=== PATIENT | male | born 1990 | race Caucasian/White ===

== ENCOUNTER 2018-06-21 02:09 | Inpatient (IN) | payer SELFPAY ==
[~2018-06-21] VITALS: Ht 188 cm; Wt 77.8 kg
[2018-06-21] VITALS (24 sets, daily range): BP systolic 116–134; BP diastolic 68–93
[~2018-06-21 02:09] MED LIST: ACHD5005 PO; AZIT-21 PO; CEPH-38 PO; CEPH-507 PO; CYCL10TA9 PO; DOXY100T2 PO; DXCC100C PO; HEPA100D33 IV; HYDR-2890 PO; HYDR-34 PO; HYDR118S10 PO; INSASP10V SQ; INSU100C; INSU100I14 SQ; INSU100I29 SQ; INSU100I5 SQ; INSU100V SC; INSU100V SQ; INSU100V6 SC; INSU100V6 SQ; K-ROCEP1PB IV; MONT10TA21 PO; NAPR-243 PO; NS10S IV; Nystatin PO; ONDA-42 SL; ONDA8TAB13 PO; ONDA8TAB6 PO; ONDA8TAB9 PO; OXYC-309 PO; PNT40TEC PO; RIFA300C39 PO; SULF1TAB35 PO; TRAM50TA2 PO; TRM50T PO; [UNRECOGNIZED DRUG - CODE] IV; [UNRECOGNIZED DRUG - CODE] IV
[2018-06-21] MEDS ORDERED: NS IV 1000 ML 1,000 ML IV ONE ×2 (02:14→03:00)
[2018-06-21] MEDS ORDERED: ONDANSETRON 4 MG/2 ML (SDV) Z0FRAN IVP ONE (02:15)
--- OUTSIDE RECORDS SUMMARY | 2018-06-21 02:15 | XMS REPORT ---
Author Author FINA OLMEDO Organization [facility] Address [address] [place] [address] Care Team Providers Care Gas Meter Checker Name Role Phone FINA OLMEDO Unavailable PROBLEMS Type Condition ICD9-CM Code KOI79-TL Code Onset Dates Condition Status SNOMED Code Problem Nephritis and nephropathy, not specified as acute or chronic, with other specified pathological lesion in kidney, in diseases classified elsewhere 583.81 Active 12961151 Problem Acute sinusitis, unspecified 461.9 Active 42133759 Problem Acute pharyngitis 462 Active 784606183 Problem Problems with sight V41.0 Active 9598757 Problem Routine general medical examination at health care facility V70.0 Active 662762820 Problem Other accidental fall from one level to another E884.9 Active 635113952 Problem Abdominal pain, generalized 789.07 Active 182915307 Problem Other chronic pain G89.29 Active 19928060 Problem Mood disorder F39 Active 44056243 Problem Type 1 diabetes mellitus without complications E10.9 Active 029463046 Problem Diabetes mellitus without mention of complication, type I [juvenile type], not stated as uncontrolled 250.01 Active 530744734 Problem Essential hypertension I10 Active 23644262 Problem Controlled diabetes mellitus type 1 without complications E10.9 Active 28020706 ALLERGIES No Known Allergies ENCOUNTERS Encounter Location Date Diagnosis [address] [id number] Jan, Mood disorder F39 ; Pain in right arm M79.601 and Type 1 diabetes mellitus without complications E10.9 [facility] [address] [facility] [id number] [address] [address] Jan, [facility] [address] [facility] [id number] [address] [address] Jan, [address] [place] [id number] Dec, Mood disorder F39 ; Other chronic pain G89.29 ; Pain in right arm M79.601 ; Controlled diabetes mellitus type 1 without complications E10.9 and Essential hypertension I10 [facility] [address] [facility] [id number], [place] [address] Dec, [facility] [address] [facility] [id number], [place] [address] 2542 Dec, Type 1 diabetes mellitus without complications E10.9 [facility] [id number] [place] [address] 2546 Jan, [facility] [address] [facility] [id number] [place] [address]97- 0448 Jan, [facility] [id number] [place] [address]344- 7519 Oct, [facility] [id number] [place] [address]4727- 6308 Oct, [facility] [id number] [place] [address]- 3386 Sep, [facility] [address]00565[place], [place] [address] 7[address] Sep, [facility] [address]00565100[place], [place] [address] 69[address] Aug, [facility] [address]00565[place], [place] [address] 3591 Aug, [facility] [address]65100[place], [place] [address] 7837 Aug, [facility] [address]00565[place], [place] [address] 254 Aug, [facility] [address] [id number], [place] [address] 2548 Aug, [facility] [address] [id number], [place] [address]- 2513 Mar, [facility] [id number] [place] [address]59- 1733 Mar, [facility] [address]65[address], [place] [address]- 7962 Jan, [facility] [address]65100[place], [place] [address]- 5296 Jan, [facility] [address]65[address], [place] [address]- 6737 Jan, [facility] [address]65100[place], [place] [address]- 1607 Dec, [facility] [address], [place] [address]- 8093 May, [facility] [address]65[address], [place] [address]- 6248 Mar, [facility] [address]65[address], [place] [address]- 2941 February, [facility] [address]65[address], [place] [address] 1626 February, [facility] [address], [place] [address]- 1304 Dec, [facility] [address]65[address], [place] [address]- 1095 Nov, [facility] [address]65[address], [place] [address]- 1523 Nov, [facility] [address] [id number], [place] [address]- 9361 Nov, [facility] [address]65[address], [place] [address]- 0994 Nov, [facility] [address] [address] Nov, IMMUNIZATIONS No Known Immunizations SOCIAL HISTORY Never Assessed REASON FOR VISIT [facility] PLAN OF CARE VITAL SIGNS Height 73 in 2018-01-27 Weight 165 lbs 2018-01-27 Heart Rate 80 bpm 2018-01-27 Respiratory Rate 16 2018-01-27 BMI 21.77 kg/m2 2018-01-27 Blood pressure systolic 120 mmHg 2018-01-27 Blood pressure diastolic 78 mmHg 2018-01-27 MEDICATIONS Medication Instructions Dosage Frequency Start Date End Date Duration Status Seroquel 200 MG Orally at bedtime 1 tablet Dec, 30 day(s) Active Nabumetone 750 MG Orally 2 times a day, PRN 1 tablet Jan, Active Humalog 100 UNIT/ML Subcutaneous 3 times a day inject 15 units, sliding scale 8h Jan, Active RESULTS No Results PROCEDURES No Known procedures INSTRUCTIONS MEDICATIONS ADMINISTERED No Known Medications
--- OUTSIDE RECORDS SUMMARY | 2018-06-21 02:15 | XMS REPORT ---
Author Author FINA OLMEDO Organization [facility] Address [address] [place] [address] Care Team Providers Care Tassel Snipper Name Role Phone FINA OLMEDO Unavailable PROBLEMS Type Condition ICD9-CM Code QBF22-EC Code Onset Dates Condition Status SNOMED Code Problem Nephritis and nephropathy, not specified as acute or chronic, with other specified pathological lesion in kidney, in diseases classified elsewhere 583.81 Active 92476420 Problem Acute sinusitis, unspecified 461.9 Active 73076687 Problem Acute pharyngitis 462 Active 928593314 Problem Problems with sight V41.0 Active 8520203 Problem Routine general medical examination at health care facility V70.0 Active 900617647 Problem Other accidental fall from one level to another E884.9 Active 727165487 Problem Abdominal pain, generalized 789.07 Active 191773300 Problem Other chronic pain G89.29 Active 29614345 Problem Mood disorder F39 Active 78909838 Problem Type 1 diabetes mellitus without complications E10.9 Active 023880200 Problem Diabetes mellitus without mention of complication, type I [juvenile type], not stated as uncontrolled 250.01 Active 098738931 Problem Essential hypertension I10 Active 58792065 Problem Controlled diabetes mellitus type 1 without complications E10.9 Active 97407420 ALLERGIES No Information ENCOUNTERS Encounter Location Date Diagnosis [address] [place] [id number] Jan, Mood disorder F39 ; Pain in right arm M79.601 and Type 1 diabetes mellitus without complications E10.9 [facility] [address] [facility] [id number] [address] 8206 Jan, [facility] [address] [id number] [address] [address] Jan, [address] [place] [id number] Dec, Mood disorder F39 ; Other chronic pain G89.29 ; Pain in right arm M79.601 ; Controlled diabetes mellitus type 1 without complications E10.9 and Essential hypertension I10 [facility] [address]100[place] [address] 130[address] Dec, [facility] [address] [id number] [address]- 2542 Dec, Type 1 diabetes mellitus without complications E10.9 [facility] [id number] [place] [address], [place] [address] 2546 Jan, [facility] [address] [facility] [id number] [place] [address], [place] [address]- 7671 Jan, [facility] [id number] [place] [address], [place] [address]- 8683 Oct, [facility] [id number] [place] [address] 80811- 9433 Oct, [facility] [id number] [place] [address] 69690- 0647 Sep, [facility] [address]100[place] [address]- 5992 Sep, [facility] [address] [place] [address] 399[address]- 2968 Aug, [facility] [address]100[place] [address]- 4763 Aug, [facility] [address]100[place] [address]- 2548 Aug, [facility] [address] [address] 2543 Aug, [facility] [address] [id number] [address]- 2546 Aug, [facility] [address] [address]- 3473 Mar, [facility] [id number] [place] [address] 37026- 2546 Mar, [facility] [address] [address]- 2026 Jan, [facility] [address]100[place] [address]- 2546 Jan, [facility] [address]100[place] [address]- 2546 Jan, [facility] [address] [address]- 0806 Dec, [facility] [address] [address]- 6846 May, [facility] [address] [place] [address] 50653- 9496 Mar, [facility] [address] [place] [address] 56125- 6566 February, [facility] [address] [address]- 2776 February, [facility] [address] [place] [address] 22577- 2405 Dec, [facility] [address] [address]- 0406 Nov, [facility] [address] [address]- 3626 Nov, [facility] [address] [address]- 2546 Nov, [facility] [address] [address]- 5426 Nov, [facility] [address] [address]- 4746 Nov, IMMUNIZATIONS No Known Immunizations SOCIAL HISTORY Never Assessed REASON FOR VISIT longterm rx PLAN OF CARE VITAL SIGNS MEDICATIONS Unknown Medications RESULTS No Results PROCEDURES No Known procedures INSTRUCTIONS MEDICATIONS ADMINISTERED No Known Medications
--- OUTSIDE RECORDS SUMMARY | 2018-06-21 02:15 | XMS REPORT ---
Author Author BARBER Allen Organization [facility] Address [address] [place] [address] Care Team Providers Care Sports Team Manager Name Role Phone BARBER Allen Unavailable PROBLEMS Type Condition ICD9-CM Code YLP03-DB Code Onset Dates Condition Status SNOMED Code Problem Nephritis and nephropathy, not specified as acute or chronic, with other specified pathological lesion in kidney, in diseases classified elsewhere 583.81 Active 13028512 Problem Acute sinusitis, unspecified 461.9 Active 21329423 Problem Acute pharyngitis 462 Active 099894635 Problem Problems with sight V41.0 Active 9125111 Problem Routine general medical examination at health care facility V70.0 Active 860427125 Problem Other accidental fall from one level to another E884.9 Active 372389088 Problem Abdominal pain, generalized 789.07 Active 008627340 Problem Other chronic pain G89.29 Active 35031844 Problem Mood disorder F39 Active 30493946 Problem Type 1 diabetes mellitus without complications E10.9 Active 162483738 Problem Diabetes mellitus without mention of complication, type I [juvenile type], not stated as uncontrolled 250.01 Active 866777854 Problem Essential hypertension I10 Active 46904079 Problem Controlled diabetes mellitus type 1 without complications E10.9 Active 41731478 ALLERGIES No Information ENCOUNTERS Encounter Location Date Diagnosis [address] [place] [id number] Jan, Mood disorder F39 ; Pain in right arm M79.601 and Type 1 diabetes mellitus without complications E10.9 [facility] [address] [facility] [id number] [address] Jan, [facility] [address] [facility] [id number] [address] [address] Jan, [address] [place] [address] Dec, Mood disorder F39 ; Other chronic pain G89.29 ; Pain in right arm M79.601 ; Controlled diabetes mellitus type 1 without complications E10.9 and Essential hypertension I10 [facility] [address]100[place] [address] 2546 Dec, [facility] [address]65100[place] [address] 2546 Dec, Type 1 diabetes mellitus without complications E10.9 [facility] [address] [place] [address] 2546 Jan, [facility] [address]65100[place] [address] 2546 Jan, [facility] [id number] [place] [address] 98[address]- 3492 Oct, [facility] [id number] [place] [address]12- 8332 Oct, [facility] [address]100[place] [address]- 9542 Sep, [facility] [address]65100[place] [address] 2546 Sep, [facility] [address]65100[place] [address] 2541 Aug, [facility] [address]65100[place] [address] 2546 Aug, [facility] [address]100[place] [address] 2546 Aug, [facility] [address]100[place] [address] 2546 Aug, [facility] [address]100[place] [address] 2546 Aug, [facility] [address]65100[place] [address] 2544 Mar, [facility] [address]100[place] [address] 2546 06 Mar, 2013 [facility] [address]100[place] [address]- 7726 16 Jan, 2013 [facility] [address] [id number] [place] [address]- 9576 Jan, [facility] [address]100[place] [address]- 8076 Jan, [facility] [address] [facility] [id number] [place] [address]- 0068 Dec, [facility] [address]100[place] [address]- 4477 May, [facility] [address]100[place] [address]- 2866 Mar, [facility] [address]100[place] [address]- 4063 February, [facility] [address]100[place] [address]- 3525 February, [facility] [address]100[place] [address]- 7623 Dec, [facility] [address]100[place] [address]- 8298 Nov, [facility] [address]100[place] [address]- 8066 15 Nov, 2011 [facility] [address] [id number] [address]- 8539 Nov, [facility] [address]100[place] [address]- 7416 Nov, [facility] [address] [id number] [address]- 8726 Nov, IMMUNIZATIONS No Known Immunizations SOCIAL HISTORY Never Assessed REASON FOR VISIT detention PLAN OF CARE VITAL SIGNS MEDICATIONS Medication Instructions Dosage Frequency Start Date End Date Duration Status NovoLog 100 unit/mL Subcutaneous 3 times a day inject 15 Units by Subcutaneous route 3 times per day before meals 8h 25 Aug, 2013 Active Lantus 100 UNIT/ML Subcutaneous 2 times a day Inject 35 units 12h 23 Dec, 2017 Active RESULTS No Results PROCEDURES No Known procedures INSTRUCTIONS MEDICATIONS ADMINISTERED No Known Medications
--- OUTSIDE RECORDS SUMMARY | 2018-06-21 02:15 | XMS REPORT ---
Author Author FINA OLMEDO Organization [facility] Address [address] [place] [address] Care Team Providers Care General Assistant Name Role Phone FINA OLMEDO Unavailable PROBLEMS Type Condition ICD9-CM Code EZE58-ZJ Code Onset Dates Condition Status SNOMED Code Problem Nephritis and nephropathy, not specified as acute or chronic, with other specified pathological lesion in kidney, in diseases classified elsewhere 583.81 Active 29478603 Problem Acute sinusitis, unspecified 461.9 Active 27214586 Problem Acute pharyngitis 462 Active 084567289 Problem Problems with sight V41.0 Active 0480957 Problem Routine general medical examination at health care facility V70.0 Active 155488227 Problem Other accidental fall from one level to another E884.9 Active 747765178 Problem Abdominal pain, generalized 789.07 Active 661141795 Problem Other chronic pain G89.29 Active 93929448 Problem Mood disorder F39 Active 85724748 Problem Type 1 diabetes mellitus without complications E10.9 Active 626210156 Problem Diabetes mellitus without mention of complication, type I [juvenile type], not stated as uncontrolled 250.01 Active 673185744 Problem Essential hypertension I10 Active 39562735 Problem Controlled diabetes mellitus type 1 without complications E10.9 Active 36400462 ALLERGIES No Known Allergies ENCOUNTERS Encounter Location Date Diagnosis [address] [id number] Jan, Mood disorder F39 ; Pain in right arm M79.601 and Type 1 diabetes mellitus without complications E10.9 [facility] [address] [facility] [id number] [address]40 Jan, [facility] [address] [facility] [id number] [address] 7629 Jan, [address] [place] [id number] Dec, Mood disorder F39 ; Other chronic pain G89.29 ; Pain in right arm M79.601 ; Controlled diabetes mellitus type 1 without complications E10.9 and Essential hypertension I10 [facility] [address] [facility] [id number], [place] [address]- 1625 Dec, [facility] [address] [facility] [id number], [place] [address]- 2544 Dec, Type 1 diabetes mellitus without complications E10.9 [facility] [id number] [place] [address] 2546 Jan, [facility] [address] [facility] [id number] [place] [address] 69480- 9204 Jan, [facility] [id number] [place] [address] 00404- 8734 Oct, [facility] [id number] [place] [address] 65310- 9019 Oct, [facility] [id number] [place] [address] 74128- 5224 Sep, [facility] [address]00565[place], [place] [address]- 7498 Sep, [facility] [address] [address]- 5636 Aug, [facility] [address] [address]- 5220 Aug, [facility] [address], [place] [address]- 6781 Aug, [facility] [address], [place] [address] 2548 Aug, [facility] [address] [id number] [address]- 2543 Aug, [facility] [address] [id number] [address]- 1314 Mar, [facility] [id number] [place] [address] 52243- 8118 Mar, [facility] [address], [place] [address]- 4077 Jan, [facility] [address], [place] [address]- 0316 Jan, [facility] [address], [place] [address]- 7806 Jan, [facility] [address], [place] [address]- 7251 Dec, [facility] [address] [id number] [address]- 3204 May, [facility] [address], [place] [address]- 8056 Mar, [facility] [address] [address]- 1528 February, [facility] [address] [address]- 0416 February, [facility] [address] [address]- 1347 Dec, [facility] [address] [address]- 7000 Nov, [facility] [address] [address]- 6537 Nov, [facility] [address] [id number] [address]- 6863 Nov, [facility] [address] [address]- 8068 Nov, [facility] [id number] [address]75 Nov, IMMUNIZATIONS No Known Immunizations SOCIAL HISTORY Never Assessed REASON FOR VISIT [facility] PLAN OF CARE VITAL SIGNS Height 73 in 2018-01-13 Weight 163 lbs 2018-01-13 Heart Rate 70 bpm 2018-01-13 Respiratory Rate 16 2018-01-13 BMI 21.50 kg/m2 2018-01-13 Blood pressure systolic 132 mmHg 2018-01-13 Blood pressure diastolic 90 mmHg 2018-01-13 MEDICATIONS Medication Instructions Dosage Frequency Start Date End Date Duration Status Naproxen 500 MG Orally every 12 hrs 1 tablet with food or milk as needed 12h Dec, Active Seroquel 100 mg Orally at bedtime 1 tablet Dec, 30 day(s) Active Lisinopril 5 MG Orally Once a day 1 tablet 24h Dec, 30 day(s) Active RESULTS No Results PROCEDURES No Known procedures INSTRUCTIONS MEDICATIONS ADMINISTERED No Known Medications
--- OUTSIDE RECORDS SUMMARY | 2018-06-21 02:15 | XMS REPORT ---
Author Author FINA OLMEDO Organization [facility] Address [address] [place] [address] Care Team Providers Care Lean Manufacturing Specialist Name Role Phone FINA OLMEDO Unavailable PROBLEMS Type Condition ICD9-CM Code [id number] Code Onset Dates Condition Status SNOMED Code Problem Nephritis and nephropathy, not specified as acute or chronic, with other specified pathological lesion in kidney, in diseases classified elsewhere 583.81 Active 76225574 Problem Acute sinusitis, unspecified 461.9 Active 39385501 Problem Acute pharyngitis 462 Active 836932133 Problem Problems with sight V41.0 Active 4936065 Problem Routine general medical examination at health care facility V70.0 Active 327086465 Problem Other accidental fall from one level to another E884.9 Active 509425676 Problem Abdominal pain, generalized 789.07 Active 711677455 Problem Other chronic pain G89.29 Active 36127982 Problem Mood disorder F39 Active 39785548 Problem Type 1 diabetes mellitus without complications E10.9 Active 909852558 Problem Diabetes mellitus without mention of complication, type I [juvenile type], not stated as uncontrolled 250.01 Active 067401727 Problem Essential hypertension I10 Active 86957597 Problem Controlled diabetes mellitus type 1 without complications E10.9 Active 47924559 ALLERGIES No Information ENCOUNTERS Encounter Location Date Diagnosis [address] [place] [id number] Jan, Mood disorder F39 ; Pain in right arm M79.601 and Type 1 diabetes mellitus without complications E10.9 [facility] [address] [facility] [id number] [address] Jan, [facility] [id number] [address] Jan, [address] [place] [id number] Dec, Mood disorder F39 ; Other chronic pain G89.29 ; Pain in right arm M79.601 ; Controlled diabetes mellitus type 1 without complications E10.9 and Essential hypertension I10 [facility] [address] [address] Dec, [facility] [id number] [address] Dec, Type 1 diabetes mellitus without complications E10.9 [facility] [id number] [place] [address], [place] [address] Jan, [facility] [address] [facility] [id number] [place] [address], [place] [address] Jan, [facility] [id number] [place] [address], [place] [address] Oct, [facility] [id number] [place] [address] Oct, [facility] [id number] [place] [address] Sep, [facility] [address], [place] [address] Sep, [facility] [address] [place] [address] Aug, [facility] [address], [place] [address] Aug, [facility] [address], [place] [address] Aug, [facility] [address], [place] [address] Aug, [facility] [address] [address] Aug, [facility] [address], [place] [address] Mar, [facility] [id number] [place] [address] Mar, [facility] [address] [address] Jan, [facility] [address], [place] [address] Jan, [facility] [address], [place] [address] Jan, [facility] [address], [place] [address] Dec, [facility] [address], [place] [address] May, [facility] [address], [place] [address] Mar, [facility] [address] [place] [address] February, [facility] [address], [place] [address] February, [facility] [address], [place] [address] Dec, [facility] [address], [place] [address] Nov, [facility] [address], [place] [address] Nov, [facility] [address], [place] [address] Nov, [facility] [address], [place] [address] Nov, [facility] [address], [place] [address] Nov, IMMUNIZATIONS No Known Immunizations SOCIAL HISTORY Never Assessed REASON FOR VISIT penitentiary f/u PLAN OF CARE VITAL SIGNS MEDICATIONS Unknown Medications RESULTS No Results PROCEDURES No Known procedures INSTRUCTIONS MEDICATIONS ADMINISTERED No Known Medications
--- OUTSIDE RECORDS SUMMARY | 2018-06-21 02:15 | XMS REPORT ---
Author Author FINA OLMEDO Organization [facility] Address [address] [place] [address] Care Team Providers Care Draw End Hand Name Role Phone FINA OLMEDO Unavailable PROBLEMS Type Condition ICD9-CM Code WGR05-SP Code Onset Dates Condition Status SNOMED Code Problem Nephritis and nephropathy, not specified as acute or chronic, with other specified pathological lesion in kidney, in diseases classified elsewhere 583.81 Active 84432409 Problem Acute sinusitis, unspecified 461.9 Active 00798680 Problem Acute pharyngitis 462 Active 531331437 Problem Problems with sight V41.0 Active 6872329 Problem Routine general medical examination at health care facility V70.0 Active 607533793 Problem Other accidental fall from one level to another E884.9 Active 192184817 Problem Abdominal pain, generalized 789.07 Active 173912688 Problem Other chronic pain G89.29 Active 10834673 Problem Mood disorder F39 Active 73529381 Problem Type 1 diabetes mellitus without complications E10.9 Active 324325346 Problem Diabetes mellitus without mention of complication, type I [juvenile type], not stated as uncontrolled 250.01 Active 277930192 Problem Essential hypertension I10 Active 04850929 Problem Controlled diabetes mellitus type 1 without complications E10.9 Active 86242854 ALLERGIES No Information ENCOUNTERS Encounter Location Date Diagnosis [address] [place] [id number] Jan, Mood disorder F39 ; Pain in right arm M79.601 and Type 1 diabetes mellitus without complications E10.9 [facility] [address] [facility] [id number] [address] Jan, [facility] [id number] [address] Jan, [address] [place] [id number] Dec, Mood disorder F39 ; Other chronic pain G89.29 ; Pain in right arm M79.601 ; Controlled diabetes mellitus type 1 without complications E10.9 and Essential hypertension I10 [facility] [address], [place] [address] Dec, [facility] [id number] [address] Dec, Type 1 diabetes mellitus without complications E10.9 [facility] [id number] [place] [address], [place] [address] Jan, [facility] [address] [facility] [id number] [place] [address], [place] [address] Jan, [facility] [id number] [place] [address], [place] [address] Oct, [facility] [id number] [place] [address] Oct, [facility] [id number] [place] [address] Sep, [facility] [address], [place] [address] Sep, [facility] [address] [place] [address] Aug, [facility] [address], [place] [address] Aug, [facility] [address], [place] [address] Aug, [facility] [address], [place] [address] Aug, [facility] [id number], [place] [address] Aug, [facility] [address], [place] [address] Mar, [facility] [id number] [place] [address] Mar, [facility] [id number], [place] [address] Jan, [facility] [address], [place] [address] Jan, [facility] [address], [place] [address] Jan, [facility] [address], [place] [address] Dec, [facility] [address], [place] [address] May, [facility] [address], [place] [address] Mar, [facility] [address], [place] [address] February, [facility] [address], [place] [address] February, [facility] [address], [place] [address] Dec, [facility] [address], [place] [address] Nov, [facility] [address], [place] [address] Nov, [facility] [id number], [place] [address] Nov, [facility] [id number], [place] [address] Nov, [facility] [address], [place] [address] Nov, IMMUNIZATIONS No Known Immunizations SOCIAL HISTORY Never Assessed REASON FOR VISIT Weight check-fdc. CBrumbackRN PLAN OF CARE VITAL SIGNS Height 73 in 2018-01-20 Weight 166 lbs 2018-01-20 BMI 21.90 kg/m2 2018-01-20 MEDICATIONS Unknown Medications RESULTS No Results PROCEDURES No Known procedures INSTRUCTIONS MEDICATIONS ADMINISTERED No Known Medications
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
[2018-06-21 02:31] LABS: BASOPHILS % (AUTO) 0 % (0-10); EOSINOPHILS % (AUTO) 0 % (0-10); HEMATOCRIT 43 % (40-54); HEMOGLOBIN 14.9 G/DL (13.3-17.7); LYMPHOCYTES # (AUTO) 2.9 X 10^3 (1.0-4.0); LYMPHOCYTES % (AUTO) 13 % (12-44); MEAN CORPUSCULAR HEMOGLOBIN 29 PG (25-34); MEAN CORPUSCULAR HGB CONC 34 G/DL (32-36); MEAN CORPUSCULAR VOLUME 85 FL (80-99); MEAN PLATELET VOLUME 10.2 FL (7.4-10.4); MONOCYTES # (AUTO) 1.3 X 10^3 (0.0-1.0); MONOCYTES % (AUTO) 6 % (0-12); NEUTROPHILS # (AUTO) 17.7 X 10^3 (1.8-7.8); NEUTROPHILS % (AUTO) 81 % (42-75); PLATELET COUNT 363 10^3/uL (130-400); RED BLOOD COUNT 5.09 10^6/uL (4.35-5.85); RED CELL DISTRIBUTION WIDTH 12.5 % (10.0-14.5); WHITE BLOOD COUNT 21.9 10^3/uL (4.3-11.0)
[2018-06-21 02:50] LABS: ABG BASE EXCESS -14.8 MMOL/L (-2.5-2.5); ABG OXYGEN SATURATION 93 % (94-100); ABG PCO2 28 MMHG (35-45); ABG PO2 68 MMHG (79-93); ABG TCO2 12.4 MMOL/L (21.0-31.0)
[2018-06-21 02:51] LABS: ALLENS TEST YES-POS; INSPIRED O2 RA
[2018-06-21 02:52] LABS: PATIENT TEMP 96.4; VENTILATOR NO
[2018-06-21 02:53] LABS: ABG PH 7.22 (7.37-7.43)
[2018-06-21] MEDS ORDERED: SODIUM BICARB 8.4% 50 MEQ/50 ML (ABBOTT) SYR ONE (02:56)
[2018-06-21 02:57] LABS: ALANINE AMINOTRANSFERASE 33 U/L (0-55); ALBUMIN 3.9 GM/DL (3.2-4.5); ALKALINE PHOSPHATASE 125 U/L (40-136); AMYLASE 55 U/L (25-125); BAND NEUTROPHILS 0 %; BASOPHILS % (MANUAL) 0 %; BILIRUBIN,TOTAL 0.5 MG/DL (0.1-1.0); BUN/CREATININE RATIO 18; CALCIUM 8.9 MG/DL (8.5-10.1); CHLORIDE 93 MMOL/L (98-107); CREATININE SERUM 1.76 MG/DL (0.60-1.30); EOSINOPHILS % (MANUAL) 0 %; GFR ESTIMATED 46; LIPASE 20 U/L (8-78); LYMPHOCYTES % (MANUAL) 13 %; MONOCYTES % (MANUAL) 9 %; NEUTROPHILS % (MANUAL) 78 %; POTASSIUM 4.7 MMOL/L (3.6-5.0); RBC MORPH NORMAL; SODIUM 130 MMOL/L (135-145); TOTAL PROTEIN 6.6 GM/DL (6.4-8.2); TOXIC GRANULATION/VACUOLAZATIO 1+
[2018-06-21 03:00] LABS: CARBON DIOXIDE 9 MMOL/L (21-32); GLUCOSE 536 MG/DL (70-105)
[2018-06-21] MEDS ORDERED: inSUlin (REGULAR) HUMAN 1 UNIT/0.01 ML (CHARGE PER UNIT) IV ONE (03:00)
[2018-06-21] MEDS ORDERED: SODIUM BICARB 8.4% 50 MEQ/50 ML (ABBOTT) SYR IV ONE (03:00)
[2018-06-21] MEDS ORDERED: inSUlin (REGULAR) HUMAN 1 UNIT/0.01 ML (CHARGE PER UNIT) ONE ×2 (03:09→04:04)
[2018-06-21] MEDS ORDERED: NORMAL SALINE 250 ML ONE (04:02)
--- OUTSIDE RECORDS SUMMARY | 2018-06-21 04:02 | XMS REPORT | Continuity of Care Document ---
Author Author [facility] Address Unknown Phone Unavailable Allergies Active Description Code Type Severity Reaction Onset Reported/Identified Relationship to Patient Clinical Status Yes No Known Drug Allergies [id number] Drug Allergy Unknown N/A 04/24/2011 Medications There [...] 09/09/2013 GAMALIEL GIRON, ROCAEL Eldridge Ot V06.1 [id number], COMBINED [ 09/09/2013 GAMALIEL GIRON, ROCAEL Eldridge [...] DEPENDENCE, CIGARETTES, UNCOMPL 11/26/2015 EDU GIRON, BOONE Posye Ot L02.512 CUTANEOUS ABSCESS OF LEFT HAND [...] FINGER 12/02/2015 ANDREI APPIAH MD Ot Z79.4 INTERMEDIATE (CURRENT) USE OF INSULIN 04/11/2018 ELDER GIRON, [...] NONVE 04/13/2018 SUMIT SHERMAN DOI Ot Z79.4 INTERMEDIATE (CURRENT) USE OF INSULIN 04/13/2018 SUMIT SHERMAN DOI Ot Z86.59 PERSONAL HISTORY OF OTHER MENTAL AND BEH 04/13/2018 BIRD SHERMAN DO Ot Z91.19 PATIENT'S NONCOMPLIANCE W [facility] Procedures Code Description Performed By Performed On 78.53 INT FIXATION-RADIUS/ULNA 09/05/2013 79.32 OP RED-INT FIX RAD/ULNA 09/05/2013 79.62 DEBRID OPN FX-RADIUS/ULN 09/05/2013 93.59 IMMOBILIZ/WOUND ATTN NEC 09/05/2013 45.14 CLOSED [ENDOSCOPY] BIOPSY OF SMALL INTES 11/02/2014 [id number] DRAINAGE OF LEFT HAND SKIN , EXTERNAL [...] rickettsii IgG antibody assay (units/volume) < <1:16 [place] spotted fever panel < <1:10 Francisella tularensis [...] Status Pt. Type Provider Facility Loc./Unit Complaint [id number] 10/11/2013 14:02:00 10/11/2013 23:59:59 CLS Outpatient OKSANA BRYANT DO [id number] 09/13/2013 12:42:00 09/13/2013 23:59:59 CLS Outpatient OKSANA BRYANT DO [id number] 02/02/2013 15:29:00 02/02/2013 23:59:59 CLS Outpatient DIXON OROZCO DDS [id number] 01/04/2013 14:15:00 01/04/2013 23:59:59 CLS Outpatient CYNDY LA APRN [id number] 02/02/2013 12:01:00 Document Registration [id number] 01/27/2018 09:40:00 01/27/2018 23:59:59 CLS Outpatient FINA OLMEDO APRN [facility] [id number] 04/11/2018 19:38:00 04/13/2018 13:10:00 DIS Inpatient WHIT DO BIRD [facility] 4TH DKA,HEADACHE W PHOTOPHOBIC,TICK EXPOSURE,POSITIVE [id number] 11/28/2015 21:33:00 12/02/2015 14:35:00 DIS Inpatient BIJAL GIRON, ANDREI Lino [facility] 4TH LEFT HAND CELLULITIS WITH ABSCESS [id number] 11/26/2015 16:48:00 11/26/2015 21:13:00 DIS Emergency EDU GIRON, BOONE Posey [facility] ER L HAND FINGER REDNESS/ SWELLING [id number] 07/24/2015 13:26:00 07/24/2015 23:59:59 CLS Outpatient YUNIOR GARAY DO [facility] RAD FRACTURE [id number] 10/31/2014 06:32:00 11/04/2014 10:30:00 DIS Inpatient HERIBERTO GIRON, YUNIOR Eldridge [facility] 4TH DKA;ACUTE RENAL FAILURE [id number] 08/01/2014 21:40:00 08/03/2014 10:35:00 DIS Inpatient FINA MCCARTY DO Via [facility] 4TH MILD DKA;POORLY CONTROLLED DIABETES [id number] 02/28/2014 12:30:00 02/28/2014 23:59:59 CLS Outpatient ROSEMARY FRIEDMAN MD Via [facility] KLEBSIELLA INFECTION, SEPSIS,OSTEOMYELYTIS (R)ARM [id number] 02/16/2014 17:29:00 02/22/2014 11:50:00 DIS Inpatient FINA MCCARTY DO Via [address] CLINICAL SEPSIS, LEUKOPENIA, HYPOKALEMIA, ABD PAIN [id number] 02/16/2014 11:10:00 02/16/2014 23:59:59 CLS Outpatient ROSEMARY FRIEDMAN MD Via [facility] OSTEOMYLITIS [id number] 02/09/2014 12:00:00 02/09/2014 23:59:59 CLS Outpatient ROSEMARY FRIEDMAN MD Via [facility] OSTEOMYLITIS, IV ANTIBIOTIC [id number] 02/03/2014 17:00:00 02/03/2014 23:59:59 CLS Outpatient ROSEMARY FRIEDMAN MD Via [facility] OSTEOMYLITIS, IV ANTIBIOTIC [id number] 01/26/2014 13:48:00 01/26/2014 23:59:59 CLS Outpatient ROSEMARY FRIEDMAN MD Via [facility] INFECTION, IV MED [id number] 01/20/2014 13:10:00 01/20/2014 23:59:59 CLS Outpatient ROSEMARY FRIEDMAN MD Via [facility] OSTEOMYLITIS [id number] 12/30/2013 13:39:00 12/30/2013 19:57:00 DIS Emergency JOURDAN NORMAN [facility] ER VOMITING [id number] 12/15/2013 18:09:00 12/15/2013 19:57:00 DIS Emergency BOONE SORENSEN MD Via [facility] ER VOMITING [id number] 09/05/2013 16:58:00 09/09/2013 12:45:00 DIS Inpatient ROCAEL ALSTON MD Via [facility] SURGICAL FX RT SHOULDER [facility] 07/25/2015 05:26:41 ACT Document Registration
[2018-06-21 04:26] LABS: BILIRUBIN,URINE NEGATIVE (NEGATIVE); GLUCOSE, URINE (UA) 4+ (NEGATIVE); KETONES,URINE 4+ (NEGATIVE); LEUKOCYTE ESTERASE ,URINE NEGATIVE (NEGATIVE); NITRITE,URINE NEGATIVE (NEGATIVE); PH,URINE 5 (5-9); PROTEIN,URINE NEGATIVE (NEGATIVE); UROBILINOGEN,URINE NORMAL (NORMAL)
[2018-06-21 04:27] LABS: CLARITY,URINE CLEAR; COLOR,URINE Y
[2018-06-21 04:29] LABS: AMORPHOUS SEDIMENT,UR MOD AMOR URATES /LPF; BACTERIA,URINE NEGATIVE /HPF
[2018-06-21 04:32] LABS: AMPHETAMINE SCREEN, URINE POSITIVE (NEGATIVE); BARBITURATE SCREEN URINE NEGATIVE (NEGATIVE); BENZODIAZEPINES SCREEN URINE NEGATIVE (NEGATIVE); CANNABINOID SCREEN, URINE NEGATIVE (NEGATIVE); COCAINE SCREEN URINE NEGATIVE (NEGATIVE); METHADONE STAT NEGATIVE (NEGATIVE); METHAMPHETAMINE SCREEN URINE S POSITIVE (NEGATIVE); OPIATE SCREEN URINE NEGATIVE (NEGATIVE); OXYCODONE STAT NEGATIVE (NEGATIVE); PROPOXYPHENE STAT NEGATIVE (NEGATIVE); TRICYCLIC ANTIDEPRESSANTS SCRE NEGATIVE (NEGATIVE)
[2018-06-21] MEDS ORDERED: 1/2 NS W/KCL 20 MEQ/L 1,000 ML IV ONE (05:10)
[2018-06-21] MEDS ORDERED: CATHETER FLUSH 10 ML SYR IV PRN (05:15)
[2018-06-21] MEDS ORDERED: NS IV 1000 ML X 1 WIDE OPEN IV ONE (05:15)
[2018-06-21] MEDS ORDERED: ONDANSETRON 4 MG/2 ML (SDV) Z0FRAN IV PRN (05:15)
[2018-06-21] MEDS: 1/2 NS W/KCL 20 MEQ/L 1,000 ML IV SCH ×5 (05:18→18:28)
[2018-06-21] MEDS: REGULAR inSUlin DRIP 250 UNITS/NS 250 ML IV SCH ×2 (05:18)
[2018-06-21] MEDS: D5 1/2 NS W/KCL 20 MEQ/L 1,000 ML IV SCH ×6 (05:19→17:23)
[2018-06-21] MEDS: DEXTROSE 10% IV SOLUTION 1,000 ML IV SCH ×3 (05:19→15:03)
[2018-06-21] MEDS: CATHETER FLUSH 10 ML SYR IV SCH ×3 (05:20→22:36)
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
[2018-06-21] MEDS: POTASSIUM CL 10MEQ/50ML IVPB 50 ML IV SCH (06:06)
[2018-06-21] MEDS: KCL 20 MEQ TAB (K-DUR) PO SCH (06:06)
[2018-06-21] MEDS: MAGNESIUM 1 GM/100 ML IVPB 100 ML IV SCH (06:06)
[2018-06-21 06:58] LABS: BUN/CREATININE RATIO 20; CALCIUM 8.3 MG/DL (8.5-10.1); CARBON DIOXIDE 17 MMOL/L (21-32); CHLORIDE 103 MMOL/L (98-107); CREATININE SERUM 1.33 MG/DL (0.60-1.30); GFR ESTIMATED > 60; GLUCOSE 236 MG/DL (70-105); SODIUM 137 MMOL/L (135-145)
[2018-06-21 08:26] LABS: BUN/CREATININE RATIO 19; CARBON DIOXIDE 19 MMOL/L (21-32); CHLORIDE 103 MMOL/L (98-107); CREATININE SERUM 1.25 MG/DL (0.60-1.30); GFR ESTIMATED > 60; GLUCOSE 202 MG/DL (70-105); SODIUM 135 MMOL/L (135-145)
--- NOTE | 2018-06-21 10:10 | History & Physicial ([facility]) ---
HPI History of Present Illness: 28 year old male presented to the ED early this morning with a report of Type I Diabetes, not feeling well for several days and not eating -- he has been nauseated but not had any vomiting, and has not taken his insulin in several days. He was found to be in DKA and treatment was initiated per protocol, and the patient was admitted to the ICU. When seen at the time of the exam later in the morning, the patient was sleepy, but arousable, and states that he had stopped taking his insulin because he was almost out and "just didn't feel like it". He states he was supposed to set up an appointment at [facility] to establish care and have insulin prescribed, but he has "never gotten around to it". He states he would like to establish care at [facility], and we will plan to make arrangements for this after discharge. Source: patient, RN/MD, RN notes reviewed, old records Exam Limitations: no limitations Date seen by provider: Jun 21, 2018 Time Seen by Provider: 10:45 Attending Physician Annika Valente DO PCP No Local Physician Consult Date of Admission Jun 21, 2018 at 03:05 Home Medications Home Medications Reviewed patient Home Medication Reconciliation performed by pharmacy medication reconciliations biomedical instrument technician and/or nursing. Patients Allergies have been reviewed. Allergies Coded Allergies: No Known Drug Allergies (Unverified , 06/21/18) WNP-Heeolo-Knrfsz Hx Patient Social History Alcohol Use: Occasionally Uses Recreational Drug Use: Yes (METH, THC) Drug of Choice: METH, MARIJUANA Smoking Status: Current Everyday Smoker (1 PPD) Former smoker/When Quit: Jan 18, 2011 Type Used: Cigarettes Recent Foreign Travel: No Contact w/other who traveled: No Recent Hopitalizations: No Recent Infectious Disease Expo: No Physical Abuse Screen: No Sexual Abuse: No Immunizations Up To Date Tetanus Booster (TDap): Less than 5yrs Date of Pneumonia Vaccine: February 22, 2014 Date of Influenza Vaccine: Jul 20, 2013 Past Medical History Type I Diabetes, diagnosed age 9 Hx MRSA infection Polysubstance Abuse - THC, Meth Tobacco Abuse Medical Non-Compliance Family Medical History Significant Family History: Diabetes Family History: Cancer 03 FATHER, Onset:Unknown Family history: Diabetes mellitus 03 FATHER, Onset:Unknown Review of Systems ([facility]) Constitutional: malaise EENTM: no symptoms reported Cardiovascular: no symptoms reported Gastrointestinal: loss of appetite, nausea; No vomiting Genitourinary: no symptoms reported Musculoskeletal: no symptoms reported Skin: no symptoms reported Psychiatric/Neurological: No Symptoms Reported Reviewed Test Results Reviewed Test Results Lab Laboratory Tests Test 06/21/18 02:16 06/21/18 02:26 06/21/18 02:37 06/21/18 03:56 Range/Units White Blood Count 21.9 H 4.3-11.0 10^3/uL Red Blood Count 5.09 4.35-5.85 10^6/uL Hemoglobin 14.9 13.3-17.7 G/DL Hematocrit 43 40-54 % Mean Corpuscular Volume 85 80-99 FL Mean Corpuscular Hemoglobin 29 25-34 PG Mean Corpuscular Hemoglobin Concent 34 32-36 G/DL Red Cell Distribution Width 12.5 10.0-14.5 % Platelet Count 363 130-400 10^3/uL Mean Platelet Volume 10.2 7.4-10.4 FL Neutrophils (%) (Auto) 81 H 42-75 % Lymphocytes (%) (Auto) 13 12-44 % Monocytes (%) (Auto) 6 0-12 % Eosinophils (%) (Auto) 0 0-10 % Basophils (%) (Auto) 0 0-10 % Neutrophils # (Auto) 17.7 H 1.8-7.8 X 10^3 Lymphocytes # (Auto) 2.9 1.0-4.0 X 10^3 Monocytes # (Auto) 1.3 H 0.0-1.0 X 10^3 Eosinophils # (Auto) 0.0 0.0-0.3 10^3/uL Basophils # (Auto) 0.0 0.0-0.1 10^3/uL Neutrophils % (Manual) 78 % Lymphocytes % (Manual) 13 % Monocytes % (Manual) 9 % Eosinophils % (Manual) 0 % Basophils % (Manual) 0 % Band Neutrophils 0 % Toxic Granulation 1+ Blood Morphology Comment NORMAL Sodium Level 130 L 135-145 MMOL/L Potassium Level 4.7 3.6-5.0 MMOL/L Chloride Level 93 L 98-107 MMOL/L Carbon Dioxide Level 9 *L 21-32 MMOL/L Anion Gap 28 H 5-14 MMOL/L Blood Urea Nitrogen 31 H 7-18 MG/DL Creatinine 1.76 H 0.60-1.30 MG/DL Estimat Glomerular Filtration Rate 46 BUN/Creatinine Ratio 18 Glucose Level 536 *H 70-105 MG/DL Calcium Level 8.9 8.5-10.1 MG/DL Corrected Calcium 9.0 8.5-10.1 MG/DL Magnesium Level 2.0 1.8-2.4 MG/DL Total Bilirubin 0.5 0.1-1.0 MG/DL Aspartate Amino Transf (AST/SGOT) 22 5-34 U/L Alanine Aminotransferase (ALT/SGPT) 33 0-55 U/L Alkaline Phosphatase 125 40-136 U/L Total Protein 6.6 6.4-8.2 GM/DL Albumin 3.9 3.2-4.5 GM/DL Amylase Level 55 25-125 U/L Lipase 20 8-78 U/L Serum Alcohol < 10 <10 MG/DL Glucometer 438 *H 404 *H 70-110 MG/DL Blood Gas Puncture Site L RAD Blood Gas Patient Temperature 96.4 Arterial Blood pH 7.22 *L 7.37-7.43 Arterial Blood Partial Pressure CO2 28 L 35-45 MMHG Arterial Blood Partial Pressure O2 68 L 79-93 MMHG Arterial Blood HCO3 12 *L 23-27 MMOL/L Arterial Blood Total CO2 12.4 L 21.0-31.0 MMOL/L Arterial Blood Oxygen Saturation 93 L 94-100 % Arterial Blood Base Excess -14.8 L -2.5-2.5 MMOL/L Garret Test YES-POS Blood Gas Ventilator Setting NO Blood Gas Inspired Oxygen RA Test 06/21/18 04:05 06/21/18 06:31 06/21/18 06:35 06/21/18 07:28 Range/Units Urine Color Y Urine Clarity CLEAR Urine pH 5 5-9 Urine Specific [place] 1.025 H 1.016-1.022 Urine Protein NEGATIVE NEGATIVE Urine Glucose (UA) 4+ H NEGATIVE Urine Ketones 4+ H NEGATIVE Urine Nitrite NEGATIVE NEGATIVE Urine Bilirubin NEGATIVE NEGATIVE Urine Urobilinogen NORMAL NORMAL MG/DL Urine Leukocyte Esterase NEGATIVE NEGATIVE Urine RBC (Auto) NEGATIVE NEGATIVE Urine RBC NONE /HPF Urine WBC NONE /HPF Urine Squamous Epithelial Cells NONE /HPF Urine Crystals PRESENT H /LPF Urine Amorphous Sediment MOD JARED URATES H /LPF Urine Bacteria NEGATIVE /HPF Urine Casts NONE /LPF Urine Mucus SMALL H /LPF Urine Culture Indicated NO Urine Opiates Screen NEGATIVE NEGATIVE Urine Oxycodone Screen NEGATIVE NEGATIVE Urine Methadone Screen NEGATIVE NEGATIVE Urine Propoxyphene Screen NEGATIVE NEGATIVE Urine Barbiturates Screen NEGATIVE NEGATIVE Ur Tricyclic Antidepressants Screen NEGATIVE NEGATIVE Urine Phencyclidine Screen NEGATIVE NEGATIVE Urine Amphetamines Screen POSITIVE H NEGATIVE Urine Methamphetamines Screen POSITIVE H NEGATIVE Urine Benzodiazepines Screen NEGATIVE NEGATIVE Urine Cocaine Screen NEGATIVE NEGATIVE Urine Cannabinoids Screen NEGATIVE NEGATIVE Glucometer 218 H 191 H 70-110 MG/DL Sodium Level 137 135-145 MMOL/L Potassium Level 4.0 3.6-5.0 MMOL/L Chloride Level 103 98-107 MMOL/L Carbon Dioxide Level 17 L 21-32 MMOL/L Anion Gap 17 H 5-14 MMOL/L Blood Urea Nitrogen 26 H 7-18 MG/DL Creatinine 1.33 H 0.60-1.30 MG/DL Estimat Glomerular Filtration Rate > 60 BUN/Creatinine Ratio 20 Glucose Level 236 H 70-105 MG/DL Calcium Level 8.3 L 8.5-10.1 MG/DL Test 06/21/18 08:00 06/21/18 08:34 06/21/18 09:27 06/21/18 10:30 Range/Units Sodium Level 135 135-145 MMOL/L Potassium Level 4.0 3.6-5.0 MMOL/L Chloride Level 103 98-107 MMOL/L Carbon Dioxide Level 19 L 21-32 MMOL/L Anion Gap 13 5-14 MMOL/L Blood Urea Nitrogen 24 H 7-18 MG/DL Creatinine 1.25 0.60-1.30 MG/DL Estimat Glomerular Filtration Rate > 60 BUN/Creatinine Ratio 19 Glucose Level 202 H 70-105 MG/DL Calcium Level 8.0 L 8.5-10.1 MG/DL Glucometer 185 H 167 H 130 H 70-110 MG/DL Test 06/21/18 11:12 06/21/18 11:59 06/21/18 12:15 06/21/18 16:12 Range/Units Glucometer 138 H 151 H 131 H 70-110 MG/DL White Blood Count 12.9 H 4.3-11.0 10^3/uL Red Blood Count 4.69 4.35-5.85 10^6/uL Hemoglobin 13.7 13.3-17.7 G/DL Hematocrit 40 40-54 % Mean Corpuscular Volume 84 80-99 FL Mean Corpuscular Hemoglobin 29 25-34 PG Mean Corpuscular Hemoglobin Concent 35 32-36 G/DL Red Cell Distribution Width 12.3 10.0-14.5 % Platelet Count 263 130-400 10^3/uL Mean Platelet Volume 9.6 7.4-10.4 FL Neutrophils (%) (Auto) 78 H 42-75 % Lymphocytes (%) (Auto) 13 12-44 % Monocytes (%) (Auto) 9 0-12 % Eosinophils (%) (Auto) 0 0-10 % Basophils (%) (Auto) 0 0-10 % Neutrophils # (Auto) 10.1 H 1.8-7.8 X 10^3 Lymphocytes # (Auto) 1.7 1.0-4.0 X 10^3 Monocytes # (Auto) 1.1 H 0.0-1.0 X 10^3 Eosinophils # (Auto) 0.0 0.0-0.3 10^3/uL Basophils # (Auto) 0.0 0.0-0.1 10^3/uL Sodium Level 136 135-145 MMOL/L Potassium Level 3.7 3.6-5.0 MMOL/L Chloride Level 104 98-107 MMOL/L Carbon Dioxide Level 21 21-32 MMOL/L Anion Gap 11 5-14 MMOL/L Blood Urea Nitrogen 19 H 7-18 MG/DL Creatinine 1.17 0.60-1.30 MG/DL Estimat Glomerular Filtration Rate > 60 BUN/Creatinine Ratio 16 Glucose Level 163 H 70-105 MG/DL Calcium Level 8.0 L 8.5-10.1 MG/DL Physical Exam-([facility]) Physical Exam Vital Signs VS - Last 72 Hours, by Label 06/21/18 06/21/18 06/21/18 06/21/18 02:15 03:50 05:08 05:10 Temp 96.4 97.2 Pulse 112 115 106 109 Resp 10 18 12 B/P (MAP) 127/69 (88) 119/66 126/69 (88) Pulse Ox 99 99 96 O2 Delivery Room Air Nasal Cannula Room Air 06/21/18 06/21/18 06/21/18 06/21/18 05:30 05:34 05:45 06:00 Pulse 101 105 101 Resp 11 13 12 B/P (MAP) 125/81 (96) 124/80 (95) 126/78 (94) Pulse Ox 98 96 99 100 O2 Delivery Room Air Room Air Room Air Room Air 06/21/18 06/21/18 06/21/18 06/21/18 06:15 06:30 06:45 07:00 Pulse 99 101 101 95 Resp 14 11 14 B/P (MAP) 122/79 (93) 130/68 (88) 123/78 (93) Pulse Ox 99 99 100 O2 Delivery Room Air Room Air Room Air 06/21/18 06/21/18 06/21/18 06/21/18 07:00 07:26 08:00 08:00 Temp 97.8 Pulse 99 97 Resp 14 11 B/P (MAP) 125/80 (95) 129/85 (100) Pulse Ox 100 100 100 O2 Delivery Room Air Room Air Room Air 06/21/18 06/21/18 06/21/18 06/21/18 09:00 10:00 11:00 12:00 Pulse 90 93 93 Resp 13 12 12 B/P (MAP) 118/79 (92) 134/89 (104) 123/82 (96) Pulse Ox 100 99 100 100 O2 Delivery Room Air Room Air Room Air Room Air 06/21/18 06/21/18 06/21/18 06/21/18 12:00 12:00 13:00 13:00 Temp 96.0 Pulse 86 91 91 Resp 8 19 B/P (MAP) 124/78 (93) 118/80 (93) Pulse Ox 100 99 O2 Delivery Room Air Room Air 06/21/18 06/21/18 06/21/18 06/21/18 14:00 15:00 16:00 16:00 Pulse 79 81 79 Resp 12 11 8 B/P (MAP) 116/71 (86) 117/76 (90) 132/93 (106) Pulse Ox 99 100 99 100 O2 Delivery Room Air Room Air Room Air Room Air Capillary Refill : Less Than 3 Seconds General Appearance: WD/WN, no apparent distress, thin Eyes: Bilateral Eye Normal Inspection, Bilateral Eye EOMI HEENT: normal ENT inspection; No scleral icterus (R), No scleral icterus (L), No photophobia Neck: non-tender, full range of motion, supple, normal inspection Respiratory: chest non-tender, no respiratory distress, no accessory muscle use , decreased breath sounds Cardiovascular: regular rate, rhythm, no edema, no gallop, no JVD Peripheral Pulses: 2+ Radial Pulses (R), 2+ Radial Pulses (L) Gastrointestinal: normal bowel sounds, non tender, soft, no organomegaly, no pulsatile mass Rectal: deferred Extremities: normal range of motion, non-tender, no pedal edema, normal capillary refill, other (scratches and scabs scattered on lower extremities with rash noted on bilateral feet) Neurologic/Psychiatric: fruit sorter II-XII nml as tested, no motor/sensory deficits, alert, oriented x 3, other (sleepy but arousable) Skin: normal color, warm/dry, rash (bilateral feet, as noted above) Assessment/Plan Assessment/Plan Admission Dx Diabetic Ketoacidosis Type I Diabetes Acute Kidney Injury Methamphetamine Abuse Tobacco Abuse Medical Noncompliance Hx of MRSA Admission Status: Inpatient Order (span 2 midnights) Reason for Inpatient Admission: treatment and stabilization of admission conditions (1) DKA (diabetic ketoacidoses) Status: Acute Assessment & Plan: 06/21 -ABG pH 7.22, pCO2 28, pO2 68, HCO3 12, Base Excess -14.8 -CO2 9 --> 17 --> 19 -Anion Gap 28 --> 17 --> 13 -patient admitted to ICU and placed on insulin gtt protocol -repeat BMP due at 1200 -given pt's rapid improvement, will continue insulin gtt, but will change to diabetic diet, restart home dose of Novolog 10 units with meals and add sliding scale B with meals as well -pt states he has testing supplies at home, but very little insulin, but that he is willing to take it, but he does not think he will be able to afford it -1200 labs show that pts CO2 has normalized, his gap has closed -will continue insulin gtt until 1700, then stop; continue with Novolog 10 units with meals plus sliding scale B, as well as Lantus 35 units at HS -recheck labs at 2000 -given pt's rapid improvement, if his 1999 labs remain WNL and his AM labs also remain WNL, pt may be ready for discharge in the next 24-48 hours Qualifiers: Qualified Codes: E10.10 - Type 1 diabetes mellitus with ketoacidosis without coma (2) Type 1 diabetes mellitus Status: Chronic Assessment & Plan: 06/20 -pt with long history of poor compliance -will get patient appt with [facility] provider to establish care -will plan to supply patient with samples at discharge to make sure he has insulin until his appt as he cites finances as one of the issues Qualifiers: Qualified Codes: E10.8 - Type 1 diabetes mellitus with unspecified complications (3) Hx MRSA infection Status: Chronic (4) Tobacco abuse Status: Chronic Assessment & Plan: cessation encouraged (5) Acute renal insufficiency Status: Resolved Assessment & Plan: Cr 1.76 --> 1.33 --> 1.25 Resolved with hydration (6) Methamphetamine abuse Status: Chronic Assessment & Plan: UDS positive for amphetamines, methamphetamines (7) Non-compliance Status: Chronic (8) DVT prophylaxis Status: Acute Assessment & Plan: Lovenox 40 mEq SQ daily Clinical Quality Measures DVT/VTE Risk/Contraindication: Risk Factor Score Per Nursin RFS Level Per Nursing on Admit: 1=Low/No VTE PPX Copy Copies To 1: LOVE SANTANA MD, MARGARET E DO Jun 21, 2018 10:10
[2018-06-21] MEDS: inSUlin ASPART (NovoLOG) 1 UNIT/0.01 ML (CHARGE PER UNIT) SC SCH ×5 (10:32→21:32)
[2018-06-21] MEDS ORDERED: NON-FORMULARY MEDICATION 1 EA EA (Insulin Aspart (Novolog Flexpen) 10 UNITS) SQ SCH (11:00)
[2018-06-21 12:18] LABS: BASOPHILS % (AUTO) 0 % (0-10); EOSINOPHILS % (AUTO) 0 % (0-10); HEMATOCRIT 40 % (40-54); HEMOGLOBIN 13.7 G/DL (13.3-17.7); LYMPHOCYTES # (AUTO) 1.7 X 10^3 (1.0-4.0); LYMPHOCYTES % (AUTO) 13 % (12-44); MEAN CORPUSCULAR HEMOGLOBIN 29 PG (25-34); MEAN CORPUSCULAR HGB CONC 35 G/DL (32-36); MEAN CORPUSCULAR VOLUME 84 FL (80-99); MEAN PLATELET VOLUME 9.6 FL (7.4-10.4); MONOCYTES # (AUTO) 1.1 X 10^3 (0.0-1.0); MONOCYTES % (AUTO) 9 % (0-12); NEUTROPHILS # (AUTO) 10.1 X 10^3 (1.8-7.8); NEUTROPHILS % (AUTO) 78 % (42-75); PLATELET COUNT 263 10^3/uL (130-400); RED BLOOD COUNT 4.69 10^6/uL (4.35-5.85); RED CELL DISTRIBUTION WIDTH 12.3 % (10.0-14.5); WHITE BLOOD COUNT 12.9 10^3/uL (4.3-11.0)
[2018-06-21 12:46] LABS: BUN/CREATININE RATIO 16; CARBON DIOXIDE 21 MMOL/L (21-32); CHLORIDE 104 MMOL/L (98-107); CREATININE SERUM 1.17 MG/DL (0.60-1.30); GFR ESTIMATED > 60; GLUCOSE 163 MG/DL (70-105); POTASSIUM 3.7 MMOL/L (3.6-5.0); SODIUM 136 MMOL/L (135-145)
[2018-06-21] MEDS ORDERED: ENOXAPARIN 40 MG/0.4 ML (LOVENOX) SYR SC SCH (18:00)
[2018-06-21] MEDS ORDERED: ENOXAPARIN 40 MG/0.4 ML (LOVENOX) SYR ONE (18:24)
[2018-06-21 20:24] LABS: BUN/CREATININE RATIO 12; CALCIUM 7.9 MG/DL (8.5-10.1); CARBON DIOXIDE 22 MMOL/L (21-32); CHLORIDE 104 MMOL/L (98-107); CREATININE SERUM 1.18 MG/DL (0.60-1.30); GFR ESTIMATED > 60; GLUCOSE 276 MG/DL (70-105); POTASSIUM 4.3 MMOL/L (3.6-5.0); SODIUM 136 MMOL/L (135-145)
[2018-06-21] MEDS ORDERED: inSUlin DETERMIR 1 UNIT/0.01 ML (LEVEMIR) CHARGE PER UNIT SQ SCH (21:00)
[2018-06-21] MEDS ORDERED: MONTELUKAST 10 MG (SINGULAIR) TAB PO SCH (21:00)
[2018-06-22] VITALS (16 sets, daily range): BP systolic 120–146; BP diastolic 70–91
[2018-06-22] MEDS: 1/2 NS W/KCL 20 MEQ/L 1,000 ML IV SCH ×2 (03:18→11:28)
[2018-06-22 03:34] LABS: BASOPHILS % (AUTO) 0 % (0-10); EOSINOPHILS # (AUTO) 0.1 10^3/uL (0.0-0.3); EOSINOPHILS % (AUTO) 1 % (0-10); HEMATOCRIT 37 % (40-54); HEMOGLOBIN 13.3 G/DL (13.3-17.7); LYMPHOCYTES % (AUTO) 18 % (12-44); MEAN CORPUSCULAR HEMOGLOBIN 30 PG (25-34); MEAN CORPUSCULAR HGB CONC 36 G/DL (32-36); MEAN CORPUSCULAR VOLUME 84 FL (80-99); MEAN PLATELET VOLUME 9.5 FL (7.4-10.4); MONOCYTES # (AUTO) 0.8 X 10^3 (0.0-1.0); MONOCYTES % (AUTO) 7 % (0-12); NEUTROPHILS # (AUTO) 8.1 X 10^3 (1.8-7.8); NEUTROPHILS % (AUTO) 74 % (42-75); PLATELET COUNT 230 10^3/uL (130-400); RED BLOOD COUNT 4.43 10^6/uL (4.35-5.85); RED CELL DISTRIBUTION WIDTH 12.3 % (10.0-14.5)
[2018-06-22 03:54] LABS: BUN/CREATININE RATIO 13; CALCIUM 8.4 MG/DL (8.5-10.1); CARBON DIOXIDE 22 MMOL/L (21-32); CHLORIDE 107 MMOL/L (98-107); GFR ESTIMATED > 60; GLUCOSE 84 MG/DL (70-105); MAGNESIUM 1.8 MG/DL (1.8-2.4); PHOSPHORUS 2.3 MG/DL (2.3-4.7); POTASSIUM 3.4 MMOL/L (3.6-5.0); SODIUM 140 MMOL/L (135-145)
[2018-06-22] MEDS: REGULAR inSUlin DRIP 250 UNITS/NS 250 ML IV SCH ×2 (05:41)
[2018-06-22] MEDS: CATHETER FLUSH 10 ML SYR IV SCH ×2 (05:41→13:02)
[2018-06-22] MEDS: KCL 20 MEQ TAB (K-DUR) PO SCH (05:42)
[2018-06-22] MEDS: POTASSIUM CL 10MEQ/50ML IVPB 50 ML IV SCH (05:42)
[2018-06-22] MEDS: MAGNESIUM 1 GM/100 ML IVPB 100 ML IV SCH (05:42)
[2018-06-22] MEDS: inSUlin ASPART (NovoLOG) 1 UNIT/0.01 ML (CHARGE PER UNIT) SC SCH ×6 (05:43→16:18)
[2018-06-22] MEDS ORDERED: KCL 20 MEQ TAB (K-DUR) PO ONE (09:00)
--- NOTE | 2018-06-22 13:38 | Discharge Summary ---
Diagnosis/Chief Complaint Date of Admission Jun 21, 2018 at 03:05 Date of Discharge 06/22/18 Admission Diagnosis Admission Diagnosis Diabetic Ketoacidosis Type I Diabetes Acute Kidney Injury Methamphetamine Abuse Tobacco Abuse Medical Noncompliance Hx of MRSA Discharge Diagnosis (1) DKA (diabetic ketoacidoses) Status: Acute Assessment & Plan: 06/21 -ABG pH 7.22, pCO2 28, pO2 68, HCO3 12, Base Excess -14.8 -CO2 9 --> 17 --> 19 -Anion Gap 28 --> 17 --> 13 -patient admitted to ICU and placed on insulin gtt protocol -repeat BMP due at 1200 -given pt's rapid improvement, will continue insulin gtt, but will change to diabetic diet, restart home dose of Novolog 10 units with meals and add sliding scale B with meals as well -pt states he has testing supplies at home, but very little insulin, but that he is willing to take it, but he does not think he will be able to afford it -1200 labs show that pts CO2 has normalized, his gap has closed -will continue insulin gtt until 1700, then stop; continue with Novolog 10 units with meals plus sliding scale B, as well as Lantus 35 units at HS -recheck labs at 2000 -given pt's rapid improvement, if his 2000 labs remain WNL and his AM labs also remain WNL, pt may be ready for discharge in the next 24-48 hours 06/22 -pt has done well since insulin gtt off last night at 1700, other than episode of hypoglycemia overnight that resolved with a snack -this AM his labs remain stable, with normal CO2 and normal anion gap -tolerating diet, no abdominal pain, nausea or vomiting -pt ok to discharge to home; establish care appt made with Dr. Santana for tomorrow and repeatedly enforced to pt the importance of keeping this appt -pt provided with one Novolog pen and one Lantus pen, as he reported that he wasn't sure if he had any insulin at home or if he did, how much -of note, after these were provided to patient, the patient stated he "had tons of vials of insulin and could he just get a big bag of needles and syringes to use"; explained that we had provided him with pens and pen needles and he would need to discuss this with Dr. Santana tomorrow at his appt; pt does have hx of drug abuse with UDS + on admission for meth and amphetamines Qualifiers: Qualified Codes: E10.10 - Type 1 diabetes mellitus with ketoacidosis without coma (2) Type 1 diabetes mellitus Status: Chronic Assessment & Plan: 06/20 -pt with long history of poor compliance -will get patient appt with [facility] provider to establish care -will plan to supply patient with samples at discharge to make sure he has insulin until his appt as he cites finances as one of the issues Qualifiers: Qualified Codes: E10.8 - Type 1 diabetes mellitus with unspecified complications (3) Hx MRSA infection Status: Chronic (4) Tobacco abuse Status: Chronic Assessment & Plan: cessation encouraged (5) Acute renal insufficiency Status: Resolved Assessment & Plan: Cr 1.76 --> 1.33 --> 1.25 Resolved with hydration (6) Methamphetamine abuse Status: Chronic Assessment & Plan: UDS positive for amphetamines, methamphetamines (7) Non-compliance Status: Chronic (8) DVT prophylaxis Status: Acute Assessment & Plan: Lovenox 40 mEq SQ daily Patient showed rapid improvement, and was able to tolerate diet and display continued improvement off insulin gtt. A follow up appt for less than 24 hours after discharge has been made so that patient can establish care with [facility], as at this point he does not have a primary care physician. It was repeatedly enforced to patient the importance of keeping scheduled appt tomorrow and that if he does not, he will be unable to fill medications at [facility] and will remain a NO LOCAL patient. Chief Complaint/HPI Chief Complaint/HPI 28 year old male presented to the ED early this morning with a report of Type I Diabetes, not feeling well for several days and not eating -- he has been nauseated but not had any vomiting, and has not taken his insulin in several days. He was found to be in DKA and treatment was initiated per protocol, and the patient was admitted to the ICU. When seen at the time of the exam later in the morning, the patient was sleepy, but arousable, and states that he had stopped taking his insulin because he was almost out and "just didn't feel like it". He states he was supposed to set up an appointment at [facility] to establish care and have insulin prescribed, but he has "never gotten around to it". He states he would like to establish care at [facility], and we will plan to make arrangements for this after discharge. Discharge Summary-Simple/Stand Consultations Discharge Physical Examination Allergies: Coded Allergies: No Known Drug Allergies (Unverified , 06/21/18) Vitals & I&Os Vital Sign - Last 12Hours Date Time Temp Pulse Resp B/P (MAP) Pulse Ox O2 Delivery O2 Flow Rate FiO2 06/22/18 12:00 97 Room Air 06/22/18 12:00 98.5 06/22/18 12:00 80 12 133/89 (104) Intake and Output 06/22/18 00:00 Intake Total 1980 ml Output Total 1700 ml Balance 280 ml General Appearance: Alert, Oriented X3, Cooperative, No Acute Distress HEENT: Atraumatic, EOMI, Mucous Memb Moist/[place] Respiratory: Clear to Auscultation, Normal Air Movement Cardiovascular: Regular Rate, Normal S1, Normal S2 Abdominal: Normal Bowel Sounds, Soft, No Tenderness, No Masses Extremities: No Clubbing, No Cyanosis, No Edema, Other (scattered areas of redness on bilateral lower extremities) Skin: No Significant Lesion Neuro: Normal Gait, Normal Speech, Normal Tone, Sensation Intact, Cranial Nerves 3-12 NL Psych/Mental Status: Mental Status NL, Mood NL Hospital Course See final discharge diagnosis. Labs Laboratory Tests Test 06/21/18 02:16 06/21/18 02:26 06/21/18 02:37 06/21/18 03:56 Range/Units White Blood Count 21.9 H 4.3-11.0 10^3/uL Red Blood Count 5.09 4.35-5.85 10^6/uL Hemoglobin 14.9 13.3-17.7 G/DL Hematocrit 43 40-54 % Mean Corpuscular Volume 85 80-99 FL Mean Corpuscular Hemoglobin 29 25-34 PG Mean Corpuscular Hemoglobin Concent 34 32-36 G/DL Red Cell Distribution Width 12.5 10.0-14.5 % Platelet Count 363 130-400 10^3/uL Mean Platelet Volume 10.2 7.4-10.4 FL Neutrophils (%) (Auto) 81 H 42-75 % Lymphocytes (%) (Auto) 13 12-44 % Monocytes (%) (Auto) 6 0-12 % Eosinophils (%) (Auto) 0 0-10 % Basophils (%) (Auto) 0 0-10 % Neutrophils # (Auto) 17.7 H 1.8-7.8 X 10^3 Lymphocytes # (Auto) 2.9 1.0-4.0 X 10^3 Monocytes # (Auto) 1.3 H 0.0-1.0 X 10^3 Eosinophils # (Auto) 0.0 0.0-0.3 10^3/uL Basophils # (Auto) 0.0 0.0-0.1 10^3/uL Neutrophils % (Manual) 78 % Lymphocytes % (Manual) 13 % Monocytes % (Manual) 9 % Eosinophils % (Manual) 0 % Basophils % (Manual) 0 % Band Neutrophils 0 % Toxic Granulation 1+ Blood Morphology Comment NORMAL Sodium Level 130 L 135-145 MMOL/L Potassium Level 4.7 3.6-5.0 MMOL/L Chloride Level 93 L 98-107 MMOL/L Carbon Dioxide Level 9 *L 21-32 MMOL/L Anion Gap 28 H 5-14 MMOL/L Blood Urea Nitrogen 31 H 7-18 MG/DL Creatinine 1.76 H 0.60-1.30 MG/DL Estimat Glomerular Filtration Rate 46 BUN/Creatinine Ratio 18 Glucose Level 536 *H 70-105 MG/DL Calcium Level 8.9 8.5-10.1 MG/DL Corrected Calcium 9.0 8.5-10.1 MG/DL Magnesium Level 2.0 1.8-2.4 MG/DL Total Bilirubin 0.5 0.1-1.0 MG/DL Aspartate Amino Transf (AST/SGOT) 22 5-34 U/L Alanine Aminotransferase (ALT/SGPT) 33 0-55 U/L Alkaline Phosphatase 125 40-136 U/L Total Protein 6.6 6.4-8.2 GM/DL Albumin 3.9 3.2-4.5 GM/DL Amylase Level 55 25-125 U/L Lipase 20 8-78 U/L Serum Alcohol < 10 <10 MG/DL Glucometer 438 *H 404 *H 70-110 MG/DL Blood Gas Puncture Site L RAD Blood Gas Patient Temperature 96.4 Arterial Blood pH 7.22 *L 7.37-7.43 Arterial Blood Partial Pressure CO2 28 L 35-45 MMHG Arterial Blood Partial Pressure O2 68 L 79-93 MMHG Arterial Blood HCO3 12 *L 23-27 MMOL/L Arterial Blood Total CO2 12.4 L 21.0-31.0 MMOL/L Arterial Blood Oxygen Saturation 93 L 94-100 % Arterial Blood Base Excess -14.8 L -2.5-2.5 MMOL/L Garret Test YES-POS Blood Gas Ventilator Setting NO Blood Gas Inspired Oxygen RA Test 06/21/18 04:05 06/21/18 06:31 06/21/18 06:35 06/21/18 07:28 Range/Units Urine Color Y Urine Clarity CLEAR Urine pH 5 5-9 Urine Specific [place] 1.025 H 1.016-1.022 Urine Protein NEGATIVE NEGATIVE Urine Glucose (UA) 4+ H NEGATIVE Urine Ketones 4+ H NEGATIVE Urine Nitrite NEGATIVE NEGATIVE Urine Bilirubin NEGATIVE NEGATIVE Urine Urobilinogen NORMAL NORMAL MG/DL Urine Leukocyte Esterase NEGATIVE NEGATIVE Urine RBC (Auto) NEGATIVE NEGATIVE Urine RBC NONE /HPF Urine WBC NONE /HPF Urine Squamous Epithelial Cells NONE /HPF Urine Crystals PRESENT H /LPF Urine Amorphous Sediment MOD JARED URATES H /LPF Urine Bacteria NEGATIVE /HPF Urine Casts NONE /LPF Urine Mucus SMALL H /LPF Urine Culture Indicated NO Urine Opiates Screen NEGATIVE NEGATIVE Urine Oxycodone Screen NEGATIVE NEGATIVE Urine Methadone Screen NEGATIVE NEGATIVE Urine Propoxyphene Screen NEGATIVE NEGATIVE Urine Barbiturates Screen NEGATIVE NEGATIVE Ur Tricyclic Antidepressants Screen NEGATIVE NEGATIVE Urine Phencyclidine Screen NEGATIVE NEGATIVE Urine Amphetamines Screen POSITIVE H NEGATIVE Urine Methamphetamines Screen POSITIVE H NEGATIVE Urine Benzodiazepines Screen NEGATIVE NEGATIVE Urine Cocaine Screen NEGATIVE NEGATIVE Urine Cannabinoids Screen NEGATIVE NEGATIVE Glucometer 218 H 191 H 70-110 MG/DL Sodium Level 137 135-145 MMOL/L Potassium Level 4.0 3.6-5.0 MMOL/L Chloride Level 103 98-107 MMOL/L Carbon Dioxide Level 17 L 21-32 MMOL/L Anion Gap 17 H 5-14 MMOL/L Blood Urea Nitrogen 26 H 7-18 MG/DL Creatinine 1.33 H 0.60-1.30 MG/DL Estimat Glomerular Filtration Rate > 60 BUN/Creatinine Ratio 20 Glucose Level 236 H 70-105 MG/DL Calcium Level 8.3 L 8.5-10.1 MG/DL Test 06/21/18 08:00 06/21/18 08:34 06/21/18 09:27 06/21/18 10:30 Range/Units Sodium Level 135 135-145 MMOL/L Potassium Level 4.0 3.6-5.0 MMOL/L Chloride Level 103 98-107 MMOL/L Carbon Dioxide Level 19 L 21-32 MMOL/L Anion Gap 13 5-14 MMOL/L Blood Urea Nitrogen 24 H 7-18 MG/DL Creatinine 1.25 0.60-1.30 MG/DL Estimat Glomerular Filtration Rate > 60 BUN/Creatinine Ratio 19 Glucose Level 202 H 70-105 MG/DL Calcium Level 8.0 L 8.5-10.1 MG/DL Glucometer 185 H 167 H 130 H 70-110 MG/DL Test 06/21/18 11:12 06/21/18 11:59 06/21/18 12:15 06/21/18 16:12 Range/Units Glucometer 138 H 151 H 131 H 70-110 MG/DL White Blood Count 12.9 H 4.3-11.0 10^3/uL Red Blood Count 4.69 4.35-5.85 10^6/uL Hemoglobin 13.7 13.3-17.7 G/DL Hematocrit 40 40-54 % Mean Corpuscular Volume 84 80-99 FL Mean Corpuscular Hemoglobin 29 25-34 PG Mean Corpuscular Hemoglobin Concent 35 32-36 G/DL Red Cell Distribution Width 12.3 10.0-14.5 % Platelet Count 263 130-400 10^3/uL Mean Platelet Volume 9.6 7.4-10.4 FL Neutrophils (%) (Auto) 78 H 42-75 % Lymphocytes (%) (Auto) 13 12-44 % Monocytes (%) (Auto) 9 0-12 % Eosinophils (%) (Auto) 0 0-10 % Basophils (%) (Auto) 0 0-10 % Neutrophils # (Auto) 10.1 H 1.8-7.8 X 10^3 Lymphocytes # (Auto) 1.7 1.0-4.0 X 10^3 Monocytes # (Auto) 1.1 H 0.0-1.0 X 10^3 Eosinophils # (Auto) 0.0 0.0-0.3 10^3/uL Basophils # (Auto) 0.0 0.0-0.1 10^3/uL Sodium Level 136 135-145 MMOL/L Potassium Level 3.7 3.6-5.0 MMOL/L Chloride Level 104 98-107 MMOL/L Carbon Dioxide Level 21 21-32 MMOL/L Anion Gap 11 5-14 MMOL/L Blood Urea Nitrogen 19 H 7-18 MG/DL Creatinine 1.17 0.60-1.30 MG/DL Estimat Glomerular Filtration Rate > 60 BUN/Creatinine Ratio 16 Glucose Level 163 H 70-105 MG/DL Calcium Level 8.0 L 8.5-10.1 MG/DL Test 06/21/18 20:00 06/22/18 03:25 06/22/18 06:09 06/22/18 07:03 Range/Units Sodium Level 136 140 135-145 MMOL/L Potassium Level 4.3 3.4 L 3.6-5.0 MMOL/L Chloride Level 104 107 98-107 MMOL/L Carbon Dioxide Level 22 22 21-32 MMOL/L Anion Gap 10 11 5-14 MMOL/L Blood Urea Nitrogen 14 14 7-18 MG/DL Creatinine 1.18 1.10 0.60-1.30 MG/DL Estimat Glomerular Filtration Rate > 60 > 60 BUN/Creatinine Ratio 12 13 Glucose Level 276 H 84 70-105 MG/DL Calcium Level 7.9 L 8.4 L 8.5-10.1 MG/DL White Blood Count 11.0 4.3-11.0 10^3/uL Red Blood Count 4.43 4.35-5.85 10^6/uL Hemoglobin 13.3 13.3-17.7 G/DL Hematocrit 37 L 40-54 % Mean Corpuscular Volume 84 80-99 FL Mean Corpuscular Hemoglobin 30 25-34 PG Mean Corpuscular Hemoglobin Concent 36 32-36 G/DL Red Cell Distribution Width 12.3 10.0-14.5 % Platelet Count 230 130-400 10^3/uL Mean Platelet Volume 9.5 7.4-10.4 FL Neutrophils (%) (Auto) 74 42-75 % Lymphocytes (%) (Auto) 18 12-44 % Monocytes (%) (Auto) 7 0-12 % Eosinophils (%) (Auto) 1 0-10 % Basophils (%) (Auto) 0 0-10 % Neutrophils # (Auto) 8.1 H 1.8-7.8 X 10^3 Lymphocytes # (Auto) 2.0 1.0-4.0 X 10^3 Monocytes # (Auto) 0.8 0.0-1.0 X 10^3 Eosinophils # (Auto) 0.1 0.0-0.3 10^3/uL Basophils # (Auto) 0.0 0.0-0.1 10^3/uL Phosphorus Level 2.3 2.3-4.7 MG/DL Magnesium Level 1.8 1.8-2.4 MG/DL Glucometer 51 *L 86 70-110 MG/DL Test 06/22/18 11:02 Range/Units Glucometer 171 H 70-110 MG/DL Discharge Condition at discharge stable Instructions to patient/family Please see electronic discharge instructions given to patient. Discharge Medications Reviewed and agree with Discharge Medication list on patient's Discharge Instruction sheet Clinical Quality Measures DVT/VTE Risk/Contraindication: Risk Factor Score Per Nursin RFS Level Per Nursing on Admit: 1=Low/No VTE PPX Copy Copies To 1: LOVE SANTANA MD, MARGARET E DO Jun 22, 2018 13:38
[2018-06-22] MEDS ORDERED: INSU100I10 SQ (13:43)
--- NOTE | 2018-06-22 13:48 | Discharge Instructions ---
Discharge Inst-[facility] Discharge Medications New, Converted or Re-Newed RX: Other (samples from [facility] provided to patient -- 1 Lantus pen, 1 Novolog Pen and small supply of pen needles) New Medications: Insulin Glargine,Hum.rec.anlog (Lantus Solostar) 100 Unit/1 Ml Insuln.pen 35 UNIT SQ HS, #1 EA Continued Medications: Insulin Aspart (Novolog Flexpen) 300 Units/3 Ml Solution 10 UNITS SQ AC, #12 EA 0 Refills ADJUST NEEDED BASED ON MEAL AND BLOOD SUGAR Montelukast Sodium (Singulair) 10 Mg Tablet 10 MG PO HS, #30 TAB Discontinued Medications: Doxycycline Hyclate (Doxycycline Hyclate) 100 Mg Tablet 100 MG PO BID@07,17, #16 TAB Insulin Detemir (Levemir Flextouch) 100 Unit/1 Ml Insuln.pen 35 UNIT SQ HS, #13 EA 0 Refills Patient Instructions Patient Instructions -check blood sugars before meals and at bedtime, and anytime you are feeling symptoms of low blood sugar -follow diabetic diet -take medications as prescribed -keep follow up appointment as scheduled with Dr. Santana -avoid tobacco and drug use Goal/Follow Up Appt: Dr. Santana, FridayJun 23 at 11:00 at [facility] Return to The Hospital For: chest pain or pressure, shortness of breath not releived by rest, nausea or vomiting that makes you unable to keep down clear liquids or medications for more than 24 hours, fever >101 that is not relieved by tylenol or ibuprofen, severe pain uncontrolled by OTC medication, if directed by station mechanic apprentice provider, or with any other emergent complaints or concerns Activity & Diet Discharge Diet: ADA Diet Activity as Tolerated: Yes Copy Copies To 1: LOVE SANTANA MD, MARGARET E DO Jun 22, 2018 13:48
--- NOTE | 2018-06-25 11:10 | Physician Query Clarification ---
PQ-Uncertain Diagnosis Admission/Discharge Admission Date: Jun 21, 2018 at 03:05 Discharge Date: Jun 22, 2018 at 16:34 The medical record reflects the following clinical scenario: History/Risk Factors: Diabetic Ketoacidosis Dehydration Clinical Findings: Creatinine 1.76 on admission > 1.33> 1.25.>1.10. BUN 31, eGFR 46 Treatment: IV fluids Question: You listed acute kidney injury on H&P, but listed acute renal insufficiency on discharge summary. Please clarify below. Is Acute kidney injury a clinically valid diagnosis? [diagnosis] was documented in the [dates and type of documents] with no further documentation in the medical record. Please document a response below. PHYSICIAN RESPONSE Diagnosis clinically valid: Other, explanation/clinical finding Explanation of clincal finding please replace acute renal insufficiency with acute kidney injury In responding to this query, please exercise your independent professional judgment. The purpose of this communication is to more accurately reflect the complexity of your patients condition. The fact that a question is asked does not imply that any particular answer is desired or expected. Thank you for your timely response to this clarification. Requestors name: Shruti Parker [facility] Phone # [phone] or [phone] THIS PHYSICIAN QUERY FORM IS A PERMANENT PART OF THE MEDICAL RECORD SHRUTI PARKER Jun 25, 2018 11:10 COURTNEY NUGENT DO Jun 25, 2018 13:10
== END 2018-06-22 16:34 | disposition home or self-care (01) | DRG 638 ==
LOC: EDUNIT# 02:09 → ER 02:11 → ICU 03:05
PROVIDERS: ADMIT Family Medicine; ATTEND Family Medicine
DX: E10.10 Type 1 diabetes mellitus with ketoacidosis without coma (principal); E86.0 Dehydration; N17.9 Acute kidney failure, unspecified; F17.210 Nicotine dependence, cigarettes, uncomplicated; F15.10 Other stimulant abuse, uncomplicated; F12.10 Cannabis abuse, uncomplicated; Z91.120 Patient's intentional underdosing of medication regimen due to financial hardship; Z91.128 Patient's intentional underdosing of medication regimen for other reason; Z79.4 Long term (current) use of insulin; Z86.14 Personal history of Methicillin resistant Staphylococcus aureus infection; Z79.2 Long term (current) use of antibiotics
CPT/HCPCS: 36415; 80048; 80053; 80306; 80320; 81000; 82150; 82805; 82962; 83690; 83735; 84100; 85007; 85025; 85027; 87081; 93005; 93041; 96374; 96375

== ENCOUNTER 2019-07-22 22:42 | Inpatient (IN) | payer SELFPAY ==
[~2019-07-22] VITALS: Ht 190.5 cm; Wt 77.1 kg
[~2019-07-22 22:42] MED LIST changes: +INSU100I10 SQ
[2019-07-22] MEDS ORDERED: NS IV 1000 ML 1,000 ML IV ONE ×2 (22:47→23:21)
[2019-07-22 22:56] LABS: BASOPHILS % (AUTO) 0 % (0-10); EOSINOPHILS % (AUTO) 0 % (0-10); HEMATOCRIT 46 % (40-54); HEMOGLOBIN 16.1 G/DL (13.3-17.7); LYMPHOCYTES # (AUTO) 0.6 X 10^3 (1.0-4.0); LYMPHOCYTES % (AUTO) 3 % (12-44); MEAN CORPUSCULAR HEMOGLOBIN 29 PG (25-34); MEAN CORPUSCULAR HGB CONC 35 G/DL (32-36); MEAN CORPUSCULAR VOLUME 82 FL (80-99); MEAN PLATELET VOLUME 11.2 FL (7.4-10.4); MONOCYTES # (AUTO) 0.8 X 10^3 (0.0-1.0); MONOCYTES % (AUTO) 4 % (0-12); NEUTROPHILS # (AUTO) 19.4 X 10^3 (1.8-7.8); NEUTROPHILS % (AUTO) 93 % (42-75); PLATELET COUNT 309 10^3/uL (130-400); WHITE BLOOD COUNT 20.8 10^3/uL (4.3-11.0)
[2019-07-22 23:00] LABS: BILIRUBIN,URINE NEGATIVE (NEGATIVE); CLARITY,URINE CLEAR; COLOR,URINE YELLOW; GLUCOSE, URINE (UA) 4+ (NEGATIVE); KETONES,URINE 4+ (NEGATIVE); LEUKOCYTE ESTERASE ,URINE NEGATIVE (NEGATIVE); NITRITE,URINE NEGATIVE (NEGATIVE); PH,URINE 5 (5-9); PROTEIN,URINE 3+ (NEGATIVE); UROBILINOGEN,URINE NORMAL (NORMAL)
[2019-07-22] MEDS ORDERED: inSUlin (REGULAR) HUMAN 1 UNIT/0.01 ML (CHARGE PER UNIT) IV ONE ×2 (23:00→23:45)
[2019-07-22] MEDS ORDERED: ONDANSETRON 4 MG/2 ML (SDV) Z0FRAN IVP ONE (23:00)
[2019-07-22 23:10] LABS: AMORPHOUS SEDIMENT,UR FEW AMOR URATES /LPF; BACTERIA,URINE NEGATIVE /HPF; HYALINE CASTS, URINE 0-2 /LPF; RBC,URINE RARE /HPF; SQUAMOUS EPITHELIAL CELL,UR 0-2 /HPF
--- NOTE | 2019-07-22 23:10 | ED General ---
General Chief Complaint: Glucose Problems Stated Complaint: DIABETIC - VOMITING Nursing Triage Note: presents to ER C/O ELEVATED GLUCOSE, WEAKNESS AND NAUSEA Nursing Sepsis Screen: No Definite Risk Source of Information: Patient, Family History of Present Illness Date Seen by Provider: Jul 22, 2019 Time Seen by Provider: 22:44 Initial Comments This 29-year-old young man presents to the emergency room with weakness, high blood sugar, nausea, and vomiting. He is a type I diabetic with history of multiple episodes of DKA. He was recently incarcerated and released on July 16. She had some insulin leftover when he was released and finished that yesterday. He has not taken any insulin today. He denies any drug or alcohol use. He has no primary care provider. Allergies and Home Medications Allergies Coded Allergies: No Known Drug Allergies (Unverified , 06/21/18) Home Medications Insulin Aspart 300 Units/3 Ml Solution, 10 UNITS SQ AC ADJUST NEEDED BASED ON MEAL AND BLOOD SUGAR Prescribed by: GLADIS FIERRO on 04/13/18 1001 Insulin Glargine,Hum.rec.anlog 100 Unit/1 Ml Insuln.pen, 35 UNIT SQ HS Prescribed by: COURTNEY NUGENT on 06/22/18 1343 Montelukast Sodium 10 Mg Tablet, 10 MG PO HS Prescribed by: GLADIS FIERRO on 04/13/18 0859 Patient Home Medication List Home Medication List Reviewed: Yes Review of Systems Review of Systems Constitutional: see HPI EENTM: no symptoms reported Respiratory: no symptoms reported Cardiovascular: no symptoms reported Gastrointestinal: see HPI Genitourinary: no symptoms reported Musculoskeletal: no symptoms reported Skin: no symptoms reported Psychiatric/Neurological: No Symptoms Reported Hematologic/Lymphatic: No Symptoms Reported Immunological/Allergic: no symptoms reported Past Qzitgti-Ihidmk-Zyubxi Hx Past Med/Social Hx: Reviewed and Corrections made Patient Social History Alcohol Use: Denies Use Recreational Drug Use: Yes Drug of Choice: METH, MARIJUANA Type Used: Cigarettes Recent Foreign Travel: No Contact w/Someone Who Travel: No Recent Infectious Disease Expo: No Recent Hopitalizations: No Physical Abuse: No Sexual Abuse: No Mistreated: No Fear: No Immunizations Up To Date Tetanus Booster (TDap): Less than 5yrs PED Vaccines UTD: No Date of Pneumonia Vaccine: February 22, 2014 Date of Influenza Vaccine: Jul 20, 2013 Seasonal Allergies Seasonal Allergies: No Past Medical History Surgeries: Yes (RIGHT ARM FX/ORIF ) Orthopedic Respiratory: No Cardiac: No Neurological: No Reproductive Disorders: No Sexually Transmitted Disease: No HIV/AIDS: No Genitourinary: No Gastrointestinal: No Musculoskeletal: Yes Fractures Endocrine: Yes (TYPE 1 IDDM--DX AGE 8, multiple episodes of DKA) Diabetes, Insulin dep HEENT: No Cancer: No Psychosocial: No Integumentary: No Blood Disorders: No Adverse Reaction/Blood Tranf: No Family Medical History Reviewed Nursing Family Hx Cancer 03 FATHER, Onset:Unknown Family history: Diabetes mellitus 03 FATHER, Onset:Unknown Diabetes Physical Exam Vital Signs Vital Signs - First Documented 07/22/19 07/23/19 22:44 01:06 Temp 36.6 Pulse 127 Resp 15 B/P (MAP) 145/87 (106) Pulse Ox 100 O2 Delivery Room Air Capillary Refill : Less Than 3 Seconds Height, Weight, BMI Height: 6'2.00" Weight: 171lbs. 7.0oz. 77.625305nh; 22.00 BMI Method:Estimated General Appearance: No Apparent Distress, WD/WN, Other (ill appearing) HEENT: PERRL/EOMI, Normal ENT Inspection, Other (oropharynx dry) Neck: Normal Inspection Respiratory: Lungs Clear, Normal Breath Sounds, No Accessory Muscle Use, No Respiratory Distress Cardiovascular: Regular Rate, Rhythm, No Edema, No Murmur Gastrointestinal: Normal Bowel Sounds, Soft, Tenderness Extremity: Normal Capillary Refill, Normal Inspection, No Pedal Edema Neurologic/Psychiatric: Alert, Oriented x3, No Motor/Sensory Deficits, psychiatric aides teacher II- XII Norm as Tested Skin: Normal Color, Warm/Dry Progress/Results/Core Measures Suspected Sepsis Recent Fever Within 48 Hours: No Infection Criteria Present: None New/Unexplained Altered Menta: No Sepsis Screen: No Definite Risk SIRS Temperature: Pulse: 127 Respiratory Rate: 15 Laboratory Tests 07/22/19 22:48: White Blood Count 20.8H 07/23/19 02:55: White Blood Count 18.8H Blood Pressure 145 /87 Mean: 106 Laboratory Tests 07/22/19 22:48: Creatinine 2.33H, Platelet Count 309, Total Bilirubin 0.3 07/23/19 01:20: Creatinine 1.93H 07/23/19 02:55: Creatinine 1.99H, Platelet Count 284 Results/Orders Lab Results Laboratory Tests Test 07/22/19 22:46 07/22/19 22:48 07/22/19 22:53 07/22/19 22:59 Range/Units Glucometer 385 H 70-110 MG/DL White Blood Count 20.8 H 4.3-11.0 10^3/uL Red Blood Count 5.62 4.35-5.85 10^6/uL Hemoglobin 16.1 13.3-17.7 G/DL Hematocrit 46 40-54 % Mean Corpuscular Volume 82 80-99 FL Mean Corpuscular Hemoglobin 29 25-34 PG Mean Corpuscular Hemoglobin Concent 35 32-36 G/DL Red Cell Distribution Width 13.0 10.0-14.5 % Platelet Count 309 130-400 10^3/uL Mean Platelet Volume 11.2 H 7.4-10.4 FL Neutrophils (%) (Auto) 93 H 42-75 % Lymphocytes (%) (Auto) 3 L 12-44 % Monocytes (%) (Auto) 4 0-12 % Eosinophils (%) (Auto) 0 0-10 % Basophils (%) (Auto) 0 0-10 % Neutrophils # (Auto) 19.4 H 1.8-7.8 X 10^3 Lymphocytes # (Auto) 0.6 L 1.0-4.0 X 10^3 Monocytes # (Auto) 0.8 0.0-1.0 X 10^3 Eosinophils # (Auto) 0.0 0.0-0.3 10^3/uL Basophils # (Auto) 0.0 0.0-0.1 10^3/uL Neutrophils % (Manual) 93 % Lymphocytes % (Manual) 1 % Monocytes % (Manual) 3 % Eosinophils % (Manual) 0 % Basophils % (Manual) 0 % Band Neutrophils 3 % Blood Morphology Comment NORMAL Sodium Level 137 135-145 MMOL/L Potassium Level 5.6 H 3.6-5.0 MMOL/L Chloride Level 99 98-107 MMOL/L Carbon Dioxide Level 6 *L 21-32 MMOL/L Anion Gap 32 H 5-14 MMOL/L Blood Urea Nitrogen 27 H 7-18 MG/DL Creatinine 2.33 H 0.60-1.30 MG/DL Estimat Glomerular Filtration Rate 33 BUN/Creatinine Ratio 12 Glucose Level 407 *H 70-105 MG/DL Calcium Level 9.4 8.5-10.1 MG/DL Corrected Calcium 9.0 8.5-10.1 MG/DL Magnesium Level 2.0 1.6-2.4 MG/DL Total Bilirubin 0.3 0.1-1.0 MG/DL Aspartate Amino Transf (AST/SGOT) 13 5-34 U/L Alanine Aminotransferase (ALT/SGPT) 23 0-55 U/L Alkaline Phosphatase 127 40-136 U/L Total Protein 7.7 6.4-8.2 GM/DL Albumin 4.5 3.2-4.5 GM/DL Serum Alcohol < 10 <10 MG/DL Urine Color YELLOW Urine Clarity CLEAR Urine pH 5 5-9 Urine Specific [place] 1.025 H 1.016-1.022 Urine Protein 3+ H NEGATIVE Urine Glucose (UA) 4+ H NEGATIVE Urine Ketones 4+ H NEGATIVE Urine Nitrite NEGATIVE NEGATIVE Urine Bilirubin NEGATIVE NEGATIVE Urine Urobilinogen NORMAL NORMAL MG/DL Urine Leukocyte Esterase NEGATIVE NEGATIVE Urine RBC (Auto) 1+ H NEGATIVE Urine RBC RARE /HPF Urine WBC NONE /HPF Urine Squamous Epithelial Cells 0-2 /HPF Urine Crystals PRESENT H /LPF Urine Amorphous Sediment FEW JARED URATES H /LPF Urine Bacteria NEGATIVE /HPF Urine Casts PRESENT /LPF Urine Hyaline Casts 0-2 H /LPF Urine Mucus SMALL H /LPF Urine Culture Indicated NO Urine Opiates Screen NEGATIVE NEGATIVE Urine Oxycodone Screen NEGATIVE NEGATIVE Urine Methadone Screen NEGATIVE NEGATIVE Urine Propoxyphene Screen NEGATIVE NEGATIVE Urine Barbiturates Screen NEGATIVE NEGATIVE Ur Tricyclic Antidepressants Screen NEGATIVE NEGATIVE Urine Phencyclidine Screen NEGATIVE NEGATIVE Urine Amphetamines Screen NEGATIVE NEGATIVE Urine Methamphetamines Screen POSITIVE H NEGATIVE Urine Benzodiazepines Screen NEGATIVE NEGATIVE Urine Cocaine Screen NEGATIVE NEGATIVE Urine Cannabinoids Screen NEGATIVE NEGATIVE Gastric Fluid Occult Blood POSITIVE H NEGATIVE Test 07/22/19 23:23 07/22/19 23:43 07/23/19 00:29 07/23/19 01:04 Range/Units Glucometer 344 H 329 H 361 H 70-110 MG/DL Blood Gas Puncture Site RIGHT RADIAL Blood Gas Patient Temperature 36.5 Arterial Blood pH 7.11 *L 7.37-7.43 Arterial Blood Partial Pressure CO2 31 L 35-45 MMHG Arterial Blood Partial Pressure O2 49 L 79-93 MMHG Arterial Blood HCO3 10 *L 23-27 MMOL/L Arterial Blood Total CO2 10.5 L 21.0-31.0 MMOL/L Arterial Blood Oxygen Saturation 72 L 94-100 % Arterial Blood Base Excess -18.2 L -2.5-2.5 MMOL/L Garret Test YES-POS Blood Gas Ventilator Setting NO Blood Gas Inspired Oxygen ROOM AIR Test 07/23/19 01:20 07/23/19 02:01 07/23/19 02:55 07/23/19 02:57 Range/Units Sodium Level 139 140 135-145 MMOL/L Potassium Level 5.2 H 4.5 3.6-5.0 MMOL/L Chloride Level 106 109 H 98-107 MMOL/L Carbon Dioxide Level 7 *L 9 *L 21-32 MMOL/L Anion Gap 26 H 22 H 5-14 MMOL/L Blood Urea Nitrogen 26 H 26 H 7-18 MG/DL Creatinine 1.93 H 1.99 H 0.60-1.30 MG/DL Estimat Glomerular Filtration Rate 41 40 BUN/Creatinine Ratio 13 13 Glucose Level 373 H 279 H 70-105 MG/DL Calcium Level 8.0 L 8.2 L 8.5-10.1 MG/DL Beta-Hydroxybutyrate (Chem panel) 11.93 H 0.00-0.27 MMOL/L Glucometer 300 H 260 H 70-110 MG/DL White Blood Count 18.8 H 4.3-11.0 10^3/uL Red Blood Count 4.91 4.35-5.85 10^6/uL Hemoglobin 14.0 13.3-17.7 G/DL Hematocrit 40 40-54 % Mean Corpuscular Volume 82 80-99 FL Mean Corpuscular Hemoglobin 29 25-34 PG Mean Corpuscular Hemoglobin Concent 35 32-36 G/DL Red Cell Distribution Width 13.0 10.0-14.5 % Platelet Count 284 130-400 10^3/uL Mean Platelet Volume 11.0 H 7.4-10.4 FL Neutrophils (%) (Auto) 92 H 42-75 % Lymphocytes (%) (Auto) 4 L 12-44 % Monocytes (%) (Auto) 4 0-12 % Eosinophils (%) (Auto) 0 0-10 % Basophils (%) (Auto) 0 0-10 % Neutrophils # (Auto) 17.4 H 1.8-7.8 X 10^3 Lymphocytes # (Auto) 0.7 L 1.0-4.0 X 10^3 Monocytes # (Auto) 0.7 0.0-1.0 X 10^3 Eosinophils # (Auto) 0.0 0.0-0.3 10^3/uL Basophils # (Auto) 0.0 0.0-0.1 10^3/uL Phosphorus Level 2.1 L 2.3-4.7 MG/DL Magnesium Level 2.0 1.6-2.4 MG/DL Test 07/23/19 03:43 07/23/19 03:54 07/23/19 05:02 Range/Units Blood Gas Puncture Site RIGHT RADIAL Blood Gas Patient Temperature 37.3 Arterial Blood pH 7.27 *L 7.37-7.43 Arterial Blood Partial Pressure CO2 28 L 35-45 MMHG Arterial Blood Partial Pressure O2 113 H 79-93 MMHG Arterial Blood HCO3 12 *L 23-27 MMOL/L Arterial Blood Total CO2 12.9 L 21.0-31.0 MMOL/L Arterial Blood Oxygen Saturation 99 94-100 % Arterial Blood Base Excess -13.5 L -2.5-2.5 MMOL/L Garret Test YES-POS Blood Gas Ventilator Setting NO Blood Gas Inspired Oxygen ROOM AIR Glucometer 224 H 189 H 70-110 MG/DL My Orders Orders - BOONE SORENSEN MD Ed Iv/Invasive Line Start (07/22/19 22:47) Ns Iv 1000 Ml (Sodium Chloride 0.9%) (07/22/19 22:47) Alcohol (07/22/19 22:47) Cbc With Automated Diff (07/22/19 22:47) Comprehensive Metabolic Panel (07/22/19 22:47) Drug Screen Stat (Urine) (07/22/19 22:47) Magnesium (07/22/19 22:47) Ua Culture If Indicated (07/22/19 22:47) Accucheck Stat ONCE (07/22/19 22:47) Ondansetron Injection (Zofran Injectio (07/22/19 23:00) Insulin (Regular) Human (Humulin R (Per (07/22/19 23:00) Manual Differential (07/22/19 22:48) Accucheck Stat ONCE (07/22/19 23:05) Accucheck Stat ONCE (07/22/19 23:05) Accucheck Stat ONCE (07/22/19 23:05) Ns Iv 1000 Ml (Sodium Chloride 0.9%) (07/22/19 23:21) Insulin (Regular) Human (Humulin R (Per (07/22/19 23:45) Arterial Blood Gas (07/22/19 23:40) Promethazine Injection (Phenergan Injec (07/22/19 23:45) Famotidine Injection (Pepcid Injection) (07/22/19 23:45) Occult Blood,Gastric Fluid (07/22/19 23:49) Pantoprazole Injection (Protonix Injecti (07/23/19 00:15) Medications Given in ED Current Medications Medications Dose Ordered Sig/Billie Route Start Time Stop Time Status Last Admin Dose Admin Famotidine 20 mg ONCE ONCE IVP 07/22/19 23:45 07/22/19 23:46 DC 07/22/19 23:54 20 MG Insulin Human Regular 5 unit ONCE ONCE IV 07/22/19 23:00 07/22/19 23:01 DC 07/22/19 22:56 5 UNIT Insulin Human Regular 5 unit ONCE ONCE IV 07/22/19 23:45 07/22/19 23:46 DC 07/22/19 23:54 5 UNIT Ondansetron HCl 8 mg ONCE ONCE IVP 07/22/19 23:00 07/22/19 23:01 DC 07/22/19 22:56 8 MG Promethazine HCl 12.5 mg ONCE ONCE IVP 07/22/19 23:45 07/22/19 23:46 DC 07/22/19 23:54 12.5 MG Sodium Chloride 1,000 ml @ 0 mls/hr Q0M ONCE IV 07/22/19 22:47 07/22/19 22:50 DC 07/22/19 22:56 1,000 MLS/HR Sodium Chloride 1,000 ml @ 0 mls/hr Q0M ONCE IV 07/22/19 23:21 07/22/19 23:22 DC 07/22/19 23:48 1,000 MLS/HR Vital Signs/I&O 07/22/19 07/23/19 07/23/19 07/23/19 22:44 00:45 01:00 01:06 Temp 36.6 36.6 37.5 Pulse 127 124 128 126 Resp 15 15 20 B/P (MAP) 145/87 (106) 137/90 (106) 131/80 (97) Pulse Ox 100 100 98 O2 Delivery Room Air 07/23/19 07/23/19 07/23/19 07/23/19 01:29 02:00 02:55 03:00 Temp 37.3 Pulse 129 126 Resp 16 17 B/P (MAP) 133/80 (97) 117/69 (85) Pulse Ox 98 98 97 O2 Delivery Room Air Room Air Room Air 07/23/19 07/23/19 07/23/19 07/23/19 03:39 03:47 04:00 05:00 Temp 37.3 Pulse 144 120 Resp 11 18 B/P (MAP) 132/77 (95) 149/72 (97) Pulse Ox 99 100 98 O2 Delivery Room Air Room Air Room Air 07/23/19 00:00 Intake Total 1000 ml Balance 1000 ml Capillary Refill : Less Than 3 Seconds Blood Pressure Mean: 106 Point of Care Testing Finger Stick Blood Glucose: 385 Progress Note #1: Time: 23:10 Progress Note Labs were obtained. A liter of IV fluid is infusing. 5 units of insulin was administered by IV route. Progress Note #2: Time: 23:54 Progress Note Patient has received a liter of IV normal saline and is receiving his second liter now. Insulin 5 units by IV route has been administered and he is receiving a second unit. Blood sugar starting to trend downward. Patient reports persistent nausea after Zofran. He will be given Phenergan and Pepcid. Gastric Hemoccult is pending. Case was discussed with Dr. Bolanos who excepts admission. Patient states he has not had a primary care provider locally in over 2 years. He was incarcerated for 6 months. He will be admitted to the ICU on the DKA protocol. PH is 7.11. He does not require sodium bicarbonate. Progress Note #3: Time: 00:13 Progress Note Gastric Hemoccult was positive. Protonix 80 mg was ordered and will be given prior to transfer to the ICU. Departure Communication (Admissions) Time/Spoke to Admitting Phy: 23:44 Dr. Bolanos Impression Primary Impression: DKA, type 1 Qualified Codes: E10.10 - Type 1 diabetes mellitus with ketoacidosis without coma Additional Impressions: Nausea and vomiting Hematemesis Qualified Codes: K92.0 - Hematemesis Positive urine drug screen Disposition: ADMITTED INPATIENT Condition: Improved Admissions Decision to Admit Reason: Admit from ER (General) Decision to Admit/Date: Jul 22, 2019 Time/Decision to Admit Time: 22:45 Departure-Patient Inst. Referrals: [facility] (PCP/Family) Primary Care Physician BOONE SORENSEN MD Jul 22, 2019 23:10
[2019-07-22 23:12] LABS: AMPHETAMINE SCREEN, URINE NEGATIVE (NEGATIVE); BARBITURATE SCREEN URINE NEGATIVE (NEGATIVE); BENZODIAZEPINES SCREEN URINE NEGATIVE (NEGATIVE); CANNABINOID SCREEN, URINE NEGATIVE (NEGATIVE); COCAINE SCREEN URINE NEGATIVE (NEGATIVE); METHADONE STAT NEGATIVE (NEGATIVE); METHAMPHETAMINE SCREEN URINE S POSITIVE (NEGATIVE); OPIATE SCREEN URINE NEGATIVE (NEGATIVE); OXYCODONE STAT NEGATIVE (NEGATIVE); PROPOXYPHENE STAT NEGATIVE (NEGATIVE); TRICYCLIC ANTIDEPRESSANTS SCRE NEGATIVE (NEGATIVE)
[2019-07-22 23:15] LABS: ALANINE AMINOTRANSFERASE 23 U/L (0-55); ALBUMIN 4.5 GM/DL (3.2-4.5); ALKALINE PHOSPHATASE 127 U/L (40-136); BILIRUBIN,TOTAL 0.3 MG/DL (0.1-1.0); BUN/CREATININE RATIO 12; CALCIUM 9.4 MG/DL (8.5-10.1); CHLORIDE 99 MMOL/L (98-107); CREATININE SERUM 2.33 MG/DL (0.60-1.30); GFR ESTIMATED 33; POTASSIUM 5.6 MMOL/L (3.6-5.0); SODIUM 137 MMOL/L (135-145); TOTAL PROTEIN 7.7 GM/DL (6.4-8.2)
[2019-07-22 23:18] LABS: CARBON DIOXIDE 6 MMOL/L (21-32); GLUCOSE 407 MG/DL (70-105)
[2019-07-22 23:29] LABS: BAND NEUTROPHILS 3 %; LYMPHOCYTES % (MANUAL) 1 %; MONOCYTES % (MANUAL) 3 %; NEUTROPHILS % (MANUAL) 93 %
[2019-07-22 23:30] LABS: BASOPHILS % (MANUAL) 0 %; EOSINOPHILS % (MANUAL) 0 %; RBC MORPH NORMAL
[2019-07-22] MEDS ORDERED: FAMOTIDINE 20MG/2ML IV (PEPCID) IVP ONE (23:45)
[2019-07-22] MEDS ORDERED: PROMETHAZINE INJ 25 MG/ML (PHENERGAN) AMP IVP ONE (23:45)
[2019-07-22 23:48] LABS: ABG BASE EXCESS -18.2 MMOL/L (-2.5-2.5); ABG OXYGEN SATURATION 72 % (94-100); ABG PCO2 31 MMHG (35-45); ABG PO2 49 MMHG (79-93); ABG TCO2 10.5 MMOL/L (21.0-31.0)
[2019-07-22 23:49] LABS: ABG PH 7.11 (7.37-7.43)
[2019-07-22 23:50] LABS: ALLENS TEST YES-POS
[2019-07-22 23:51] LABS: INSPIRED O2 ROOM AIR; PATIENT TEMP 36.5; VENTILATOR NO
[2019-07-23] VITALS (22 sets, daily range): BP systolic 117–186; BP diastolic 69–92
[2019-07-23 00:01] LABS: OCCULT BLOOD,GASTRIC FLUID POSITIVE (NEGATIVE)
[2019-07-23] MEDS ORDERED: PANTOPRAZOLE 40 MG (PROTONIX) VIAL IV ONE (00:15)
[2019-07-23] MEDS ORDERED: NORMAL SALINE 250 ML ONE (00:59)
[2019-07-23] MEDS ORDERED: 1/2 NS IV SOLUTION 1,000 ML IV ONE (00:59)
[2019-07-23] MEDS: REGULAR inSUlin DRIP 250 UNITS/NS 250 ML IV SCH ×2 (01:00)
[2019-07-23] MEDS ORDERED: inSUlin (REGULAR) HUMAN 1 UNIT/0.01 ML (CHARGE PER UNIT) ONE (01:00)
--- NOTE | 2019-07-23 01:27 | NUR ---
CHANTE LOUISE admitted to room CU1-1, with an admitting diagnosis of DKA , on 07/23/19 from ED via , accompanied by CHANTE LOUISE introduced to surroundings, call light, bed controls, phone, TV, temperature control, lights, meal times, smoking policy, visitor policy, side rail policy, bathrooms and showers. Patient Rights given to patient in the handbook.CHANTE LOUISE verbalizes understanding that [facility] is not responsible for the loss or damage to any personal effects or valuables that are kept in the patients possession during their hospitalization. The following Patient Care Plans were discussed with the PATIENT: Discharge Planning, DKA,, and . CHANTE LOUISE verbalizes understanding of Interdisciplinary Patient Education.
--- NOTE | 2019-07-23 01:29 | NUR ---
ASKED PT IF THIS RN WOULD LIKE THIS RN TO CONTACT FAMILY. PT DID NOT WANT TO.
[2019-07-23 01:45] LABS: CREATININE SERUM 1.93 MG/DL (0.60-1.30); POTASSIUM 5.2 MMOL/L (3.6-5.0)
[2019-07-23] MEDS ORDERED: DEXTROSE 10% IV SOLUTION 1,000 ML IV SCH (02:00)
[2019-07-23] MEDS ORDERED: NS IV 1000 ML X 1 WIDE OPEN IV ONE (02:00)
[2019-07-23] MEDS: 1/2 NS IV SOLUTION 1,000 ML IV SCH ×7 (02:09→23:41)
[2019-07-23] MEDS: POTASSIUM CL 10MEQ/50ML IVPB 50 ML IV SCH ×13 (02:09→23:41)
[2019-07-23] MEDS: D5 1/2 NS IV 1,000 ML IV SCH ×7 (02:10→23:41)
[2019-07-23 03:12] LABS: BASOPHILS % (AUTO) 0 % (0-10); EOSINOPHILS % (AUTO) 0 % (0-10); HEMATOCRIT 40 % (40-54); LYMPHOCYTES # (AUTO) 0.7 X 10^3 (1.0-4.0); LYMPHOCYTES % (AUTO) 4 % (12-44); MEAN CORPUSCULAR HEMOGLOBIN 29 PG (25-34); MEAN CORPUSCULAR HGB CONC 35 G/DL (32-36); MEAN CORPUSCULAR VOLUME 82 FL (80-99); MONOCYTES # (AUTO) 0.7 X 10^3 (0.0-1.0); MONOCYTES % (AUTO) 4 % (0-12); NEUTROPHILS # (AUTO) 17.4 X 10^3 (1.8-7.8); NEUTROPHILS % (AUTO) 92 % (42-75); PLATELET COUNT 284 10^3/uL (130-400); WHITE BLOOD COUNT 18.8 10^3/uL (4.3-11.0)
[2019-07-23 03:37] LABS: CALCIUM 8.2 MG/DL (8.5-10.1); CREATININE SERUM 1.99 MG/DL (0.60-1.30); PHOSPHORUS 2.1 MG/DL (2.3-4.7); POTASSIUM 4.5 MMOL/L (3.6-5.0)
[2019-07-23 03:51] LABS: ABG BASE EXCESS -13.5 MMOL/L (-2.5-2.5); ABG OXYGEN SATURATION 99 % (94-100); ABG PCO2 28 MMHG (35-45); ABG PO2 113 MMHG (79-93); ABG TCO2 12.9 MMOL/L (21.0-31.0)
[2019-07-23 03:56] LABS: ABG PH 7.27 (7.37-7.43)
[2019-07-23 03:57] LABS: ALLENS TEST YES-POS; INSPIRED O2 ROOM AIR; PATIENT TEMP 37.3; VENTILATOR NO
[2019-07-23] MEDS ORDERED: SODIUM BICARB 8.4% 50 MEQ/50 ML VIAL ONE (04:23)
[2019-07-23] MEDS ORDERED: SODIUM BICARB 8.4% 50 MEQ/50 ML VIAL IV ONE (04:30)
[2019-07-23] MEDS ORDERED: NS IV 1000 ML 1,000 ML IV ONE (04:30)
[2019-07-23] MEDS ORDERED: SODIUM BICARB 8.4% 50 MEQ/50 ML (ABBOTT) SYR IV ONE (04:45)
[2019-07-23] MEDS: ONDANSETRON 4 MG/2 ML (SDV) Z0FRAN IV PRN ×2 (05:18→13:40)
[2019-07-23] MEDS: KCL 20 MEQ TAB (K-DUR) PO SCH (05:35)
[2019-07-23] MEDS: MAGNESIUM 1 GM/100 ML IVPB 100 ML IV SCH (05:35)
[2019-07-23] MEDS ORDERED: SODIUM PHOSPHATE INJ 30 MM in NS (IVPB) 250 ML IV ONE (06:15)
[2019-07-23] MEDS: DEXTROSE 10% IV SOLUTION 1,000 ML IV SCH ×3 (06:29→14:36)
[2019-07-23 06:38] LABS: ALBUMIN 3.5 GM/DL (3.2-4.5); BILIRUBIN,TOTAL 0.3 MG/DL (0.1-1.0); CALCIUM 8.1 MG/DL (8.5-10.1); CREATININE SERUM 1.84 MG/DL (0.60-1.30); MAGNESIUM 1.8 MG/DL (1.6-2.4); POTASSIUM 3.9 MMOL/L (3.6-5.0); TOTAL PROTEIN 5.9 GM/DL (6.4-8.2)
[2019-07-23] MEDS: PROMETHAZINE INJ 25 MG/ML (PHENERGAN) AMP IV PRN (06:45)
--- NOTE | 2019-07-23 07:16 | Pulmonary Consultation ---
History of Present Illness History of Present Illness Date of Consultation 07/23/19 07:11 Time Seen by Provider: 07:11 Date of Admission History of Present Illness 29yo with hx of illicit drug use, IDDM type 1 presented to ED secondary to worsening weakness, hyperglycemia, N/V. He was recently incarcerated and released on July 16. UDS is positive for methamphetamine. I am consulted for ICU management. Allergies and Home Medications Allergies Coded Allergies: No Known Drug Allergies (Unverified , 06/21/18) Home Medications Insulin Aspart 300 Units/3 Ml Solution, 10 UNITS SQ AC ADJUST NEEDED BASED ON MEAL AND BLOOD SUGAR Prescribed by: GLADIS FIERRO on 04/13/18 1001 Insulin Glargine,Hum.rec.anlog 100 Unit/1 Ml Insuln.pen, 35 UNIT SQ HS Prescribed by: COURTNEY NUGENT on 06/22/18 1343 Montelukast Sodium 10 Mg Tablet, 10 MG PO HS Prescribed by: GLADIS FIERRO on 04/13/18 0859 Past Rounubf-Swysyy-Tvfvyb Hx Past Med/Social Hx: Reviewed and Corrections made Patient Social History Alcohol Use: Denies Use Recreational Drug Use: Yes Drug of Choice: METH, MARIJUANA Type Used: Cigarettes Recent Foreign Travel: No Contact w/Someone Who Travel: No Recent Infectious Disease Expo: No Recent Hopitalizations: No Physical Abuse: No Sexual Abuse: No Mistreated: No Fear: No Immunizations Up To Date Tetanus Booster (TDap): Less than 5yrs PED Vaccines UTD: No Date of Pneumonia Vaccine: February 22, 2014 Date of Influenza Vaccine: Jul 20, 2013 Seasonal Allergies Seasonal Allergies: No Past Medical History Surgeries: Yes (RIGHT ARM FX/ORIF ) Orthopedic Respiratory: No Cardiac: No Neurological: No Reproductive Disorders: No Sexually Transmitted Disease: No HIV/AIDS: No Genitourinary: No Gastrointestinal: No Musculoskeletal: Yes Fractures Endocrine: Yes (TYPE 1 IDDM--DX AGE 8, multiple episodes of DKA) Diabetes, Insulin dep HEENT: No Cancer: No Psychosocial: No Integumentary: No Blood Disorders: No Adverse Reaction/Blood Tranf: No Family Medical History Reviewed Nursing Family Hx Cancer 03 FATHER, Onset:Unknown Family history: Diabetes mellitus 03 FATHER, Onset:Unknown Diabetes Review of Systems Time Seen by Provider: 07:17 Constitutional: Weakness, Malaise; No: Fever, Chills, Sweats, Other Eyes: No: Pain, Vision change, Conjunctivae inflammation, Eyelid inflammation, Other, Redness ENT: No: Ear pain, Ear discharge, Nose pain, Nose discharge, Nose congestion, Mouth pain, Mouth swelling, Throat pain, Throat swelling, Other Respiratory: Shortness of breath, SOB with excertion; No: Cough, Dry, Wheezing, Hemoptysis, Pleuritic Pain, Sputum, Wheezing, Other Cardiovascular: No: Chest Pain, Palpitations, Orthopnea, Paroxysmal Noc. Dyspnea, Edema, Lt Headedness, Other Gastrointestinal: Nausea, Vomiting; No: Abdominal Pain, Diarrhea, Constipation Genitourinary: No Dysuria, No Frequency, No Incontinence, No Hematuria, No Retention, No Other Sepsis Event Evaluation Height, Weight, BMI Height: 6'2.00" Weight: 171lbs. 7.0oz. 77.486724na; 20.80 BMI Method:Estimated Exam Exam Vital Signs Date Time Temp Pulse Resp B/P (MAP) Pulse Ox O2 Delivery O2 Flow Rate FiO2 07/23/19 06:00 112 186/80 (115) 98 Room Air 07/23/19 05:00 120 18 149/72 (97) 98 Room Air 07/23/19 04:00 144 11 132/77 (95) 100 Room Air 07/23/19 03:47 99 Room Air 07/23/19 03:39 37.3 07/23/19 03:00 126 17 117/69 (85) 97 Room Air 07/23/19 02:55 37.3 07/23/19 02:00 129 16 133/80 (97) 98 Room Air 07/23/19 01:29 98 Room Air 07/23/19 01:06 37.5 126 20 131/80 (97) 98 Room Air 07/23/19 01:00 128 07/23/19 00:45 36.6 124 15 137/90 (106) 100 07/22/19 22:44 36.6 127 15 145/87 (106) 100 I & O 07/23/19 07:00 Intake Total 3100 ml Output Total 500 ml Balance 2600 ml Height & Weight Height: 6'2.00" Weight: 171lbs. 7.0oz. 77.882589em; 20.80 BMI Method:Estimated General Appearance: No Apparent Distress, WD/WN, Other (ill appearing) HEENT: PERRL/EOMI, Normal ENT Inspection, Other (oropharynx dry) Neck: Normal Inspection Respiratory: Lungs Clear, Normal Breath Sounds, No Accessory Muscle Use, No Respiratory Distress Cardiovascular: Regular Rate, Rhythm, No Edema, No Murmur Capillary Refill: Less Than 3 Seconds Extremity: Normal Capillary Refill, Normal Inspection, No Pedal Edema Neurologic/Psychiatric: Alert, Oriented x3, No Motor/Sensory Deficits, bundle tier II-X II Norm as Tested Skin: Normal Color, Warm/Dry Results Lab Laboratory Tests 07/22/19 22:48 07/23/19 01:20 07/23/19 02:55 07/23/19 06:10 Assessment/Plan Assessment/Plan Acute DKA -Continue DKA protocol -IVF Hypophos -replace Sinus tachycardia -IVF acute renal failure -IVF Methamphetamine use -education Leukocytosis - reactive -No fevers JACIEL RHODES DO Jul 23, 2019 07:16
[2019-07-23] MEDS: FAMOTIDINE 20MG/2ML IV (PEPCID) IVP SCH ×2 (07:54→20:00)
[2019-07-23 09:33] LABS: CALCIUM 8.1 MG/DL (8.5-10.1); CREATININE SERUM 1.77 MG/DL (0.60-1.30); POTASSIUM 3.6 MMOL/L (3.6-5.0)
[2019-07-23] MEDS ORDERED: FLU QUADRIvalent (5+ YOA) 2019-2020 (AFLURIA) 0.5 ML IM ONE (11:00)
[2019-07-23] MEDS ORDERED: INSU100V SQ (11:30)
[2019-07-23] MEDS ORDERED: GBPN600T PO (11:31)
--- NOTE | 2019-07-23 11:32 | NUR ---
UNABLE TO SPEAK WITH THE PATIENT AT THIS TIME. [facility] HAS NOT FILLED ANYTHING FOR THE PATIENT SINCE MAY, AND IT WAS WHILE HE WAS IN [facility]: 05-25-19 LEVEMIR 35 UNITS HS 05-25-19 NABUMETONE 750MG BID PRN 14 DAYS 05-25-19 GABAPENTIN 600 TID 14 DAYS I CALLED [facility] AND THEY STATE THE PATIENT WAS MOVED TO [facility]. I CALLED [facility] AND THEY REQUESTED I SEND THEM A FAX REQUEST. I HAVE DONE SO BUT IN THE MEAN TIME SPOKE WITH [facility] WHO DISPENSES THE MEDICATIONS TO [facility] AND THEY GAVE ME THE INFORMATION OF WHAT THEY WERE FILLING: [facility] FILLED: 07-09-19 ORTHODONTIC WAX 07-01-19 HUMALOG VIAL TID PER SLIDING SCALE 06-17-19 GABAPENTIN 600MG BID #60 WHEN I RECEIVE THE PAPERWORK FROM [facility] I WILL UPDATE IF ANY CHANGES NEED TO BE MADE.
--- NOTE | 2019-07-23 11:47 | Diagnostic Imaging Report ---
Portable AP chest at 824h. INDICATION: Diabetic ketoacidosis The heart size is within normal limits and stable when compared to 04/12/2018. The lungs remain clear. There is no sign of failure, pneumonia or pleural effusion. The mediastinum is not widened. The osseous structures are intact. IMPRESSION: There is no evidence for active disease. Dictated by: Dictated on workstation # [id number]
--- NOTE | 2019-07-23 13:44 | History & Physical-Hospitalist ---
History of Present Illness HPI/Chief Complaint Mercedes Mark is a 29yoM with T1DM who presented with weakness, nausea and vomiting. [facility] was recently [facility] from [facility] last Friday. He says that he has not taken his insulin since getting out. He says that he does not have a physician. He denies fevers and chills. He denies shortness of breath and cough. He denies chest pain. He denies abdominal pain and diarrhea. He denies dysuria. He denies alcohol and drug use. Source: patient Exam Limitations: clinical condition Date Seen 07/23/19 Time Seen by a Provider: 08:30 Attending Physician Hollie Bolanos DO [facility] Referring Physician Date of Admission Jul 23, 2019 at 00:00 Home Medications & Allergies Home Medications Reviewed patient Home Medication Reconciliation performed by pharmacy medication reconciliations tire technician and/or nursing. Patients Allergies have been reviewed. Allergies Allergies Coded Allergies No Known Drug Allergies (Unverified06/21/18) Past Lowjczk-Wfrowj-Mibxbn Hx Past Med/Social Hx: Reviewed Nursing Past Med/Soc Hx Patient Social History Alcohol Use: Denies Use Recreational Drug Use: Yes Drug of Choice: METH, MARIJUANA Type Used: Cigarettes Recent Foreign Travel: No Contact w/other who traveled: No Recent Hopitalizations: No Recent Infectious Disease Expo: No Immunizations Up To Date Tetanus Booster (TDap): Less than 5yrs Pediatric: No Date of Pneumonia Vaccine: February 22, 2014 Date of Influenza Vaccine: Jul 20, 2013 Seasonal Allergies Seasonal Allergies: No Past Medical History Surgeries: Orthopedic Reproductive: No Sexually Transmitted Disease: No HIV/AIDS: No Musculoskeletal: Fractures Endocrine: Diabetes, Insulin dep History of Blood Disorders: No Adverse Reaction to Blood [place]: No Family History Reviewed Nursing Family Hx Cancer 03 FATHER, Onset:Unknown Family history: Diabetes mellitus 03 FATHER, Onset:Unknown Diabetes Review of Systems Constitutional: malaise, weakness EENTM: no symptoms reported Respiratory: no symptoms reported Cardiovascular: no symptoms reported Gastrointestinal: nausea, vomiting Genitourinary: no symptoms reported Musculoskeletal: no symptoms reported Skin: no symptoms reported Psychiatric/Neurological: No Symptoms Reported Physical Exam Physical Exam Vital Signs Vital Signs - First Documented 07/22/19 07/23/19 22:44 01:06 Temp 36.6 Pulse 127 Resp 15 B/P (MAP) 145/87 (106) Pulse Ox 100 O2 Delivery Room Air Capillary Refill : Less Than 3 Seconds Height, Weight, BMI Height: 6'2.00" Weight: 171lbs. 7.0oz. 77.683104pr; 20.80 BMI Method:Estimated General Appearance: Thin HEENT: PERRL/EOMI, Other (dry mucous membranes) Neck: Normal Inspection, Supple Respiratory: Lungs Clear, Normal Breath Sounds, No Respiratory Distress Cardiovascular: Regular Rate, Rhythm, No Edema, No Murmur Gastrointestinal: Normal Bowel Sounds, Non Tender, Soft Extremity: Normal Inspection, Non Tender Neurologic/Psychiatric: Alert, Oriented x3, No Motor/Sensory Deficits, Other (flat affect) Skin: Normal Color, Warm/Dry Lymphatic: No Adenopathy Results Results/Procedures Labs Laboratory Tests 07/22/19 22:48 07/23/19 01:20 07/23/19 02:55 07/23/19 06:10 07/23/19 09:08 Patient resulted labs reviewed. Imaging: Reviewed Imaging Films, Reviewed Imaging Report Assessment/Plan Admission Diagnosis Type 1 diabetes mellitus with ketoacidosis Admission Status: Inpatient Order (span 2 midnights) Reason for Inpatient Admission: RYAN Hypokalemia Hypomagnesemia SIRS Methamphetamine abuse Assessment and Plan Type 1 diabetes mellitus with ketoacidosis -Started on DKA protocol -Insulin gtt -IV fluids -Gap closed this morning -Infectious workup negative thus far RYAN -Cr 2.3 on admission -Improved to 1.7 this morning -Continue IV fluids Hypokalemia Hypophosphatemia -Monitor and replace as needed Methamphetamine abuse -Recommend cessation DVT Prophylaxis: Heparin Critical Care Critically Ill Patient Diagnosis/Problems Diagnosis/Problems (1) Type 1 diabetes mellitus with ketoacidosis without coma Status: Acute (2) Acute kidney injury Status: Acute (3) Hypophosphatemia Status: Acute (4) Methamphetamine abuse Status: Chronic Clinical Quality Measures DVT/VTE Risk/Contraindication: Risk Factor Score Per Nursin RFS Level Per Nursing on Admit: 1=Low/No VTE PPX JUANCARLOS DREW MD Jul 23, 2019 13:44
[2019-07-23 14:01] LABS: CALCIUM 7.9 MG/DL (8.5-10.1); CREATININE SERUM 1.55 MG/DL (0.60-1.30); POTASSIUM 3.4 MMOL/L (3.6-5.0)
--- NOTE | 2019-07-23 15:10 | NUR ---
CM/SS attempted to speak with the patient in regards to the SS consult. Patient would nod to confirm his name and then would not respond to any other questions or attempt to converse.
[2019-07-23 17:23] LABS: CALCIUM 7.7 MG/DL (8.5-10.1); CREATININE SERUM 1.49 MG/DL (0.60-1.30); POTASSIUM 3.9 MMOL/L (3.6-5.0)
[2019-07-24] VITALS (13 sets, daily range): BP systolic 123–157; BP diastolic 74–94
[2019-07-24] MEDS: REGULAR inSUlin DRIP 250 UNITS/NS 250 ML IV SCH ×2 (02:02)
[2019-07-24] MEDS: POTASSIUM CL 10MEQ/50ML IVPB 50 ML IV SCH ×6 (02:09→05:33)
--- NOTE | 2019-07-24 02:35 | NUR ---
Call placed to E ICU at this time by this bond writer. This bond writer spoke to Dr Giron via telephone. Updated Dr Giron on patient last three glucose checks and insulin drip settings. Blood glucose currently 94 which does not fall on our titration scale for it starts @ 100-140. Patient blood sugar has continued to decline this shift. Will hold insulin drip for now per Dr Giron and reevaluate once 0300 labs are drawn. This bond writer will call Dr Giron with results. Last lab drawn at 1700 07/23. Co2 19 Anion Gap 10.
[2019-07-24 03:29] LABS: BASOPHILS % (AUTO) 0 % (0-10); EOSINOPHILS % (AUTO) 0 % (0-10); HEMATOCRIT 35 % (40-54); HEMOGLOBIN 12.1 G/DL (13.3-17.7); LYMPHOCYTES # (AUTO) 1.2 X 10^3 (1.0-4.0); LYMPHOCYTES % (AUTO) 10 % (12-44); MEAN CORPUSCULAR HEMOGLOBIN 28 PG (25-34); MEAN CORPUSCULAR HGB CONC 34 G/DL (32-36); MEAN CORPUSCULAR VOLUME 82 FL (80-99); MEAN PLATELET VOLUME 11.1 FL (7.4-10.4); MONOCYTES # (AUTO) 1.1 X 10^3 (0.0-1.0); MONOCYTES % (AUTO) 9 % (0-12); NEUTROPHILS # (AUTO) 9.9 X 10^3 (1.8-7.8); NEUTROPHILS % (AUTO) 81 % (42-75); PLATELET COUNT 184 10^3/uL (130-400); RED CELL DISTRIBUTION WIDTH 12.8 % (10.0-14.5); WHITE BLOOD COUNT 12.1 10^3/uL (4.3-11.0)
[2019-07-24 03:44] LABS: BUN/CREATININE RATIO 7; CARBON DIOXIDE 22 MMOL/L (21-32); CHLORIDE 113 MMOL/L (98-107); CREATININE SERUM 1.25 MG/DL (0.60-1.30); GFR ESTIMATED > 60; GLUCOSE 112 MG/DL (70-105); MAGNESIUM 1.7 MG/DL (1.6-2.4); PHOSPHORUS 1.5 MG/DL (2.3-4.7); POTASSIUM 3.1 MMOL/L (3.6-5.0); SODIUM 141 MMOL/L (135-145)
[2019-07-24] MEDS: D5 1/2 NS IV 1,000 ML IV SCH (03:46)
--- NOTE | 2019-07-24 04:06 | NUR ---
AM lab reported to Dr Giron at this time. Orders to DC DKA protocol and initiate SSI with Accu check AC&HS.
[2019-07-24] MEDS: MAGNESIUM 1 GM/100 ML IVPB 100 ML IV SCH (04:14)
[2019-07-24] MEDS: KCL 20 MEQ TAB (K-DUR) PO SCH (04:14)
[2019-07-24] MEDS ORDERED: inSUlin ASPART (NovoLOG) 1 UNIT/0.01 ML (CHARGE PER UNIT) SC SCH ×3 (06:00→08:00)
--- NOTE | 2019-07-24 06:14 | Pulmonary Progress Note ---
Subjective Time Seen by a Provider: 06:14 Subjective/Events-last exam Insulin gtt is now off. Sepsis Event Evaluation Height, Weight, BMI Height: 6'2.00" Weight: 171lbs. 7.0oz. 77.848925wj; 20.80 BMI Method:Estimated Focused Exam Lactate Level 07/23/19 06:10: Lactic Acid Level 0.87 Exam Exam Vital Signs Date Time Temp Pulse Resp B/P (MAP) Pulse Ox O2 Delivery O2 Flow Rate FiO2 07/24/19 05:00 99 16 137/80 (99) 96 Room Air 07/24/19 04:00 89 13 134/81 (98) 97 Room Air 07/24/19 03:45 37.3 Room Air 07/24/19 03:20 97 Room Air 07/24/19 03:00 113 15 146/81 (102) 98 Room Air 07/24/19 02:00 96 15 135/77 (96) 97 Room Air 07/24/19 01:00 102 15 139/80 (99) 98 Room Air 07/24/19 01:00 102 07/24/19 00:00 98 14 123/74 (90) 97 Room Air 07/23/19 23:35 100 Room Air 07/23/19 23:30 37.2 Room Air 07/23/19 23:00 96 13 127/76 (93) 98 Room Air 07/23/19 22:00 96 17 144/92 (109) 100 Room Air 07/23/19 21:00 93 15 128/74 (92) 99 Room Air 07/23/19 20:00 104 19 146/89 (108) 100 Room Air 07/23/19 19:50 100 Room Air 07/23/19 19:00 86 07/23/19 19:00 37.5 87 22 136/79 (98) 100 Room Air 07/23/19 18:00 64 128/69 (88) 100 Room Air 07/23/19 17:00 92 128/76 (93) 100 Room Air 07/23/19 16:34 37.2 07/23/19 16:00 93 142/74 (96) 100 Room Air 07/23/19 16:00 98 Room Air 07/23/19 15:00 94 133/73 (93) 100 Room Air 07/23/19 14:00 93 131/70 (90) 100 Room Air 07/23/19 13:00 91 131/83 (99) 99 Room Air 07/23/19 13:00 94 07/23/19 12:00 37.2 90 18 126/73 (90) 99 Room Air 07/23/19 12:00 98 Room Air 07/23/19 11:00 105 136/79 (98) 97 Room Air 07/23/19 10:00 105 129/80 (96) 98 Room Air 07/23/19 09:00 106 98 Room Air 07/23/19 08:00 37.2 112 170/76 (107) 97 Room Air 07/23/19 07:44 98 Room Air 07/23/19 07:00 111 170/76 (107) 97 Room Air 07/23/19 07:00 112 I & O 07/24/19 07:00 Intake Total 8010 ml Output Total 4125 ml Balance 3885 ml Height & Weight Height: 6'2.00" Weight: 171lbs. 7.0oz. 77.952260hu; 20.80 BMI Method:Estimated General Appearance: No Apparent Distress, Thin HEENT: PERRL/EOMI, Other (dry mucous membranes) Neck: Normal Inspection, Supple Respiratory: Lungs Clear, Normal Breath Sounds, No Respiratory Distress Cardiovascular: Regular Rate, Rhythm, No Edema, No Murmur Capillary Refill: Less Than 3 Seconds Gastrointestinal: normal bowel sounds, non tender, soft Extremity: Normal Inspection, Non Tender Neurologic/Psychiatric: Alert, Oriented x3, No Motor/Sensory Deficits, Other (flat affect) Skin: Normal Color, Warm/Dry Lymphatic: No Adenopathy Results Lab Laboratory Tests 07/22/19 22:48 07/23/19 01:20 07/23/19 02:55 07/23/19 06:10 07/23/19 09:08 07/23/19 13:35 07/23/19 17:00 07/24/19 02:55 Assessment/Plan Assessment/Plan Acute DKA- resolved -Insulin gtt is off -IVF Hypophos -replace Sinus tachycardia -IVF acute renal failure -IVF Methamphetamine use -education Leukocytosis - reactive -No fevers JACIEL RHODES DO Jul 24, 2019 06:14
[2019-07-24] MEDS ORDERED: MAGNESIUM 1 GM/100 ML IVPB 100 ML IV ONE (06:15)
--- NOTE | 2019-07-24 07:14 | Diagnostic Imaging Report ---
INDICATION: Dyspnea. COMPARISON: 07/23/2019. DISCUSSION: Single portable upright view of the chest was obtained. Normal heart size. No focal consolidation, pleural fluid, or pneumothorax. No osseous abnormality. IMPRESSION: 1. Stable negative chest. Dictated by: Dictated on workstation # [id number]
[2019-07-24] MEDS: FAMOTIDINE 20MG/2ML IV (PEPCID) IVP SCH ×2 (08:35→21:44)
[2019-07-24] MEDS ORDERED: POTASSIUM PHOSPHATE INJ 30 MM in NS (IVPB) 250 ML IV ONE (09:15)
--- NOTE | 2019-07-24 13:47 | Progress Note - Hospitalist ---
Subjective HPI/CC On Admission Date Seen by Provider: Jul 24, 2019 Time Seen by Provider: 08:30 weakness, nausea and vomiting Subjective/Events-last exam He reports abdominal pain. He denies nausea and vomiting. He denies diarrhea and constipation. He reports subjective fevers. He denies chest pain and dyspnea. Focused Exam Lactate Level 07/23/19 06:10: Lactic Acid Level 0.87 Objective Exam Vital Signs Vital Signs Date Time Temp Pulse Resp B/P (MAP) Pulse Ox O2 Delivery O2 Flow Rate FiO2 07/24/19 10:45 37.3 104 16 141/94 (110) 97 Room Air Capillary Refill : Less Than 3 Seconds General Appearance: No Apparent Distress, WD/WN, Thin, Other (disheveled, poorly groomed) Respiratory: Lungs Clear, Normal Breath Sounds, No Respiratory Distress Cardiovascular: No Edema, No Murmur Gastrointestinal: Normal Bowel Sounds, Non Tender, Soft Extremity: Normal Inspection, Non Tender, No Pedal Edema Neurologic/Psychiatric: Alert; No Disoriented Skin: Normal Color, Warm/Dry Results/Procedures Lab Laboratory Tests 07/23/19 17:00 07/24/19 02:55 Patient resulted labs reviewed. Assessment/Plan Assessment and Plan Assess & Plan/Chief Complaint Type 1 diabetes mellitus with ketoacidosis -DKA resolved -Transitioned off insulin gtt -Started Levemir 20 units nightly -Discontinue IV fluids -Diet ordered RYAN -Cr 2.3 on admission -Improved to 1.25 this morning -Encourage fluid intake Hypokalemia Hypophosphatemia Hypomagnesemia -Monitor and replace as needed Methamphetamine abuse -Recommend cessation DVT Prophylaxis: Heparin Diagnosis/Problems Diagnosis/Problems (1) Type 1 diabetes mellitus with ketoacidosis without coma Status: Acute (2) Acute kidney injury Status: Acute (3) Hypophosphatemia Status: Acute (4) Methamphetamine abuse Status: Chronic Clinical Quality Measures DVT/VTE Risk/Contraindication: Risk Factor Score Per Nursin RFS Level Per Nursing on Admit: 1=Low/No VTE PPX JUANCARLOS DREW MD Jul 24, 2019 13:47
[2019-07-24] MEDS: inSUlin ASPART (NovoLOG) 1 UNIT/0.01 ML (CHARGE PER UNIT) SC SCH ×2 (16:37→21:48)
[2019-07-24] MEDS: PROMETHAZINE INJ 25 MG/ML (PHENERGAN) AMP IV PRN (16:46)
[2019-07-25 00:10] VITALS: BP 140/87
[2019-07-25 03:59] VITALS: BP 136/85
[2019-07-25 04:54] LABS: BASOPHILS % (AUTO) 0 % (0-10); EOSINOPHILS % (AUTO) 0 % (0-10); HEMATOCRIT 39 % (40-54); HEMOGLOBIN 13.3 G/DL (13.3-17.7); LYMPHOCYTES # (AUTO) 1.3 X 10^3 (1.0-4.0); LYMPHOCYTES % (AUTO) 18 % (12-44); MEAN CORPUSCULAR HEMOGLOBIN 28 PG (25-34); MEAN CORPUSCULAR HGB CONC 35 G/DL (32-36); MEAN CORPUSCULAR VOLUME 82 FL (80-99); MEAN PLATELET VOLUME 11.2 FL (7.4-10.4); MONOCYTES # (AUTO) 0.8 X 10^3 (0.0-1.0); MONOCYTES % (AUTO) 12 % (0-12); NEUTROPHILS # (AUTO) 4.8 X 10^3 (1.8-7.8); NEUTROPHILS % (AUTO) 69 % (42-75); PLATELET COUNT 199 10^3/uL (130-400); RED CELL DISTRIBUTION WIDTH 12.7 % (10.0-14.5); WHITE BLOOD COUNT 6.9 10^3/uL (4.3-11.0)
[2019-07-25 05:18] LABS: BUN/CREATININE RATIO 8; CALCIUM 8.9 MG/DL (8.5-10.1); CARBON DIOXIDE 25 MMOL/L (21-32); CHLORIDE 105 MMOL/L (98-107); CREATININE SERUM 1.24 MG/DL (0.60-1.30); GFR ESTIMATED > 60; GLUCOSE 95 MG/DL (70-105); MAGNESIUM 1.8 MG/DL (1.6-2.4); PHOSPHORUS 3.3 MG/DL (2.3-4.7); POTASSIUM 3.4 MMOL/L (3.6-5.0); SODIUM 142 MMOL/L (135-145)
[2019-07-25] MEDS: inSUlin ASPART (NovoLOG) 1 UNIT/0.01 ML (CHARGE PER UNIT) SC SCH ×2 (06:00→11:25)
[2019-07-25] MEDS: POTASSIUM CL 10MEQ/50ML IVPB 50 ML IV SCH (06:00)
[2019-07-25] MEDS: MAGNESIUM 1 GM/100 ML IVPB 100 ML IV SCH ×3 (06:00→09:22)
[2019-07-25] MEDS: KCL 20 MEQ TAB (K-DUR) PO SCH (06:25)
[2019-07-25 08:00] VITALS: BP 131/75
[2019-07-25] MEDS ORDERED: KCL 20 MEQ TAB (K-DUR) PO ONE (08:00)
[2019-07-25] MEDS: FAMOTIDINE 20MG/2ML IV (PEPCID) IVP SCH (09:21)
[2019-07-25] MEDS ORDERED: INSU100I29 SQ (10:36)
[2019-07-25] MEDS ORDERED: INSU100I14 SQ (10:36)
--- NOTE | 2019-07-25 10:42 | Discharge Summary ---
Discharge Summary Hospital Course Problems/Dx: (1) Type 1 diabetes mellitus with ketoacidosis without coma Status: Acute (2) Acute kidney injury Status: Resolved (3) Hypophosphatemia Status: Resolved (4) Methamphetamine abuse Status: Chronic Hospital Course Date of Admission: Jul 23, 2019 at 00:00 Admission Diagnosis : T1DM with DKA [facility]: 07/25/19 Discharge Diagnosis: T1DM with DKA Hospital Course: Mercedes Mark is a 29yoM with PMH T1DM who presented in DKA. He had been released from group home recently and had not taken insulin since that time. He does not have a primary care physician and he did not have insulin at home. He responded well and his DKA resolved. His acute kidney injury also improved. He was given a prescription for a 3-month supply of insulin from [facility]. He will be taking Levemir 20 units nightly and Novolog 5 units with meals. He will call to make an appointment to establish care with a primary care physician tomorrow morning. Labs and Pending Lab Test: Laboratory Tests 07/24/19 16:22: Glucometer 438*H 07/24/19 21:25: Glucometer 275H 07/25/19 04:05: White Blood Count 6.9, Red Blood Count 4.71, Hemoglobin 13.3, Hematocrit 39L, Mean Corpuscular Volume 82, Mean Corpuscular Hemoglobin 28, Mean Corpuscular Hemoglobin Concent 35, Red Cell Distribution Width 12.7, Platelet Count 199, Mean Platelet Volume 11.2H, Neutrophils (%) (Auto) 69, Lymphocytes (%) (Auto) 18, Monocytes (%) (Auto) 12, Eosinophils (%) (Auto) 0, Basophils (%) (Auto) 0, Neutrophils # (Auto) 4.8, Lymphocytes # (Auto) 1.3, Monocytes # (Auto) 0.8, Eosinophils # (Auto) 0.0, Basophils # (Auto) 0.0, Sodium Level 142, Potassium Level 3.4L, Chloride Level 105, Carbon Dioxide Level 25, Anion Gap 12, Blood Urea Nitrogen 10, Creatinine 1.24, Estimat Glomerular Filtration Rate > 60, BUN/Creatinine Ratio 8, Glucose Level 95, Calcium Level 8.9, Phosphorus Level 3.3, Magnesium Level 1.8, Beta-Hydroxybutyrate (Chem panel) 1.40H 07/25/19 05:09: Glucometer 81 Microbiology 07/23/19 Blood Culture - Preliminary, Resulted No growth 07/23/19 MRSA Screen - Final, Complete MRSA not isolated Home Meds Active Novolog Flexpen (Insulin Aspart) 300 Units/3 Ml Solution 5 Units SQ AC 90 Days Levemir Flextouch (Insulin Detemir) 100 Unit/1 Ml Insuln.pen 20 Unit SQ HS 90 Days Reported Gabapentin 600 Mg Tablet 600 Mg PO BID Humalog (Insulin Lispro) 100 Unit/1 Ml Vial SQ TIDAC Assessment/Pt Instructions Take medications as prescribed. 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 It is very important for you to take your insulin to prevent going back into DKA. You need to establish care with a primary care physician. Call for an appointment tomorrow. Discharge Planning: <30 minutes discharge planning Discharge Instructions Discharge Diet: ADA Diet Activity as Tolerated: Yes Pneumonia Vaccine Order Indica: Yes Discharge Physical Examination Vital Signs Vital Signs Date Time Temp Pulse Resp B/P (MAP) Pulse Ox O2 Delivery O2 Flow Rate FiO2 07/25/19 09:00 Room Air 07/25/19 08:00 37.5 88 18 131/75 (93) 97 General Appearance: No Apparent Distress, WD/WN HEENT: PERRL/EOMI, Pharynx Normal Respiratory: Lungs Clear, Normal Breath Sounds, No Respiratory Distress Cardiovascular: Regular Rate, Rhythm, No Edema, No Murmur Gastrointestinal: Normal Bowel Sounds, Non Tender, Soft Extremity: Normal Inspection, Non Tender, No Pedal Edema Skin: Normal Color, Warm/Dry Neurologic/Psychiatric: Alert, Oriented x3, No Motor/Sensory Deficits, Other (flat affect) Allergies: Coded Allergies: No Known Drug Allergies (Unverified , 06/21/18) Discharge Summary Date of Admission Jul 23, 2019 at 00:00 Date of Discharge Discharge Date: Jul 25, 2019 Discharge Time: 10:42 Admission Diagnosis Type 1 diabetes mellitus with ketoacidosis Discharge Diagnosis Type 1 diabetes mellitus with ketoacidosis -DKA resolved -Transitioned off insulin gtt -Started Levemir 20 units nightly -Discontinue IV fluids -Diet ordered RYAN -Cr 2.3 on admission -Improved to 1.25 this morning -Encourage fluid intake Hypokalemia Hypophosphatemia Hypomagnesemia -Monitor and replace as needed Methamphetamine abuse -Recommend cessation DVT Prophylaxis: Heparin (1) Type 1 diabetes mellitus with ketoacidosis without coma Status: Acute (2) Acute kidney injury Status: Resolved (3) Hypophosphatemia Status: Resolved (4) Methamphetamine abuse Status: Chronic Clinical Quality Measures DVT/VTE Risk/Contraindication: Risk Factor Score Per Nursin RFS Level Per Nursing on Admit: 1=Low/No VTE PPX JUANCARLOS DREW MD Jul 25, 2019 10:42
[2019-07-25] MEDS ORDERED: inSUlin ASPART (NovoLOG) 1 UNIT/0.01 ML (CHARGE PER UNIT) SC SCH (12:00)
[2019-07-25 12:45] VITALS: BP 131/75
== END 2019-07-25 12:45 | disposition home or self-care (01) | DRG 638 ==
LOC: EDUNIT# 22:42 → ER 22:43 → ICU 07-23 → 4TH 07-24 10:40
PROVIDERS: ADMIT Internal Medicine; ATTEND Internal Medicine
DX: E10.10 Type 1 diabetes mellitus with ketoacidosis without coma (principal); N17.9 Acute kidney failure, unspecified; F17.210 Nicotine dependence, cigarettes, uncomplicated; E87.6 Hypokalemia; F15.10 Other stimulant abuse, uncomplicated; R00.0 Tachycardia, unspecified; D72.829 Elevated white blood cell count, unspecified; E83.39 Other disorders of phosphorus metabolism; E83.42 Hypomagnesemia; Z91.14 Patient's other noncompliance with medication regimen; Z79.4 Long term (current) use of insulin
CPT/HCPCS: 36415; 71045; 80048; 80053; 80306; 80320; 81000; 82010; 82271; 82805; 82962; 83036; 83605; 83735; 84100; 84145; 85007; 85025; 85027; 87040; 87081; 96361; 96374; 96375; 96376

== ENCOUNTER 2020-06-29 21:50 | Inpatient (IN) | payer SELFPAY ==
[~2020-06-29] VITALS: Ht 190 cm; Wt 73.2 kg
[~2020-06-29 21:50] MED LIST changes: +GBPN600T PO
[2020-06-29] MEDS ORDERED: TETANUS,DIPTH,PERTUSS P/F (BOOSTRIX) 0.5 ML VIAL IM ONE (22:30)
--- NOTE | 2020-06-29 22:33 | ED Upper Extremity ---
General Stated Complaint: REDNESS & SWELLING IN R PALM Source: patient History of Present Illness Date Seen by Provider: Jun 29, 2020 Time Seen by Provider: 22:15 Initial Comments PT ARRIVES VIA POV FROM HOME STATES A WEEK AGO, HE GOT A "METAL SPLINTER" IN RIGHT PALM--DID NOT SEEK CARE UNTIL TONIGHT HAS HAD INCREASED PAIN, REDNESS AND SWELLING TO THE AREA HAS BEEN POKING AND PICKING AT IT AND SQUEEZING IT --SCANT AMOUNT OF DRAINAGE WITH SQUEEZING IT, OTHERWISE HAS NOT BEEN DRAINAGE NO FEVER TOOK IBUPROFEN EARLIER THIS EVENING LAST TETANUS IS > 5 YEARS PT IS RIGHT HANDED NO PRIOR PROBLEMS WITH THIS HAND, BUT HAD RIGHT FOREARM FRACTURE WITH ORIF AND HARDWARE IN PLACE PT IS TYPE 1 DIABETIC--STATES BLOOD GLUCOSE WAS 290 EARLIER TODAY PT HAS HAD MULTIPLE EPISODES OF DKA PCP: [facility] Allergies and Home Medications Allergies Coded Allergies: No Known Drug Allergies (Unverified , 06/21/18) Home Medications Insulin Aspart 300 Units/3 Ml Solution, 5 UNITS SQ AC Prescribed by: JUANCARLOS DREW on 07/25/19 1036 Insulin Detemir 100 Unit/1 Ml Insuln.pen, 20 UNIT SQ HS Prescribed by: JUANCARLOS DREW on 07/25/19 1036 Patient Home Medication List Home Medication List Reviewed: Yes Review of Systems Constitutional: no symptoms reported Musculoskeletal: see HPI Skin: see HPI Psychiatric/Neurological: No Symptoms Reported Past Tryzmht-Xikixp-Xumwvp Hx Past Med/Social Hx: Reviewed and Corrections made Patient Social History Alcohol Use: Occasionally Uses Recreational Drug Use: Yes (METH, THC; SMOKES METH--DENIES IV USE) Drug of Choice: METH, MARIJUANA--SMOKES METH, DENIES IV USE Smoking Status: Current Everyday Smoker (1 PPD) Type Used: Cigarettes Recent Foreign Travel: No Contact w/Someone Who Travel: No Recent Hopitalizations: No Immunizations Up To Date Tetanus Booster (TDap): More than 5yrs PED Vaccines UTD: No Date of Pneumonia Vaccine: February 22, 2014 Date of Influenza Vaccine: Jul 20, 2013 Seasonal Allergies Seasonal Allergies: No Past Medical History Surgeries: Yes (RIGHT ARM FX/ORIF ) Orthopedic Respiratory: No Cardiac: No Neurological: No Reproductive Disorders: No Genitourinary: No Gastrointestinal: No Musculoskeletal: Yes (RIGHT FOREARM FX/ORIF) Fractures Endocrine: Yes (TYPE 1 IDDM--DX AGE 8, MULTIPLE EPISODES OF DKA) Diabetes, Insulin dep HEENT: No Cancer: No Psychosocial: Yes (SUBSTANCE ABUSE) Integumentary: No Blood Disorders: No Adverse Reaction/Blood Tranf: No Family Medical History Cancer 03 FATHER, Onset:Unknown Family history: Diabetes mellitus 03 FATHER, Onset:Unknown Diabetes Physical Exam Vital Signs Vital Signs - First Documented 06/29/20 06/30/20 22:17 01:52 Temp 36.8 Pulse 117 Resp 16 B/P (MAP) 164/107 (126) Pulse Ox 99 O2 Delivery Room Air Capillary Refill : Height, Weight, BMI Height: 6'2.00" Weight: 171lbs. 7.0oz. [id number]; 20.80 BMI Method:Estimated General Appearance: WD/WN, no apparent distress, thin Cardiovascular: normal peripheral pulses, regular rate, rhythm, no murmur Respiratory: normal breath sounds Gastrointestinal: soft Shoulder: normal inspection Elbow/Forearm: normal inspection Hand: Right (RIGHT PALM-HYPOTHENAR EMINENCE WITH 5-6 CM CM AREA OF ERYTHEMA, MILD SWELLING, VERY HARD TO TOUCH, WITH CENTRAL SCAB AND SUPERFICIAL PEELING OF SKIN. NO FLUCTUANCE. NO DRAINAGE, NO STREAKS. MOTOR/SENSORY/VASCULAR INTACT. 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 ) Progress/Results/Core Measures Results/Orders Lab Results Laboratory Tests Test 06/29/20 22:52 06/29/20 23:11 06/30/20 01:28 Range/Units Urine Color YELLOW Urine Clarity CLEAR Urine pH 6.0 5-9 Urine Specific [place] <=1.005 1.016-1.022 Urine Protein TRACE H NEGATIVE Urine Glucose (UA) 3+ H NEGATIVE Urine Ketones 2+ H NEGATIVE Urine Nitrite NEGATIVE NEGATIVE Urine Bilirubin NEGATIVE NEGATIVE Urine Urobilinogen 0.2 < = 1.0 MG/DL Urine Leukocyte Esterase NEGATIVE NEGATIVE Urine RBC (Auto) NEGATIVE NEGATIVE Urine RBC NONE /HPF Urine WBC NONE /HPF Urine Squamous Epithelial Cells RARE /HPF Urine Crystals NONE /LPF Urine Bacteria NEGATIVE /HPF Urine Casts NONE /LPF Urine Mucus NEGATIVE /LPF Urine Culture Indicated NO Urine Opiates Screen NEGATIVE NEGATIVE Urine Oxycodone Screen NEGATIVE NEGATIVE Urine Methadone Screen NEGATIVE NEGATIVE Urine Propoxyphene Screen NEGATIVE NEGATIVE Urine Barbiturates Screen NEGATIVE NEGATIVE Ur Tricyclic Antidepressants Screen NEGATIVE NEGATIVE Urine Phencyclidine Screen NEGATIVE NEGATIVE Urine Amphetamines Screen POSITIVE H NEGATIVE Urine Methamphetamines Screen POSITIVE H NEGATIVE Urine Benzodiazepines Screen NEGATIVE NEGATIVE Urine Cocaine Screen NEGATIVE NEGATIVE Urine Cannabinoids Screen NEGATIVE NEGATIVE White Blood Count 10.5 4.3-11.0 10^3/uL Red Blood Count 4.41 4.35-5.85 10^6/uL Hemoglobin 13.1 L 13.3-17.7 G/DL Hematocrit 37 L 40-54 % Mean Corpuscular Volume 84 80-99 FL Mean Corpuscular Hemoglobin 30 25-34 PG Mean Corpuscular Hemoglobin Concent 35 32-36 G/DL Red Cell Distribution Width 11.9 10.0-14.5 % Platelet Count 262 130-400 10^3/uL Mean Platelet Volume 10.2 7.4-10.4 FL Neutrophils (%) (Auto) 78 H 42-75 % Lymphocytes (%) (Auto) 13 12-44 % Monocytes (%) (Auto) 8 0-12 % Eosinophils (%) (Auto) 1 0-10 % Basophils (%) (Auto) 0 0-10 % Neutrophils # (Auto) 8.2 H 1.8-7.8 X 10^3 Lymphocytes # (Auto) 1.3 1.0-4.0 X 10^3 Monocytes # (Auto) 0.8 0.0-1.0 X 10^3 Eosinophils # (Auto) 0.1 0.0-0.3 10^3/uL Basophils # (Auto) 0.0 0.0-0.1 10^3/uL Erythrocyte Sedimentation Rate 35 H 0-15 MM/HR Sodium Level 133 L 135-145 MMOL/L Potassium Level 4.3 3.6-5.0 MMOL/L Chloride Level 94 L 98-107 MMOL/L Carbon Dioxide Level 22 21-32 MMOL/L Anion Gap 17 H 5-14 MMOL/L Blood Urea Nitrogen 22 H 7-18 MG/DL Creatinine 1.57 H 0.60-1.30 MG/DL Estimat Glomerular Filtration Rate 52 BUN/Creatinine Ratio 14 Glucose Level 563 *H 70-105 MG/DL Lactic Acid Level 1.01 0.50-2.00 MMOL/L Calcium Level 8.6 8.5-10.1 MG/DL Corrected Calcium 8.8 8.5-10.1 MG/DL Total Bilirubin 0.3 0.1-1.0 MG/DL Aspartate Amino Transf (AST/SGOT) 18 5-34 U/L Alanine Aminotransferase (ALT/SGPT) 23 0-55 U/L Alkaline Phosphatase 140 H 40-136 U/L C-Reactive Protein High Sensitivity 0.42 0.00-0.50 MG/DL Total Protein 6.6 6.4-8.2 GM/DL Albumin 3.7 3.2-4.5 GM/DL Beta-Hydroxybutyrate (Chem panel) 3.32 H 0.00-0.27 MMOL/L Procalcitonin 0.09 <0.10 NG/ML Glucometer 344 H 70-110 MG/DL My Orders Orders - AHSAN RUCKER DO Hand, Right, 3 Views (06/29/20 22:25) Dipht,Pertuss(Acell),Tet Adult (Boostrix (06/29/20 22:30) Ed Iv/Invasive Line Start (06/29/20 22:46) Ct Extremity Upper Right Wo (06/29/20 22:46) Cbc With Automated Diff (06/29/20 22:46) Comprehensive Metabolic Panel (06/29/20 22:46) Hs C Reactive Protein (06/29/20 22:46) Erythrocyte Sedimentation Rate (06/29/20 22:46) Drug Screen Stat (Urine) (06/29/20 22:46) Lactic Acid Analyzer (06/29/20 22:46) Procalcitonin (Pct) (06/29/20 22:46) Ua Culture If Indicated (06/29/20 22:46) Blood Culture (06/29/20 22:46) Ketorolac Injection (Toradol Injection) (06/29/20 22:46) Clindamycin 900 Mg/50 Ml Ivpb (Cleocin P (06/29/20 23:00) Insulin (Regular) Human (Novolin R (Per (06/30/20 00:00) Ed Iv/Invasive Line Start (06/29/20 23:51) Ns Iv 1000 Ml (Sodium Chloride 0.9%) (06/29/20 23:51) Ed Iv/Invasive Line Start (06/29/20 23:51) Ns Iv 1000 Ml (Sodium Chloride 0.9%) (06/29/20 23:51) Beta Hydroxybutyrate (06/29/20 23:51) Piperacillin Sodium/Tazobactam (Zosyn Vi (06/30/20 00:45) Vancomycin Injection (Vancomycin Injecti (06/30/20 01:00) Accucheck Stat ONCE (06/30/20 01:04) Medications Given in ED Current Medications Medications Dose Ordered Sig/Billie Route Start Time Stop Time Status Last Admin Dose Admin Clindamycin Phosphate/Dextrose 50 ml @ 100 mls/hr ONCE ONCE IV 06/29/20 23:00 06/29/20 23:29 DC 06/29/20 23:20 100 MLS/HR Diphtheria/ Tetanus/Acell Pertussis 0.5 ml ONCE ONCE IM 06/29/20 22:30 06/29/20 22:31 DC 06/29/20 22:39 0.5 ML Insulin Human Regular 20 unit ONCE ONCE IV 06/30/20 00:00 06/30/20 00:01 DC 06/30/20 00:03 20 UNIT Vital Signs/I&O 06/29/20 06/30/20 06/30/20 22:17 01:52 02:08 Temp 36.8 36.8 36.3 Pulse 117 99 93 Resp 16 16 14 B/P (MAP) 164/107 (126) 153/108 (126) 132/85 Pulse Ox 99 100 O2 Delivery Room Air Room Air Room Air 06/30/20 00:00 Intake Total 50 ml Balance 50 ml Progress Progress Note : Progress Note GIVEN IV CLINDAMYCIN ON ARRIVAL GIVEN TORADOL FOR PAIN GIVEN IV FLUIDS AND INSULIN--REPEAT ACCUCHECK 344 UNEVENTFUL ER STAY Diagnostic Imaging Comments XRAYS RIGHT HAND--NO ACUTE PROCESS OR FOREIGN BODY, PENDING RADIOLOGIST REVIEW CT RIGHT HAND--NO FOREIGN BODY NOTED. CELLULITIS PRESENT WITH SUB Q STRANDING AND TINY AREA OF FLUID SUPERFICIALLY-UNABLE TO MEASURE, AND IS NOT ENCAPSULATED. NO INVOLVEMENT OF CARPAL TUNNEL, NO BONY INVOLVEMENT. PER [facility] VIA FAX AT 0036 Reviewed: Reviewed by Me Departure Communication (Admissions) 0037--SPOKE WITH DR. SHERMAN, HOSPITALIST FOR [facility] [place]. ACCEPTS PT FOR ADMIT. WILL CONSULT GENERAL SURGERY. OTHER ORDERS NOTED 39--SPOKE WITH DR. SHARMA, GENERAL SURGEON, ADVISED OF CONSULT. NO ADDITIONAL ORDERS. Impression Primary Impression: CELLULITIS RIGHT PALM OF HAND Additional Impressions: Cyfttoupnp-ondapizez-gqglrqa (DPT) vaccination administered at current visit Uncontrolled type 1 diabetes mellitus CHRONIC METHAMPHETAMINE USE Disposition: ADMITTED INPATIENT Condition: Stable Admissions Decision to Admit Reason: Admit from ER (General) Decision to Admit/Date: Jun 30, 2020 Time/Decision to Admit Time: 00:35 Departure-Patient Inst. Referrals: [facility] (PCP/Family) Primary Care Physician AHSAN RUCKER DO Jun 29, 2020 22:33
[2020-06-29] MEDS ORDERED: KETOROLAC 30 MG/ML VIAL IVP STA (22:46)
[2020-06-29] MEDS ORDERED: CLINDAMYCIN 900 MG/50 ML IVPB 50 ML IV ONE (23:00)
[2020-06-29 23:15] LABS: BILIRUBIN,URINE NEGATIVE (NEGATIVE); CLARITY,URINE CLEAR; COLOR,URINE YELLOW; GLUCOSE, URINE (UA) 3+ (NEGATIVE); KETONES,URINE 2+ (NEGATIVE); LEUKOCYTE ESTERASE ,URINE NEGATIVE (NEGATIVE); NITRITE,URINE NEGATIVE (NEGATIVE); PROTEIN,URINE TRACE (NEGATIVE)
[2020-06-29 23:24] LABS: BACTERIA,URINE NEGATIVE /HPF; SQUAMOUS EPITHELIAL CELL,UR RARE /HPF
[2020-06-29 23:29] LABS: AMPHETAMINE SCREEN, URINE POSITIVE (NEGATIVE); BARBITURATE SCREEN URINE NEGATIVE (NEGATIVE); BENZODIAZEPINES SCREEN URINE NEGATIVE (NEGATIVE); CANNABINOID SCREEN, URINE NEGATIVE (NEGATIVE); COCAINE SCREEN URINE NEGATIVE (NEGATIVE); METHADONE STAT NEGATIVE (NEGATIVE); METHAMPHETAMINE SCREEN URINE S POSITIVE (NEGATIVE); OPIATE SCREEN URINE NEGATIVE (NEGATIVE); OXYCODONE STAT NEGATIVE (NEGATIVE); PROPOXYPHENE STAT NEGATIVE (NEGATIVE); TRICYCLIC ANTIDEPRESSANTS SCRE NEGATIVE (NEGATIVE)
[2020-06-29 23:30] LABS: BASOPHILS % (AUTO) 0 % (0-10); EOSINOPHILS # (AUTO) 0.1 10^3/uL (0.0-0.3); EOSINOPHILS % (AUTO) 1 % (0-10); HEMATOCRIT 37 % (40-54); HEMOGLOBIN 13.1 G/DL (13.3-17.7); LYMPHOCYTES # (AUTO) 1.3 X 10^3 (1.0-4.0); LYMPHOCYTES % (AUTO) 13 % (12-44); MEAN CORPUSCULAR HEMOGLOBIN 30 PG (25-34); MEAN CORPUSCULAR HGB CONC 35 G/DL (32-36); MEAN CORPUSCULAR VOLUME 84 FL (80-99); MEAN PLATELET VOLUME 10.2 FL (7.4-10.4); MONOCYTES # (AUTO) 0.8 X 10^3 (0.0-1.0); MONOCYTES % (AUTO) 8 % (0-12); NEUTROPHILS # (AUTO) 8.2 X 10^3 (1.8-7.8); NEUTROPHILS % (AUTO) 78 % (42-75); PLATELET COUNT 262 10^3/uL (130-400); WHITE BLOOD COUNT 10.5 10^3/uL (4.3-11.0)
[2020-06-29 23:37] LABS: ALBUMIN 3.7 GM/DL (3.2-4.5); POTASSIUM 4.3 MMOL/L (3.6-5.0)
[2020-06-29 23:38] LABS: CALCIUM 8.6 MG/DL (8.5-10.1)
[2020-06-29 23:39] LABS: TOTAL PROTEIN 6.6 GM/DL (6.4-8.2)
[2020-06-29 23:41] LABS: BILIRUBIN,TOTAL 0.3 MG/DL (0.1-1.0)
[2020-06-29 23:43] LABS: CREATININE SERUM 1.57 MG/DL (0.60-1.30)
[2020-06-29] MEDS ORDERED: NS IV 1000 ML 1,000 ML IV SCH ×2 (23:51)
[2020-06-29 23:54] LABS: ERYTHROCYTE SEDIMENTATION RATE 35 MM/HR (0-15)
[2020-06-30] MEDS ORDERED: inSUlin (REGULAR) HUMAN 1 UNIT/0.01 ML (CHARGE PER UNIT) IV ONE
[2020-06-30] MEDS ORDERED: PIPERACILLIN SODIUM/TAZOBACTAM 4.5 GM in NS (IVPB) 100 ML IV ONE (00:45)
--- NOTE | 2020-06-30 01:45 | NUR ---
CELLULITIS TO PALM OF RIGHT HAND MARKED AT THIS TIME.
--- NOTE | 2020-06-30 02:00 | NUR ---
CHANTE LOUISE admitted to room 408-1, with an admitting diagnosis of cellulitis, on 06/30/20 from [place] ED via wheelchair, accompanied by staff.CHANTE LOUISE introduced to surroundings, call light, bed controls, phone, TV, temperature control, lights, meal times, smoking policy, visitor policy, side rail policy, bathrooms and showers. Patient Rights given to patient in the handbook. CHANTE LOUISE verbalizes understanding that [facility] is not responsible for the loss or damage to any personal effects or valuables that are kept in the patients posession during their hospitalization.
[2020-06-30 02:08] VITALS: BP 132/85
[2020-06-30] MEDS ORDERED: NS (IVPB) 500 ML ONE (02:54)
[2020-06-30] MEDS ORDERED: PIPERACILLIN/TAZO 4.5 GM VIAL (ZOSYN) IV ONE (02:54)
[2020-06-30] MEDS ORDERED: VANCOMYCIN 750 MG/VIAL IV ONE (02:55)
[2020-06-30] MEDS ORDERED: NS (IVPB) 100 ML ONE (02:55)
[2020-06-30] MEDS ORDERED: NS IV 1000 ML 1,000 ML ONE (03:04)
[2020-06-30] MEDS: VANCOMYCIN INJECTION 750 MG in NS (IVPB) 250 ML IV SCH ×2 (03:13→04:41)
[2020-06-30] MEDS ORDERED: ONDANSETRON 4 MG/2 ML (SDV) Z0FRAN IV PRN (03:15)
[2020-06-30] MEDS ORDERED: KETOROLAC 30 MG/ML VIAL IV PRN (03:30)
[2020-06-30] MEDS ORDERED: fentaNYL INJECTION 100 MCG/2 ML AMP IV PRN (03:30)
[2020-06-30 04:00] VITALS: BP 143/88
[2020-06-30] MEDS: NS IV 1000 ML 1,000 ML IV SCH ×5 (05:29→22:50)
[2020-06-30 05:47] LABS: BASOPHILS % (AUTO) 0 % (0-10); EOSINOPHILS # (AUTO) 0.1 10^3/uL (0.0-0.3); EOSINOPHILS % (AUTO) 1 % (0-10); HEMATOCRIT 34 % (40-54); HEMOGLOBIN 11.6 G/DL (13.3-17.7); LYMPHOCYTES # (AUTO) 1.5 X 10^3 (1.0-4.0); LYMPHOCYTES % (AUTO) 21 % (12-44); MEAN CORPUSCULAR HEMOGLOBIN 29 PG (25-34); MEAN CORPUSCULAR HGB CONC 35 G/DL (32-36); MEAN CORPUSCULAR VOLUME 85 FL (80-99); MONOCYTES # (AUTO) 0.6 X 10^3 (0.0-1.0); MONOCYTES % (AUTO) 8 % (0-12); NEUTROPHILS # (AUTO) 5.1 X 10^3 (1.8-7.8); NEUTROPHILS % (AUTO) 70 % (42-75); PLATELET COUNT 223 10^3/uL (130-400); WHITE BLOOD COUNT 7.3 10^3/uL (4.3-11.0)
[2020-06-30 05:55] LABS: CHLORIDE 102 MMOL/L (98-107); POTASSIUM 4.3 MMOL/L (3.6-5.0); SODIUM 133 MMOL/L (135-145)
[2020-06-30 05:56] LABS: CALCIUM 7.8 MG/DL (8.5-10.1)
[2020-06-30 05:57] LABS: TOTAL PROTEIN 5.4 GM/DL (6.4-8.2)
[2020-06-30 05:58] LABS: CARBON DIOXIDE 21 MMOL/L (21-32)
[2020-06-30 05:59] LABS: BILIRUBIN,TOTAL 0.3 MG/DL (0.1-1.0)
[2020-06-30 06:01] LABS: ALKALINE PHOSPHATASE 117 U/L (40-136); CREATININE SERUM 1.22 MG/DL (0.60-1.30); GFR ESTIMATED > 60
[2020-06-30 06:02] LABS: BUN/CREATININE RATIO 15
[2020-06-30 06:04] LABS: ALANINE AMINOTRANSFERASE 19 U/L (0-55)
--- NOTE | 2020-06-30 06:26 | NUR ---
Called Dr. Bolanos and notified her the patients blood sugar was 487. She requested max insulin dose on the sliding scale
[2020-06-30 06:29] LABS: GLUCOSE 418 MG/DL (70-105)
[2020-06-30] MEDS: inSUlin ASPART (NovoLOG) 1 UNIT/0.01 ML (CHARGE PER UNIT) SC SCH ×4 (06:30→21:12)
--- NOTE | 2020-06-30 06:51 | Diagnostic Imaging Report ---
REASON FOR EXAMINATION: Metal splinter in palm side of hand with redness, swelling and pain. 3 views of the right hand were obtained and show postoperative changes to the distal radius with positive ulnar variance and degenerative changes in the right wrist. No acute fracture, dislocation or soft tissue radiopaque foreign body. IMPRESSION: 1. No acute fracture, dislocation or soft tissue radiopaque foreign body. Postop changes to the distal right radius with degenerative changes in the wrist. Dictated by: Dictated on workstation # [id number]
--- NOTE | 2020-06-30 06:58 | Diagnostic Imaging Report ---
PROCEDURE: CT right upper extremity without contrast. TECHNIQUE: Multiple contiguous axial images were obtained through the right upper extremity without the use of intravenous contrast. Sagittal and coronal reformations were then performed. Auto Exposure Controls were utilized during the CT exam to meet ALARA standards for radiation dose reduction. INDICATION: History of metallic splinter. Previous removal. Now with redness and pain to the palm of the right hand and wrist. COMPARISON: 07/24/2015 FINDINGS: Radiopaque marker was placed at the area of penetrating injury of the ulnar side of the palm of the hand. There is localized stranding of the subcutaneous fat and perhaps minimal asymmetric skin thickening in this area. There is also deep extension of fat stranding with blurring of normal muscle borders, particularly involving the degenerative joint disease minimi muscle. There is no evidence of retained metallic foreign body. There is no soft tissue emphysema. No loculated fluid collection is seen to suggest abscess. Evaluation of the underlying osseous structures demonstrates no suspicious osteolytic process. No acute fracture or dislocation is seen. Postsurgical changes of previous distal right radial and ulnar ORIF are noted. There is ulnar plus variance with advanced degenerative changes of the ulnar carpal joint space. IMPRESSION: 1. Localized soft tissue swelling and edema of the medial palm of the right hand. No evidence of retained foreign body nor abscess. 2. No suspicious osteolytic process to suggest osteomyelitis. Please note however that osteomyelitis cannot be excluded based on radiographs or CT alone. If there is concern for osteomyelitis, further evaluation with MRI is recommended. If MRI is contraindicated, triple phase bone scan could be performed. Dictated by: Dictated on workstation # [id number]
[2020-06-30 07:40] VITALS: BP 147/90
[2020-06-30] MEDS: PIPERACILLIN/TAZO 4.5 GM/NS 100 ML IV SCH ×4 (08:17→17:22)
--- NOTE | 2020-06-30 08:38 | Consultation - Surgery ---
LILIANA ROCHE MED STUDENT 06/30/20 0838: History of Present Illness History of Present Illness Patient Consulted On(michael/time) 06/30/20 08:32 Date Seen by Provider: Jun 30, 2020 Time Seen by Provider: 08:10 History of Present Illness Surgery consult re: cellulitis pt was laying quietly in bed. pt came into the ed with cellulitis of the R hand. pt stated that this started about one week ago. pt stated that the spot has progressively gotten bigger over the past week. pt described the pain as both sharp and achy. pt rated pain as 7/10. cellulitis is located on the proximal, medial palmar surface of the R hand. the area is currently erythematous, has multiple spots of flaking skin, and one scab. The current area was marked by the ED. Allergies and Home Medications Allergies Coded Allergies: No Known Drug Allergies (Unverified , 06/21/18) Home Medications Ibuprofen 200 Mg Tablet, 400 MG PO Q8H PRN for PAIN-MILD (1-4), (Reported) Insulin Aspart 300 Units/3 Ml Solution, 10-12 UNITS SQ AC, (Reported) Insulin Glargine,Hum.rec.anlog 100 Unit/1 Ml Vial, 20-30 UNIT SQ HS, (Reported) Past Ltuvcri-Newvxi-Tatbak Hx Patient Social History Alcohol Use: Occasionally Uses Recreational Drug Use: Yes (METH, THC; SMOKES METH--DENIES IV USE) Drug of Choice: METH, MARIJUANA--SMOKES METH, DENIES IV USE Smoking Status: Current Everyday Smoker (1 PPD) Type Used: Cigarettes Immunizations Up To Date Date of Pneumonia Vaccine: February 22, 2014 Date of Influenza Vaccine: Jul 20, 2013 Surgeries History of Surgeries: Yes (RIGHT ARM FX/ORIF ) Surgeries: Orthopedic, Vascular Surgery (stent placement in R arm ) Musculoskeletal History of Musculoskeletal Dis: Yes Endocrine History of Endocrine Disorders: Yes (TYPE 1 IDDM--DX AGE 8, MULTIPLE EPISODES OF DKA) Endocrine Disorders: Diabetes, Insulin dep Cancer History of Cancer: No Psychosocial History of Psychiatric Problem: Yes (SUBSTANCE ABUSE) Blood Transfusions Adverse Reaction to a Blood Tr: No Family Medical History Significant Family History: Diabetes, Other Conditions/Hx (hyperlipidemia ) Family Medial History: Cancer 03 FATHER, Onset:Unknown Family history: Diabetes mellitus 03 FATHER, Onset:Unknown Review of Systems-General Constitutional: No chills, No diaphoresis, No fever Respiratory: No cough, No short of breath Cardiovascular: No chest pain, No palpitations Gastrointestinal: No abdominal pain, No constipation, No diarrhea, No nausea, No vomiting Genitourinary: No dysuria, No incontinence Musculoskeletal: see HPI Physical Exam-General Problems Physical Exam Vital Signs Vital Signs - First Documented 06/29/20 06/30/20 22:17 01:52 Temp 36.8 Pulse 117 Resp 16 B/P (MAP) 164/107 (126) Pulse Ox 99 O2 Delivery Room Air Capillary Refill : Less Than 3 Seconds General Appearance: no apparent distress, thin HEENT: PERRL/EOMI; No scleral icterus (R), No scleral icterus (L) Neck: non-tender; No lymphadenopathy (R), No lymphadenopathy (L) Respiratory: chest non-tender, lungs clear, normal breath sounds, no r espiratory distress, no accessory muscle use Cardiovascular: normal peripheral pulses, regular rate, rhythm, no murmur Peripheral Pulses: 2+ Carotid (R), 2+ Carotid (L), 2+ Radial Pulses (R), 2+ Radial Pulses (L) Extremities: normal range of motion, normal capillary refill, other Neurologic/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 as tested, no motor/sensory deficits Skin: normal color, warm/dry; No diaphoresis Lymphatic: no adenopathy Data Review Labs Laboratory Tests 06/29/20 22:52: Urine Color YELLOW, Urine Clarity CLEAR, Urine pH 6.0, Urine Specific [place] <=1.005, Urine Protein TRACEH, Urine Glucose (UA) 3+H, Urine Ketones 2+H, Urine Nitrite NEGATIVE, Urine Bilirubin NEGATIVE, Urine Urobilinogen 0.2, Urine Leukocyte Esterase NEGATIVE, Urine RBC (Auto) NEGATIVE, Urine RBC NONE, Urine WBC NONE, Urine Squamous Epithelial Cells RARE, Urine Crystals NONE, Urine Bacteria NEGATIVE, Urine Casts NONE, Urine Mucus NEGATIVE, Urine Culture Indicated NO, Urine Opiates Screen NEGATIVE, Urine Oxycodone Screen NEGATIVE, Urine Methadone Screen NEGATIVE, Urine Propoxyphene Screen NEGATIVE, Urine Barbiturates Screen NEGATIVE, Ur Tricyclic Antidepressants Screen NEGATIVE, Urin e Phencyclidine Screen NEGATIVE, Urine Amphetamines Screen POSITIVEH, Urine Methamphetamines Screen POSITIVEH, Urine Benzodiazepines Screen NEGATIVE, Urine Cocaine Screen NEGATIVE, Urine Cannabinoids Screen NEGATIVE 06/29/20 23:11: White Blood Count 10.5, Red Blood Count 4.41, Hemoglobin 13.1L, Hematocrit 37L, Mean Corpuscular Volume 84, Mean Corpuscular Hemoglobin 30, Mean Corpuscular Hemoglobin Concent 35, Red Cell Distribution Width 11.9, Platelet Count 262, Mean Platelet Volume 10.2, Neutrophils (%) (Auto) 78H, Lymphocytes (%) (Auto) 13, Monocytes (%) (Auto) 8, Eosinophils (%) (Auto) 1, Basophils (%) (Auto) 0, Neutrophils # (Auto) 8.2H, Lymphocytes # (Auto) 1.3, Monocytes # (Auto) 0.8, Eosinophils # (Auto) 0.1, Basophils # (Auto) 0.0, Erythrocyte Sedimentation Rate 35H, Sodium Level 133L, Potassium Level 4.3, Chloride Level 94L, Carbon Dioxide Level 22, Anion Gap 17H, Blood Urea Nitrogen 22H, Creatinine 1.57H, Estimat Glomerular Filtration Rate 52, BUN/Creatinine Ratio 14, Glucose Level 563*H, Lactic Acid Level 1.01, Calcium Level 8.6, Corrected Calcium 8.8, Total Bilirubin 0.3, Aspartate Amino Transf (AST/SGOT) 18, Alanine Aminotransferase (ALT/SGPT) 23, Alkaline Phosphatase 140H, C-Reactive Protein High Sensitivity 0.42, Total Protein 6.6, Albumin 3.7, Beta-Hydroxybutyrate (Chem panel) 3.32H, Procalcitonin 0.09 06/30/20 01:28: Glucometer 344H 06/30/20 05:27: White Blood Count 7.3, Red Blood Count 3.95L, Hemoglobin 11.6L, Hematocrit 34L, Mean Corpuscular Volume 85, Mean Corpuscular Hemoglobin 29, Mean Corpuscular Hemoglobin Concent 35, Red Cell Distribution Width 11.9, Platelet Count 223, Mean Platelet Volume 10.0, Neutrophils (%) (Auto) 70, Lymphocytes (%) (Auto) 21, Monocytes (%) (Auto) 8, Eosinophils (%) (Auto) 1, Basophils (%) (Auto) 0, Neutrophils # (Auto) 5.1, Lymphocytes # (Auto) 1.5, Monocytes # (Auto) 0.6, Eosinophils # (Auto) 0.1, Basophils # (Auto) 0.0, Sodium Level 133L, Potassium Level 4.3, Chloride Level 102, Carbon Dioxide Level 21, Anion Gap 10, Blood Urea Nitrogen 18, Creatinine 1.22, Estimat Glomerular Filtration Rate > 60, BUN/Creatinine Ratio 15, Glucose Level 418*H, Calcium Level 7.8L, Corrected Calcium 8.6, Total Bilirubin 0.3, Aspartate Amino Transf (AST/SGOT) 16, Alanine Aminotransferase (ALT/SGPT) 19, Alkaline Phosphatase 117, Total Protein 5.4L, Albumin 3.0L 06/30/20 06:23: Glucometer 487*H Clinical Quality Measures DVT/VTE Risk/Contraindication: Risk Factor Score Per Nursin RFS Level Per Nursing on Admit: 2=Moderate JUSTICE VAZQUEZ DO 06/30/20 1223: History of Present Illness History of Present Illness Time Seen by Provider: 09:46 History of Present Illness When I saw pt he was laying in bed in no distress. He states he cut his had "a couple of times" trying to get fluid out, but was unsuccessful at getting anyth ing. He tates he has never had anything like this before on his hand. He does not think he got any kind of bite or puncture wound to this area. Allergies and Home Medications Allergies Coded Allergies: No Known Drug Allergies (Unverified , 06/21/18) Home Medications Ibuprofen 200 Mg Tablet, 400 MG PO Q8H PRN for PAIN-MILD (1-4), (Reported) Insulin Aspart 300 Units/3 Ml Solution, 10-12 UNITS SQ AC, (Reported) Insulin Glargine,Hum.rec.anlog 100 Unit/1 Ml Vial, 20-30 UNIT SQ HS, (Reported) Patient Home Medication List Home Medication List Reviewed: Yes Past Zocyeml-Lhgmtf-Mbmrvm Hx Patient Social History Alcohol Use: Regular Use Recreational Drug Use: Yes Smoking Status: Current Everyday Smoker Surgeries History of Surgeries: Yes Respiratory History of Respiratory Disorde: No Cardiovascular History of Cardiac Disorders: No Neurological History of Neurological Disord: No Genitourinary History of Genitourinary Disor: No Gastrointestinal History of Gastrointestinal Di: No Family Medical History Significant Family History: Cancer, Diabetes Family Medial History: Cancer 03 FATHER, Onset:Unknown Family history: Diabetes mellitus 03 FATHER, Onset:Unknown Review of Systems-General Constitutional: No chills, No fever EENTM: No blurred vision, No double vision, No mouth pain, No mouth swelling, No epistaxis Respiratory: No cough, No short of breath Cardiovascular: No chest pain, No palpitations Gastrointestinal: No abdominal pain, No constipation, No diarrhea Genitourinary: No dysuria, No frequency, No hematuria Musculoskeletal: see HPI Physical Exam-General Problems Physical Exam General Appearance: no apparent distress, thin Eyes: Bilateral Eye PERRL, Bilateral Eye EOMI HEENT: pharynx normal; No scleral icterus (R), No scleral icterus (L) Respiratory: chest non-tender, lungs clear, normal breath sounds, no respiratory distress, no accessory muscle use Cardiovascular: regular rate, rhythm, no murmur Gastrointestinal: non tender, soft, no organomegaly Extremities: no pedal edema, no calf tenderness, other (right palm hypothenar eminence is erythematous, 2 scabs over the area, no fluctuance and mildly tender to palp) Data Review Radiology Date of Exam:06/29/20 CT EXTREMITY UPPER RIGHT WO PROCEDURE: CT right upper extremity without contrast. TECHNIQUE: Multiple contiguous axial images were obtained through the right upper extremity without the use of intravenous contrast. Sagittal and coronal reformations were then performed. Auto Exposure Controls were utilized during the CT exam to meet ALARA standards for radiation dose reduction. INDICATION: History of metallic splinter. Previous removal. Now with redness and pain to the palm of the right hand and wrist. COMPARISON: 07/24/2015 FINDINGS: Radiopaque marker was placed at the area of penetrating injury of the ulnar side of the palm of the hand. There is localized stranding of the subcutaneous fat and perhaps minimal asymmetric skin thickening in this area. There is also deep extension of fat stranding with blurring of normal muscle borders, particularly involving the degenerative joint disease minimi muscle. There is no evidence of retained metallic foreign body. There is no soft tissue emphysema. No loculated fluid collection is seen to suggest abscess. Evaluation of the underlying osseous structures demonstrates no suspicious osteolytic process. No acute fracture or dislocation is seen. Postsurgical changes of previous distal right radial and ulnar ORIF are noted. There is ulnar plus variance with advanced degenerative changes of the ulnar carpal joint space. IMPRESSION: 1. Localized soft tissue swelling and edema of the medial palm of the right hand. No evidence of retained foreign body nor abscess. 2. No suspicious osteolytic process to suggest osteomyelitis. Please note however that osteomyelitis cannot be excluded based on radiographs or CT alone. If there is concern for osteomyelitis, further evaluation with MRI is recommended. If MRI is contraindicated, triple phase bone scan could be performed. Dictated by: Dictated on workstation # [id number] Dict: 06/30/20 0650 Trans: 06/30/20 0841 CV [id number] Interpreted by: MICHELLE CHOW MD Electronically signed by: MICHELLE CHOW MD 06/30/20 0841 Assessment/Plan Assessment/Plan Assessment/Plan Cellulitis Right Palm CT did not show any abscess/fluid collection, just some soft tissue edema. Pt did not start any ABX as an outpt; I think he needs a couple doses of IV ABX and then can get switched to oral ABX and sent home. He can follow up with me or his primary care physician; as long as someone is following up on it. He had no questions. Supervisory-Addendum Brief Verification & Attestation Participated in pt care: history, MDM, physical Personally performed: exam, history, MDM Care discussed with: Medical Student Procedures: n/a Verification and Attestation of Medical Student E/M Service A medical student performed and documented this service. I then reviewed and verified all information documented by the medical student and made modifications to such information, when appropriate. I personally performed a physical exam, medical decision making and then discussed any differences between the notes and made revisions as necessary to create one note. Justice Vazquez , 06/30/20 , 12:26 LILIANA ROCHE MED STUDENT Jun 30, 2020 08:38 JUSTICE VAZQUEZ DO Jun 30, 2020 12:23
[2020-06-30] MEDS ORDERED: ENOXAPARIN 80 MG/0.8 ML (LOVENOX) SYR SC SCH (09:00)
--- NOTE | 2020-06-30 09:08 | NUR ---
VANCOMYCIN DOSING SCR 1.22; CRCL ~ 91; BOLUS VANC 20 MG/KG X 73 KG ~ 1500 MG GIVEN IN ED THEN VANC 15 MG/KG ~ 1250 MG Q12H CHECK TROUGH LEVEL 07/01 1400 HOLD DOSE AND CONTACT PHARMACY IF LEVEL IS GREATER THAN 20 OR LESS THAN 10
[2020-06-30] MEDS ORDERED: IBUP-2473 PO (10:09)
[2020-06-30] MEDS ORDERED: INSU100I14 SQ (10:09)
[2020-06-30] MEDS ORDERED: INSU100V6 SQ (10:09)
--- NOTE | 2020-06-30 10:10 | NUR ---
SPOKE WITH THE PT AND CALLED [facility] TO COMPLETE THE MED REC 05-18-2020 LANTUS VIAL #1/33DS 05-18-2020 NOVOLOG FLEXPEN #15/40DS OTC MEDS: IBUPROFEN
--- NOTE | 2020-06-30 10:55 | History & Physical-Hospitalist ---
MELINDA LEWIS MED STUDENT 06/30/20 1055: History of Present Illness HPI/Chief Complaint CC: Hand pain and swelling HPI: 30 yo M presents with CC of hand pain and swelling. 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 Over the course of the week the patient sought no medical attention nor tended to the wound. It progressively worsened with increasing pain and diameter to the point he went to the ER. Currently approximately 5-6 cm erythematous lesion with central scabbing. Pain is rated as a 7-8/10 which worsens with palpation and nothing makes it better. The pain is described as sharp. Denies other signs or symptoms. Source: patient Date Seen 06/30/20 Time Seen by a Provider: 10:30 Attending Physician Hollie Sherman DO [facility] Referring Physician Date of Admission Jun 30, 2020 at 00:40 Home Medications & Allergies Home Medications Reviewed patient Home Medication Reconciliation performed by pharmacy medication reconciliations alternative energy technician and/or nursing. Patients Allergies have been reviewed. Allergies Allergies Coded Allergies No Known Drug Allergies (Unverified06/21/18) Past Fxjmbon-Rhntkr-Blujkf Hx Past Med/Social Hx: Reviewed and Corrections made Patient Social History Marrital Status: single Number of Children: 1 Number of living children: 1 Employed/Student: unemployed Alcohol Use: Occasionally Uses Recreational Drug Use: Yes (METH, THC; SMOKES METH--DENIES IV USE) Drug of Choice: METH, MARIJUANA--SMOKES METH, DENIES IV USE Smoking Status: Current Everyday Smoker (1 PPD) Cigaretts per day: 20 Type Used: Cigarettes 2nd Hand Smoke Exposure: Yes Recent Foreign Travel: No Contact w/other who traveled: No Recent Hopitalizations: No Immunizations Up To Date Tetanus Booster (TDap): More than 5yrs Pediatric: No Date of Pneumonia Vaccine: February 22, 2014 Date of Influenza Vaccine: Jul 20, 2013 Seasonal Allergies Seasonal Allergies: No Past Medical History Surgeries: Orthopedic (Right arm fracture; plates & screws placed), Vascular Surgery (stent placement in R arm ) Currently Using CPAP: No Currently Using BIPAP: No Cardiac: High Cholesterol Reproductive: Yes Sexually Transmitted Disease: No HIV/AIDS: No Endocrine: Diabetes, Insulin dep Loss of Vision: Denies Hearing Impairment: Denies Adverse Reaction to Blood [place]: No Family History Cancer 03 FATHER, Onset:Unknown Family history: Diabetes mellitus 03 FATHER, Onset:Unknown Diabetes, Other Conditions/Hx (hyperlipidemia ) Review of Systems Constitutional: no symptoms reported; No chills, No fever EENTM: no symptoms reported Respiratory: no symptoms reported Cardiovascular: No chest pain, No palpitations Gastrointestinal: no symptoms reported Genitourinary: no symptoms reported Musculoskeletal: no symptoms reported Skin: no symptoms reported Psychiatric/Neurological: No Symptoms Reported All Other Systems Reviewed Negative Unless Noted: Yes Physical Exam Physical Exam Vital Signs Vital Signs - First Documented 06/29/20 06/30/20 22:17 01:52 Temp 36.8 Pulse 117 Resp 16 B/P (MAP) 164/107 (126) Pulse Ox 99 O2 Delivery Room Air Capillary Refill : Less Than 3 Seconds Height, Weight, BMI Height: 6'2.00" Weight: 171lbs. 7.0oz. [id number]; 20.27 BMI Method:Estimated General Appearance: No Apparent Distress, WD/WN, Thin Eyes: Bilateral Eye Normal Inspection, Bilateral Eye PERRL, Bilateral Eye EOMI HEENT: PERRL/EOMI, Pharynx Normal Neck: Full Range of Motion, Normal Inspection, Non Tender, Supple Respiratory: Chest Non Tender, Lungs Clear, Normal Breath Sounds, No Accessory Muscle Use, No Respiratory Distress Cardiovascular: Regular Rate, Rhythm, No Edema, No Gallop, No JVD, No Murmur Gastrointestinal: Normal Bowel Sounds, No Organomegaly, No Pulsatile Mass, Non Tender, Soft Back: Normal Inspection, No CVA Tenderness, No Vertebral Tenderness Extremity: No Normal Inspection; Normal Range of Motion, Non Tender, No Calf Tenderness, No Pedal Edema, Other (UE: right thenar eminence 5-6cm erythematous lesion with central scab LE: multiple lesions bilateraly ) Neurologic/Psychiatric: Alert, Oriented x3, No Motor/Sensory Deficits, Normal 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 Assessment/Plan Assessment and Plan ASSESSMENT: Cellulitis (Right thenar eminence) Diabetes Methamphetamine abuse Smoker Hypercholesterolemia PLAN: Continue vancomycin treatment Glucose management Consult wound care Sodium/ Calcium replacement Smoking cessation Methamphetamine cessation Provide substance abuse education Clinical Quality Measures DVT/VTE Risk/Contraindication: Risk Factor Score Per Nursin RFS Level Per Nursing on Admit: 2=Moderate SHERMANHOLLIE SCHAEFFER 06/30/202104: History of Present Illness HPI/Chief Complaint CC: Right hand pain with cellulitis HPI: This is a 30yoWM meth user who has out of control DM who presents with right hand pain and swelling, found to have cellulitis in need of IV antibiotics, blood sugar remains completely out of control. Past Shqaant-Naptcf-Hkqoxp Hx Past Med/Social Hx: Reviewed Nursing Past Med/Soc Hx, Reviewed and Corrections made Family History Cancer 03 FATHER, Onset:Unknown Family history: Diabetes mellitus 03 FATHER, Onset:Unknown Review of Systems Constitutional: see HPI, malaise, weakness Skin: other (right hand) Physical Exam Physical Exam General Appearance: No Apparent Distress, Chronically ill Eyes: Right Eye Normal Inspection, Right Eye PERRL HEENT: PERRL/EOMI, Normal ENT Inspection, Pharynx Normal, Moist Mucous Memb ranes Neck: Full Range of Motion, Normal Inspection, Non Tender Respiratory: Chest Non Tender, Lungs Clear, Normal Breath Sounds, No Accessory Muscle Use, No Respiratory Distress Cardiovascular: Regular Rate, Rhythm, No Edema, No Gallop, No JVD, No Murmur, Normal Peripheral Pulses Gastrointestinal: Normal Bowel Sounds, No Organomegaly, No Pulsatile Mass, Non Tender, Soft Back: Normal Inspection, No CVA Tenderness, No Vertebral Tenderness Extremity: Normal Capillary Refill, Normal Inspection, Normal Range of Motion, Non Tender, No Calf Tenderness, No Pedal Edema Neurologic/Psychiatric: Alert, Oriented x3, No Motor/Sensory Deficits, Normal Mood/Affect Skin: Normal Color, Warm/Dry Lymphatic: No Adenopathy Assessment/Plan Admission Diagnosis Assessment: Right hand cellulitis DM OOC Plan: IV abx Surgery consultation appreciated Admission Status: Inpatient Order (span 2 midnights) Reason for Inpatient Admission: Cellultis Diagnosis/Problems Diagnosis/Problems (1) Cellulitis Status: Acute (2) Uncontrolled type 1 diabetes mellitus Status: Acute (3) Methamphetamine abuse Status: Chronic Supervisory-Addendum Brief Verification & Attestation Participated in pt care: history, MDM, physical Personally performed: exam, history, MDM, supervision of care Care discussed with: Medical Student Procedures: n/a Results interpretation: Verified all documentation Verification and Attestation of Medical Student E/M Service A medical student performed and documented this service in my presence. I reviewed and verified all information documented by the medical student and made modifications to such information, when appropriate. I personally performed the physical exam and medical decision making. Hollie Sherman, Jun 30, 2020,21:05 MELINDA LEWIS MED STUDENT Jun 30, 2020 10:55 HOLLIE SHERMAN DO Jun 30, 2020 21:05
[2020-06-30] MEDS ORDERED: IBUPROFEN TABLET 200 MG TAB PO PRN (11:00)
[2020-06-30 11:50] VITALS: BP 138/87
[2020-06-30] MEDS: inSUlin ASPART (NovoLOG) 1 UNIT/0.01 ML (CHARGE PER UNIT) SQ SCH ×2 (12:40→17:21)
--- NOTE | 2020-06-30 13:55 | NUR ---
RD ASSESSMENT PMHx: T1DM (hx of DKA); polysubstance use (methamphetamine; THC; tobacco; ETOH) PT INTERACTION: Pt was awake and pleasant during nutrition assessment. Pt states current appetite is good. Note PO intake of 100% x1meal, per chart review. Pt states following a regular diet at home, and has no issues with chewing/swallowing food. Pt states no recent issues with nausea, vomiting, constipation, or diarrhea, and that his last BM was 9/10. Note pt not currently on bowel regimen per chart review. Pt states no recent wt changes. Note unable to determine recent wt hx, per chart review. Pt states current DM management is "okay, but my blood sugars run a little high." Note unable to determine recent HbA1c, per chart review. Note presence of wound (palm of R hand), per chart review. ABNORMAL NUTRITION-RELATED LAB VALUES LOW: Na 133; Ca 7.8; Pro 5.6; alb 3.1 HIGH: glu 418 Est. kcal needs: 1825 kcal | 25 kcal/kg Est. Pro needs: 88 g Pro | 1.2 g Pro/kg PES STATEMENT: Inadequate protein intake ([id number]) related to increased protein needs as evidenced by presence of wound (palm of R hand) INTERVENTION: Continue with current diet order of CHO 45g/m 3snack diet. Add Ensure HP (vary) to meals TID. Provides 160 kcal and 16 g Pro per serving, for perceived benefit to wound healing. Discussed and provided diet education on DM management. Note pt has hx of DKA, per chart review. Discussed CHO counting, portion control, and DM's relationship to wound healing. Pt verbalized understanding of information provided. Will continue to follow and reassess as pt needs, intake, and status change. MONITOR/EVALUATE: PO Intake; Plan of Care; Hydration Status; Weight Status; Lab Values Mony Perez, MS, RD, LD
[2020-06-30 15:52] VITALS: BP 129/77
[2020-06-30] MEDS: VANCOMYCIN 1250 MG/NS 250 ML IVPB IV SCH ×2 (16:00)
[2020-06-30 20:01] VITALS: BP 169/87
--- NOTE | 2020-06-30 21:30 | NUR ---
DR LOUIS NOTIFIED OF PT BLOOD SUGAR OF 51 THAT INCREASED TO 96 WITH SNACKS AT 2114, THIS NURSE ASKED IF DR WOULD LIKE ME TO HOLD THE SCHEDULED [address] LOUIS STATES THAT SINCE PT IS A TYPE 1 DIABETIC HIS BLOOD SUGAR WILL BE HIGH IN THE MORNING WITHOUT IT. DR ASKED THIS NURSE WAS PATIENT HAS BEEN GETTING FOR INSULIN AND WHAT HIS BLOOD SUGAR HAS BEEN RUNNING, THIS NURSE REPORTED THAT PT GETS 12 UNITS OF NOVOLOG WITH MEALS, AND PER THE PCT PT ATE ALL HIS DINNER, THIS NURSE ALSO NOTIFIED DR LOUIS OF ALL PATIENT'S BLOOD SUGAR VALUES TODAY. THIS NURSE ALSO REPORTED TO DR THAT PER RECONCILE MEDS PATIENT GETS 20-30U OF LANTUS HS. DR LOUIS ORDERED TO CHANGE NOVOLOG WITH MEALS FROM 12 UNITS TO 8 UNITS, AND TO GIVE 20 UNITS OF LEVEMIR THIS HS INSTEAD, AND SAID WE COULD CHECK PT BLOOD SUGAR IN AN HOUR AND IF BELOW 100 CAN GIVE HIM MORE SNACKS. THIS NURSE TOLD PATIENT THE PLAN, ASKED PATIENT IF HE USUALLY RECEIVES LANTUS EVERY NIGHT, PT REPORTED YES AND HE USUALLY GETS 20 UNITS. WHEN THIS NURSE TOLD PT THAT WE USE LEVEMIR, PT STATES THAT LEVEMIR USUALLY "BOTTOMS HIM OUT". THIS NURSE TOLD HIM WE DON'T CARRY LANTUS AND ASKED PT IF HE WOULD BE OKAY WITH THE LEVEMIR INSTEAD, PT STATES HE WOULD TAKE 12 UNITS OF LEVEMIR INSTEAD OF THE 20 UNITS. WILL CONTINUE TO MONITOR PT FOR SIGN AND SYMPTOMS OF HYPOGLYCEMIA AND RECHECK BLOOD SUGAR IN AN HOUR.
[2020-07-01] VITALS (7 sets, daily range): BP systolic 116–154; BP diastolic 74–97
[2020-07-01] MEDS: PIPERACILLIN/TAZO 4.5 GM/NS 100 ML IV SCH ×6 (00:59→17:45)
[2020-07-01] MEDS: VANCOMYCIN 1250 MG/NS 250 ML IVPB IV SCH ×4 (03:53→15:51)
[2020-07-01] MEDS: inSUlin ASPART (NovoLOG) 1 UNIT/0.01 ML (CHARGE PER UNIT) SC SCH ×4 (06:10→21:48)
[2020-07-01] MEDS: inSUlin ASPART (NovoLOG) 1 UNIT/0.01 ML (CHARGE PER UNIT) SQ SCH ×3 (07:58→17:45)
[2020-07-01] MEDS: ENOXAPARIN 40 MG/0.4 ML (LOVENOX) SYR SC SCH (07:59)
[2020-07-01] MEDS: NS IV 1000 ML 1,000 ML IV SCH ×2 (08:07→09:29)
--- NOTE | 2020-07-01 09:34 | NUR ---
telemetry order Discontinued per Dr Valenzuela. No longer needed
--- NOTE | 2020-07-01 10:39 | Progress Note - Hospitalist ---
Subjective HPI/CC On Admission Date Seen by Provider: Jul 01, 2020 Time Seen by Provider: 09:50 CC: Right hand pain with cellulitis HPI: This is a 30yoWM meth user who has out of control DM who presents with right hand pain and swelling, found to have cellulitis in need of IV antibiotics, blood sugar remains completely out of control. Subjective/Events-last exam patient reports hand pain a little better still throbs when dependent. He denies chills or fever. Focused Exam Lactate Level 06/29/20 23:11: Lactic Acid Level 1.01 Objective Exam Vital Signs Vital Signs Date Time Temp Pulse Resp B/P (MAP) Pulse Ox O2 Delivery O2 Flow Rate FiO2 07/01/20 08:00 37.2 87 18 138/74 (95) 96 Room Air Capillary Refill : Less Than 3 Seconds General Appearance: No Apparent Distress, Thin Respiratory: Chest Non Tender, Lungs Clear, Normal Breath Sounds, No Accessory Muscle Use, No Respiratory Distress Cardiovascular: Regular Rate, Rhythm, No Edema, No Gallop, No JVD, No Murmur, Normal Peripheral Pulses Extremity: Swelling (swelling and induration over the palm of the right hand likely decreasing from the outline hooper erythema is receding no evidence for ascending lymphangitis and no epitrochlear or axillary adenopathy noted foot examination compatible with tenia pedis without evidence for cellulitis) Results/Procedures Lab Patient resulted labs reviewed. Assessment/Plan Assessment and Plan Assess & Plan/Chief Complaint 1. Right upper extremity cellulitis no evidence for osteomyelitis and no evidence for wrist involvement on physical examination appears to be improving. 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 MRSA infection likely again continue broad-spectrum antibiotics. No evidence for abscess. 2. Uncontrolled presumed type 1 diabetes mild hypoglycemia last night bolus insulin decreased from 12-8 units continue to monitor. Clinical Quality Measures DVT/VTE Risk/Contraindication: Risk Factor Score Per Nursin RFS Level Per Nursing on Admit: 2=Moderate YUNIOR LOUIS MD Jul 01, 2020 10:39
--- NOTE | 2020-07-01 11:44 | Progress Note ---
Subjective Date Seen by a Provider: Jul 01, 2020 Time Seen by a Provider: 10:30 Subjective/Events-last exam Patient seen with Dr. Carballo. Patient reports doing well but right hand does hurt but is better. Denies any fever/chills. Tolerating diet. Focused Exam Lactate Level 06/29/20 23:11: Lactic Acid Level 1.01 Objective Exam Vital Signs Date Time Temp Pulse Resp B/P (MAP) Pulse Ox O2 Delivery O2 Flow Rate FiO2 07/01/20 08:00 37.2 87 18 138/74 (95) 96 Room Air 07/01/20 08:00 Room Air 07/01/20 04:03 37.0 79 12 137/87 (104) 97 Room Air 07/01/20 00:00 37.2 87 18 138/74 (95) 96 Room Air 06/30/20 20:01 Room Air 06/30/20 20:01 36.0 92 18 169/87 (114) 99 Room Air 06/30/20 15:52 36.6 92 18 129/77 (94) 96 Room Air 06/30/20 11:50 36.4 101 18 138/87 (104) 97 Room Air I & O 07/01/20 07:00 Intake Total 3950 ml Output Total 3225 ml Balance 725 ml Capillary Refill : Less Than 3 Seconds General Appearance: No Apparent Distress, WD/WN Neck: Full Range of Motion, Normal Inspection Respiratory: Normal Breath Sounds, No Accessory Muscle Use, No Respiratory Distress Cardiovascular: Regular Rate, Rhythm, No Edema Gastrointestinal: normal bowel sounds, non tender, soft Extremity: Other (Right lateral proximal palmar surface with some mild redness/erythema and edema. Tender to palpation.) Neurologic/Psychiatric: Alert, Oriented x3 Skin: Normal Color, Warm/Dry Results Lab Laboratory Tests 06/30/20 15:55: Glucometer 106 06/30/20 19:50: Glucometer 51*L 06/30/20 20:15: Glucometer 66L 06/30/20 20:49: Glucometer 96 07/01/20 00:08: Glucometer 274H 07/01/20 06:06: Glucometer 193H 07/01/20 10:52: Glucometer 78 Microbiology 06/29/20 Blood Culture - Preliminary, Resulted No growth Assessment/Plan Assessment/Plan Assess & Plan/Chief Complaint Cellulitis Right Palm VSS CT did not show any abscess/fluid collection, just some soft tissue edema. Will continue with ABX and pain meds as needed. He may proceed with oral abx upon discharge. Clinical Quality Measures DVT/VTE Risk/Contraindication: Risk Factor Score Per Nursin RFS Level Per Nursing on Admit: 2=Moderate ANNA MARIE JOHNSON ASSEMBLY DEPARTMENT SUPERVISOR Jul 01, 2020 11:44
[2020-07-01] MEDS ORDERED: TROUGH ORDER-PHARMACY XX NR (14:00)
[2020-07-02] MEDS: PIPERACILLIN/TAZO 4.5 GM/NS 100 ML IV SCH ×6 (01:37→18:09)
[2020-07-02] MEDS: VANCOMYCIN 1250 MG/NS 250 ML IVPB IV SCH ×4 (03:52→15:12)
[2020-07-02 04:29] VITALS: BP 156/89
[2020-07-02] MEDS: inSUlin ASPART (NovoLOG) 1 UNIT/0.01 ML (CHARGE PER UNIT) SC SCH ×4 (06:01→20:17)
[2020-07-02] MEDS: NS IV 1000 ML 1,000 ML IV SCH ×4 (07:04→20:20)
[2020-07-02 08:00] VITALS: BP 141/91
[2020-07-02] MEDS: inSUlin ASPART (NovoLOG) 1 UNIT/0.01 ML (CHARGE PER UNIT) SQ SCH ×3 (08:13→18:10)
[2020-07-02] MEDS: ENOXAPARIN 40 MG/0.4 ML (LOVENOX) SYR SC SCH (08:13)
--- NOTE | 2020-07-02 11:25 | Progress Note - Hospitalist ---
Subjective HPI/CC On Admission Date Seen by Provider: Jul 02, 2020 Time Seen by Provider: 10:45 CC: Right hand pain with cellulitis HPI: This is a 30yoWM meth user who has out of control DM who presents with right hand pain and swelling, found to have cellulitis in need of IV antibiotics, blood sugar remains completely out of control. Subjective/Events-last exam patient reports decreased pain and swelling of the right hand denies chills or fever. Focused Exam Lactate Level 06/29/20 23:11: Lactic Acid Level 1.01 Objective Exam Vital Signs Vital Signs Date Time Temp Pulse Resp B/P (MAP) Pulse Ox O2 Delivery O2 Flow Rate FiO2 07/02/20 08:00 Room Air 07/02/20 08:00 37.0 80 20 141/91 (108) 99 Capillary Refill : Less Than 3 Seconds General Appearance: No Apparent Distress Respiratory: Chest Non Tender, Lungs Clear, Normal Breath Sounds, No Accessory Muscle Use, No Respiratory Distress Cardiovascular: Regular Rate, Rhythm, No Edema, No Gallop, No JVD, No Murmur Extremity: Other (decreased swelling palm of the right hand side of the infection just involving the thenar eminence) Results/Procedures Lab Patient resulted labs reviewed. Assessment/Plan Assessment and Plan Assess & Plan/Chief Complaint 1. Right upper extremity cellulitis no evidence for osteomyelitis and no evid ence for wrist involvement on physical examination appears to be improving. 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 MRSA infection likely again continue broad-spectrum antibiotics considering uncontrolled diabetes at home. No evidence for abscess. 2. Uncontrolled presumed type 1 diabetes currently under good control in the hospital. Considering history of noncomplianceand methamphetamine abuse would likely recommend a minimum of 5 days of antibiotics IV. Clinical Quality Measures DVT/VTE Risk/Contraindication: Risk Factor Score Per Nursin RFS Level Per Nursing on Admit: 2=Moderate YUNIOR LOUIS MD Jul 02, 2020 11:25
--- NOTE | 2020-07-02 13:28 | Progress Note ---
Subjective Date Seen by a Provider: Jul 02, 2020 Time Seen by a Provider: 11:50 Subjective/Events-last exam Patient seen with Dr. Carballo. Patient reports doing well. Still having some right hand discomfort but continues to improve. No other complaints. Focused Exam Lactate Level 06/29/20 23:11: Lactic Acid Level 1.01 Objective Exam Vital Signs Date Time Temp Pulse Resp B/P (MAP) Pulse Ox O2 Delivery O2 Flow Rate FiO2 07/02/20 08:00 Room Air 07/02/20 08:00 37.0 80 20 141/91 (108) 99 Room Air 07/02/20 04:29 36.2 75 16 156/89 (111) 100 Room Air 07/01/20 23:55 37.0 75 16 146/90 (108) 97 Room Air 07/01/20 20:05 Room Air 07/01/20 19:22 36.8 78 16 154/92 (112) 97 Room Air 07/01/20 15:30 36.6 88 18 116/76 (89) 98 Room Air I & O 07/02/20 07:00 Intake Total 1190 ml Output Total 3050 ml Balance -1860 ml Capillary Refill : Less Than 3 Seconds General Appearance: No Apparent Distress, WD/WN Neck: Full Range of Motion, Normal Inspection Respiratory: Normal Breath Sounds, No Accessory Muscle Use, No Respiratory Distress Cardiovascular: Regular Rate, Rhythm, No Edema Gastrointestinal: normal bowel sounds, non tender, soft Extremity: Normal Range of Motion, Other (Right hand palmar surface continue mild erythema that is improving. Mild tenderness to palpation.) Neurologic/Psychiatric: Alert, Oriented x3 Skin: Normal Color, Warm/Dry Results Lab Laboratory Tests 07/01/20 14:49: Vancomycin Level Trough 12.9 07/01/20 15:22: Glucometer 94 07/01/20 20:00: Glucometer 139H 07/02/20 05:57: Glucometer 157H 07/02/20 10:44: Glucometer 78 07/02/20 12:53: Glucometer 151H Microbiology 06/29/20 Blood Culture - Preliminary, Resulted No growth Assessment/Plan Assessment/Plan Assess & Plan/Chief Complaint Cellulitis Right Palm VSS CT did not show any abscess/fluid collection, just some soft tissue edema. Will continue with ABX and pain meds as needed. He may proceed with oral abx upon discharge. Clinical Quality Measures DVT/VTE Risk/Contraindication: Risk Factor Score Per Nursin RFS Level Per Nursing on Admit: 2=Moderate ANNA MARIE JOHNSON HEDDLE MACHINE OPERATOR Jul 02, 2020 13:28
[2020-07-02 15:30] VITALS: BP 143/89
[2020-07-03] VITALS: BP 153/90
[2020-07-03] MEDS: PIPERACILLIN/TAZO 4.5 GM/NS 100 ML IV SCH ×6 (01:15→16:47)
[2020-07-03] MEDS: NS IV 1000 ML 1,000 ML IV SCH ×5 (01:15→18:30)
[2020-07-03] MEDS: VANCOMYCIN 1250 MG/NS 250 ML IVPB IV SCH ×4 (03:35→14:57)
[2020-07-03] MEDS: inSUlin ASPART (NovoLOG) 1 UNIT/0.01 ML (CHARGE PER UNIT) SC SCH ×4 (06:09→20:01)
--- NOTE | 2020-07-03 07:34 | Progress Note - Surgery ---
LILIANA ROCHE MED STUDENT 07/03/20 0734: Subjective Date Seen by a Provider: Jul 03, 2020 Time Seen by a Provider: 07:20 Subjective/Events-last exam pt was sleeping in bed. pt states that the pain in his right hand is a 4 out of 10. pt described the pain as throbbing. pt stated that nothing really makes the pain better or worse. the cellulitis is located on the R medial palmar surface. the skin is still erythematous, flaky and there is one scab present. there was tenderness to palpation of the R palm. Review of Systems General: No Chills, No Fatigue Pulmonary: No Dyspnea, No Cough Cardiovascular: No: Chest Pain, Palpitations Gastrointestinal: No: Nausea, Vomiting, Abdominal Pain, Diarrhea, Constipation Genitourinary: No Dysuria, No Incontinence Musculoskeletal: hand pain (R) Focused Exam Respiratory: Chest Non Tender, Lungs Clear, Normal Breath Sounds, No Accessory Muscle Use, No Respiratory Distress Cardiovascular: Regular Rate, Rhythm, No Murmur Peripheral Pulses: 2+ Carotid (R), 2+ Carotid (L), 2+ Radial Pulses (R), 2+ Radial Pulses (L) Skin: normal color, warm/dry Objective Exam Vital Signs Date Time Temp Pulse Resp B/P (MAP) Pulse Ox O2 Delivery O2 Flow Rate FiO2 07/03/20 00:00 37.2 78 18 153/90 (111) 98 Room Air 07/02/20 20:05 Room Air 07/02/20 15:30 36.9 80 18 143/89 (107) 97 Room Air 07/02/20 08:00 Room Air 07/02/20 08:00 37.0 80 20 141/91 (108) 99 Room Air I & O 07/03/20 07:00 Intake Total 3152 ml Output Total 2100 ml Balance 1052 ml Capillary Refill : Less Than 3 Seconds General Appearance: No Apparent Distress, WD/WN HEENT: No Scleral Icterus (L), No Scleral Icterus (R) Neck: Non Tender; No Lymphadenopathy (L), No Lymphadenopathy (R) Respiratory: Chest Non Tender, Lungs Clear, Normal Breath Sounds, No Accessory Muscle Use, No Respiratory Distress Cardiovascular: Regular Rate, Rhythm, No Murmur Peripheral Pulses: 2+ Carotid (R), 2+ Carotid (L), 2+ Radial Pulses (R), 2+ Radial Pulses (L) Extremity: Normal Range of Motion, Other (R hand palmar surface erythema ) Neurologic/Psychiatric: Alert, Oriented x3, frontload driver II-XII Norm as Tested Skin: Normal Color, Warm/Dry Lymphatic: No Adenopathy Results Lab Laboratory Tests 07/02/20 10:44: Glucometer 78 07/02/20 12:53: Glucometer 151H 07/02/20 15:28: Glucometer 142H 07/02/20 19:51: Glucometer 242H 07/03/20 06:09: Glucometer 170H Microbiology 06/29/20 Blood Culture - Preliminary, Resulted No growth Assessment/Plan Assessment/Plan Assessment/Plan Cellulitis Right Palmar surface Continue antibiotics and pain meds as needed. Switch to oral antibiotics upon discharge. Clinical Quality Measures DVT/VTE Risk/Contraindication: Risk Factor Score Per Nursin RFS Level Per Nursing on Admit: 2=Moderate CÉSAR VAZQUEZ DO 07/04/20 1142: Subjective Time Seen by a Provider: 19:21 Subjective/Events-last exam Pt seen and examined, no changes. Review of Systems General: No Chills Pulmonary: No Dyspnea, No Cough Cardiovascular: No: Chest Pain, Palpitations Objective Exam General Appearance: No Apparent Distress Respiratory: Lungs Clear, Normal Breath Sounds, No Accessory Muscle Use, No Respiratory Distress Cardiovascular: Regular Rate, Rhythm, No Murmur Extremity: Other (R hand palmar surface erythema ) Assessment/Plan Assessment/Plan Assessment/Plan Cellulitis ABX and ok to go home per surgery. Supervisory-Addendum Brief Verification & Attestation Participated in pt care: history, MDM, physical Personally performed: exam, history, MDM Care discussed with: Medical Student Procedures: n/a Verification and Attestation of Medical Student E/M Service A medical student performed and documented this service. I then reviewed and verified all information documented by the medical student and made modifications to such information, when appropriate. I personally performed a physical exam, medical decision making and then discussed any differences between the notes and made revisions as necessary to create one note. César Vazquez , 07/04/20 , 11:41 LILIANA ROCHE MED STUDENT Jul 03, 2020 07:34 CÉSAR VAZQUEZ DO Jul 04, 2020 11:42
[2020-07-03 07:36] VITALS: BP 148/93
[2020-07-03] MEDS: ENOXAPARIN 40 MG/0.4 ML (LOVENOX) SYR SC SCH (08:19)
[2020-07-03] MEDS: inSUlin ASPART (NovoLOG) 1 UNIT/0.01 ML (CHARGE PER UNIT) SQ SCH ×3 (08:20→17:18)
[2020-07-03 10:03] LABS: BUN/CREATININE RATIO 9; CALCIUM 8.6 MG/DL (8.5-10.1); CARBON DIOXIDE 24 MMOL/L (21-32); CHLORIDE 107 MMOL/L (98-107); GFR ESTIMATED > 60; GLUCOSE 215 MG/DL (70-105); POTASSIUM 4.1 MMOL/L (3.6-5.0); SODIUM 140 MMOL/L (135-145)
--- NOTE | 2020-07-03 13:01 | Progress Note ---
Subjective Subjective/Events-last exam Afebrile, blood pressure mildly elevated. He reports being tired and minimally answers questions. Objective Exam Last Set of Vital Signs Vital Signs Date Time Temp Pulse Resp B/P (MAP) Pulse Ox O2 Delivery O2 Flow Rate FiO2 07/03/20 08:56 Room Air 07/03/20 07:36 37.0 73 17 148/93 (111) 99 Capillary Refill : Less Than 3 Seconds I&O Intake and Output 07/03/20 00:00 Intake Total 2760 ml Output Total 1400 ml Balance 1360 ml Intake Oral 2760 ml Output Urine Total 1400 ml # Voids 6 # Bowel Movements 3 General: No Acute Distress Lungs: Clear to Auscultation, Normal Air Movement Heart: Regular Rate, No Murmurs Abdomen: Normal Bowel Sounds, Soft Skin: Other (erythema to right palm with some peeling, appears to have receded from previously drawn lines) Results/Procedures Lab Laboratory Tests 07/02/20 15:28: Glucometer 142H 07/02/20 19:51: Glucometer 242H 07/03/20 06:09: Glucometer 170H 07/03/20 09:35: Sodium Level 140, Potassium Level 4.1, Chloride Level 107, Carbon Dioxide Level 24, Anion Gap 9, Blood Urea Nitrogen 12, Creatinine 1.30, Estimat Glomerular Filtration Rate > 60, BUN/Creatinine Ratio 9, Glucose Level 215H, Calcium Level 8.6 07/03/20 12:06: Glucometer 58*L 07/03/20 12:30: Glucometer 53*L Microbiology 06/29/20 Blood Culture - Preliminary, Resulted No growth Radiology Date of Exam:06/29/20 CT EXTREMITY UPPER RIGHT WO PROCEDURE: CT right upper extremity without contrast. TECHNIQUE: Multiple contiguous axial images were obtained through the right upper extremity without the use of intravenous contrast. Sagittal and coronal reformations were then performed. Auto Exposure Controls were utilized during the CT exam to meet ALARA standards for radiation dose reduction. INDICATION: History of metallic splinter. Previous removal. Now with redness and pain to the palm of the right hand and wrist. COMPARISON: 07/24/2015 FINDINGS: Radiopaque marker was placed at the area of penetrating injury of the ulnar side of the palm of the hand. There is localized stranding of the subcutaneous fat and perhaps minimal asymmetric skin thickening in this area. There is also deep extension of fat stranding with blurring of normal muscle borders, particularly involving the degenerative joint disease minimi muscle. There is no evidence of retained metallic foreign body. There is no soft tissue emphysema. No loculated fluid collection is seen to suggest abscess. Evaluation of the underlying osseous structures demonstrates no suspicious osteolytic process. No acute fracture or dislocation is seen. Postsurgical changes of previous distal right radial and ulnar ORIF are noted. There is ulnar plus variance with advanced degenerative changes of the ulnar carpal joint space. IMPRESSION: 1. Localized soft tissue swelling and edema of the medial palm of the right hand. No evidence of retained foreign body nor abscess. 2. No suspicious osteolytic process to suggest osteomyelitis. Please note however that osteomyelitis cannot be excluded based on radiographs or CT alone. If there is concern for osteomyelitis, further evaluation with MRI is recommended. If MRI is contraindicated, triple phase bone scan could be performed. Dictated by: Dictated on workstation # [id number] Dict: 06/30/20 0650 Trans: 06/30/20 0841 CV [id number] Interpreted by: MICHELLE CHOW MD Electronically signed by: MICHELLE CHOW MD 06/30/20 0841 Assessment/Plan Assessment/Plan Assessment & Plan 1. Right upper extremity cellulitis- continue broad-spectrum antibiotics given uncontrolled diabetes. Will complete 5 day IV course tomorrow and plan for d/c after. 2. Uncontrolled presumed type 1 diabetes- continue levemir and novolog- of note patient has been requesting different doses than ordered. Diabetic diet. 3. DVT prophylaxis- enoxaparin Clinical Quality Measures DVT/VTE Risk/Contraindication: Risk Factor Score Per Nursin RFS Level Per Nursing on Admit: 2=Moderate CODI STAFFORD MD Jul 03, 2020 13:01
[2020-07-03 13:08] VITALS: BP 164/85
[2020-07-03 16:05] VITALS: BP 137/90
--- NOTE | 2020-07-03 19:49 | NUR ---
Contacted Dr. Lerner regarding the patients blood sugar of 536. Dr. Lerner requested this RN to administer 5 units of Novolog and 20 units of Levimir and then recheck in 2 hours.
[2020-07-04 00:14] VITALS: BP 136/86
[2020-07-04] MEDS: PIPERACILLIN/TAZO 4.5 GM/NS 100 ML IV SCH ×6 (01:01→16:00)
[2020-07-04] MEDS: VANCOMYCIN 1250 MG/NS 250 ML IVPB IV SCH ×4 (04:00→14:38)
[2020-07-04] MEDS: NS IV 1000 ML 1,000 ML IV SCH ×4 (04:41→17:18)
[2020-07-04 05:38] LABS: HEMOGLOBIN 12.4 G/DL (13.3-17.7); MEAN PLATELET VOLUME 9.9 FL (7.4-10.4); WHITE BLOOD COUNT 6.1 10^3/uL (4.3-11.0)
[2020-07-04] MEDS: inSUlin ASPART (NovoLOG) 1 UNIT/0.01 ML (CHARGE PER UNIT) SC SCH ×3 (05:48→17:18)
[2020-07-04 05:52] LABS: CHLORIDE 107 MMOL/L (98-107); POTASSIUM 3.5 MMOL/L (3.6-5.0); SODIUM 141 MMOL/L (135-145)
[2020-07-04 05:53] LABS: CALCIUM 8.4 MG/DL (8.5-10.1); GLUCOSE 86 MG/DL (70-105)
[2020-07-04 05:55] LABS: CARBON DIOXIDE 25 MMOL/L (21-32)
[2020-07-04 05:57] LABS: CREATININE SERUM 1.28 MG/DL (0.60-1.30); GFR ESTIMATED > 60
[2020-07-04 05:58] LABS: BUN/CREATININE RATIO 14
[2020-07-04 07:25] VITALS: BP 137/93
[2020-07-04] MEDS ORDERED: CLIN300C11 PO (08:15)
--- NOTE | 2020-07-04 08:19 | Discharge Summary ---
Discharge Summary Hospital Course Problems Reviewed?: Yes Problems/Diagnosis: (1) Uncontrolled type 1 diabetes mellitus Status: Acute (2) Cellulitis Status: Acute Qualifiers: Qualified Codes: L03.113 - Cellulitis of right upper limb (3) Methamphetamine abuse Status: Chronic Hospital Course Home Meds Active Clindamycin HCl 300 Mg Capsule 300 Mg PO Q8H Reported Ibuprofen 200 Mg Tablet 400 Mg PO Q8H PRN Lantus (Insulin Glargine,Hum.rec.anlog) 100 Unit/1 Ml Vial 20-30 Unit SQ HS Novolog Flexpen (Insulin Aspart) 300 Units/3 Ml Solution 10-12 Units SQ AC Date of Admission: Jun 30, 2020 at 00:40 Admission Diagnosis : Uncontrolled DMI Right hand cellulitis Methamphetamine use Family Physician/Provider: Nicholls/LeannCounts Include [facility] B[facility] At [facility] Date of Discharge: 07/04/20 Discharge Diagnosis: Same Hospital Course: Patient admitted and placed on IV Zosyn and Vancomycin, had improvement of cellulitis, blood culture negative, no drainage and no abscess for any other culture results. Blood sugars were labile and patient often chose different amounts of insulin to take other than what was ordered. Given 5 days of IV abx and discharged with 5 further days of clindamycin. He reported he had a vial of Lantus but no syringes or needles, contacted at [facility] and they will pull syringes and needles for him to pick up and delivery driver there. Labs and Pending Lab Test: Laboratory Tests 07/03/20 09:35: Sodium Level 140, Potassium Level 4.1, Chloride Level 107, Carbon Dioxide Level 24, Anion Gap 9, Blood Urea Nitrogen 12, Creatinine 1.30, Estimat Glomerular Filtration Rate > 60, BUN/Creatinine Ratio 9, Glucose Level 215H, Calcium Level 8.6 07/03/20 12:06: Glucometer 58*L 07/03/20 12:30: Glucometer 53*L 07/03/20 15:27: Glucometer 233H 07/03/20 18:25: Glucometer 536*H 07/03/20 20:42: Glucometer 476*H 07/03/20 21:56: Glucometer 386H 07/04/20 05:09: White Blood Count 6.1, Red Blood Count 4.24L, Hemoglobin 12.4L, Hematocrit 37L, Mean Corpuscular Volume 86, Mean Corpuscular Hemoglobin 29, Mean Corpuscular Hemoglobin Concent 34, Red Cell Distribution Width 11.9, Platelet Count 293, Mean Platelet Volume 9.9, Sodium Level 141, Potassium Level 3.5L, Chloride Level 107, Carbon Dioxide Level 25, Anion Gap 9, Blood Urea Nitrogen 18, Creatinine 1.28, Estimat Glomerular Filtration Rate > 60, BUN/Creatinine Ratio 14, Glucose Level 86, Calcium Level 8.4L 07/04/20 05:30: Glucometer 81 Microbiology 06/29/20 Blood Culture - Preliminary, Resulted No growth Assessment/Pt DC Instructions Follow up with Ricardo Ramos APRN at [facility] on 07/07 at 2 pm. After you pick up and delivery driver your medications at the pharmacy, go to Family Medicine at [facility] and ask for nurse- they will have the syringes and needles for you. Discharge Diet: ADA Diet Activity as Tolerated: Yes Discharge Physical Examination Allergies: Coded Allergies: No Known Drug Allergies (Unverified , 06/21/18) General Appearance: No Apparent Distress Respiratory: Lungs Clear, Normal Breath Sounds Cardiovascular: Regular Rate, Rhythm, No Murmur Skin: Other (right palm with erythema and some peeling and mild swelling) Neurologic/Psychiatric: Alert Copy Copies To 1: Ricardo Ramos APRN Clinical Quality Measures DVT/VTE Risk/Contraindication: Risk Factor Score Per Nursin RFS Level Per Nursing on Admit: 2=Moderate CODI STAFFORD MD Jul 04, 2020 08:18
[2020-07-04] MEDS: inSUlin ASPART (NovoLOG) 1 UNIT/0.01 ML (CHARGE PER UNIT) SQ SCH ×3 (08:20→17:18)
[2020-07-04] MEDS: ENOXAPARIN 40 MG/0.4 ML (LOVENOX) SYR SC SCH (08:20)
[2020-07-04 15:54] VITALS: BP 157/93
[2020-07-04 17:19] VITALS: BP 157/93
== END 2020-07-04 17:20 | disposition home or self-care (01) | DRG 603 ==
LOC: EDUNIT# 21:50 → ER 21:53 → 4TH 06-30 00:40
PROVIDERS: ADMIT Internal Medicine; ATTEND Family Medicine
DX: L03.113 Cellulitis of right upper limb (principal); E10.65 Type 1 diabetes mellitus with hyperglycemia; F15.10 Other stimulant abuse, uncomplicated; E78.00 Pure hypercholesterolemia, unspecified; F17.210 Nicotine dependence, cigarettes, uncomplicated; Z79.4 Long term (current) use of insulin; Z23 Encounter for immunization; W45.8XXA Other foreign body or object entering through skin, initial encounter; Y93.H9 Activity, other involving exterior property and land maintenance, building and construction
CPT/HCPCS: 36415; 73130; 73200; 80048; 80053; 80202; 80306; 81000; 82010; 82962; 83605; 84145; 85025; 85027; 85652; 86141; 87040; 90471; 90715; 96361; 96365; 96367; 96375

== ENCOUNTER 2021-01-14 21:56 | Inpatient (IN) | payer SELFPAY ==
[~2021-01-14] VITALS: Ht 188 cm; Wt 81.4 kg
[~2021-01-14 21:56] MED LIST changes: +CLIN300C12 PO; +IBUP-2473 PO
[2021-01-14] MEDS ORDERED: NS IV 1000 ML 1,000 ML IV SCH (22:15)
--- NOTE | 2021-01-14 22:20 | ED Upper Extremity ---
General Chief Complaint: Skin/Wound Problems Stated Complaint: R HAND INFECTION Source: patient, old records History of Present Illness Date Seen by Provider: Jan 14, 2021 Time Seen by Provider: 22:08 Initial Comments PT ARRIVES VIA POV FROM HOME C/O RIGHT HAND INFECTION STATES IT STARTED ON THE --STATES HE GOT A "METAL SPLINTER" IN IT ( THIS IS FREQUENTLY WHAT PT STATES IS CAUSE FOR SAME/SIMILAR PROBLEMS IN PAST) PT HAS BEEN POKING AT IT, PICKING AND SQUEEZING THE AREA PT SEEN BY ARMANI BRYANT AT [facility] ON 01/09 FOR THIS PROBLEM AND STATES XRAYS WERE DONE AND HE WAS GIVEN A PRESCRIPTION FOR AMOXIL TWICE A DAY--HAS NOT ATTEMPTED TO CONTACT THEM OR FOLLOW UP WITH THEM AT ANY TIME SINCE STATES IT IS GETTING WORSE--INCREASED PAIN, INCREASED REDNESS AND SWELLING LARGE SUB-Q PURULENT AREA ON PALM NEAR BASE OF 3RD AND 4TH FINGERS WITH OOZING OF PURULENT AND SEROUS DRAINAGE NO FEVER NO STREAKS PT IS TYPE 1 DIABETIC STATES HIS BLOOD GLUCOSE WAS 280 THIS AM, WAS 393 THIS EVENING WITH DINNER, TOOK 12 UNITS OF NOVOLOG, THEN A COUPLE OF HOURS LATER IT WAS 490 AND HE TOOK AN ADDITIONAL 10 UNITS OF NOVOLOG. PT TAKES LANTUS 25 UNITS AT HS, BUT HAS NOT TAKEN ANY TONIGHT. THIS HAS OCCURRED SEVERAL TIMES IN THE PAST--LAST TIME HE WAS ADMITTED FOR THIS WAS 06/2020 PT HAS HAD MULTIPLE OTHER ADMITS FOR DKA AND OTHER DIABETES-RELATED ISSUES. PT IS UP TO DATE ON TETANUS VACCINATION 06/2020 PCP: [facility], ARMANI BRYANT Allergies and Home Medications Allergies Coded Allergies: No Known Drug Allergies (Unverified , 06/21/18) Home Medications Clindamycin HCl 300 Mg Capsule, 300 MG PO Q8H Prescribed by: CODI STAFFORD on 07/04/20 0815 Ibuprofen 200 Mg Tablet, 400 MG PO Q8H PRN for PAIN-MILD (1-4), (Reported) Insulin Aspart 300 Units/3 Ml Solution, 10-12 UNITS SQ AC, (Reported) Insulin Glargine,Hum.rec.anlog 100 Unit/1 Ml Vial, 20-30 UNIT SQ HS, (Reported) Patient Home Medication List Home Medication List Reviewed: Yes Review of Systems Constitutional: no symptoms reported; No fever Respiratory: no symptoms reported Cardiovascular: no symptoms reported Gastrointestinal: no symptoms reported Genitourinary: no symptoms reported Musculoskeletal: see HPI Skin: see HPI Psychiatric/Neurological: No Symptoms Reported Past [id number] Hx Past Med/Social Hx: Reviewed and Corrections made Patient Social History Alcohol Use: Occasionally Uses Drug of Choice: METH, MARIJUANA--SMOKES METH, DENIES IV USE Smoking Status: Current Everyday Smoker (1 PPD) Type Used: Cigarettes 2nd Hand Smoke Exposure: Yes Recent Hopitalizations: No Immunizations Up To Date Tetanus Booster (TDap): More than 5yrs PED Vaccines UTD: No Date of Pneumonia Vaccine: February 22, 2014 Date of Influenza Vaccine: Jul 20, 2013 Seasonal Allergies Seasonal Allergies: No Past Medical History Surgeries: Yes (RIGHT FOREARM FX/ORIF) Orthopedic Respiratory: No Currently Using CPAP: No Currently Using BIPAP: No Cardiac: Yes High Cholesterol, Hypertension Neurological: Yes Neuropathy Reproductive Disorders: Yes Sexually Transmitted Disease: No HIV/AIDS: No Genitourinary: No Gastrointestinal: No Musculoskeletal: Yes (RIGHT FOREARM FX/ORIF) Fractures Endocrine: Yes (TYPE 1 IDDM--DX AGE 8, MULTIPLE EPISODES OF DKA) Diabetes, Insulin dep HEENT: No Loss of Vision: Denies Hearing Impairment: Denies Cancer: No Psychosocial: Yes (SUBSTANCE ABUSE) Integumentary: Yes (MULTIPLE EPISODES OF CELLULITIS, JUANITA TO RIGHT HAND) Blood Disorders: No Adverse Reaction/Blood Tranf: No Family Medical History Cancer 03 FATHER, Onset:Unknown Family history: Diabetes mellitus 03 FATHER, Onset:Unknown Cancer, Diabetes SOCIAL HISTORY: -ETOH--OCCASIONAL USE -DRUGS--+ THC AND METH USE--CLAIMS HE SMOKES METH, DENIES IV DRUG USE -SMOKES 1 PPD PAST SURGICAL HISTORY: -RIGHT FOREARM FX/ORIF WITH HARDWARE Physical Exam Vital Signs Vital Signs - First Documented 01/14/21 01/15/21 22:08 00:08 Temp 36.2 Pulse 110 Resp 20 B/P (MAP) 170/116 (134) Pulse Ox 100 O2 Delivery Room Air Capillary Refill : Height, Weight, BMI Height: 6'2.00" Weight: 171lbs. 7.0oz. 77.911979qp; 20.27 BMI Method:Estimated General Appearance: WD/WN, no apparent distress, thin Cardiovascular: regular rate, rhythm, no murmur Respiratory: normal breath sounds Shoulder: normal inspection Elbow/Forearm: normal inspection Wrist: Yes normal inspection Hand: Right (RIGHT PALM WITH 2 CM AREA OF SUB-Q PURULENCE WITH A FEW SMALLER SURROUNDING AREAS OF DENUDED "BLISTERS"/SUB Q PURULENT AREAS, WITH OOZING OF PURULENT AND SEROUS DRAINAGE. MODERATE SWELLING AND ERYTHEMA TO MOST OF RIGHT HAND. NO STREAKS. MOTOR/SENSORY/VASCULAR INTACT. ) Progress/Results/Core Measures Results/Orders Lab Results Laboratory Tests Test 01/14/21 22:15 01/14/21 22:22 01/14/21 23:30 01/15/21 00:23 Range/Units White Blood Count 11.6 H 4.3-11.0 10^3/uL Red Blood Count 4.23 L 4.30-5.52 10^6/uL Hemoglobin 12.0 L 13.3-17.7 g/dL Hematocrit 35 L 40-54 % Mean Corpuscular Volume 83 80-99 fL Mean Corpuscular Hemoglobin 28 25-34 pg Mean Corpuscular Hemoglobin Concent 34 32-36 g/dL Red Cell Distribution Width 11.3 10.0-14.5 % Platelet Count 216 130-400 10^3/uL Mean Platelet Volume 10.8 9.0-12.2 fL Immature Granulocyte % (Auto) 0 % Neutrophils (%) (Auto) 79 H 42-75 % Lymphocytes (%) (Auto) 8 L 12-44 % Monocytes (%) (Auto) 10 0-12 % Eosinophils (%) (Auto) 2 0-10 % Basophils (%) (Auto) 0 0-10 % Neutrophils # (Auto) 9.2 H 1.8-7.8 10^3/uL Lymphocytes # (Auto) 1.0 1.0-4.0 10^3/uL Monocytes # (Auto) 1.2 H 0.0-1.0 10^3/uL Eosinophils # (Auto) 0.2 0.0-0.3 10^3/uL Basophils # (Auto) 0.0 0.0-0.1 10^3/uL Immature Granulocyte # (Auto) 0.0 0.0-0.1 10^3/uL Erythrocyte Sedimentation Rate 68 H 0-15 MM/HR Prothrombin Time 12.1 L 12.2-14.7 SEC INR Comment 0.9 0.8-1.4 Activated Partial Thromboplast Time 20 L 24-35 SEC Sodium Level 132 L 135-145 MMOL/L Potassium Level 4.0 3.6-5.0 MMOL/L Chloride Level 96 L 98-107 MMOL/L Carbon Dioxide Level 23 21-32 MMOL/L Anion Gap 13 5-14 MMOL/L Blood Urea Nitrogen 21 H 7-18 MG/DL Creatinine 1.68 H 0.60-1.30 MG/DL Estimat Glomerular Filtration Rate 48 BUN/Creatinine Ratio 13 Glucose Level 334 H 70-105 MG/DL Lactic Acid Level 1.31 0.50-2.00 MMOL/L Calcium Level 9.3 8.5-10.1 MG/DL Corrected Calcium 9.5 8.5-10.1 MG/DL Magnesium Level 2.1 1.6-2.4 MG/DL Total Bilirubin 0.3 0.1-1.0 MG/DL Aspartate Amino Transf (AST/SGOT) 18 5-34 U/L Alanine Aminotransferase (ALT/SGPT) 32 0-55 U/L Alkaline Phosphatase 107 40-136 U/L C-Reactive Protein High Sensitivity 5.12 H 0.00-0.50 MG/DL Total Protein 7.0 6.4-8.2 GM/DL Albumin 3.7 3.2-4.5 GM/DL Amylase Level 45 25-125 U/L Procalcitonin 0.15 H <0.10 NG/ML Serum Alcohol < 10 <10 MG/DL Glucometer 327 H 270 H 70-110 MG/DL Urine Color YELLOW Urine Clarity CLEAR Urine pH 7.0 5-9 Urine Specific [place] 1.015 L 1.016-1.022 Urine Protein 1+ H NEGATIVE Urine Glucose (UA) 3+ H NEGATIVE Urine Ketones NEGATIVE NEGATIVE Urine Nitrite NEGATIVE NEGATIVE Urine Bilirubin NEGATIVE NEGATIVE Urine Urobilinogen 0.2 < = 1.0 MG/DL Urine Leukocyte Esterase NEGATIVE NEGATIVE Urine RBC (Auto) TRACE-I NEGATIVE Urine RBC 2-5 H /HPF Urine WBC 0-2 /HPF Urine Squamous Epithelial Cells RARE /HPF Urine Crystals NONE /LPF Urine Bacteria NEGATIVE /HPF Urine Casts NONE /LPF Urine Mucus NEGATIVE /LPF Urine Culture Indicated NO Urine Opiates Screen NEGATIVE NEGATIVE Urine Oxycodone Screen NEGATIVE NEGATIVE Urine Methadone Screen NEGATIVE NEGATIVE Urine Propoxyphene Screen NEGATIVE NEGATIVE Urine Barbiturates Screen NEGATIVE NEGATIVE Ur Tricyclic Antidepressants Screen NEGATIVE NEGATIVE Urine Phencyclidine Screen NEGATIVE NEGATIVE Urine Amphetamines Screen POSITIVE H NEGATIVE Urine Methamphetamines Screen POSITIVE H NEGATIVE Urine Benzodiazepines Screen NEGATIVE NEGATIVE Urine Cocaine Screen NEGATIVE NEGATIVE Urine Cannabinoids Screen NEGATIVE NEGATIVE My Orders Orders - AHSAN RUCKER DO Accucheck Stat ONCE (01/14/21 22:06) Monitor-Rhythm Ecg Trace Only (01/14/21 22:06) Alcohol (01/14/21 22:06) Amylase (01/14/21 22:06) Cbc With Automated Diff (01/14/21 22:06) Comprehensive Metabolic Panel (01/14/21 22:06) Hs C Reactive Protein (01/14/21 22:06) Drug Screen Stat (Urine) (01/14/21 22:06) Lactic Acid Analyzer (01/14/21 22:06) [place] Level (01/14/21 22:06) Magnesium (01/14/21 22:06) Procalcitonin (Pct) (01/14/21 22:06) Protime With Inr (01/14/21 22:06) Partial Thromboplastin Time (01/14/21 22:06) Ua Culture If Indicated (01/14/21 22:06) Blood Culture (01/14/21 22:06) Erythrocyte Sedimentation Rate (01/14/21 22:06) Ed Iv/Invasive Line Start (01/14/21 22:06) Ns Iv 1000 Ml (Sodium Chloride 0.9%) (01/14/21 22:15) Hand, Right, 3 Views (01/14/21 22:08) Wound Culture (01/14/21 22:24) Ct Extremity Upper Right Wo (01/14/21 22:27) Piperacillin Sodium/Tazobactam (Zosyn Vi (01/14/21 22:30) Vancomycin Injection (Vancomycin Injecti (01/14/21 22:30) Pharmacy To Dose (Pharmacy To Dose) (01/14/21 22:30) Vancomycin Injection (Vancomycin Injecti (01/14/21 23:00) Ketorolac Injection (Toradol Injection) (01/14/21 22:45) Vancomycin Injection (Vancomycin Injecti (01/14/21 23:06) Vancomycin Injection (Vancomycin Injecti (01/14/21 23:06) Ns Iv 500 Ml (Sodium Chloride 0.9%) (01/14/21 23:06) Vancomycin Injection (Vancomycin Injecti (01/15/21 11:00) Piperacillin/Tazobactam (Bulk) (Zosyn In (01/15/21 05:00) Medications Given in ED Current Medications Medications Dose Ordered Sig/Billie Route Start Time Stop Time Status Last Admin Dose Admin Ketorolac Tromethamine 30 mg ONCE ONCE IVP 01/14/21 22:45 01/14/21 22:46 DC 01/14/21 23:08 30 MG Piperacillin Sod/ Tazobactam Sod 4.5 gm/Sodium Chloride 100 ml @ 200 mls/hr ONCE ONCE IV 01/14/21 22:30 01/14/21 22:59 DC 01/14/21 23:07 200 MLS/HR Sodium Chloride 500 ml @ ud STK-MED ONCE .ROUTE 01/14/21 23:06 01/14/21 23:14 DC 01/14/21 23:47 500 MLS/HR Vancomycin HCl 500 mg STK-MED ONCE IV 01/14/21 23:06 01/14/21 23:14 DC 01/14/21 23:46 500 MG Vancomycin HCl 1,000 mg STK-MED ONCE .ROUTE 01/14/21 23:06 01/14/21 23:14 DC 01/14/21 23:44 1,000 MG Vital Signs/I&O 01/14/21 01/15/21 22:08 00:08 Temp 36.2 Pulse 110 95 Resp 20 20 B/P (MAP) 170/116 (134) 152/98 Pulse Ox 100 98 O2 Delivery Room Air Progress Progress Note : Progress Note ACCUCHECK 327 GIVEN IV FLUIDS AND ZOSYN + VANCOMYCIN NO DETERIORATION IN PT'S CONDITION DURING ER STAY Diagnostic Imaging Comments XRAYS RIGHT HAND--NO ACUTE PROCESS, PENDING RADIOLOGIST REVEW CT RIGHT HAND--PUNCTURE WOUND WITH CELLULITIS NEAR ANTERIOR BASE OF LONG AND RING FINGERS, NO VISIBLE FOREIGN BODY, PER [facility] VIA FAX AT [id number] Reviewed: Reviewed by Me Departure Communication (Admissions) [id number]--SPOKE WITH DR. SHERMAN, HOSPITALIST FOR [facility], ACCEPTS PT FOR ADMIT Impression Primary Impression: Cellulitis of right hand Additional Impressions: Uncontrolled type 1 diabetes mellitus Methamphetamine abuse Tobacco abuse Renal insufficiency MILD HYPONATREMIA Disposition: ADMITTED INPATIENT Condition: Stable Admissions Decision to Admit Reason: Admit from ER (General) Decision to Admit/Date: Jan 15, 2021 Time/Decision to Admit Time: 23:35 Departure-Patient Inst. Referrals: [facility] (PCP/Family) Primary Care Physician AHSAN RUCKER DO Jan 14, 2021 22:20
[2021-01-14] MEDS ORDERED: PHARMACY TO DOSE IV ONE (22:30)
[2021-01-14] MEDS ORDERED: PIPERACILLIN SODIUM/TAZOBACTAM 4.5 GM in NS (IVPB) 100 ML IV ONE (22:30)
[2021-01-14] MEDS ORDERED: VANCOMYCIN INJECTION 750 MG in NS (IVPB) 250 ML IV SCH (22:30)
[2021-01-14 22:35] LABS: BASOPHILS % (AUTO) 0 % (0-10); EOSINOPHILS # (AUTO) 0.2 10^3/uL (0.0-0.3); EOSINOPHILS % (AUTO) 2 % (0-10); HEMATOCRIT 35 % (40-54); LYMPHOCYTES % (AUTO) 8 % (12-44); MEAN CORPUSCULAR HEMOGLOBIN 28 pg (25-34); MEAN CORPUSCULAR HGB CONC 34 g/dL (32-36); MEAN CORPUSCULAR VOLUME 83 fL (80-99); MEAN PLATELET VOLUME 10.8 fL (9.0-12.2); MONOCYTES # (AUTO) 1.2 10^3/uL (0.0-1.0); MONOCYTES % (AUTO) 10 % (0-12); NEUTROPHILS # (AUTO) 9.2 10^3/uL (1.8-7.8); NEUTROPHILS % (AUTO) 79 % (42-75); PLATELET COUNT 216 10^3/uL (130-400); WHITE BLOOD COUNT 11.6 10^3/uL (4.3-11.0)
[2021-01-14] MEDS ORDERED: KETOROLAC 30 MG/ML VIAL IVP ONE (22:45)
[2021-01-14 22:50] LABS: ERYTHROCYTE SEDIMENTATION RATE 68 MM/HR (0-15)
[2021-01-14 22:53] LABS: INR 0.9 (0.8-1.4); PROTHROMBIN TIME PATIENT 12.1 SEC (12.2-14.7)
[2021-01-14] MEDS ORDERED: VANCOMYCIN 1500 MG/NS 500 ML IVPB IV NR ×2 (23:00)
[2021-01-14 23:01] LABS: ALANINE AMINOTRANSFERASE 32 U/L (0-55); ALBUMIN 3.7 GM/DL (3.2-4.5); ALKALINE PHOSPHATASE 107 U/L (40-136); AMYLASE 45 U/L (25-125); BILIRUBIN,TOTAL 0.3 MG/DL (0.1-1.0); BUN/CREATININE RATIO 13; CALCIUM 9.3 MG/DL (8.5-10.1); CARBON DIOXIDE 23 MMOL/L (21-32); CHLORIDE 96 MMOL/L (98-107); CREATININE SERUM 1.68 MG/DL (0.60-1.30); GFR ESTIMATED 48; GLUCOSE 334 MG/DL (70-105); MAGNESIUM 2.1 MG/DL (1.6-2.4); SODIUM 132 MMOL/L (135-145)
[2021-01-14] MEDS ORDERED: VANCOMYCIN 500 MG/VIAL IV ONE (23:06)
[2021-01-14] MEDS ORDERED: VANCOMYCIN 1000 MG/VIAL ONE (23:06)
[2021-01-14] MEDS ORDERED: NS IV 500 ML 500 ML ONE (23:06)
[2021-01-14 23:45] LABS: BILIRUBIN,URINE NEGATIVE (NEGATIVE); CLARITY,URINE CLEAR; COLOR,URINE YELLOW; GLUCOSE, URINE (UA) 3+ (NEGATIVE); KETONES,URINE NEGATIVE (NEGATIVE); LEUKOCYTE ESTERASE ,URINE NEGATIVE (NEGATIVE); NITRITE,URINE NEGATIVE (NEGATIVE); PROTEIN,URINE 1+ (NEGATIVE)
[2021-01-14 23:58] LABS: BACTERIA,URINE NEGATIVE /HPF; SQUAMOUS EPITHELIAL CELL,UR RARE /HPF; WBC,URINE 0-2 /HPF
[2021-01-15 00:09] LABS: AMPHETAMINE SCREEN, URINE POSITIVE (NEGATIVE); BENZODIAZEPINES SCREEN URINE NEGATIVE (NEGATIVE); CANNABINOID SCREEN, URINE NEGATIVE (NEGATIVE); COCAINE SCREEN URINE NEGATIVE (NEGATIVE); METHAMPHETAMINE SCREEN URINE S POSITIVE (NEGATIVE)
[2021-01-15 00:10] LABS: BARBITURATE SCREEN URINE NEGATIVE (NEGATIVE); METHADONE STAT NEGATIVE (NEGATIVE); OPIATE SCREEN URINE NEGATIVE (NEGATIVE); OXYCODONE STAT NEGATIVE (NEGATIVE); PROPOXYPHENE STAT NEGATIVE (NEGATIVE); TRICYCLIC ANTIDEPRESSANTS SCRE NEGATIVE (NEGATIVE)
[2021-01-15] MEDS ORDERED: ONDANSETRON 4 MG/2 ML (SDV) Z0FRAN IVP PRN (00:30)
[2021-01-15] MEDS ORDERED: ACETAMINOPHEN 500 MG TAB (TYLENOL) PO PRN (00:30)
[2021-01-15] MEDS ORDERED: inSUlin ASPART (NovoLOG) 1 UNIT/0.01 ML (CHARGE PER UNIT) ONE (00:47)
[2021-01-15] MEDS: inSUlin ASPART (NovoLOG) 1 UNIT/0.01 ML (CHARGE PER UNIT) SC SCH ×5 (00:54→20:42)
[2021-01-15] MEDS ORDERED: PIPERACILLIN/TAZO 4.5 GM VIAL (ZOSYN) IV ONE (01:12)
[2021-01-15] MEDS: NS IV 1000 ML 1,000 ML IV SCH ×6 (01:44→23:54)
[2021-01-15 04:00] VITALS: BP 161/97
[2021-01-15] MEDS: PIPERACILLIN/TAZO 4.5 GM/NS 100 ML IV SCH ×6 (04:32→20:42)
[2021-01-15] MEDS ORDERED: PIPERACILLIN/TAZO 4.5 GM/NS 100 ML IV SCH ×2 (05:00)
--- NOTE | 2021-01-15 05:06 | Diagnostic Imaging Report ---
INDICATION: Right hand pain 3 views of the right hand show no fracture, dislocation or radiopaque foreign object. There is an old ulnar styloid fracture. IMPRESSION: No acute abnormality seen in the right hand. Dictated by: Dictated on workstation # [id number]
[2021-01-15] MEDS: KETOROLAC 30 MG/ML VIAL IVP PRN ×3 (05:58→20:41)
--- NOTE | 2021-01-15 06:47 | Diagnostic Imaging Report ---
PROCEDURE: CT right upper extremity without contrast. TECHNIQUE: Multiple contiguous axial images were obtained through the right upper extremity without the use of intravenous contrast. Sagittal and coronal reformations were then performed. Auto Exposure Controls were utilized during the CT exam to meet ALARA standards for radiation dose reduction. INDICATION: Puncture wound, suspicion for foreign body. It is compared with study 06/29/2020. Plate and screws fixation of the distal radius present. 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 There are arthritic changes to the wrist. Surface marker placed in the palmar aspect of the hand at the base of the long finger where there is regional soft tissue swelling and subcutaneous stranding of the fat. Regional superficial soft tissue defect present. No drainable fluid collection or discrete abscess is found. No opaque foreign body is revealed. No soft tissue gas. There is some skin thickening. A minute linear calcification along the volar aspect of the base of the 3rd finger is unchanged from the comparison. IMPRESSION: Subcutaneous edema, cellulitis and soft tissue thickening but no abscess or drainable fluid collection and no radiopaque foreign body. No acute appearing bony pathology. Dictated by: Dictated on workstation # [id number]
--- NOTE | 2021-01-15 07:32 | Consultation - Surgery ---
KEVYN CONNOLLY MED STUDENT 01/15/21 0732: History of Present Illness History of Present Illness Patient Consulted On(michael/time) 01/15/21 07:21 Date Seen by Provider: Jan 15, 2021 Time Seen by Provider: 07:15 History of Present Illness Consult requested by Dr. Bolanos for right hand cellulitis. Mr. Louise is a 30 year old male who presented to the ED last night with complaints of right hand pain/infection. He states that approximately one week ago he got a metal splinter in his right hand while working at home. It subsequently became red, swollen, increasingly painful, and started to drain yellow/whitish fluid. He was see at [facility] on the and had a right hand x ray completed and received a script for amoxicillin. Since that time his pain, swelling, and redness of the right hand have worsened causing him to present to the ED. He does relay he's been picking at his hand and squeezing around the site where the metal splinter penetrated the skin. States immediately after the metal splinter penetrated the skin he used tweezers to remove it, thinks he got it out completely. Currently he states his pain is a 3/10 and describes it as a constant achy pain. He states that nothing really improves the pain, however the toradol he got in the ED improved the pain. He denies numbness and tingling in the right hand. Is only able to flex the 2-5 digits minimally and states that his hand feels "tight". Denies fevers, chills, chest pain, SOB, and headaches. X ray was negative for acute abnormality of right hand. CT right upper extremity showed cellulitis and soft tissue thickening of the hand, but no abscess or radiopaque foreign body. Allergies and Home Medications Allergies Coded Allergies: No Known Drug Allergies (Unverified , 06/21/18) Home Medications Ibuprofen 200 Mg Tablet, 400 MG PO Q8H PRN for PAIN-MILD (1-4), (Reported) Insulin Aspart 300 Units/3 Ml Solution, 15-20 UNITS SQ AC, (Reported) DOSE VARIES DEPENDING ON BLOOD SUGAR READING Insulin Glargine,Hum.rec.anlog 100 Unit/1 Ml Vial, 25 UNIT SQ HS, (Reported) Past Fgttlum-Xaxlus-Grieaj Hx Patient Social History Drug of Choice: METH, MARIJUANA--SMOKES METH, DENIES IV USE Smoking Status: Current Everyday Smoker Type Used: Cigarettes 2nd Hand Smoke Exposure: Yes Recent Hopitalizations: No Alcohol Use?: No Substance type: Methamphetamine Have you traveled recently?: No Immunizations Up To Date Tetanus Booster (TDap): More than 5yrs PED Vaccines UTD: No Date of Pneumonia Vaccine: February 22, 2014 Date of Influenza Vaccine: Jun 22, 2020 Seasonal Allergies Seasonal Allergies: No Surgeries History of Surgeries: Yes (RIGHT FOREARM FX/ORIF) Surgeries: Orthopedic Respiratory History of Respiratory Disorde: No Cardiovascular History of Cardiac Disorders: Yes Cardiac Disorders: High Cholesterol, Hypertension Neurological History of Neurological Disord: Yes Neurological Disorders: Neuropathy Reproductive System Hx Reproductive Disorders: Yes Sexually Transmitted Disease: No HIV/AIDS: No Genitourinary History of Genitourinary Disor: No Gastrointestinal History of Gastrointestinal Di: No Musculoskeletal History of Musculoskeletal Dis: Yes (RIGHT FOREARM FX/ORIF) Musculoskeletal Disorders: Fractures Endocrine History of Endocrine Disorders: Yes (TYPE 1 IDDM--DX AGE 8, MULTIPLE EPISODES OF DKA) Endocrine Disorders: Diabetes, Insulin dep HEENT History of HEENT Disorders: No Loss of Vision: Denies Hearing Impairment: Denies Cancer History of Cancer: No Psychosocial History of Psychiatric Problem: Yes (SUBSTANCE ABUSE) Integumentary History of Skin or Integumenta: Yes (MULTIPLE EPISODES OF CELLULITIS, JUANITA TO RIGHT HAND) Blood Transfusions History of Blood Disorders: No Adverse Reaction to a Blood Tr: No Family Medical History Significant Family History: Cancer, Diabetes Family Medial History: Cancer 03 FATHER, Onset:Unknown Family history: Diabetes mellitus 03 FATHER, Onset:Unknown Review of Systems-General Constitutional: No chills, No diaphoresis, No fever EENTM: No blurred vision, No double vision, No vision loss Respiratory: No cough, No dyspnea on exertion, No short of breath Cardiovascular: No chest pain, No edema, No palpitations Gastrointestinal: No abdominal pain, No constipation, No diarrhea, No nausea, No vomiting Genitourinary: No dysuria, No frequency Musculoskeletal: No back pain, No joint pain Skin: change in color (R hand erythematous), other (wound to palmar surface right hand) Psychiatric/Neurological: Denies Anxiety, Denies Depressed, Denies Headache All Other Systems Reviewed Negative Unless Noted: Yes Physical Exam-General Problems Physical Exam Vital Signs Vital Signs - First Documented 01/14/21 01/15/21 22:08 00:08 Temp 36.2 Pulse 110 Resp 20 B/P (MAP) 170/116 (134) Pulse Ox 100 O2 Delivery Room Air Capillary Refill : Less Than 3 Seconds General Appearance: no apparent distress Eyes: Bilateral Eye Normal Inspection, Bilateral Eye PERRL, Bilateral Eye EOMI HEENT: PERRL/EOMI, pharynx normal Neck: non-tender, full range of motion Respiratory: chest non-tender, no respiratory distress, no accessory muscle use Cardiovascular: normal peripheral pulses, regular rate, rhythm, no edema Peripheral Pulses: 2+ Dorsalis Pedis (R), 2+ Left Dors-Pedis (L), 2+ Radial Pulses (R), 2+ Radial Pulses (L) Gastrointestinal: non tender, soft; No guarding, No rebound, No tenderness Rectal: deferred Back: no CVA tenderness, no vertebral tenderness Extremities: no pedal edema, no calf tenderness, normal capillary refill Neurologic/Psychiatric: no motor/sensory deficits, alert, normal mood/affect, oriented x 3 Skin: warm/dry, other (Palmar surface R hand wound base of 3rd and 4th digit, oozing serous fluid, R hand erythematous) Lymphatic: no adenopathy Data Review Labs Laboratory Tests 01/14/21 22:15: White Blood Count 11.6H, Red Blood Count 4.23L, Hemoglobin 12.0L, Hematocrit 35L , Mean Corpuscular Volume 83, Mean Corpuscular Hemoglobin 28, Mean Corpuscular Hemoglobin Concent 34, Red Cell Distribution Width 11.3, Platelet Count 216, Mean Platelet Volume 10.8, Immature Granulocyte % (Auto) 0, Neutrophils (%) (Auto) 79H, Lymphocytes (%) (Auto) 8L, Monocytes (%) (Auto) 10, Eosinophils (%) (Auto) 2, Basophils (%) (Auto) 0, Neutrophils # (Auto) 9.2H, Lymphocytes # (Auto) 1.0, Monocytes # (Auto) 1.2H, Eosinophils # (Auto) 0.2, Basophils # (Auto) 0.0, Immature Granulocyte # (Auto) 0.0, Erythrocyte Sedimentation Rate 68H, Prothrombin Time 12.1L, INR Comment 0.9, Activated Partial Thromboplast Time 20L, Sodium Level 132L, Potassium Level 4.0, Chloride Level 96L, Carbon Dioxide Level 23, Anion Gap 13, Blood Urea Nitrogen 21H, Creatinine 1.68H, Luci mat Glomerular Filtration Rate 48, BUN/Creatinine Ratio 13, Glucose Level 334H, Lactic Acid Level 1.31, Calcium Level 9.3, Corrected Calcium 9.5, Magnesium Level 2.1, Total Bilirubin 0.3, Aspartate Amino Transf (AST/SGOT) 18, Alanine A minotransferase (ALT/SGPT) 32, Alkaline Phosphatase 107, C-Reactive Protein High Sensitivity 5.12H, Total Protein 7.0, Albumin 3.7, Amylase Level 45, Procalcitonin 0.15H, Serum Alcohol < 10 01/14/21 22:22: Glucometer 327H 01/14/21 23:30: Urine Color YELLOW, Urine Clarity CLEAR, Urine pH 7.0, Urine Specific [place] 1.015L, Urine Protein 1+H, Urine Glucose (UA) 3+H, Urine Ketones NEGATIVE, Urine Nitrite NEGATIVE, Urine Bilirubin NEGATIVE, Urine Urobilinogen 0.2, Urine Leukocyte Esterase NEGATIVE, Urine RBC (Auto) TRACE-I, Urine RBC 2-5H, Urine WBC 0-2, Urine Squamous Epithelial Cells RARE, Urine Crystals NONE, Urine Bacteria NEGATIVE, Urine Casts NONE, Urine Mucus NEGATIVE, Urine Culture Indicated NO, Urine Opiates Screen NEGATIVE, Urine Oxycodone Screen NEGATIVE, Urine Methadone Screen NEGATIVE, Urine Propoxyphene Screen NEGATIVE, Urine Barbiturates Screen NEGATIVE, Ur Tricyclic Antidepressants Screen NEGATIVE, Urine Phencyclidine Screen NEGATIVE, Urine Amphetamines Screen POSITIVEH, Urine Methamphetamines Screen POSITIVEH, Urine Benzodiazepines Screen NEGATIVE, Urine Cocaine Screen NEGATIVE, Urine Cannabinoids Screen NEGATIVE 01/15/21 00:23: Glucometer 270H 01/15/21 05:47: Glucometer 215H Radiology NAME: [facility] REC#: [id number] PT STATUS: ADM IN : 1990 PHYSICIAN: AHSAN RUCKER DO ADMIT DATE: 01/14/21/ Signed Date of Exam:01/14/21 HAND, RIGHT, 3 VIEWS INDICATION: Right hand pain 3 views of the right hand show no fracture, dislocation or radiopaque foreign object. There is an old ulnar styloid fracture. IMPRESSION: No acute abnormality seen in the right hand. Dictated by: Dictated on workstation # [id number] Dict: 01/15/21 0455 Trans: 01/15/21 0651 LILI [id number] Interpreted by: KORI BERRY MD Electronically signed by: KORI BERRY MD 01/15/2151 NAME: [facility] REC#: [id number] PT STATUS: ADM IN : 1990 PHYSICIAN: AHSAN RUCKER DO ADMIT DATE: 01/14/21/ Draft Date of Exam:01/14/21 CT EXTREMITY UPPER RIGHT WO PROCEDURE: CT right upper extremity without contrast. TECHNIQUE: Multiple contiguous axial images were obtained through the right upper extremity without the use of intravenous contrast. Sagittal and coronal reformations were then performed. Auto Exposure Controls were utilized during the CT exam to meet ALARA standards for radiation dose reduction. INDICATION: Puncture wound, suspicion for foreign body. It is compared with study 06/29/2020. Plate and screws fixation of the distal radius present. 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 There are arthritic changes to the wrist. Surface marker placed in the palmar aspect of the hand at the base of the long finger where there is regional soft tissue swelling and subcutaneous stranding of the fat. Regional superficial soft tissue defect present. No drainable fluid collection or discrete abscess is found. No opaque foreign body is revealed. No soft tissue gas. There is some skin thickening. A minute linear calcification along the volar aspect of the base of the 3rd finger is unchanged from the comparison. IMPRESSION: Subcutaneous edema, cellulitis and soft tissue thickening but no abscess or drainable fluid collection and no radiopaque foreign body. No acute appearing bony pathology. Dictated on workstation # [id number] Dict: 01/15/21 0611 Trans: 01/15/21 0646 LILI [id number] Interpreted by: JE HOPKINS Electronically signed by: Assessment/Plan Assessment/Plan Admission Diagonsis Cellulitis R Hand Type 1 diabetes mellitus- uncontrolled Renal insufficiency Hyponatremia Assessment/Plan Cellulitis right hand Type 1 diabetes mellitus- uncontrolled Renal insufficiency Hyponatremia Meth abuse Tobacco abuse Continue broad spectrum IV antibiotics Continue fentanyl and toradol for right hand pain PRN Sliding scale insulin per medicine team IVF per medicine team Vital signs per floor protocol Keep R hand/arm elevated on pillows to reduce swelling R hand x ray negative for acute abnormality R upper extremity CT significant for R hand cellulitis and soft tissue thickening, no abscess or radiopaque foreign body found. Continue conservative management for now FIDELINA MATIAS DO 01/15/21 0674: History of Present Illness History of Present Illness History of Present Illness Consult requested by Dr. Bolanos for right hand cellulitis. Patient is a 30-year-old male who presented to the emergency department last night with right hand pain/infection. He has history of multiple episodes of cellulitis to the hands. He states they usually start with a metal splinter which he then can work out. He worked the piece of metal out of his hand and had increased swelling and erythema. Increased pain. Patient was seen by Oleg fatima on the was prescribed antibiotics. Again he noted worsening symptoms so he went to the emergency department for further evaluation. Patient states that since he came into the emergency department started on IV antibiotics and has already started to improve. Patient has decreased motion of the right second through fifth digits. He states he did have some yellowish/whitish fluid that drained but currently has only some blistering with no fluctuance in the deeper tissues. Patient had a CT scan that did not demonstrate any drainable collection of abscess. Patient with no other complaints at this time. He denies any nausea vomiting fever sweats chills shortness of breath or chest pain at this time. Allergies and Home Medications Allergies Coded Allergies: No Known Drug Allergies (Unverified , 06/21/18) Home Medications Ibuprofen 200 Mg Tablet, 400 MG PO Q8H PRN for PAIN-MILD (1-4), (Reported) Insulin Aspart 300 Units/3 Ml Solution, 15-20 UNITS SQ AC, (Reported) DOSE VARIES DEPENDING ON BLOOD SUGAR READING Insulin Glargine,Hum.rec.anlog 100 Unit/1 Ml Vial, 25 UNIT SQ HS, (Reported) Patient Home Medication List Home Medication List Reviewed: Yes Past Vggocze-Bpdogh-Yybpse Hx Reviewed Nursing Assessment Reviewed/Agree w Nursing PMH: Yes Family Medical History Significant Family History: No Pertinent Family Hx Family Medial History: Cancer 03 FATHER, Onset:Unknown Family history: Diabetes mellitus 03 FATHER, Onset:Unknown Review of Systems-General Constitutional: No chills, No diaphoresis, No fever EENTM: No blurred vision, No vision loss Respiratory: No cough, No dyspnea on exertion, No short of breath Cardiovascular: No chest pain, No edema, No palpitations Gastrointestinal: No abdominal pain, No constipation, No diarrhea, No nausea, No vomiting Genitourinary: No dysuria, No frequency Musculoskeletal: No back pain, No joint pain Skin: change in color (R hand erythematous), other (wound to palmar surface right hand) Psychiatric/Neurological: Denies Anxiety, Denies Depressed, Denies Headache All Other Systems Reviewed Negative Unless Noted: Yes (Negative excepted noted.) Physical Exam-General Problems Physical Exam General Appearance: WD/WN, no apparent distress HEENT: PERRL/EOMI, normal ENT inspection Neck: non-tender, supple Respiratory: chest non-tender, no respiratory distress, no accessory muscle use Cardiovascular: regular rate, rhythm, no JVD Gastrointestinal: non tender, soft; No guarding, No rebound, No tenderness Rectal: deferred Back: no CVA tenderness, no vertebral tenderness Extremities: other (Right hand with cellulitis/erythematous changes to the second third fourth and fifth distribution. There is also some blistering of serous fluid appearing to be secondary to friction there does not seem to have any deep abscess in the right hand either palmar or dorsal aspect. Decreased range of motion of second through fifth fingers, sensation intact) Neurologic/Psychiatric: alert, normal mood/affect, oriented x 3 Skin: warm/dry, other (Palmar surface R hand wound base of 3rd and 4th digit, oozing serous fluid, R hand erythematous) Lymphatic: no adenopathy Assessment/Plan Assessment/Plan Assessment/Plan Cellulitis right hand Type 1 diabetes mellitus- uncontrolled Renal insufficiency Hyponatremia Meth abuse Tobacco abuse Continue broad spectrum IV antibiotics Continue fentanyl and toradol for right hand pain PRN Sliding scale insulin per medicine team, tight glucose control IVF per medicine team Vital signs per floor protocol Keep R hand/arm elevated on pillows to reduce swelling R hand x ray negative for acute abnormality R upper extremity CT significant for R hand cellulitis and soft tissue thicken ing, no abscess or radiopaque foreign body found. Continue conservative management for now Supervisory-Addendum Brief Verification & Attestation Participated in pt care: history, MDM, physical Personally performed: exam, history, MDM, supervision of care Care discussed with: Medical Student Procedures: n/a Results interpretation: Verified all documentation Verification and Attestation of Medical Student E/M Service A medical student performed and documented this service in my presence. I reviewed and verified all information documented by the medical student and made modifications to such information, when appropriate. I personally performed the physical exam and medical decision making. Fidelina Matias, Jan 15, 2021,22:49 KEVYN CONNOLLY MED STUDENT Jan 15, 2021 07:32 FIDELINA MATIAS DO Jan 15, 2021 22:44
[2021-01-15 08:00] VITALS: BP 149/89
[2021-01-15] MEDS: fentaNYL INJ 100 MCG/2 ML AMP IVP PRN ×2 (09:39→17:56)
[2021-01-15] MEDS: VANCOMYCIN 1 GM/NS 250 ML IVPB IV SCH ×4 (10:30→22:53)
--- NOTE | 2021-01-15 10:49 | History & Physical ---
YANELY RODRÍGUEZ,MED STUDENT 01/15/21 1049: HPI History of Present Illness: Patient was admitted from ED with cellulites to right hand. He states it began on 01/05/21 after he got a metal splinter in his hand. He was seen outpatient my Oleg Morales SOAP WORKER at [facility] on 01/09/21. At that time he had Xrays done and was given a prescription for BID amoxicillin. The area had been getting worse with an increase in pain and swelling. Since his admission he states the swelling has gone down. He has had a purulent drainage from the palmar aspect of his 3rd and 4th fingers. He was admitted most recently on 06/2020 for similar symptoms and cellulites of his right hand. He has Type 1 DM that is uncontrolled. Source: patient Exam Limitations: no limitations Date seen by provider: Jan 15, 2021 Time Seen by Provider: 08:51 Attending Physician Codi Stafford MD [place] [place] Consult Date of Admission Jan 14, 2021 at 23:50 Home Medications Home Medications Reviewed patient Home Medication Reconciliation performed by pharmacy medication reconciliations database software technician and/or nursing. Patients Allergies have been reviewed. Allergies Coded Allergies: No Known Drug Allergies (Unverified , 06/21/18) ZQV-Vjwyuk-Jelgnb Hx Patient Social History Drug of Choice: METH, MARIJUANA--SMOKES METH, DENIES IV USE Smoking Status: Current Everyday Smoker Former smoker/When Quit: Jan 18, 2011 2nd Hand Smoke Exposure: Yes Recent Hopitalizations: No Alcohol Use?: No Substance type: Methamphetamine Tobacco type used: Cigarettes Have you traveled recently?: No Immunizations Up To Date Tetanus Booster (TDap): More than 5yrs Date of Pneumonia Vaccine: February 22, 2014 Date of Influenza Vaccine: Jun 22, 2020 Past Medical History Type I Diabetes, diagnosed age 9 Hx MRSA infection Polysubstance Abuse - THC, Meth Tobacco Abuse Medical Non-Compliance Family Medical History Significant Family History: Cancer, Diabetes Other Significan Family Hx: SOCIAL HISTORY: -ETOH--OCCASIONAL USE -DRUGS--+ THC AND METH USE--CLAIMS HE SMOKES METH, DENIES IV DRUG USE -SMOKES 1 PPD PAST SURGICAL HISTORY: -RIGHT FOREARM FX/ORIF WITH HARDWARE Family History: Cancer 03 FATHER, Onset:Unknown Family history: Diabetes mellitus 03 FATHER, Onset:Unknown Review of Systems ([facility]) Constitutional: No chills, No fever Respiratory: No cough, No dyspnea on exertion Cardiovascular: No chest pain, No palpitations Gastrointestinal: No abdominal pain, No constipation, No diarrhea, No nausea Skin: other (swelling and reddnes over the right hand and palm) Reviewed Test Results Reviewed Test Results Lab Laboratory Tests 01/14/21 22:15: White Blood Count 11.6H, Red Blood Count 4.23L, Hemoglobin 12.0L, Hematocrit 35L , Mean Corpuscular Volume 83, Mean Corpuscular Hemoglobin 28, Mean Corpuscular Hemoglobin Concent 34, Red Cell Distribution Width 11.3, Platelet Count 216, Mean Platelet Volume 10.8, Immature Granulocyte % (Auto) 0, Neutrophils (%) (Auto) 79H, Lymphocytes (%) (Auto) 8L, Monocytes (%) (Auto) 10, Eosinophils (%) (Auto) 2, Basophils (%) (Auto) 0, Neutrophils # (Auto) 9.2H, Lymphocytes # (Auto) 1.0, Monocytes # (Auto) 1.2H, Eosinophils # (Auto) 0.2, Basophils # (Auto) 0.0, Immature Granulocyte # (Auto) 0.0, Erythrocyte Sedimentation Rate 68H, Prothrombin Time 12.1L, INR Comment 0.9, Activated Partial Thromboplast Time 20L, Sodium Level 132L, Potassium Level 4.0, Chloride Level 96L, Carbon Dioxide Level 23, Anion Gap 13, Blood Urea Nitrogen 21H, Creatinine 1.68H, Estimat Glomerular Filtration Rate 48, BUN/Creatinine Ratio 13, Glucose Level 334H, Lactic Acid Level 1.31, Calcium Level 9.3, Corrected Calcium 9.5, Magnesium Level 2.1, Total Bilirubin 0.3, Aspartate Amino Transf (AST/SGOT) 18, Alanine Aminotransferase (ALT/SGPT) 32, Alkaline Phosphatase 107, C-Reactive Protein High Sensitivity 5.12H, Total Protein 7.0, Albumin 3.7, Amylase Level 45, Procalcitonin 0.15H, Serum Alcohol < 10 01/14/21 22:22: Glucometer 327H 01/14/21 23:30: Urine Color YELLOW, Urine Clarity CLEAR, Urine pH 7.0, Urine Specific Cassandra 1.015L, Urine Protein 1+H, Urine Glucose (UA) 3+H, Urine Ketones NEGATIVE, Urine Nitrite NEGATIVE, Urine Bilirubin NEGATIVE, Urine Urobilinogen 0.2, Urine Leukocyte Esterase NEGATIVE, Urine RBC (Auto) TRACE-I, Urine RBC 2-5H, Urine WBC 0-2, Urine Squamous Epithelial Cells RARE, Urine Crystals NONE, Urine Bacteria NEGATIVE, Urine Casts NONE, Urine Mucus NEGATIVE, Urine Culture Indicated NO, Urine Opiates Screen NEGATIVE, Urine Oxycodone Screen NEGATIVE, Urine Methadone Screen NEGATIVE, Urine Propoxyphene Screen NEGATIVE, Urine Barbiturates Screen NEGATIVE, Ur Tricyclic Antidepressants Screen NEGATIVE, Urine Phencyclidine Screen NEGATIVE, Urine Amphetamines Screen POSITIVEH, Urine Methamphetamines Screen POSITIVEH, Urine Benzodiazepines Screen NEGATIVE, Urine Cocaine Screen NEGATIVE, Urine Cannabinoids Screen NEGATIVE 01/15/21 00:23: Glucometer 270H 01/15/21 05:47: Glucometer 215H 01/15/21 10:48: Glucometer 194H Radiology NAME: CHANTE LOUISE [facility] REC#: [id number] PT STATUS: ADM IN : 1990 PHYSICIAN: AHSAN RUCKER DO ADMIT DATE: 01/14/21 Signed Date of Exam:01/14/21 HAND, RIGHT, 3 VIEWS INDICATION: Right hand pain 3 views of the right hand show no fracture, dislocation or radiopaque foreign object. There is an old ulnar styloid fracture. IMPRESSION: No acute abnormality seen in the right hand. Dictated by: Dictated on workstation # [id number] Dict: 01/15/21 0455 Trans: 01/15/21 0651 LILI [id number] Interpreted by: KORI BERRY MD Electronically signed by: KORI BERRY MD 01/15/21 0651 NAME: POOJA LOUISEGail Conway [facility] REC#: [id number] PT STATUS: ADM IN : 1990 PHYSICIAN: AHSAN RUCKER DO ADMIT DATE: 01/14/21 Draft Date of Exam:01/14/21 CT EXTREMITY UPPER RIGHT WO PROCEDURE: CT right upper extremity without contrast. TECHNIQUE: Multiple contiguous axial images were obtained through the right upper extremity without the use of intravenous contrast. Sagittal and coronal reformations were then performed. Auto Exposure Controls were utilized during the CT exam to meet ALARA standards for radiation dose reduction. INDICATION: Puncture wound, suspicion for foreign body. It is compared with study 06/29/2020. Plate and screws fixation of the distal radius present. 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 There are arthritic changes to the wrist. Surface marker placed in the palmar aspect of the hand at the base of the long finger where there is regional soft tissue swelling and subcutaneous stranding of the fat. Regional superficial soft tissue defect present. No drainable fluid collection or discrete abscess is found. No opaque foreign body is revealed. No soft tissue gas. There is some skin thickening. A minute linear calcification along the volar aspect of the base of the 3rd finger is unchanged from the comparison. IMPRESSION: Subcutaneous edema, cellulitis and soft tissue thickening but no abscess or drainable fluid collection and no radiopaque foreign body. No acute appearing bony pathology. Dictated on workstation # [id number] Dict: 01/15/21 0611 Trans: 01/15/21 0646 LILI [id number] Interpreted by: JE HOPKINS Electronically signed by: Physical Exam-([facility]) Physical Exam Vital Signs VS - Last 72 Hours, by Label 01/14/21 01/15/21 01/15/21 01/15/21 22:08 00:08 01:00 04:00 Temp 36.2 36.9 Pulse 110 95 91 64 Resp 20 20 18 B/P (MAP) 170/116 (134) 152/98 161/97 (118) Pulse Ox 100 98 100 O2 Delivery Room Air 01/15/21 01/15/21 01/15/21 06:42 08:00 08:00 Temp 36.6 Pulse 98 97 Resp 16 B/P (MAP) 149/89 (109) Pulse Ox 97 97 O2 Delivery Room Air Room Air Capillary Refill : Less Than 3 Seconds General Appearance: WD/WN, no apparent distress Respiratory: chest non-tender, lungs clear, normal breath sounds, no respiratory distress, no accessory muscle use Cardiovascular: regular rate, rhythm, no murmur Peripheral Pulses: 2+ Radial Pulses (R), 2+ Radial Pulses (L) Gastrointestinal: normal bowel sounds, non tender, soft, no organomegaly; No guarding, No rebound Extremities: normal range of motion, no pedal edema Neurologic/Psychiatric: no motor/sensory deficits, alert, oriented x 3 Skin: other (erythema and swelling over the right hand, serous drainage at base of right 3rd/4th fingers with area of surrounding blisters, normal ROM/sensation) Assessment/Plan Assessment/Plan Admission Status: Inpatient Order (span 2 midnights) (1) Sepsis Status: Acute Assessment & Plan: Continue IVF at 250mls/hr Qualifiers: (2) Cellulitis of right hand Status: Acute Assessment & Plan: Continue broad spectrum abx while awaiting wound and blood cultures. (3) Uncontrolled type 1 diabetes mellitus Status: Acute Assessment & Plan: ACHS accuchecks. Continue sliding scale insulin (4) Renal insufficiency Status: Acute Assessment & Plan: Repeat BMP in morning (5) Methamphetamine abuse Status: Chronic (6) DVT prophylaxis Status: Acute Assessment & Plan: Lovenox for DVT prophylaxis CODI STAFFORD MD 01/15/21 1122: Home Medications Allergies Coded Allergies: No Known Drug Allergies (Unverified , 06/21/18) VVN-Przdrj-Roboec Hx Family Medical History Family History: Cancer 03 FATHER, Onset:Unknown Family history: Diabetes mellitus 03 FATHER, Onset:Unknown Supervisory-Addendum Brief Verification & Attestation Participated in pt care: history, MDM, physical Personally performed: exam Care discussed with: Medical Student Procedures: n/a I personally saw patient and repeated history and exam, I directed the plan of care as documented by OMTiana Rodríguez. YANELY RODRÍGUEZ,MED STUDENT Jan 15, 2021 10:49 CODI STAFFORD MD Jan 15, 2021 11:22
[2021-01-15] MEDS ORDERED: VANCOMYCIN 1 GM/NS 250 ML IVPB IV SCH ×2 (11:00)
[2021-01-15 12:00] VITALS: BP 164/90
[2021-01-15] MEDS: ENOXAPARIN 40 MG/0.4 ML (LOVENOX) SYR SQ SCH (12:09)
[2021-01-15 15:40] VITALS: BP 146/89
[2021-01-15 19:23] VITALS: BP 152/95
[2021-01-15] MEDS ORDERED: HYDROcodone/APAP 5 MG/325 MG (LORTAB) TAB ONE (20:34)
[2021-01-15] MEDS: HYDROcodone/APAP 5 MG/325 MG (LORTAB) TAB PO PRN (20:41)
[2021-01-15 23:07] VITALS: BP 136/82
[2021-01-16] MEDS: PIPERACILLIN/TAZO 4.5 GM/NS 100 ML IV SCH ×6 (04:01→20:21)
[2021-01-16] MEDS: KETOROLAC 30 MG/ML VIAL IVP PRN (04:01)
[2021-01-16] MEDS: HYDROcodone/APAP 5 MG/325 MG (LORTAB) TAB PO PRN ×3 (04:01→20:21)
[2021-01-16 04:17] VITALS: BP 168/94
[2021-01-16] MEDS: inSUlin ASPART (NovoLOG) 1 UNIT/0.01 ML (CHARGE PER UNIT) SC SCH ×4 (05:42→20:25)
[2021-01-16 07:12] LABS: HEMOGLOBIN 10.4 g/dL (13.3-17.7); MEAN PLATELET VOLUME 10.5 fL (9.0-12.2); WHITE BLOOD COUNT 8.1 10^3/uL (4.3-11.0)
[2021-01-16 07:38] LABS: POTASSIUM 4.7 MMOL/L (3.6-5.0)
[2021-01-16 07:43] LABS: CREATININE SERUM 1.9 MG/DL (0.60-1.30)
[2021-01-16 07:58] VITALS: BP 153/93
--- NOTE | 2021-01-16 08:06 | Progress Note - Surgery ---
KEVYN CONNOLLY MED STUDENT 01/16/21 0806: Subjective Date Seen by a Provider: Jan 16, 2021 Time Seen by a Provider: 06:15 Subjective/Events-last exam Patient reports less hand pain and swelling today. Denies fevers, chills, SOB, and headaches. Tolerating po intake well. No nausea or vomiting. Reports sleeping well overnight. He rates his right hand pain at a 3/10 this morning. He states its constant and a dull ache. Denies numbness and tingling in the right hand. Focused Exam Lactate Level 01/14/21 22:15: Lactic Acid Level 1.31 Objective Exam Vital Signs Date Time Temp Pulse Resp B/P (MAP) Pulse Ox O2 Delivery O2 Flow Rate FiO2 01/16/21 07:58 36.7 87 12 153/93 (113) 92 Room Air 01/16/21 04:17 36.4 89 18 168/94 (118) 97 Room Air 01/15/21 23:07 37.3 94 16 136/82 (100) 92 Room Air 01/15/21 20:00 95 Room Air 01/15/21 19:52 Room Air 01/15/21 19:23 36.9 100 16 152/95 (114) 95 Room Air 01/15/21 15:40 36.8 87 18 146/89 (108) 96 Room Air 01/15/21 12:00 37.1 100 16 164/90 (114) 95 Room Air I & O 01/16/21 07:00 Intake Total 5200 ml Output Total 3600 ml Balance 1600 ml Capillary Refill : Less Than 3 Seconds General Appearance: No Apparent Distress, WD/WN HEENT: PERRL/EOMI, Pharynx Normal Neck: Full Range of Motion, Non Tender Respiratory: Lungs Clear, Normal Breath Sounds, No Accessory Muscle Use Cardiovascular: Regular Rate, Rhythm, Normal Peripheral Pulses Peripheral Pulses: 2+ Dorsalis Pedis (R), 2+ Left Dors-Pedis (L), 2+ Radial Pulses (R), 2+ Radial Pulses (L) Gastrointestinal: non tender, soft; No guarding, No rebound, No tenderness Extremity: Normal Capillary Refill, No Calf Tenderness Neurologic/Psychiatric: Alert, Oriented x3, No Motor/Sensory Deficits, Normal Mood/Affect Skin: Warm/Dry, Other (Right dorsal 2-4 fingers less erythematous today. Blister between 3rd and 4th digit unchanged. Serous drainage from palmar aspect wound at metacarpalphalangeal joint at 3rd and 4th digit on right) Lymphatic: No Adenopathy Results Lab Laboratory Tests 01/15/21 10:48: Glucometer 194H 01/15/21 15:42: Glucometer 253H 01/15/21 20:35: Glucometer 234H 01/16/21 05:39: Glucometer 233H 01/16/21 07:05: White Blood Count 8.1, Red Blood Count 3.63L, Hemoglobin 10.4L, Hematocrit 32L, Mean Corpuscular Volume 87, Mean Corpuscular Hemoglobin 29, Mean Corpuscular Hemoglobin Concent 33, Red Cell Distribution Width 11.6, Platelet Count 194, Mean Platelet Volume 10.5, Sodium Level 132L, Potassium Level 4.7, Chloride Level 104, Carbon Dioxide Level 21, Anion Gap 7, Blood Urea Nitrogen 20H, Creatinine 1.90H, Estimat Glomerular Filtration Rate 42, BUN/Creatinine Ratio 11, Glucose Level 271H, Calcium Level 8.0L Microbiology 01/14/21 Blood Culture - Preliminary, Resulted No growth 01/14/21 Gram Stain - Final, Resulted 01/14/21 Wound Culture, Resulted Pending Assessment/Plan Assessment/Plan Assessment/Plan Cellulitis right hand Type 1 diabetes mellitus- uncontrolled Renal insufficiency Hyponatremia Meth abuse Tobacco abuse Continue broad spectrum IV antibiotics Continue fentanyl and toradol for right hand pain PRN Sliding scale insulin per medicine team, tight glucose control IVF per medicine team Vital signs per floor protocol Keep R hand/arm elevated on pillows to reduce swelling R hand x ray negative for acute abnormality R upper extremity CT significant for R hand cellulitis and soft tissue thickening, no abscess or radiopaque foreign body found. Continue conservative management for now FIDELINA HILL DO 01/16/21 1640: Subjective Subjective/Events-last exam Patient feels that the swelling and pain has decreased in right hand. He feels that it is improving. His white blood cell count has decreased as well. No purulent drainage. Feeling better. Denies nausea vomiting fever sweats chills shortness of breath or chest pain. Objective Exam General Appearance: No Apparent Distress, WD/WN HEENT: PERRL/EOMI Neck: Full Range of Motion, Non Tender Respiratory: Chest Non Tender, Normal Breath Sounds, No Accessory Muscle Use Cardiovascular: Regular Rate, Rhythm, No JVD Gastrointestinal: non tender, soft; No guarding, No rebound Extremity: Other (Right hand findings as noted below) Neurologic/Psychiatric: Alert, Oriented x3, No Motor/Sensory Deficits Skin: Warm/Dry, Other (Right dorsal 2-4 fingers less erythematous today. Blister between 3rd and 4th digit unchanged. Serous drainage from palmar aspect wound at metacarpalphalangeal joint at 3rd and 4th digit on right) Lymphatic: No Adenopathy Assessment/Plan Assessment/Plan Assessment/Plan Cellulitis right hand Type 1 diabetes mellitus- uncontrolled Renal insufficiency Hyponatremia Meth abuse Tobacco abuse Continue IV antibiotics Continue fentanyl and toradol for right hand pain PRN Sliding scale insulin per medicine team, tight glucose control IVF per medicine team Vital signs per floor protocol Keep R hand/arm elevated on pillows to reduce swelling R hand x ray negative for acute abnormality R upper extremity CT significant for R hand cellulitis and soft tissue thickening, no abscess or radiopaque foreign body found. Continue conservative management Supervisory-Addendum Brief Verification & Attestation Participated in pt care: history, MDM, physical Personally performed: exam, history, MDM, supervision of care Care discussed with: Medical Student Procedures: n/a Results interpretation: Verified all documentation Verification and Attestation of Medical Student E/M Service A medical student performed and documented this service in my presence. I reviewed and verified all information documented by the medical student and made modifications to such information, when appropriate. I personally performed the physical exam and medical decision making. Fidelina Hill, Jan 16, 2021,16:40 KEVYN CONNOLLY MED STUDENT Jan 16, 2021 08:06 FIDELINA HILL DO Jan 16, 2021 16:40
[2021-01-16] MEDS: NS IV 1000 ML 1,000 ML IV SCH ×3 (08:40→20:21)
[2021-01-16] MEDS ORDERED: TROUGH ORDER-PHARMACY XX ONE (10:00)
--- NOTE | 2021-01-16 10:02 | Progress Note ---
YANELY RODRÍGUEZ,MED STUDENT 01/16/21 1002: Subjective Subjective/Events-last exam Patient states he is doing well, the swelling in his right hand has gone down and his pain is improving. He states it is currently a 3-01/27. He denies any other concerns or symptoms at this time. Review of Systems General: No Chills Pulmonary: No Dyspnea, No Cough Cardiovascular: No: Chest Pain Gastrointestinal: No: Nausea, Vomiting, Abdominal Pain, Diarrhea, Constipation Musculoskeletal: other (right hand swelling, erythema, blistering ) Neurological: No: Weakness Focused Exam Lactate Level 01/14/21 22:15: Lactic Acid Level 1.31 Objective Exam Last Set of Vital Signs Vital Signs Date Time Temp Pulse Resp B/P (MAP) Pulse Ox O2 Delivery O2 Flow Rate FiO2 01/16/21 08:00 Room Air 01/16/21 07:58 36.7 87 12 153/93 (113) 92 Capillary Refill : Less Than 3 Seconds I&O Intake and Output 01/16/21 00:00 Intake Total 5010 ml Output Total 3600 ml Balance 1410 ml Intake Oral 3630 ml IV Total 1380 ml Output Urine Total 3600 ml Daily Weight Change No General: Alert, Oriented X3, No Acute Distress Neck: Supple Lungs: Clear to Auscultation, Normal Air Movement Heart: Regular Rate, No Murmurs Abdomen: Normal Bowel Sounds, Soft, No Tenderness Extremities: Normal Pulses Skin: Other (decreased swelling and erythema over right hand, blister present between R 3rd and 4th digits. no drainage on palmar aspect ) Neuro: Other (right hand ROM and sensation intact) Results/Procedures Lab Laboratory Tests 01/15/21 10:48: Glucometer 194H 01/15/21 15:42: Glucometer 253H 01/15/21 20:35: Glucometer 234H 01/16/21 05:39: Glucometer 233H 01/16/21 07:05: White Blood Count 8.1, Red Blood Count 3.63L, Hemoglobin 10.4L, Hematocrit 32L, Mean Corpuscular Volume 87, Mean Corpuscular Hemoglobin 29, Mean Corpuscular Hemoglobin Concent 33, Red Cell Distribution Width 11.6, Platelet Count 194, Mean Platelet Volume 10.5, Sodium Level 132L, Potassium Level 4.7, Chloride Level 104, Carbon Dioxide Level 21, Anion Gap 7, Blood Urea Nitrogen 20H, Creatinine 1.90H, Estimat Glomerular Filtration Rate 42, BUN/Creatinine Ratio 11, Glucose Level 271H, Calcium Level 8.0L Microbiology 01/14/21 Blood Culture - Preliminary, Resulted No growth 01/14/21 Gram Stain - Final, Resulted 01/14/21 Wound Culture, Resulted Pending Radiology NAME: CHANTE LOUISE [facility] REC#: [id number] PT STATUS: ADM IN : 1990 PHYSICIAN: AHSAN RUCKER DO ADMIT DATE: 01/14/21 Signed Date of Exam:01/14/21 HAND, RIGHT, 3 VIEWS INDICATION: Right hand pain 3 views of the right hand show no fracture, dislocation or radiopaque foreign object. There is an old ulnar styloid fracture. IMPRESSION: No acute abnormality seen in the right hand. Dictated by: Dictated on workstation # [id number] Dict: 01/15/21 0455 Trans: 01/15/21 0651 LILI [id number] Interpreted by: KORI BERRY MD Electronically signed by: KORI BERRY MD 01/15/21 0651 NAME: CHANTE LOUISE [facility] REC#: [id number] PT STATUS: ADM IN : 1990 PHYSICIAN: AHSAN RUCKER DO ADMIT DATE: 01/14/21 Draft Date of Exam:01/14/21 CT EXTREMITY UPPER RIGHT WO PROCEDURE: CT right upper extremity without contrast. TECHNIQUE: Multiple contiguous axial images were obtained through the right upper extremity without the use of intravenous contrast. Sagittal and coronal reformations were then performed. Auto Exposure Controls were utilized during the CT exam to meet ALARA standards for radiation dose reduction. INDICATION: Puncture wound, suspicion for foreign body. It is compared with study 06/29/2020. Plate and screws fixation of the distal radius present. 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 There are arthritic changes to the wrist. Surface marker placed in the palmar aspect of the hand at the base of the long finger where there is regional soft tissue swelling and subcutaneous stranding of the fat. Regional superficial soft tissue defect present. No drainable fluid collection or discrete abscess is found. No opaque foreign body is revealed. No soft tissue gas. There is some skin thickening. A minute linear calcification along the volar aspect of the base of the 3rd finger is unchanged from the comparison. IMPRESSION: Subcutaneous edema, cellulitis and soft tissue thickening but no abscess or drainable fluid collection and no radiopaque foreign body. No acute appearing bony pathology. Dictated on workstation # [id number] Dict: 01/15/21 0611 Trans: 01/15/21 0646 [facility] [id number] Interpreted by: JE HOPKINS Electronically signed by: Assessment/Plan Assessment/Plan (1) Sepsis Status: Acute Assessment & Plan: Continue IVF at 150mls/hr Qualifiers: (2) Cellulitis of right hand Status: Acute Assessment & Plan: Blood cultures negative. D/C vancomycin due to kidney function and previous negative MRSA swabs. Continue zosyn while awaiting wound culture. (3) Uncontrolled type 1 diabetes mellitus Status: Acute Assessment & Plan: ACHS accuchecks. Continue sliding scale insulin (4) Renal insufficiency Status: Acute Assessment & Plan: D/C vanocomycin. Continue IVF at 150mls/hr. Repeat BMP in morning (5) Methamphetamine abuse Status: Chronic (6) DVT prophylaxis Status: Acute Assessment & Plan: Lovenox for DVT prophylaxis CODI STAFFORD MD 01/16/21 1210: Supervisory-Addendum Brief Verification & Attestation Participated in pt care: history, MDM, physical Personally performed: exam, history Care discussed with: Medical Student Procedures: n/a I saw patient and repeated the history and exam and directed the plan of care, agree with documentation by TONY Rodríguez. YANELY RODRÍGUEZ,MED STUDENT Jan 16, 2021 10:02 CODI STAFFORD MD Jan 16, 2021 12:10
[2021-01-16] MEDS: ENOXAPARIN 40 MG/0.4 ML (LOVENOX) SYR SQ SCH (11:11)
[2021-01-16 11:35] VITALS: BP 163/93
[2021-01-16 15:51] VITALS: BP 164/97
[2021-01-16 20:19] VITALS: BP 136/87
[2021-01-17] VITALS (7 sets, daily range): BP systolic 148–171; BP diastolic 90–99
[2021-01-17] MEDS: fentaNYL INJ 100 MCG/2 ML AMP IVP PRN ×4 (03:55→23:53)
[2021-01-17] MEDS: HYDROcodone/APAP 5 MG/325 MG (LORTAB) TAB PO PRN ×2 (03:55→19:37)
[2021-01-17] MEDS: NS IV 1000 ML 1,000 ML IV SCH ×4 (03:55→23:53)
[2021-01-17] MEDS: PIPERACILLIN/TAZO 4.5 GM/NS 100 ML IV SCH ×6 (03:58→20:50)
[2021-01-17 05:32] LABS: HEMOGLOBIN 11.5 g/dL (13.3-17.7); MEAN PLATELET VOLUME 10.7 fL (9.0-12.2); WHITE BLOOD COUNT 11.3 10^3/uL (4.3-11.0)
[2021-01-17 05:49] LABS: CALCIUM 8.3 MG/DL (8.5-10.1)
[2021-01-17 05:53] LABS: CREATININE SERUM 2.11 MG/DL (0.60-1.30)
[2021-01-17 06:00] LABS: POTASSIUM 6.5 MMOL/L (3.6-5.0)
[2021-01-17] MEDS ORDERED: SOD POLYSTERENE 15 GM/60 ML (KAYEXALATE) UNIT DOSE PO ONE (06:30)
[2021-01-17] MEDS: inSUlin ASPART (NovoLOG) 1 UNIT/0.01 ML (CHARGE PER UNIT) SC SCH ×4 (06:30→20:49)
--- NOTE | 2021-01-17 06:36 | Progress Note - Surgery ---
KEVYN CONNOLLY MED STUDENT 01/17/21 0636: Subjective Date Seen by a Provider: Jan 17, 2021 Time Seen by a Provider: 06:15 Subjective/Events-last exam Patient reports swelling, redness, and drainage appear about the same as yesterday. He's still not able to make a complete fist with right hand. He denies numbness and tingling in the right hand. He is able to partially flex all fingers and extend them. Redness dorsal aspect 2nd and 3rd fingers unchanged. Palmar aspect right hand wound remains unchanged, continues to drain serous fluid. Patient states his pain level in right hand is a 4/10 currently, describes it as dull and achy and constant. The pain meds are helping control the pain. Reports tolerating po well. No nausea or vomiting reported. Denies chest pain, SOB, fevers, chills, and headache. Review of Systems General: No Chills, No Night Sweats HEENT: No Head Aches, No Visual Changes Pulmonary: No Dyspnea, No Cough Cardiovascular: No: Chest Pain, Palpitations Gastrointestinal: No: Nausea, Vomiting, Abdominal Pain Genitourinary: No Dysuria, No Frequency Musculoskeletal: No: neck pain, back pain Neurological: No: Weakness, Numbness Focused Exam Lactate Level 01/14/21 22:15: Lactic Acid Level 1.31 Objective Exam Vital Signs Date Time Temp Pulse Resp B/P (MAP) Pulse Ox O2 Delivery O2 Flow Rate FiO2 01/17/21 04:00 36.0 97 18 150/90 (110) 94 Room Air 01/17/21 00:00 37.4 98 18 163/97 (119) 94 Room Air 01/16/21 20:19 37.4 96 18 136/87 (103) 94 Room Air 01/16/21 20:00 Room Air 01/16/21 15:51 36.8 98 18 164/97 (119) 96 Room Air 01/16/21 11:35 37.0 86 16 163/93 (116) 92 Room Air 01/16/21 08:00 Room Air 01/16/21 07:58 36.7 87 12 153/93 (113) 92 Room Air I & O 01/17/21 07:00 Intake Total 2805 ml Output Total 4550 ml Balance -1745 ml Capillary Refill : Less Than 3 Seconds General Appearance: No Apparent Distress, WD/WN HEENT: PERRL/EOMI Neck: Full Range of Motion, Non Tender Respiratory: Chest Non Tender, Lungs Clear, Normal Breath Sounds, No Accessory Muscle Use Cardiovascular: Regular Rate, Rhythm, Normal Peripheral Pulses Peripheral Pulses: 2+ Dorsalis Pedis (R), 2+ Left Dors-Pedis (L), 2+ Radial Pulses (R), 2+ Radial Pulses (L) Gastrointestinal: normal bowel sounds, non tender, soft; No guarding, No rebound Extremity: Normal Capillary Refill, Non Tender, No Calf Tenderness, No Pedal Edema, Other (Right hand findings as noted below) Neurologic/Psychiatric: Alert, Oriented x3, No Motor/Sensory Deficits, Normal Mood/Affect Skin: Warm/Dry, Other (Right dorsal 2-4 fingers erythema unchanged today. Blister between 3rd and 4th digit unchanged. Serous drainage from palmar aspect wound at metacarpalphalangeal joint at 3rd and 4th digit on right unchanged. ) Lymphatic: No Adenopathy Results Lab Laboratory Tests 01/16/21 07:05: White Blood Count 8.1, Red Blood Count 3.63L, Hemoglobin 10.4L, Hematocrit 32L, Mean Corpuscular Volume 87, Mean Corpuscular Hemoglobin 29, Mean Corpuscular Hemoglobin Concent 33, Red Cell Distribution Width 11.6, Platelet Count 194, Mean Platelet Volume 10.5, Sodium Level 132L, Potassium Level 4.7, Chloride Level 104, Carbon Dioxide Level 21, Anion Gap 7, Blood Urea Nitrogen 20H, Creatinine 1.90H, Estimat Glomerular Filtration Rate 42, BUN/Creatinine Ratio 11, Glucose Level 271H, Calcium Level 8.0L 01/16/21 10:29: Glucometer 223H 01/16/21 16:08: Glucometer 282H 01/16/21 20:21: Glucometer 208H 01/17/21 05:12: White Blood Count 11.3H, Red Blood Count 4.01L, Hemoglobin 11.5L, Hematocrit 34L , Mean Corpuscular Volume 86, Mean Corpuscular Hemoglobin 29, Mean Corpuscular Hemoglobin Concent 33, Red Cell Distribution Width 11.2, Platelet Count 274, Mean Platelet Volume 10.7, Sodium Level 133L, Potassium Level 6.5#*H, Chloride Level 102, Carbon Dioxide Level 19L, Anion Gap 12, Blood Urea Nitrogen 28H, Creatinine 2.11H, Estimat Glomerular Filtration Rate 37, BUN/Creatinine Ratio 13, Glucose Level 429*H, Calcium Level 8.3L Microbiology 01/14/21 Blood Culture - Preliminary, Resulted No growth 01/14/21 Gram Stain - Final, Resulted 01/14/21 Wound Culture - Preliminary, Resulted Normal skin luciano Assessment/Plan Assessment/Plan Assessment/Plan Cellulitis right hand Hyperkalemia- K 6.5 this am Type 1 diabetes mellitus- uncontrolled, blood glucose 429 this am Renal insufficiency- creatinine trending up, creat 2.11 today Hyponatremia- mild, Na 133 today Meth abuse Tobacco abuse Continue Zosyn, Vanc dc'd per medicine team due to renal function Continue fentanyl and toradol for right hand pain PRN Medicine service to manage hyperkalemia, continue to monitor Creatinine trending up, continue to closely monitor renal function Sliding scale insulin per medicine team, tight glucose control IVF per medicine team Vital signs per floor protocol Keep R hand/arm elevated on pillows to reduce swelling R hand x ray negative for acute abnormality R upper extremity CT significant for R hand cellulitis and soft tissue thickening, no abscess or radiopaque foreign body found. Continue conservative management FIDELINA HILL DO 01/17/21 193: Subjective Subjective/Events-last exam Patient states right hand is about the same. No purulent drainage. No worsening pain. Pain medications controlled. Patient states maybe is able to bend it a little bit further. Patient blood sugars still elevated. No other complaints at this time. Objective Exam General Appearance: No Apparent Distress, WD/WN HEENT: PERRL/EOMI, Normal ENT Inspection Neck: Full Range of Motion, Non Tender Respiratory: Chest Non Tender, No Accessory Muscle Use, No Respiratory Distress Cardiovascular: Regular Rate, Rhythm, No JVD Gastrointestinal: non tender, soft Extremity: Non Tender, No Calf Tenderness, Other (Right hand findings as noted below) Neurologic/Psychiatric: Alert, Oriented x3, Normal Mood/Affect Skin: Warm/Dry, Other (Right dorsal 2-4 fingers erythema unchanged today. Blister between 3rd and 4th digit unchanged. Serous drainage from palmar aspect wound at metacarpalphalangeal joint at 3rd and 4th digit on right unchanged. ) Lymphatic: No Adenopathy Assessment/Plan Assessment/Plan Assessment/Plan Cellulitis right hand Hyperkalemia- K 6.5 this am Type 1 diabetes mellitus- uncontrolled, blood glucose 429 this am Renal insufficiency- creatinine trending up, creat 2.11 today Hyponatremia- mild, Na 133 today Meth abuse Tobacco abuse Tight glucose control Continue antibiotics Overall the hand is the same to maybe slightly better today. Continue conservative management Supervisory-Addendum Brief Verification & Attestation Participated in pt care: history, MDM, physical Personally performed: exam, history, MDM, supervision of care Care discussed with: Medical Student Procedures: n/a Results interpretation: Verified all documentation Verification and Attestation of Medical Student E/M Service A medical student performed and documented this service in my presence. I reviewed and verified all information documented by the medical student and made modifications to such information, when appropriate. I personally performed the physical exam and medical decision making. Fidelina Hill, Jan 17, 2021,19:32 KEVYN CONNOLLY MED STUDENT Jan 17, 2021 06:36 FIDELINA HILL DO Jan 17, 2021 19:33
[2021-01-17 09:02] LABS: CALCIUM 8.6 MG/DL (8.5-10.1); CREATININE SERUM 2.13 MG/DL (0.60-1.30); POTASSIUM 3.7 MMOL/L (3.6-5.0)
[2021-01-17] MEDS: ENOXAPARIN 40 MG/0.4 ML (LOVENOX) SYR SQ SCH (11:20)
--- NOTE | 2021-01-17 11:42 | Progress Note ---
APRIL RODRÍGUEZ,MED STUDENT 01/17/21 1142: Subjective Subjective/Events-last exam Mr. Louise states he is feeling well. He has not noticed much improvement today in the pain, swelling, or redness to the area. His pain is currently a 3-4/10. He denies abdominal pain, flank pain, or problems with urination. No chest pain, shortness of breath, or palpitations. Review of Systems General: No Chills, No Fatigue HEENT: No Head Aches Pulmonary: No Dyspnea, No Cough Cardiovascular: No: Chest Pain Gastrointestinal: No: Nausea, Abdominal Pain, Diarrhea, Constipation Genitourinary: No Dysuria; Other (denies oliguria) Musculoskeletal: other (swelling, reddnes, and blistering over right 3rd and 4th digits and palm) Focused Exam Lactate Level 01/14/21 22:15: Lactic Acid Level 1.31 Objective Exam Last Set of Vital Signs Vital Signs Date Time Temp Pulse Resp B/P (MAP) Pulse Ox O2 Delivery O2 Flow Rate FiO2 01/17/21 08:00 36.5 89 16 171/94 (119) 97 Room Air Capillary Refill : Less Than 3 Seconds I&O Intake and Output 01/17/21 00:00 Intake Total 2345 ml Output Total 4050 ml Balance -1705 ml Intake Oral 1585 ml IV Total 760 ml Output Urine Total 4050 ml General: Alert, Oriented X3 HEENT: Atraumatic Neck: Supple Lungs: Clear to Auscultation Heart: Regular Rate Abdomen: Normal Bowel Sounds, Soft, No Tenderness Extremities: Normal Pulses, Other (improved swelling and erythema noted over right hand, blister present between R 3rd and 4th digits. minimal drainage on palmar aspect of right hand. Intact ROM and sensation) Skin: Other Psych/Mental Status: Mental Status NL Results/Procedures Lab Laboratory Tests 01/16/21 16:08: Glucometer 282H 01/16/21 20:21: Glucometer 208H 01/17/21 05:12: White Blood Count 11.3H, Red Blood Count 4.01L, Hemoglobin 11.5L, Hematocrit 34L , Mean Corpuscular Volume 86, Mean Corpuscular Hemoglobin 29, Mean Corpuscular Hemoglobin Concent 33, Red Cell Distribution Width 11.2, Platelet Count 274, Mean Platelet Volume 10.7, Sodium Level 133L, Potassium Level 6.5#*H, Chloride Level 102, Carbon Dioxide Level 19L, Anion Gap 12, Blood Urea Nitrogen 28H, Creatinine 2.11H, Estimat Glomerular Filtration Rate 37, BUN/Creatinine Ratio 13, Glucose Level 429*H, Calcium Level 8.3L 01/17/21 08:37: Sodium Level 135, Potassium Level 3.7, Chloride Level 103, Carbon Dioxide Level 21, Anion Gap 11, Blood Urea Nitrogen 28H, Creatinine 2.13H, Estimat Glomerular Filtration Rate 37, BUN/Creatinine Ratio 13, Glucose Level 358H, Calcium Level 8.6 01/17/21 10:53: Glucometer 225H Microbiology 01/14/21 Blood Culture - Preliminary, Resulted No growth 01/14/21 Gram Stain - Final, Complete 01/14/21 Wound Culture - Final, Complete Normal skin luciano Radiology NAME: CHANTE LOUISE [facility] REC#: [id number] PT STATUS: ADM IN : 1990 PHYSICIAN: AHSAN RUCKER DO ADMIT DATE: 01/14/21 Signed Date of Exam:01/14/21 HAND, RIGHT, 3 VIEWS INDICATION: Right hand pain 3 views of the right hand show no fracture, dislocation or radiopaque foreign object. There is an old ulnar styloid fracture. IMPRESSION: No acute abnormality seen in the right hand. Dictated by: Dictated on workstation # [id number] Dict: 01/15/21 0455 Trans: 01/15/21 0651 LILI [id number] Interpreted by: KORI BERRY MD Electronically signed by: KORI BERRY MD 01/15/21 0651 NAME: CHANTE LOUISE [facility] REC#: [id number] PT STATUS: ADM IN : 1990 PHYSICIAN: AHSAN RUCKER DO ADMIT DATE: 01/14/21 Draft Date of Exam:01/14/21 CT EXTREMITY UPPER RIGHT WO PROCEDURE: CT right upper extremity without contrast. TECHNIQUE: Multiple contiguous axial images were obtained through the right upper extremity without the use of intravenous contrast. Sagittal and coronal reformations were then performed. Auto Exposure Controls were utilized during the CT exam to meet ALARA standards for radiation dose reduction. INDICATION: Puncture wound, suspicion for foreign body. It is compared with study 06/29/2020. Plate and screws fixation of the distal radius present. 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 There are arthritic changes to the wrist. Surface marker placed in the palmar aspect of the hand at the base of the long finger where there is regional soft tissue swelling and subcutaneous stranding of the fat. Regional superficial soft tissue defect present. No drainable fluid collection or discrete abscess is found. No opaque foreign body is revealed. No soft tissue gas. There is some skin thickening. A minute linear calcification along the volar aspect of the base of the 3rd finger is unchanged from the comparison. IMPRESSION: Subcutaneous edema, cellulitis and soft tissue thickening but no abscess or drainable fluid collection and no radiopaque foreign body. No acute appearing bony pathology. Dictated on workstation # [id number] Dict: 01/15/21 0611 Trans: 01/15/21 0646 LILI [id number] Interpreted by: JE HOPKINS Electronically signed by: Assessment/Plan Assessment/Plan (1) Sepsis Status: Acute Assessment & Plan: Continue IVF at 150mls/hr and zosyn Qualifiers: (2) Hyperkalemia Status: Acute Assessment & Plan: Keyexalate given. Hyperkalemia improved on repeat BMP, continue to monitor. (3) Cellulitis of right hand Status: Acute Assessment & Plan: Blood cultures negative. D/C vancomycin due to kidney functi on and previous negative MRSA swabs. Continue zosyn while awaiting wound culture. (4) Renal insufficiency Status: Acute Assessment & Plan: Vanocomycin and ketorolac discontinued yesterday. Continue IVF at 150mls/hr. Repeat BMP this afternoon. Urinalysis, urine creatinine, and urine sodium ordered. (5) Uncontrolled type 1 diabetes mellitus Status: Acute Assessment & Plan: ACHS accuchecks. Continue sliding scale and scheduled insulin (6) Methamphetamine abuse Status: Chronic (7) DVT prophylaxis Status: Acute Assessment & Plan: Lovenox for DVT prophylaxis CODI STAFFORD MD 01/17/21 4685: Supervisory-Addendum Brief Verification & Attestation Participated in pt care: history, MDM, physical Personally performed: exam Care discussed with: Medical Student Procedures: n/a I did my own history and exam today and directed plan of care as documented by OMS4 April Rodríguez. Suspect RYAN is now combination of initial sepsis related injury followed by ATN due to vanc/zosyn and ketorolac. Monitor closely, discussed with patient if potassium increases persistently may need transfer to facility with Nephrology/dialysis. APRIL RODRÍGUEZ,MED STUDENT Jan 17, 2021 11:42 CODI STAFFORD MD Jan 17, 2021 12:55
[2021-01-17 13:36] LABS: BILIRUBIN,URINE NEGATIVE (NEGATIVE); CLARITY,URINE CLEAR; COLOR,URINE YELLOW; GLUCOSE, URINE (UA) 2+ (NEGATIVE); KETONES,URINE NEGATIVE (NEGATIVE); LEUKOCYTE ESTERASE ,URINE NEGATIVE (NEGATIVE); NITRITE,URINE NEGATIVE (NEGATIVE); PH,URINE 6.5 (5-9); PROTEIN,URINE 1+ (NEGATIVE)
[2021-01-17 13:46] LABS: CALCIUM 8.1 MG/DL (8.5-10.1); CREATININE SERUM 1.83 MG/DL (0.60-1.30); POTASSIUM 4.2 MMOL/L (3.6-5.0)
[2021-01-17 13:48] LABS: BACTERIA,URINE NEGATIVE /HPF; WBC,URINE 0-2 /HPF
[2021-01-17 13:49] LABS: AMORPHOUS SEDIMENT,UR RARE AMOR URATES /LPF
[2021-01-18 04:00] VITALS: BP 156/96
[2021-01-18] MEDS: PIPERACILLIN/TAZO 4.5 GM/NS 100 ML IV SCH ×2 (04:20)
[2021-01-18] MEDS: fentaNYL INJ 100 MCG/2 ML AMP IVP PRN ×2 (05:49→10:36)
[2021-01-18] MEDS: inSUlin ASPART (NovoLOG) 1 UNIT/0.01 ML (CHARGE PER UNIT) SC SCH ×4 (05:49→20:42)
[2021-01-18 05:52] LABS: HEMOGLOBIN 10.7 g/dL (13.3-17.7); MEAN PLATELET VOLUME 9.9 fL (9.0-12.2); WHITE BLOOD COUNT 9.3 10^3/uL (4.3-11.0)
[2021-01-18] MEDS: NS IV 1000 ML 1,000 ML IV SCH ×3 (05:52→21:59)
[2021-01-18 06:10] LABS: CALCIUM 8.5 MG/DL (8.5-10.1); CREATININE SERUM 1.95 MG/DL (0.60-1.30)
[2021-01-18 07:35] VITALS: BP 158/91
[2021-01-18 07:45] VITALS: BP 115/57
[2021-01-18 11:30] VITALS: BP 169/102
--- NOTE | 2021-01-18 11:31 | Progress Note ---
YANELY RODRÍGUEZ,MED STUDENT 01/18/21 1131: Subjective Subjective/Events-last exam Patient seen and examined. He states the pain has slightly increased today but the swelling has improved. Pain is worse with ROM. Erythema remains. Blister that was present between 3rd and 4th digits is resolving. Denies chest pain, SOA, palpitations, oliguria. Review of Systems General: No Chills Pulmonary: No Dyspnea Cardiovascular: No: Chest Pain, Palpitations Gastrointestinal: No: Nausea, Vomiting, Abdominal Pain, Constipation Genitourinary: No Other (oliguria) Musculoskeletal: other (right hand pain/swelling/erythema) Objective Exam Last Set of Vital Signs Vital Signs Date Time Temp Pulse Resp B/P (MAP) Pulse Ox O2 Delivery O2 Flow Rate FiO2 01/18/21 08:00 93 Room Air 01/18/21 07:45 35.9 84 22 115/57 (76) Capillary Refill : Less Than 3 Seconds I&O Intake and Output 01/18/21 00:00 Intake Total 3290 ml Output Total 3800 ml Balance -510 ml Intake Oral 2290 ml IV Total 1000 ml Output Urine Total 3800 ml General: Alert, Oriented X3, Cooperative, No Acute Distress HEENT: Atraumatic Lungs: Clear to Auscultation, Normal Air Movement Heart: Regular Rate, No Murmurs Abdomen: Normal Bowel Sounds, Soft, No Tenderness Extremities: Other (no pedal edema) Skin: Other (Right dorsal digits 2-4 erythema unchanged. Blister between 3rd and 4th digit resolving. Minimal serous drainage from palmar aspect of R 3rd and 4th MCP joint) Neuro: Other (ROM and sensation of R hand intact) Psych/Mental Status: Mental Status NL Results/Procedures Lab Laboratory Tests 01/17/21 13:20: Urine Color YELLOW, Urine Clarity CLEAR, Urine pH 6.5, Urine Specific [place] 1.015L, Urine Protein 1+H, Urine Glucose (UA) 2+H, Urine Ketones NEGATIVE, Urine Nitrite NEGATIVE, Urine Bilirubin NEGATIVE, Urine Urobilinogen 0.2, Urine Leukocyte Esterase NEGATIVE, Urine RBC (Auto) TRACE-I, Urine RBC 2-5H, Urine WBC 0-2, Urine Crystals PRESENTH, Urine Amorphous Sediment RARE JARED URATESH, Urine Bacteria NEGATIVE, Urine Casts NONE, Urine Mucus NEGATIVE, Urine Culture Indicated NO, Urine Random Sodium 110, Urine Creatinine 39, Sodium Level 136, Potassium Level 4.2, Chloride Level 105, Carbon Dioxide Level 24, Anion Gap 7, Blood Urea Nitrogen 25H, Creatinine 1.83H, Estimat Glomerular Filtration Rate 44, BUN/Creatinine Ratio 14, Glucose Level 242H, Calcium Level 8.1L 01/17/21 15:49: Glucometer 272H 01/17/21 20:13: Glucometer 225H 01/18/21 05:41: Glucometer 159H 01/18/21 05:43: White Blood Count 9.3, Red Blood Count 3.78L, Hemoglobin 10.7L, Hematocrit 33L, Mean Corpuscular Volume 87, Mean Corpuscular Hemoglobin 28, Mean Corpuscular Hemoglobin Concent 33, Red Cell Distribution Width 11.3, Platelet Count 266, Mean Platelet Volume 9.9, Sodium Level 140, Potassium Level 4.0, Chloride Level 106, Carbon Dioxide Level 22, Anion Gap 12, Blood Urea Nitrogen 24H, Creatinine 1.95H, Estimat Glomerular Filtration Rate 41, BUN/Creatinine Ratio 12, Glucose Level 181H, Calcium Level 8.5 Microbiology 01/14/21 Blood Culture - Preliminary, Resulted No growth 01/14/21 Gram Stain - Final, Complete 01/14/21 Wound Culture - Final, Complete Normal skin luciano Radiology NAME: DANIPOOJAGail Conway [facility] REC#: [id number] PT STATUS: ADM IN : 1990 PHYSICIAN: AHSAN RUCKER DO ADMIT DATE: 01/14/21/ Signed Date of Exam:01/14/21 HAND, RIGHT, 3 VIEWS INDICATION: Right hand pain 3 views of the right hand show no fracture, dislocation or radiopaque foreign object. There is an old ulnar styloid fracture. IMPRESSION: No acute abnormality seen in the right hand. Dictated by: Dictated on workstation # [id number] Dict: 01/15/21 0455 Trans: 01/15/21 0651 LILI [id number] Interpreted by: KORI BERRY MD Electronically signed by: KORI BERRY MD 01/15/21 0651 NAME: CHANTE LOUISE [facility] REC#: [id number] PT STATUS: ADM IN : 1990 PHYSICIAN: AHSAN RUCKER DO ADMIT DATE: 01/14/21/4TH Draft Date of Exam:01/14/21 CT EXTREMITY UPPER RIGHT WO PROCEDURE: CT right upper extremity without contrast. TECHNIQUE: Multiple contiguous axial images were obtained through the right upper extremity without the use of intravenous contrast. Sagittal and coronal reformations were then performed. Auto Exposure Controls were utilized during the CT exam to meet ALARA standards for radiation dose reduction. INDICATION: Puncture wound, suspicion for foreign body. It is compared with study 06/29/2020. Plate and screws fixation of the distal radius present. 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 There are arthritic changes to the wrist. Surface marker placed in the palmar aspect of the hand at the base of the long finger where there is regional soft tissue swelling and subcutaneous stranding of the fat. Regional superficial soft tissue defect present. No drainable fluid collection or discrete abscess is found. No opaque foreign body is revealed. No soft tissue gas. There is some skin thickening. A minute linear calcification along the volar aspect of the base of the 3rd finger is unchanged from the comparison. IMPRESSION: Subcutaneous edema, cellulitis and soft tissue thickening but no abscess or drainable fluid collection and no radiopaque foreign body. No acute appearing bony pathology. Dictated on workstation # [id number] Dict: 01/15/21 0611 Trans: 01/15/21 0646 LILI [id number] Interpreted by: JE HOPKINS Electronically signed by: Assessment/Plan Assessment/Plan (1) Cellulitis of right hand Status: Acute Assessment & Plan: Blood cultures negative. D/C vancomycin due to kidney function and previous negative MRSA swabs. Transition from IV zosyn to oral augmentin and monitor (2) Acute tubular necrosis Assessment & Plan: FeNa 3.9% consistent with ATN. Vanocomycin and ketorolac discontinued 01/16. Creatinine trended down and remains stable. Will continue to monitor with repeat BMP tomorrow morning. (3) Renal insufficiency Status: Acute Assessment & Plan: Vanocomycin and ketorolac discontinued 01/16. Creatinine decreased and remains stable. Good oral intake, will stop IVF and monitor with BMP tomorrow morning. (4) Sepsis Status: Resolved Assessment & Plan: Resolved. Stop IVF and transition from IV abx to oral abx Qualifiers: (5) Hyperkalemia Status: Resolved Assessment & Plan: One dose of Keyexalate given 01/17. Hyperkalemia resolved on repeat BMP, continue to monitor. (6) Uncontrolled type 1 diabetes mellitus Status: Acute Assessment & Plan: ACHS accuchecks. Continue sliding scale and scheduled insulin (7) Methamphetamine abuse Status: Chronic (8) DVT prophylaxis Status: Acute Assessment & Plan: Lovenox for DVT prophylaxis CODI STAFFORD MD 01/18/21 1223: Supervisory-Addendum Brief Verification & Attestation Participated in pt care: history, MDM, physical Personally performed: exam, history, MDM Care discussed with: Medical Student Procedures: n/a I did my own history and exam and my findings match those documented by TONY Rodríguez. I directed the plan of care as documented. YANLEY RODRÍGUEZ,MED STUDENT Jan 18, 2021 11:31 CODI STAFFORD MD Jan 18, 2021 12:23
[2021-01-18] MEDS: ENOXAPARIN 40 MG/0.4 ML (LOVENOX) SYR SQ SCH (12:24)
[2021-01-18 16:00] VITALS: BP 172/97
--- NOTE | 2021-01-18 16:13 | Progress Note - Surgery ---
Subjective Date Seen by a Provider: Jan 18, 2021 Time Seen by a Provider: 16:09 Subjective/Events-last exam Patient has better range of motion. Less pain. Redness has slightly decreased. Serous drainage from blisters. No new complaints. Denies nausea vomiting fever sweats chills shortness of breath or chest pain. Objective Exam Vital Signs Date Time Temp Pulse Resp B/P (MAP) Pulse Ox O2 Delivery O2 Flow Rate FiO2 01/18/21 12:20 91 01/18/21 11:30 36.7 93 18 169/102 (124) 92 Room Air 01/18/21 08:00 93 Room Air 01/18/21 07:45 35.9 84 22 115/57 (76) 93 Room Air 01/18/21 07:35 36.9 93 18 158/91 (113) 92 Room Air 01/18/21 06:47 92 01/18/21 04:00 37.2 93 20 156/96 (116) 94 Room Air 01/18/21 01:00 84 01/17/21 23:59 37.0 89 20 168/99 (122) 98 Room Air 01/17/21 20:00 95 Room Air 01/17/21 19:43 37.0 92 18 152/98 (116) 96 Room Air 01/17/21 19:00 83 I & O 01/18/21 07:00 Intake Total 2740 ml Output Total 3000 ml Balance -260 ml Capillary Refill : Less Than 3 Seconds General Appearance: No Apparent Distress, WD/WN HEENT: PERRL/EOMI, Normal ENT Inspection Neck: Full Range of Motion, Non Tender Respiratory: Chest Non Tender, No Accessory Muscle Use, No Respiratory Distress Cardiovascular: Regular Rate, Rhythm, No JVD Peripheral Pulses: 2+ Dorsalis Pedis (R), 2+ Left Dors-Pedis (L), 2+ Radial Pulses (R), 2+ Radial Pulses (L) Gastrointestinal: non tender, soft Extremity: Non Tender, No Calf Tenderness, Other (Right hand findings as noted below) Neurologic/Psychiatric: Alert, Oriented x3, Normal Mood/Affect Skin: Warm/Dry, Other (Right dorsal 2-4 fingers less erythema/induration. Blister between 3rd and 4th digit unchanged. Serous drainage from palmar aspect wound at metacarpalphalangeal joint at 3rd and 4th digit on right unchanged. ) Lymphatic: No Adenopathy Results Lab Laboratory Tests 01/17/21 20:13: Glucometer 225H 01/18/21 05:41: Glucometer 159H 01/18/21 05:43: White Blood Count 9.3, Red Blood Count 3.78L, Hemoglobin 10.7L, Hematocrit 33L, Mean Corpuscular Volume 87, Mean Corpuscular Hemoglobin 28, Mean Corpuscular Hemoglobin Concent 33, Red Cell Distribution Width 11.3, Platelet Count 266, Mean Platelet Volume 9.9, Sodium Level 140, Potassium Level 4.0, Chloride Level 106, Carbon Dioxide Level 22, Anion Gap 12, Blood Urea Nitrogen 24H, Creatinine 1.95H, Estimat Glomerular Filtration Rate 41, BUN/Creatinine Ratio 12, Glucose Level 181H, Calcium Level 8.5 01/18/21 12:10: Glucometer 281H 01/18/21 16:06: Glucometer 257H Microbiology 01/14/21 Blood Culture - Preliminary, Resulted No growth 01/14/21 Gram Stain - Final, Complete 01/14/21 Wound Culture - Final, Complete Normal skin luciano Assessment/Plan Assessment/Plan Assessment/Plan Cellulitis right hand Hyperkalemia Type 1 diabetes mellitus- uncontrolled Renal insufficiency Hyponatremia Meth abuse Tobacco abuse Tight glucose control Continue antibiotics Overall the hand is the slightly better today less erythema and slightly better range of motion. Continue conservative management FIDELINA MATIAS DO Jan 18, 2021 16:13
[2021-01-18] MEDS: AUGMENTIN 875 MG TAB (AMOXICILLIN/CLAVULANATE) PO SCH (17:38)
[2021-01-18] MEDS: HYDROcodone/APAP 5 MG/325 MG (LORTAB) TAB PO PRN ×2 (17:42→23:54)
[2021-01-18 20:00] VITALS: BP 161/89
[2021-01-19] VITALS: BP 188/99
[2021-01-19 03:25] VITALS: BP 187/95
[2021-01-19] MEDS: NS IV 1000 ML 1,000 ML IV SCH (03:38)
[2021-01-19 05:54] LABS: HEMOGLOBIN 10.7 g/dL (13.3-17.7); MEAN PLATELET VOLUME 10.2 fL (9.0-12.2); WHITE BLOOD COUNT 8.5 10^3/uL (4.3-11.0)
[2021-01-19 06:07] LABS: POTASSIUM 4.2 MMOL/L (3.6-5.0)
[2021-01-19 06:09] LABS: CALCIUM 8.6 MG/DL (8.5-10.1)
[2021-01-19 06:13] LABS: CREATININE SERUM 1.75 MG/DL (0.60-1.30)
[2021-01-19] MEDS: inSUlin ASPART (NovoLOG) 1 UNIT/0.01 ML (CHARGE PER UNIT) SC SCH ×2 (06:15→11:42)
[2021-01-19 07:22] VITALS: BP 169/103
[2021-01-19] MEDS: AUGMENTIN 875 MG TAB (AMOXICILLIN/CLAVULANATE) PO SCH (07:56)
[2021-01-19] MEDS: HYDROcodone/APAP 5 MG/325 MG (LORTAB) TAB PO PRN (07:56)
[2021-01-19 11:10] VITALS: BP 157/92
[2021-01-19] MEDS: ENOXAPARIN 40 MG/0.4 ML (LOVENOX) SYR SQ SCH (11:42)
[2021-01-19] MEDS ORDERED: inSUlin ASPART (NovoLOG) 1 UNIT/0.01 ML (CHARGE PER UNIT) SC SCH (12:00)
--- NOTE | 2021-01-19 12:05 | Discharge Summary ---
YANELY JACKSON,MED STUDENT 01/19/21 1159: Discharge Summary Hospital Course Problems/Diagnosis: (1) Cellulitis of right hand Status: Acute Assessment & Plan: Blood cultures negative. Transitioned to oral abx. WBC continues to trend down. (2) Acute tubular necrosis Status: Acute Assessment & Plan: FeNa 3.9% consistent with ATN. Vanocomycin and ketorolac discontinued 01/16. Creatinine trending down. (3) Renal insufficiency Status: Acute Assessment & Plan: Vanocomycin and ketorolac discontinued 01/16. Creatinine decreased and remains stable. Good oral intake (4) Sepsis Status: Resolved Resolution Date/Time: 01/18/21 @ 11:42 Qualifiers: (5) Hyperkalemia Status: Resolved Resolution Date/Time: 01/18/21 @ 11:36 Assessment & Plan: One dose of Keyexalate given 01/17. Hyperkalemia resolved on repeat BMPs (6) Uncontrolled type 1 diabetes mellitus Status: Acute (7) Methamphetamine abuse Status: Chronic (8) DVT prophylaxis Status: Acute Assessment & Plan: Lovenox for DVT prophylaxis during admission Hospital Course Date of Admission: Jan 14, 2021 at 23:50 Admission Diagnosis : Sepsis, cellulitis of R hand, Renal insufficiency Family Physician/Provider: [place] Date of Discharge: 01/19/21 Discharge Diagnosis: Cellulitis R hand, ATN, uncontrolled diabetes mellitus Hospital Course: Patient was admitted to the hospital with sepsis, renal insufficiency, and cellulitis of the R hand. He was started on IV abx, vancomycin and zosyn, and ketorolac for pain control. Vancomycin and ketorolac were discontinue upon worsening renal function. He became hyperkalemic and was given kayexalate with resolution of hyperkalemia. EKG normal at that time. Renal function continues to improve. Increased ROM in right hand with decreased erythema, swelling and pain. Patient started having elevated blood pressures, suspect it is related to fluids received during course of admission. Discussed outpatient follow up. Diabetes was controlled with levemir and sliding scale insulin during stay. Continue previous home dosage of insulin upon discharge. Labs and Pending Lab Test: Laboratory Tests 01/18/21 12:10: Glucometer 281H 01/18/21 16:06: Glucometer 257H 01/18/21 20:26: Glucometer 178H 01/19/21 05:25: White Blood Count 8.5, Red Blood Count 3.74L, Hemoglobin 10.7L, Hematocrit 32L, Mean Corpuscular Volume 86, Mean Corpuscular Hemoglobin 29, Mean Corpuscular Hemoglobin Concent 33, Red Cell Distribution Width 11.4, Platelet Count 286, Mean Platelet Volume 10.2, Sodium Level 137, Potassium Level 4.2, Chloride Level 106, Carbon Dioxide Level 20L, Anion Gap 11, Blood Urea Nitrogen 26H, Creatinine 1.75H, Estimat Glomerular Filtration Rate 46, BUN/Creatinine Ratio 15, Glucose Level 340H, Calcium Level 8.6 Microbiology 01/14/21 Blood Culture - Preliminary, Resulted No growth 01/14/21 Gram Stain - Final, Complete 01/14/21 Wound Culture - Final, Complete Normal skin luciano Home Meds Active Reported Ibuprofen 200 Mg Tablet 400 Mg PO Q8H PRN Lantus (Insulin Glargine,Hum.rec.anlog) 100 Unit/1 Ml Vial 25 Unit SQ HS Novolog Flexpen (Insulin Aspart) 300 Units/3 Ml Solution 15-20 Units SQ AC DOSE VARIES DEPENDING ON BLOOD SUGAR READING Assessment/Pt DC Instructions Follow up in clinic with Oleg Morales as scheduled Discharge Diet: No Restrictions Activity as Tolerated: Yes Discharge Physical Examination Allergies: Coded Allergies: No Known Drug Allergies (Unverified , 06/21/18) General Appearance: No Apparent Distress, WD/WN Respiratory: Chest Non Tender, Lungs Clear, Normal Breath Sounds, No Accessory Muscle Use, No Respiratory Distress Cardiovascular: Regular Rate, Rhythm, No Murmur Gastrointestinal: Normal Bowel Sounds, Non Tender, Soft Extremity: No Calf Tenderness, No Pedal Edema Skin: Tattoos/Piercings, Other (minimal erythema and swelling around base of 3rd and 4th digits on right hand, serous drainage from blister between 3rd and 4 th digit ) Neurologic/Psychiatric: Alert, Oriented x3, Normal Mood/Affect Discharge Summary Date of Admission Jan 14, 2021 at 23:50 Date of Discharge CODI STAFFORD MD 01/19/21 1447: Discharge Summary Discharge Physical Examination Allergies: Coded Allergies: No Known Drug Allergies (Unverified , 06/21/18) Supervisory-Addendum Brief Verification & Attestation Participated in pt care: history, MDM, physical Personally performed: exam, history Care discussed with: Medical Student Procedures: n/a I repeated the history and exam and directed plan of care. Informed patient of the need for repeat creatinine outpatient as well as recheck BP. Agree with documentation by TONY Jackson. YANELY JACKSON,MED STUDENT Jan 19, 2021 11:59 CODI STAFFORD MD Jan 19, 2021 14:47
[2021-01-19] MEDS ORDERED: AMOX1TAB12 PO (13:33)
[2021-01-19 15:42] VITALS: BP 162/98
--- NOTE | 2021-01-19 16:31 | Progress Note - Surgery ---
Subjective Date Seen by a Provider: Jan 19, 2021 Time Seen by a Provider: 16:27 Subjective/Events-last exam Patient right hand feeling better. Swelling almost resolved. No drainage or fluctuant area. Has more motion in fingers. No new complaints. Sugars still elevated. Objective Exam Vital Signs Date Time Temp Pulse Resp B/P (MAP) Pulse Ox O2 Delivery O2 Flow Rate FiO2 01/19/21 16:22 01/19/21 15:42 36.6 86 18 162/98 (119) 99 Room Air 01/19/21 11:10 36.6 80 16 157/92 (113) 94 Room Air 01/19/21 08:00 98 Room Air 01/19/21 07:22 37.0 89 18 169/103 (125) 98 Room Air 01/19/21 07:00 81 01/19/21 03:25 36.9 84 18 187/95 (125) 97 Room Air 01/19/21 01:00 84 01/19/21 00:00 37.1 87 18 188/99 (128) 97 Room Air 01/18/21 21:56 93 Room Air 01/18/21 20:00 37.2 88 18 161/89 (113) 93 Room Air 01/18/21 20:00 95 Room Air 01/18/21 19:00 91 I & O 01/19/21 07:00 Intake Total 5490 ml Output Total 7675 ml Balance -2185 ml Capillary Refill : Less Than 3 Seconds General Appearance: No Apparent Distress, WD/WN HEENT: PERRL/EOMI, Normal ENT Inspection Neck: Full Range of Motion, Non Tender Respiratory: Chest Non Tender, Lungs Clear, Normal Breath Sounds, No Accessory Muscle Use, No Respiratory Distress Cardiovascular: Regular Rate, Rhythm, No Murmur Peripheral Pulses: 2+ Dorsalis Pedis (R), 2+ Left Dors-Pedis (L), 2+ Radial Pulses (R), 2+ Radial Pulses (L) Gastrointestinal: non tender, soft Extremity: No Calf Tenderness, No Pedal Edema Neurologic/Psychiatric: Alert, Oriented x3, Normal Mood/Affect Skin: Tattoos/Piercings, Other (less erythema and swelling around base of 3rd and 4th digits on right hand, less induration, improved range of motion) Lymphatic: No Adenopathy Results Lab Laboratory Tests 01/18/21 20:26: Glucometer 178H 01/19/21 05:25: White Blood Count 8.5, Red Blood Count 3.74L, Hemoglobin 10.7L, Hematocrit 32L, Mean Corpuscular Volume 86, Mean Corpuscular Hemoglobin 29, Mean Corpuscular Hemoglobin Concent 33, Red Cell Distribution Width 11.4, Platelet Count 286, Mean Platelet Volume 10.2, Sodium Level 137, Potassium Level 4.2, Chloride Level 106, Carbon Dioxide Level 20L, Anion Gap 11, Blood Urea Nitrogen 26H, Creatinine 1.75H, Estimat Glomerular Filtration Rate 46, BUN/Creatinine Ratio 15, Glucose Level 340H, Calcium Level 8.6 01/19/21 15:46: Glucometer 232H Microbiology 01/14/21 Blood Culture - Preliminary, Resulted No growth 01/14/21 Gram Stain - Final, Complete 01/14/21 Wound Culture - Final, Complete Normal skin luciano Assessment/Plan Assessment/Plan Assessment/Plan Cellulitis right hand Hyperkalemia Type 1 diabetes mellitus- uncontrolled Renal insufficiency Hyponatremia Meth abuse Tobacco abuse Tight glucose control explained needs to keep controlled outpatient Convert antibiotics to oral right hand is continuing to get better less erythema induration and better range of motion. No surgical intervention Explained if worsens need to be evaluated at that time. FIDELINA MATIAS DO Jan 19, 2021 16:31
== END 2021-01-19 16:24 | disposition home or self-care (01) | DRG 871 ==
LOC: EDUNIT# 21:56 → ER 21:57 → 4TH 23:50
PROVIDERS: ADMIT Internal Medicine; ATTEND Family Medicine
DX: A41.9 Sepsis, unspecified organism (principal); N17.0 Acute kidney failure with tubular necrosis; L03.113 Cellulitis of right upper limb; E87.1 Hypo-osmolality and hyponatremia; F17.210 Nicotine dependence, cigarettes, uncomplicated; E78.00 Pure hypercholesterolemia, unspecified; I10 Essential (primary) hypertension; F15.10 Other stimulant abuse, uncomplicated; E10.65 Type 1 diabetes mellitus with hyperglycemia; E10.40 Type 1 diabetes mellitus with diabetic neuropathy, unspecified; E87.5 Hyperkalemia; Z79.4 Long term (current) use of insulin
CPT/HCPCS: 36415; 73130; 73200; 80048; 80053; 80178; 80306; 80320; 81000; 82150; 82570; 82962; 83605; 83735; 84145; 84300; 85025; 85027; 85610; 85652; 85730; 86141; 87040; 87070; 87205; 93005; 93041; 94760; 96374; 96375

== ENCOUNTER 2021-02-05 11:55 | Emergency (ER) | payer SELFPAY ==
[~2021-02-05] VITALS: Ht 189 cm; Wt 79.4 kg
[~2021-02-05 11:55] MED LIST changes: +AMOX1TAB12 PO
--- NOTE | 2021-02-05 12:24 | ED GU-Male ---
General Stated Complaint: UTI Source: patient Exam Limitations: no limitations History of Present Illness Date Seen by Provider: Feb 05, 2021 Time Seen by Provider: 12:05 Initial Comments This is a ill-appearing 30-year-old male presents to the ER via POV with complaints of urinary tract infection. States that he has been having burning and pain for the past week. Currently rating pain 8 out of 10. Has taken ibuprofen and Tylenol with minimal relief. Reports nausea without vomiting, chills. States that he is sexually active with one partner. Denies any difficulty urinating or discharge. Timing/Duration: week Allergies and Home Medications Allergies Coded Allergies: No Known Drug Allergies (Unverified , 02/05/21) Home Medications Amoxicillin/Potassium Clav 1 Each Tablet, 875 MG PO BID WITH MEALS Prescribed by: CODI STAFFORD on 01/19/21 1333 Ibuprofen 200 Mg Tablet, 400 MG PO Q8H PRN for PAIN-MILD (1-4), (Reported) Insulin Aspart 300 Units/3 Ml Solution, 15-20 UNITS SQ AC, (Reported) DOSE VARIES DEPENDING ON BLOOD SUGAR READING Insulin Glargine,Hum.rec.anlog 100 Unit/1 Ml Vial, 25 UNIT SQ HS, (Reported) Patient Home Medication List Home Medication List Reviewed: Yes Review of Systems Review of Systems Constitutional: chills; No diaphoresis EENTM: no symptoms reported Respiratory: no symptoms reported Cardiovascular: no symptoms reported Gastrointestinal: see HPI Genitourinary: see HPI Musculoskeletal: no symptoms reported Skin: no symptoms reported Psychiatric/Neurological: No Symptoms Reported Endocrine: No Symptoms Reported Hematologic/Lymphatic: No Symptoms Reported Past Xrpjsci-Aqzdoc-Vgfcqa Hx Patient Social History Drug of Choice: METH, MARIJUANA--SMOKES METH, DENIES IV USE Type Used: Cigarettes 2nd Hand Smoke Exposure: Yes Recent Hopitalizations: No Immunizations Up To Date Tetanus Booster (TDap): More than 5yrs PED Vaccines UTD: No Date of Pneumonia Vaccine: February 22, 2014 Date of Influenza Vaccine: Jun 22, 2020 Seasonal Allergies Seasonal Allergies: No Past Medical History Surgeries: Yes (RIGHT FOREARM FX/ORIF) Orthopedic Respiratory: No Currently Using CPAP: No Currently Using BIPAP: No Cardiac: Yes High Cholesterol, Hypertension Neurological: Yes Neuropathy Reproductive Disorders: Yes Sexually Transmitted Disease: No HIV/AIDS: No Genitourinary: No Gastrointestinal: No Musculoskeletal: Yes (RIGHT FOREARM FX/ORIF) Fractures Endocrine: Yes (TYPE 1 IDDM--DX AGE 8, MULTIPLE EPISODES OF DKA) Diabetes, Insulin dep HEENT: No Loss of Vision: Denies Hearing Impairment: Denies Cancer: No Psychosocial: Yes (SUBSTANCE ABUSE) Integumentary: Yes (MULTIPLE EPISODES OF CELLULITIS, JUANITA TO RIGHT HAND) Blood Disorders: No Adverse Reaction/Blood Tranf: No Family Medical History Cancer 03 FATHER, Onset:Unknown Family history: Diabetes mellitus 03 FATHER, Onset:Unknown No Pertinent Family Hx SOCIAL HISTORY: -ETOH--OCCASIONAL USE -DRUGS--+ THC AND METH USE--CLAIMS HE SMOKES METH, DENIES IV DRUG USE -SMOKES 1 PPD PAST SURGICAL HISTORY: -RIGHT FOREARM FX/ORIF WITH HARDWARE Physical Exam Vital Signs Vital Signs - First Documented 02/05/21 02/05/21 12:18 18:36 Temp 37.0 Pulse 105 Resp 20 B/P (MAP) 156/98 (117) Pulse Ox 99 O2 Delivery Room Air Capillary Refill : Height, Weight, BMI Height: 6'2.00" Weight: 171lbs. 7.0oz. 77.792854hr; 22.66 BMI Method:Estimated General Appearance: WD/WN, no apparent distress HEENT: PERRL/EOMI, normal ENT inspection Neck: full range of motion, normal inspection Cardiovascular: regular rate, rhythm, no murmur Respiratory: lungs clear, normal breath sounds Gastrointestinal: normal bowel sounds, non tender, soft; No distended, No guarding, No rebound Male: normal genitalia; No erythema, No inguinal tenderness, No testicular tenderness Genital/Rectal: normal genital exam, tenderness (posterior to testicles ) Extremities: normal range of motion, non-tender, normal inspection Neurologic/Psychiatric: no motor/sensory deficits, alert, normal mood/affect, oriented x 3 Skin: normal color, warm/dry Focused Exam Lactate Level 02/05/21 13:29: Lactic Acid Level 1.32 Lactic Acid Level Laboratory Tests Test 02/05/21 13:29 Lactic Acid Level 1.32 MMOL/L (0.50-2.00) Progress/Results/Core Measures Suspected Sepsis SIRS Temperature: Pulse: 105 Respiratory Rate: 20 Laboratory Tests 02/05/21 12:43: White Blood Count 25.9H Blood Pressure 156 /98 Mean: 02/05/21 13:29: Lactic Acid Level 1.32 Laboratory Tests 02/05/21 12:43: Creatinine 1.82H, Platelet Count 211, Total Bilirubin 0.5 Results/Orders Lab Results Laboratory Tests Test 02/05/21 12:24 02/05/21 12:43 02/05/21 13:29 02/05/21 15:24 Range/Units Urine Color YELLOW Urine Clarity CLEAR Urine pH 6.0 5-9 Urine Specific [place] 1.025 H 1.016-1.022 Urine Protein 3+ H NEGATIVE Urine Glucose (UA) 3+ H NEGATIVE Urine Ketones 1+ H NEGATIVE Urine Nitrite POSITIVE H NEGATIVE Urine Bilirubin NEGATIVE NEGATIVE Urine Urobilinogen 0.2 < = 1.0 MG/DL Urine Leukocyte Esterase TRACE H NEGATIVE Urine RBC (Auto) 2+ H NEGATIVE Urine RBC 5-10 H /HPF Urine WBC 25-50 H /HPF Urine Squamous Epithelial Cells NONE /HPF Urine Crystals NONE /LPF Urine Bacteria LARGE H /HPF Urine Casts NONE /LPF Urine Mucus NEGATIVE /LPF Urine Culture Indicated YES White Blood Count 25.9 H 4.3-11.0 10^3/uL Red Blood Count 4.30 4.30-5.52 10^6/uL Hemoglobin 12.2 L 13.3-17.7 g/dL Hematocrit 37 L 40-54 % Mean Corpuscular Volume 87 80-99 fL Mean Corpuscular Hemoglobin 28 25-34 pg Mean Corpuscular Hemoglobin Concent 33 32-36 g/dL Red Cell Distribution Width 12.0 10.0-14.5 % Platelet Count 211 130-400 10^3/uL Mean Platelet Volume 10.9 9.0-12.2 fL Immature Granulocyte % (Auto) 1 % Neutrophils (%) (Auto) 86 H 42-75 % Lymphocytes (%) (Auto) 3 L 12-44 % Monocytes (%) (Auto) 9 0-12 % Eosinophils (%) (Auto) 0 0-10 % Basophils (%) (Auto) 0 0-10 % Neutrophils # (Auto) 22.3 H 1.8-7.8 10^3/uL Lymphocytes # (Auto) 0.9 L 1.0-4.0 10^3/uL Monocytes # (Auto) 2.4 H 0.0-1.0 10^3/uL Eosinophils # (Auto) 0.0 0.0-0.3 10^3/uL Basophils # (Auto) 0.1 0.0-0.1 10^3/uL Immature Granulocyte # (Auto) 0.3 H 0.0-0.1 10^3/uL Neutrophils % (Manual) 82 % Lymphocytes % (Manual) 5 % Monocytes % (Manual) 8 % Band Neutrophils 5 % Blood Morphology Comment NORMAL Sodium Level 128 L 135-145 MMOL/L Potassium Level 4.5 3.6-5.0 MMOL/L Chloride Level 94 L 98-107 MMOL/L Carbon Dioxide Level 25 21-32 MMOL/L Anion Gap 9 5-14 MMOL/L Blood Urea Nitrogen 27 H 7-18 MG/DL Creatinine 1.82 H 0.60-1.30 MG/DL Estimat Glomerular Filtration Rate 44 BUN/Creatinine Ratio 15 Glucose Level 266 H 70-105 MG/DL Calcium Level 9.1 8.5-10.1 MG/DL Corrected Calcium 9.6 8.5-10.1 MG/DL Total Bilirubin 0.5 0.1-1.0 MG/DL Aspartate Amino Transf (AST/SGOT) 14 5-34 U/L Alanine Aminotransferase (ALT/SGPT) 20 0-55 U/L Alkaline Phosphatase 93 40-136 U/L Total Protein 6.7 6.4-8.2 GM/DL Albumin 3.4 3.2-4.5 GM/DL Lactic Acid Level 1.32 0.50-2.00 MMOL/L Glucometer 216 H 70-110 MG/DL Test 02/05/21 18:20 Range/Units Glucometer 211 H 70-110 MG/DL My Orders Orders - JOSESITO ASHRAF APRN Urinalysis (02/05/21 12:05) Neis Raman Dna Urine Test (02/05/21 12:32) Chlamydia Trachomatis Urine (02/05/21 12:32) Cbc With Automated Diff (02/05/21 12:32) Comprehensive Metabolic Panel (02/05/21 12:32) Iv Heplock-Insert (Order) (02/05/21 12:32) Ketorolac Injection (Toradol Injection) (02/05/21 12:45) Us Scrotum (Testicle) [id number] (02/05/21 12:32) Urine Culture (02/05/21 12:24) Manual Differential (02/05/21 12:43) Lactated Ringers (Lr 1000 Ml Iv Solution (02/05/21 13:15) Lactic Acid Analyzer (02/05/21 13:10) Ceftriaxone For Iv Use (Rocephin For I (02/05/21 13:15) Ct Abdomen/Pelvis Wo (02/05/21 13:33) Accucheck Stat ONCE (02/05/21 13:55) Ns Iv 1000 Ml (Sodium Chloride 0.9%) (02/05/21 15:30) Levofloxacin 500 Mg/100 Ml Iv (Levaquin (02/05/21 17:15) Accucheck Stat ONCE (02/05/21 17:37) Fentanyl Inj (Sublimaze Injection) (02/05/21 18:45) Medications Given in ED Current Medications Medications Dose Ordered Sig/Billie Route Start Time Stop Time Status Last Admin Dose Admin Ceftriaxone Sodium 1000 mg/ Sterile Water 10 ml @ 200 mls/hr ONCE ONCE IV 02/05/21 13:15 02/05/21 13:17 DC 02/05/21 13:26 200 MLS/HR Fentanyl Citrate 50 mcg ONCE ONCE IVP 02/05/21 18:45 02/05/21 18:46 DC 02/05/21 18:53 50 MCG Ketorolac Tromethamine 30 mg ONCE ONCE IVP 02/05/21 12:45 02/05/21 12:46 DC 02/05/21 12:46 30 MG Levofloxacin/ Dextrose 100 ml @ 100 mls/hr ONCE ONCE IV 02/05/21 17:15 02/05/21 18:14 DC 02/05/21 18:26 100 MLS/HR Vital Signs/I&O 02/05/21 02/05/21 02/05/21 12:18 12:18 18:36 Temp 37.0 37.0 37.0 Pulse 105 105 104 Resp 20 20 16 B/P (MAP) 156/98 (117) 141/84 (103) Pulse Ox 99 99 100 O2 Delivery Room Air Capillary Refill : Progress Note : Progress Note Pt. examined. Orders placed for basic workup with UA. Tenderness with palpation to posterior scrotum. Neg Phren's sign. Will go ahead and order US of scrotum to evaluate for any epididymitis. Labs reviewed. Elevated WBC-29.9. Orders placed to add Lactic acid. Will obtain CT abd/pelvis w/o contrast d/t renal function. Cocnern for acute pyelonephritis. Orders given for IVF and Rocephin 1gm IV CT abd/pelvis show likely prostate abscess. Recommend f/u with IV contrast. 1443: Reviewed case with Dr. Escobar (urology), recommended transfer patient as he will require higher level of care and he will not be available to follow patient. 1448: Called Dr. Junior (urology) with [facility]. States patient will require higher level of care and recommends transfer to [facility]. 1455: Reviewed case with transfer line at [facility], pending transfer return call. 1645: Patient accepted by Dr. Hawk to [facility]. 1830: Patient resting comfortably, pending bed assignment from . Diagnostic Imaging Diagonstic Imaging: CT Plain Films/CT/US/NM/MRI: abdomen Comments [facility]. [place], [place] NAME: [facility]AN[facility] REC#: [id number] PT STATUS: REG ER : 1990 PHYSICIAN: JOSESITO ASHRAF PROMOTIONS PRODUCER ADMIT DATE: 02/05/21/ER Signed Date of Exam:02/05/21 CT ABDOMEN/PELVIS WO EXAMINATION: CT abdomen/pelvis WO. TECHNIQUE: Unenhanced CT imaging of the abdomen and pelvis was performed. 2-D reformats are created and submitted for interpretation. Automatic exposure controls were utilized to optimize patient dose. INDICATION: Lower abdominal pain. COMPARISON: Scrotal ultrasound of earlier same day. FINDINGS: Evaluation of the abdominal viscera is mildly limited without contrast. Lower chest: The lung bases are clear. No pericardial or pleural effusion. Peritoneum: No free intraperitoneal air or fluid. Liver and biliary system: Unenhanced liver is normal. Gallbladder is contracted without radiopaque gallstones. No biliary duct dilatation. Spleen and Pancreas: Spleen is normal. Unenhanced pancreas is grossly normal. Adrenals: Normal. tract: No renal or ureteral calculi. No obstructive uropathy. There is a potential 3.3 x 1.6 cm hypoattenuation cystic structure within the left sita-aspect of the prostate. Nonspecific stranding is present within the pelvic fat in the presacral region and around the rectum. GI tract: Stomach is decompressed. No bowel obstruction. No pericolonic inflammatory changes. The appendix is normal in caliber without surrounding inflammatory stranding. Vasculature and Lymph nodes: Normal caliber aorta. No abdominal or pelvic lymphadenopathy. Musculoskeletal: No concerning osseous lesion. IMPRESSION: 1. There is potential abscess within the prostate which is suboptimally evaluated on this noncontrast examination. Recommend CT pelvis with IV contrast for further characterization. 2. Edema and inflammatory stranding within the pelvis is felt to be reactive due to presumed prostate abscess. 3. No urinary tract calculi. Dictated by: Dictated on workstation # [id number] Dict: 02/05/21 1423 Trans: 02/05/21 1636 IMS [id number] Interpreted by: PAUL AGUILERA MD Electronically signed by: PAUL AGUILERA MD 02/05/21 1634 Diagonstic Imaging: Ultrasound Plain Films/CT/US/NM/MRI: other Comments NAME: DANIPOOJAGail [facility] REC#: [id number] PT STATUS: REG ER : 1990 PHYSICIAN: JOSESITO ASHRAF APRN ADMIT DATE: 02/05/21/ER Signed Date of Exam:02/05/21 US SCROTUM (Testicle) [id number] INDICATION: Pain behind testicles TECHNIQUE: Real-time grayscale sonographic imaging and color vascular evaluation of the scrotum. CORRELATION STUDY: None FINDINGS: RIGHT TESTICLE: 4.5 x 1.9 x 3.1 cm. LEFT TESTICLE: 4.5 x 2.0 x 3.0 cm. The testicles are in normal location and demonstrate homogeneous echotexture. There is vascular flow to the testicles. Small cyst adjacent to the left epididymal head measuring approximately 6 x 6 x 6 mm, likely of no significance. IMPRESSION: 1. Unremarkable scrotal ultrasound examination. Dictated by: Dictated on workstation # [id number] Dict: 02/05/21 1347 Trans: 02/05/21 1656 DO [id number] Interpreted by: WILNER SWANN DO Electronically signed by: WILNER SWANN DO 02/05/21 1656 Reviewed: Reviewed by Me Departure Impression Primary Impression: Prostate abscess Disposition: 02 XFER SHT-TRM HOSP Condition: Stable Transfer Transfer Reason: Exceeds level of care Time Spoke to Accepting Phy: 16:[address] Hawk accepted patient transfer at this time. Transfer Time: 18:40 Transfer Facility: [facility] Method of Transfer: EMS Departure-Patient Inst. Referrals: [facility] ([facility]Family) Primary Care Physician JOSESITO ASHRAF PROMOTIONS PRODUCER Feb 05, 2021 12:24
[2021-02-05 12:32] LABS: BILIRUBIN,URINE NEGATIVE (NEGATIVE); CLARITY,URINE CLEAR; COLOR,URINE YELLOW; GLUCOSE, URINE (UA) 3+ (NEGATIVE); KETONES,URINE 1+ (NEGATIVE); LEUKOCYTE ESTERASE ,URINE TRACE (NEGATIVE); NITRITE,URINE POSITIVE (NEGATIVE); PROTEIN,URINE 3+ (NEGATIVE)
[2021-02-05 12:43] LABS: BACTERIA,URINE LARGE /HPF; WBC,URINE 25-50 /HPF
[2021-02-05] MEDS ORDERED: KETOROLAC 30 MG/ML VIAL IVP ONE (12:45)
[2021-02-05 12:51] LABS: BASOPHILS # (AUTO) 0.1 10^3/uL (0.0-0.1); BASOPHILS % (AUTO) 0 % (0-10); EOSINOPHILS % (AUTO) 0 % (0-10); HEMATOCRIT 37 % (40-54); HEMOGLOBIN 12.2 g/dL (13.3-17.7); LYMPHOCYTES # (AUTO) 0.9 10^3/uL (1.0-4.0); LYMPHOCYTES % (AUTO) 3 % (12-44); MEAN CORPUSCULAR HEMOGLOBIN 28 pg (25-34); MEAN CORPUSCULAR HGB CONC 33 g/dL (32-36); MEAN CORPUSCULAR VOLUME 87 fL (80-99); MEAN PLATELET VOLUME 10.9 fL (9.0-12.2); MONOCYTES # (AUTO) 2.4 10^3/uL (0.0-1.0); MONOCYTES % (AUTO) 9 % (0-12); NEUTROPHILS # (AUTO) 22.3 10^3/uL (1.8-7.8); NEUTROPHILS % (AUTO) 86 % (42-75); PLATELET COUNT 211 10^3/uL (130-400); WHITE BLOOD COUNT 25.9 10^3/uL (4.3-11.0)
[2021-02-05 12:59] LABS: ALBUMIN 3.4 GM/DL (3.2-4.5)
[2021-02-05 13:00] LABS: POTASSIUM 4.5 MMOL/L (3.6-5.0)
[2021-02-05 13:01] LABS: BAND NEUTROPHILS 5 %; CALCIUM 9.1 MG/DL (8.5-10.1); LYMPHOCYTES % (MANUAL) 5 %; MONOCYTES % (MANUAL) 8 %; NEUTROPHILS % (MANUAL) 82 %; RBC MORPH NORMAL
[2021-02-05 13:02] LABS: TOTAL PROTEIN 6.7 GM/DL (6.4-8.2)
[2021-02-05 13:04] LABS: BILIRUBIN,TOTAL 0.5 MG/DL (0.1-1.0)
[2021-02-05 13:06] LABS: CREATININE SERUM 1.82 MG/DL (0.60-1.30)
[2021-02-05] MEDS ORDERED: cefTRIAXone FOR IV USE 1,000 MG in WATER (STERILE) FOR INJECTION 10 ML IV ONE (13:15)
[2021-02-05] MEDS ORDERED: LACTATED RINGERS 1,000 ML IV SCH (13:15)
--- NOTE | 2021-02-05 13:48 | Diagnostic Imaging Report ---
INDICATION: Pain behind testicles TECHNIQUE: Real-time grayscale sonographic imaging and color vascular evaluation of the scrotum. CORRELATION STUDY: None FINDINGS: RIGHT TESTICLE: 4.5 x 1.9 x 3.1 cm. LEFT TESTICLE: 4.5 x 2.0 x 3.0 cm. The testicles are in normal location and demonstrate homogeneous echotexture. There is vascular flow to the testicles. Small cyst adjacent to the left epididymal head measuring approximately 6 x 6 x 6 mm, likely of no significance. IMPRESSION: 1. Unremarkable scrotal ultrasound examination. Dictated by: Dictated on workstation # [id number]
--- NOTE | 2021-02-05 14:30 | Diagnostic Imaging Report ---
EXAMINATION: CT abdomen/pelvis WO. TECHNIQUE: Unenhanced CT imaging of the abdomen and pelvis was performed. 2-D reformats are created and submitted for interpretation. Automatic exposure controls were utilized to optimize patient dose. INDICATION: Lower abdominal pain. COMPARISON: Scrotal ultrasound of earlier same day. FINDINGS: Evaluation of the abdominal viscera is mildly limited without contrast. Lower chest: The lung bases are clear. No pericardial or pleural effusion. Peritoneum: No free intraperitoneal air or fluid. Liver and biliary system: Unenhanced liver is normal. Gallbladder is contracted without radiopaque gallstones. No biliary duct dilatation. Spleen and Pancreas: Spleen is normal. Unenhanced pancreas is grossly normal. Adrenals: Normal. tract: No renal or ureteral calculi. No obstructive uropathy. There is a potential 3.3 x 1.6 cm hypoattenuation cystic structure within the left sita-aspect of the prostate. Nonspecific stranding is present within the pelvic fat in the presacral region and around the rectum. GI tract: Stomach is decompressed. No bowel obstruction. No pericolonic inflammatory changes. The appendix is normal in caliber without surrounding inflammatory stranding. Vasculature and Lymph nodes: Normal caliber aorta. No abdominal or pelvic lymphadenopathy. Musculoskeletal: No concerning osseous lesion. IMPRESSION: 1. There is potential abscess within the prostate which is suboptimally evaluated on this noncontrast examination. Recommend CT pelvis with IV contrast for further characterization. 2. Edema and inflammatory stranding within the pelvis is felt to be reactive due to presumed prostate abscess. 3. No urinary tract calculi. Dictated by: Dictated on workstation # [id number]
[2021-02-05] MEDS ORDERED: NS IV 1000 ML 1,000 ML IV SCH (15:30)
[2021-02-05] MEDS ORDERED: fentaNYL INJ 100 MCG/2 ML AMP IVP ONE (18:45)
[2021-02-05 19:37] LABS: AMPHETAMINE SCREEN, URINE POSITIVE (NEGATIVE); BARBITURATE SCREEN URINE NEGATIVE (NEGATIVE); BENZODIAZEPINES SCREEN URINE NEGATIVE (NEGATIVE); CANNABINOID SCREEN, URINE NEGATIVE (NEGATIVE); COCAINE SCREEN URINE NEGATIVE (NEGATIVE); METHADONE STAT NEGATIVE (NEGATIVE); METHAMPHETAMINE SCREEN URINE S POSITIVE (NEGATIVE); OPIATE SCREEN URINE NEGATIVE (NEGATIVE); OXYCODONE STAT NEGATIVE (NEGATIVE); PROPOXYPHENE STAT NEGATIVE (NEGATIVE); TRICYCLIC ANTIDEPRESSANTS SCRE NEGATIVE (NEGATIVE)
[2021-02-05 20:30] VITALS: BP 141/84
== END 2021-02-05 20:30 | disposition short-term general hospital (02) ==
LOC: EDUNIT# 11:55 → ER 11:57
DX: N41.2 Abscess of prostate (principal); N39.0 Urinary tract infection, site not specified; I10 Essential (primary) hypertension; E10.10 Type 1 diabetes mellitus with ketoacidosis without coma; E78.00 Pure hypercholesterolemia, unspecified; Z77.22 Contact with and (suspected) exposure to environmental tobacco smoke (acute) (chronic); Z79.1 Long term (current) use of non-steroidal anti-inflammatories (NSAID)
CPT/HCPCS: 74176; 76870; 80053; 80306; 81000; 82962; 83605; 85007; 85027; 87077; 87088; 87186; 87491; 87591; 99285; U0002; 36415; 87635

== ENCOUNTER 2021-03-25 18:11 | Inpatient (IN) | payer SELFPAY ==
[~2021-03-25] VITALS: Ht 188 cm; Wt 79.4 kg
[2021-03-25] MEDS ORDERED: ONDANSETRON 4 MG/2 ML (SDV) Z0FRAN IVP ONE (18:45)
[2021-03-25] MEDS ORDERED: LACTATED RINGERS 1,000 ML IV ONE (18:45)
--- NOTE | 2021-03-25 18:46 | ED GI ---
General Chief Complaint: Abdominal/GI Problems Stated Complaint: NAUSEA VOMMITTING/ SOB/ CHILLS Nursing Triage Note: PT AMBULATE TO ROOM 10 WITH C/O N/V, COUGH, NECK AND BACK PAIN X2 DAYS. PT STATES HE HAS NOT CONTACTED HIS PCP FOR THIS C/O. PT REPORTS TAKING IBUPROFEN FOR PAIN WITHOUT RELIEF. PT REPORTS DIFFICULTY BREATHING. PT 96% RA UPON ARRIVAL. Sepsis Screen: No Definite Risk Source of Information: Patient Exam Limitations: No Limitations History of Present Illness Date Seen by Provider: Mar 25, 2021 Time Seen by Provider: 18:45 Initial Comments To ER with nausea vomiting cough neck and back pain for 2 days. Has shortness of breath. He is diabetic type I with chronic kidney disease stage IIIa. He was recently admitted to the [facility] from 02/05--->02/14 for prostatic abscess. He had a transurethral electrosurgical resection of the prostate. Urine cultures grew MRSA. He was given 2 weeks of antibiotics which was initially vancomycin (which was then changed to daptomycin due to renal dysfunction) then discharged with 2 weeks of Zyvox. Timing/Duration: 1-2 Days Severity/Quality: Moderate Radiation: No Radiation Activities at Onset: None Associated Symptoms: Fever/Chills, Nausea/Vomiting Allergies and Home Medications Allergies Coded Allergies: No Known Drug Allergies (Unverified , 02/05/21) Home Medications Amoxicillin/Potassium Clav 1 Each Tablet, 875 MG PO BID WITH MEALS Prescribed by: CODI STAFFORD on 01/19/21 1333 Ibuprofen 200 Mg Tablet, 400 MG PO Q8H PRN for PAIN-MILD (1-4), (Reported) Insulin Aspart 300 Units/3 Ml Solution, 15-20 UNITS SQ AC, (Reported) DOSE VARIES DEPENDING ON BLOOD SUGAR READING Insulin Glargine,Hum.rec.anlog 100 Unit/1 Ml Vial, 25 UNIT SQ HS, (Reported) Patient Home Medication List Home Medication List Reviewed: Yes Review of Systems Review of Systems Constitutional: see HPI, chills, fever EENTM: See HPI Respiratory: See HPI, Cough Cardiovascular: No Symptoms Reported Gastrointestinal: No Symptoms Reported Genitourinary: See HPI Musculoskeletal: no symptoms reported Skin: no symptoms reported Psychiatric/Neurological: No Symptoms Reported Endocrine: No Symptoms Reported Hematologic/Lymphatic: No Symptoms Reported Past Awucsps-Obbvyb-Vvjqiz Hx Patient Social History Alcohol Use: Denies Use Drug of Choice: METH, MARIJUANA--SMOKES METH, DENIES IV USE Smoking Status: Current Everyday Smoker Type Used: Cigarettes 2nd Hand Smoke Exposure: Yes Recent Infectious Disease Expo: No Recent Hopitalizations: No Immunizations Up To Date Tetanus Booster (TDap): Unknown PED Vaccines UTD: No Date of Pneumonia Vaccine: February 22, 2014 Date of Influenza Vaccine: Jun 22, 2020 Seasonal Allergies Seasonal Allergies: No Past Medical History Surgeries: Yes (RIGHT FOREARM FX/ORIF) Orthopedic Respiratory: No Currently Using CPAP: No Currently Using BIPAP: No Cardiac: Yes High Cholesterol, Hypertension Neurological: Yes Neuropathy Reproductive Disorders: Yes Sexually Transmitted Disease: No HIV/AIDS: No Genitourinary: No Gastrointestinal: No Musculoskeletal: Yes (RIGHT FOREARM FX/ORIF) Fractures Endocrine: Yes (TYPE 1 IDDM--DX AGE 8, MULTIPLE EPISODES OF DKA) Diabetes, Insulin dep HEENT: No Loss of Vision: Denies Hearing Impairment: Denies Cancer: No Psychosocial: Yes (SUBSTANCE ABUSE) Integumentary: Yes (MULTIPLE EPISODES OF CELLULITIS, JUANITA TO RIGHT HAND) Blood Disorders: No Adverse Reaction/Blood Tranf: No Family Medical History Cancer 03 FATHER, Onset:Unknown Family history: Diabetes mellitus 03 FATHER, Onset:Unknown No Pertinent Family Hx SOCIAL HISTORY: -ETOH--OCCASIONAL USE -DRUGS--+ THC AND METH USE--CLAIMS HE SMOKES METH, DENIES IV DRUG USE -SMOKES 1 PPD PAST SURGICAL HISTORY: -RIGHT FOREARM FX/ORIF WITH HARDWARE Physical Exam Vital Signs Vital Signs - First Documented 03/25/21 18:26 Temp 37.7 Pulse 117 Resp 17 B/P (MAP) 126/83 (97) O2 Delivery Room Air Capillary Refill : Less Than 3 Seconds Height/Weight/BMI Height: 6'2.00" Weight: 171lbs. 7.0oz. 77.677816nx; 22.00 BMI Method:Estimated General Appearance: WD/WN, no apparent distress, other (Alert and oriented GCS 15 pleasant. He is tachycardic with a rate of about 1 15-1 20 sinus. Blood pressure is fine at 160 systolic. ) HEENT: PERRL/EOMI, normal ENT inspection Neck: non-tender, full range of motion Respiratory: no respiratory distress, no accessory muscle use Gastrointestinal: normal bowel sounds, soft Pelvic: normal external exam, normal adnexa Neurologic/Psychiatric: alert, normal mood/affect, oriented x 3 Skin: normal color, warm/dry Focused Exam Sepsis Stage: Sepsis Possible Source: Genitouriary Lactate Level 03/25/21 20:20: Time of Focused Exam: 20:32 Respiratory: Normal Breath Sounds, No Accessory Muscle Use, No Respiratory Distress Cardiovascular: Normal Peripheral Pulses, Tachycardia Capillary Refill: Less Than 3 Seconds Skin: normal color Lactic Acid Level Laboratory Tests Test 03/25/21 20:20 Within 3hrs of presentation: Admin fluids, Admin ABX, Blood cultures prior to ABX's, Focus exam, Lactate level Progress/Results/Core Measures Results/Orders Lab Results Laboratory Tests Test 03/25/21 18:56 03/25/21 20:20 Range/Units White Blood Count 18.2 H 4.3-11.0 10^3/uL Red Blood Count 4.75 4.30-5.52 10^6/uL Hemoglobin 13.3 13.3-17.7 g/dL Hematocrit 40 40-54 % Mean Corpuscular Volume 85 80-99 fL Mean Corpuscular Hemoglobin 28 25-34 pg Mean Corpuscular Hemoglobin Concent 33 32-36 g/dL Red Cell Distribution Width 13.8 10.0-14.5 % Platelet Count 277 130-400 10^3/uL Mean Platelet Volume 11.1 9.0-12.2 fL Immature Granulocyte % (Auto) 0 % Neutrophils (%) (Auto) 85 H 42-75 % Lymphocytes (%) (Auto) 7 L 12-44 % Monocytes (%) (Auto) 8 0-12 % Eosinophils (%) (Auto) 0 0-10 % Basophils (%) (Auto) 0 0-10 % Neutrophils # (Auto) 15.5 H 1.8-7.8 10^3/uL Lymphocytes # (Auto) 1.3 1.0-4.0 10^3/uL Monocytes # (Auto) 1.4 H 0.0-1.0 10^3/uL Eosinophils # (Auto) 0.0 0.0-0.3 10^3/uL Basophils # (Auto) 0.0 0.0-0.1 10^3/uL Immature Granulocyte # (Auto) 0.1 0.0-0.1 10^3/uL Urine Color YELLOW Urine Clarity CLEAR Urine pH 6.5 5-9 Urine Specific [place] 1.025 H 1.016-1.022 Urine Protein 3+ H NEGATIVE Urine Glucose (UA) TRACE H NEGATIVE Urine Ketones TRACE H NEGATIVE Urine Nitrite NEGATIVE NEGATIVE Urine Bilirubin NEGATIVE NEGATIVE Urine Urobilinogen 1.0 < = 1.0 MG/DL Urine Leukocyte Esterase TRACE H NEGATIVE Urine RBC (Auto) 1+ H NEGATIVE Urine RBC 2-5 H /HPF Urine WBC 25-50 H /HPF Urine Crystals NONE /LPF Urine Bacteria FEW H /HPF Urine Casts PRESENT /LPF Urine Hyaline Casts 2-5 H /LPF Urine Mucus NEGATIVE /LPF Urine Other Sperm present /HPF Urine Culture Indicated YES Sodium Level 138 135-145 MMOL/L Potassium Level 4.7 3.6-5.0 MMOL/L Chloride Level 102 98-107 MMOL/L Carbon Dioxide Level 24 21-32 MMOL/L Anion Gap 12 5-14 MMOL/L Blood Urea Nitrogen 21 H 7-18 MG/DL Creatinine 1.91 H 0.60-1.30 MG/DL Estimat Glomerular Filtration Rate 42 BUN/Creatinine Ratio 11 Glucose Level 142 H 70-105 MG/DL Calcium Level 9.9 8.5-10.1 MG/DL Corrected Calcium 10.1 8.5-10.1 MG/DL Magnesium Level 1.8 1.6-2.4 MG/DL Total Bilirubin 0.4 0.1-1.0 MG/DL Aspartate Amino Transf (AST/SGOT) 16 5-34 U/L Alanine Aminotransferase (ALT/SGPT) 14 0-55 U/L Alkaline Phosphatase 86 40-136 U/L Total Protein 7.1 6.4-8.2 GM/DL Albumin 3.8 3.2-4.5 GM/DL Amylase Level 63 25-125 U/L Lipase 18 8-78 U/L Urine Opiates Screen NEGATIVE NEGATIVE Urine Oxycodone Screen NEGATIVE NEGATIVE Urine Methadone Screen NEGATIVE NEGATIVE Urine Propoxyphene Screen NEGATIVE NEGATIVE Urine Barbiturates Screen NEGATIVE NEGATIVE Ur Tricyclic Antidepressants Screen NEGATIVE NEGATIVE Urine Phencyclidine Screen NEGATIVE NEGATIVE Urine Amphetamines Screen NEGATIVE NEGATIVE Urine Methamphetamines Screen NEGATIVE NEGATIVE Urine Benzodiazepines Screen NEGATIVE NEGATIVE Urine Cocaine Screen NEGATIVE NEGATIVE Urine Cannabinoids Screen NEGATIVE NEGATIVE Serum Alcohol < 10 <10 MG/DL SARS-CoV-2 RNA (RT-PCR) Not Detected Not Detecte Smear Scan YES My Orders Orders - ADEOLA KRUSE APRN Chest 1 View, Ap/Pa Only (03/25/21 18:50) Lactated Ringers (Lr 1000 Ml Iv Solution (03/25/21 19:45) Hydrocodone/Apap 5/325 Tablet (Lortab 5 (03/25/21 19:45) Piperacillin Sodium/Tazobactam (Zosyn Vi (03/25/21 19:45) Vancomycin Injection (Vancomycin Injecti (03/25/21 19:45) Blood Culture (03/25/21 19:47) Lactic Acid Analyzer (03/25/21 19:47) Vancomycin Injection (Vancomycin Injecti (03/25/21 19:56) Ns (Ivpb) (Sodium Chloride 0.9%) (03/25/21 19:57) Medications Given in ED Current Medications Medications Dose Ordered Sig/Billie Route Start Time Stop Time Status Last Admin Dose Admin Acetaminophen/ Hydrocodone Bitart 1 ea ONCE ONCE PO 03/25/21 19:45 03/25/21 19:46 DC 03/25/21 20:22 1 EA Lactated Ringer's 1,000 ml @ 0 mls/hr Q0M ONCE IV 03/25/21 18:45 03/25/21 18:46 DC 03/25/21 18:48 999 MLS/HR Ondansetron HCl 4 mg ONCE ONCE IVP 03/25/21 18:45 03/25/21 18:46 DC 03/25/21 18:48 4 MG Piperacillin Sod/ Tazobactam Sod 4.5 gm/Sodium Chloride 100 ml @ 200 mls/hr ONCE ONCE IV 03/25/21 19:45 03/25/21 20:14 DC 03/25/21 20:22 200 MLS/HR Vital Signs/I&O 03/25/21 18:26 Temp 37.7 Pulse 117 Resp 17 B/P (MAP) 126/83 (97) O2 Delivery Room Air Blood Pressure Mean: 97 Diagnostic Imaging Diagonstic Imaging: Xray Plain Films/CT/US/NM/MRI: chest Comments NAME: CHANTE LOUISE MED REC#: [id number] PT STATUS: REG ER : 1990 PHYSICIAN: ADEOLA KRUSE APRN ADMIT DATE: 03/25/21/ER Signed Date of Exam:03/25/21 CHEST 1 VIEW, AP/PA ONLY EXAMINATION: Chest 1 view. HISTORY: Pain. COMPARISON: None available. FINDINGS: The lungs are clear without edema or pneumonia. No pleural effusion or pneumothorax. Heart size is normal. IMPRESSION: Clear lungs. Dictated by: Dictated on workstation # [id number] Dict: 03/25/211956 Trans: 03/25/212000 PJE [id number] Interpreted by: PAU RAMACHANDRAN MD Electronically signed by: PAU RAMACHANDRAN MD 03/25/212000 Departure Communication (Admissions) spoke with Dr. Bolanos will admit on meropenem and vancomycin. Impression Primary Impression: Urinary tract infection Additional Impression: Sepsis Disposition: ADMITTED INPATIENT Condition: Stable Admissions Decision to Admit Reason: Admit from ER (General) Decision to Admit/Date: Mar 25, 2021 Time/Decision to Admit Time: 20:31 Departure-Patient Inst. Referrals: [facility] (PCP/Family) Primary Care Physician ADEOLA KRUSE MATERIALS HANDLING EQUIPMENT OPERATOR Mar 25, 2021 18:45
[2021-03-25 19:09] LABS: BILIRUBIN,URINE NEGATIVE (NEGATIVE); CLARITY,URINE CLEAR; COLOR,URINE YELLOW; GLUCOSE, URINE (UA) TRACE (NEGATIVE); KETONES,URINE TRACE (NEGATIVE); LEUKOCYTE ESTERASE ,URINE TRACE (NEGATIVE); NITRITE,URINE NEGATIVE (NEGATIVE); PH,URINE 6.5 (5-9); PROTEIN,URINE 3+ (NEGATIVE)
[2021-03-25 19:15] LABS: BASOPHILS % (AUTO) 0 % (0-10); EOSINOPHILS % (AUTO) 0 % (0-10); HEMATOCRIT 40 % (40-54); HEMOGLOBIN 13.3 g/dL (13.3-17.7); LYMPHOCYTES # (AUTO) 1.3 10^3/uL (1.0-4.0); LYMPHOCYTES % (AUTO) 7 % (12-44); MEAN CORPUSCULAR HEMOGLOBIN 28 pg (25-34); MEAN CORPUSCULAR HGB CONC 33 g/dL (32-36); MEAN CORPUSCULAR VOLUME 85 fL (80-99); MEAN PLATELET VOLUME 11.1 fL (9.0-12.2); MONOCYTES # (AUTO) 1.4 10^3/uL (0.0-1.0); MONOCYTES % (AUTO) 8 % (0-12); NEUTROPHILS # (AUTO) 15.5 10^3/uL (1.8-7.8); NEUTROPHILS % (AUTO) 85 % (42-75); PLATELET COUNT 277 10^3/uL (130-400); WHITE BLOOD COUNT 18.2 10^3/uL (4.3-11.0)
[2021-03-25 19:17] LABS: WBC,URINE 25-50 /HPF
[2021-03-25 19:18] LABS: BACTERIA,URINE FEW /HPF
[2021-03-25 19:25] LABS: AMPHETAMINE SCREEN, URINE NEGATIVE (NEGATIVE); BARBITURATE SCREEN URINE NEGATIVE (NEGATIVE); BENZODIAZEPINES SCREEN URINE NEGATIVE (NEGATIVE); CANNABINOID SCREEN, URINE NEGATIVE (NEGATIVE); COCAINE SCREEN URINE NEGATIVE (NEGATIVE); METHADONE STAT NEGATIVE (NEGATIVE); METHAMPHETAMINE SCREEN URINE S NEGATIVE (NEGATIVE); OPIATE SCREEN URINE NEGATIVE (NEGATIVE); OXYCODONE STAT NEGATIVE (NEGATIVE); PROPOXYPHENE STAT NEGATIVE (NEGATIVE); TRICYCLIC ANTIDEPRESSANTS SCRE NEGATIVE (NEGATIVE)
[2021-03-25 19:39] LABS: SMEAR SCAN COMMENT YES
[2021-03-25 19:41] LABS: ALANINE AMINOTRANSFERASE 14 U/L (0-55); ALBUMIN 3.8 GM/DL (3.2-4.5); ALKALINE PHOSPHATASE 86 U/L (40-136); AMYLASE 63 U/L (25-125); BILIRUBIN,TOTAL 0.4 MG/DL (0.1-1.0); BUN/CREATININE RATIO 11; CALCIUM 9.9 MG/DL (8.5-10.1); CARBON DIOXIDE 24 MMOL/L (21-32); CHLORIDE 102 MMOL/L (98-107); CREATININE SERUM 1.91 MG/DL (0.60-1.30); GFR ESTIMATED 42; GLUCOSE 142 MG/DL (70-105); LIPASE 18 U/L (8-78); MAGNESIUM 1.8 MG/DL (1.6-2.4); POTASSIUM 4.7 MMOL/L (3.6-5.0); SODIUM 138 MMOL/L (135-145); TOTAL PROTEIN 7.1 GM/DL (6.4-8.2)
[2021-03-25] MEDS ORDERED: VANCOMYCIN INJECTION 1,000 MG in NS (IVPB) 250 ML IV SCH (19:45)
[2021-03-25] MEDS ORDERED: LACTATED RINGERS 1,000 ML IV SCH (19:45)
[2021-03-25] MEDS ORDERED: PIPERACILLIN SODIUM/TAZOBACTAM 4.5 GM in NS (IVPB) 100 ML IV ONE (19:45)
[2021-03-25] MEDS ORDERED: HYDROcodone/APAP 5 MG/325 MG (LORTAB) TAB PO ONE (19:45)
[2021-03-25] MEDS ORDERED: VANCOMYCIN 1000 MG/VIAL ONE (19:56)
[2021-03-25] MEDS ORDERED: NS (IVPB) 250 ML ONE (19:57)
--- NOTE | 2021-03-25 20:00 | Diagnostic Imaging Report ---
EXAMINATION: Chest 1 view. HISTORY: Pain. COMPARISON: None available. FINDINGS: The lungs are clear without edema or pneumonia. No pleural effusion or pneumothorax. Heart size is normal. IMPRESSION: Clear lungs. Dictated by: Dictated on workstation # [id number]
[2021-03-25] MEDS ORDERED: HYDROcodone/APAP 5 MG/325 MG (LORTAB) TAB PO PRN (21:30)
[2021-03-25 21:31] VITALS: BP 132/87
[2021-03-25] MEDS ORDERED: VANCOMYCIN 500 MG/NS 100 ML IV NR ×2 (22:00)
[2021-03-25] MEDS: LACTATED RINGERS 1,000 ML IV SCH (22:01)
[2021-03-25] MEDS: MEROPENEM 500 MG/SWFI 10 ML IV PUSH IV SCH ×2 (22:01)
[2021-03-25] MEDS: guaiFENesin/CODEINE (ROBITUSSIN AC) 10ML UDC PO PRN (22:50)
[2021-03-25] MEDS: inSUlin ASPART (NovoLOG) 1 UNIT/0.01 ML (CHARGE PER UNIT) SC SCH (23:07)
[2021-03-25 23:44] VITALS: BP 124/81
[2021-03-26 04:28] LABS: BASOPHILS % (AUTO) 0 % (0-10); EOSINOPHILS % (AUTO) 0 % (0-10); HEMATOCRIT 34 % (40-54); HEMOGLOBIN 11.4 g/dL (13.3-17.7); LYMPHOCYTES # (AUTO) 1.5 10^3/uL (1.0-4.0); LYMPHOCYTES % (AUTO) 12 % (12-44); MEAN CORPUSCULAR HEMOGLOBIN 29 pg (25-34); MEAN CORPUSCULAR HGB CONC 34 g/dL (32-36); MEAN CORPUSCULAR VOLUME 85 fL (80-99); MEAN PLATELET VOLUME 11.1 fL (9.0-12.2); MONOCYTES # (AUTO) 1.2 10^3/uL (0.0-1.0); MONOCYTES % (AUTO) 10 % (0-12); NEUTROPHILS # (AUTO) 9.5 10^3/uL (1.8-7.8); NEUTROPHILS % (AUTO) 78 % (42-75); PLATELET COUNT 234 10^3/uL (130-400); WHITE BLOOD COUNT 12.3 10^3/uL (4.3-11.0)
[2021-03-26] MEDS: MEROPENEM 500 MG/SWFI 10 ML IV PUSH IV SCH ×8 (04:45→22:02)
[2021-03-26 04:46] VITALS: BP 146/88
[2021-03-26] MEDS: LACTATED RINGERS 1,000 ML IV SCH ×3 (04:46→22:05)
[2021-03-26 04:48] LABS: POTASSIUM 4.2 MMOL/L (3.6-5.0)
[2021-03-26 04:49] LABS: CALCIUM 9.1 MG/DL (8.5-10.1)
[2021-03-26 04:53] LABS: CREATININE SERUM 1.86 MG/DL (0.60-1.30)
[2021-03-26] MEDS: inSUlin ASPART (NovoLOG) 1 UNIT/0.01 ML (CHARGE PER UNIT) SC SCH ×4 (06:30→19:24)
[2021-03-26 07:51] VITALS: BP 153/90
[2021-03-26] MEDS: VANCOMYCIN 1 GM/NS 250 ML IVPB IV SCH ×4 (09:04→22:02)
[2021-03-26] MEDS: guaiFENesin/CODEINE (ROBITUSSIN AC) 10ML UDC PO PRN ×4 (09:14→23:22)
[2021-03-26] MEDS ORDERED: INSU100I10 SQ (12:41)
[2021-03-26 13:17] VITALS: BP 151/97
--- NOTE | 2021-03-26 14:34 | History & Physical ---
HPI History of Present Illness: 30 yo M with known Type I DM that presented with abdominal pain, N/V and found to have UTI. States that he started to feel bad and then continued to get worse and that is why he came to ER. States that he had prostatitis in January and was transferred to for prostate abscess and had a trans prostate I&D. States that his blood sugars have been controlled. Not sure what his last A1c was. States that his pain has improved. Source: patient Exam Limitations: no limitations Date seen by provider: Mar 26, 2021 Time Seen by Provider: 09:15 Attending Physician Hollie Bolanos DO [facility] Consult Date of Admission Mar 25, 2021 at 20:16 Home Medications Home Medications Reviewed patient Home Medication Reconciliation performed by pharmacy medication reconciliations industrial engineering technician and/or nursing. Patients Allergies have been reviewed. Allergies Coded Allergies: No Known Drug Allergies (Unverified , 02/05/21) DCZ-Tifjbk-Hauvwm Hx Patient Social History Drug of Choice: METH, MARIJUANA--SMOKES METH, DENIES IV USE Smoking Status: Current Everyday Smoker Former smoker/When Quit: Jan 18, 2011 2nd Hand Smoke Exposure: Yes Recent Hopitalizations: No Alcohol Use?: No Substance type: Marijuana Tobacco type used: Cigarettes Have you traveled recently?: No Immunizations Up To Date Tetanus Booster (TDap): Unknown Date of Pneumonia Vaccine: February 22, 2014 Date of Influenza Vaccine: Jun 22, 2020 Past Medical History Type I Diabetes, diagnosed age 9 Hx MRSA infection Polysubstance Abuse - THC, Meth Tobacco Abuse Medical Non-Compliance Family Medical History Significant Family History: No Pertinent Family Hx Other Significan Family Hx: SOCIAL HISTORY: -ETOH--OCCASIONAL USE -DRUGS--+ THC AND METH USE--CLAIMS HE SMOKES METH, DENIES IV DRUG USE -SMOKES 1 PPD PAST SURGICAL HISTORY: -RIGHT FOREARM FX/ORIF WITH HARDWARE Family History: Cancer 03 FATHER, Onset:Unknown Family history: Diabetes mellitus 03 FATHER, Onset:Unknown Review of Systems ([facility]) Constitutional: no symptoms reported, malaise, weakness EENTM: no symptoms reported Respiratory: no symptoms reported, cough; No dyspnea on exertion, No short of breath Cardiovascular: no symptoms reported; No chest pain, No edema, No palpitations Gastrointestinal: abdominal pain; No constipation, No diarrhea; nausea; No vomiting Genitourinary: no symptoms reported; No dysuria, No frequency, No hematuria Musculoskeletal: no symptoms reported; No back pain, No joint pain, No muscle pain Skin: no symptoms reported; No lesions, No rash Psychiatric/Neurological: No Symptoms Reported Reviewed Test Results Reviewed Test Results Lab Laboratory Tests Test 03/25/21 18:56 03/25/21 20:20 03/26/21 04:11 Range/Units White Blood Count 18.2 H 12.3 H 4.3-11.0 10^3/uL Red Blood Count 4.75 3.98 L 4.30-5.52 10^6/uL Hemoglobin 13.3 11.4 L 13.3-17.7 g/dL Hematocrit 40 34 L 40-54 % Mean Corpuscular Volume 85 85 80-99 fL Mean Corpuscular Hemoglobin 28 29 25-34 pg Mean Corpuscular Hemoglobin Concent 33 34 32-36 g/dL Red Cell Distribution Width 13.8 13.7 10.0-14.5 % Platelet Count 277 234 130-400 10^3/uL Mean Platelet Volume 11.1 11.1 9.0-12.2 fL Immature Granulocyte % (Auto) 0 0 % Neutrophils (%) (Auto) 85 H 78 H 42-75 % Lymphocytes (%) (Auto) 7 L 12 12-44 % Monocytes (%) (Auto) 8 10 0-12 % Eosinophils (%) (Auto) 0 0 0-10 % Basophils (%) (Auto) 0 0 0-10 % Neutrophils # (Auto) 15.5 H 9.5 H 1.8-7.8 10^3/uL Lymphocytes # (Auto) 1.3 1.5 1.0-4.0 10^3/uL Monocytes # (Auto) 1.4 H 1.2 H 0.0-1.0 10^3/uL Eosinophils # (Auto) 0.0 0.0 0.0-0.3 10^3/uL Basophils # (Auto) 0.0 0.0 0.0-0.1 10^3/uL Immature Granulocyte # (Auto) 0.1 0.0 0.0-0.1 10^3/uL Urine Color YELLOW Urine Clarity CLEAR Urine pH 6.5 5-9 Urine Specific [place] 1.025 H 1.016-1.022 Urine Protein 3+ H NEGATIVE Urine Glucose (UA) TRACE H NEGATIVE Urine Ketones TRACE H NEGATIVE Urine Nitrite NEGATIVE NEGATIVE Urine Bilirubin NEGATIVE NEGATIVE Urine Urobilinogen 1.0 < = 1.0 MG/DL Urine Leukocyte Esterase TRACE H NEGATIVE Urine RBC (Auto) 1+ H NEGATIVE Urine RBC 2-5 H /HPF Urine WBC 25-50 H /HPF Urine Crystals NONE /LPF Urine Bacteria FEW H /HPF Urine Casts PRESENT /LPF Urine Hyaline Casts 2-5 H /LPF Urine Mucus NEGATIVE /LPF Urine Other Sperm present /HPF Urine Culture Indicated YES Sodium Level 138 141 135-145 MMOL/L Potassium Level 4.7 4.2 3.6-5.0 MMOL/L Chloride Level 102 104 98-107 MMOL/L Carbon Dioxide Level 24 26 21-32 MMOL/L Anion Gap 12 11 5-14 MMOL/L Blood Urea Nitrogen 21 H 24 H 7-18 MG/DL Creatinine 1.91 H 1.86 H 0.60-1.30 MG/DL Estimat Glomerular Filtration Rate 42 43 BUN/Creatinine Ratio 11 13 Glucose Level 142 H 217 H 70-105 MG/DL Calcium Level 9.9 9.1 8.5-10.1 MG/DL Corrected Calcium 10.1 8.5-10.1 MG/DL Magnesium Level 1.8 1.6-2.4 MG/DL Total Bilirubin 0.4 0.1-1.0 MG/DL Aspartate Amino Transf (AST/SGOT) 16 5-34 U/L Alanine Aminotransferase (ALT/SGPT) 14 0-55 U/L Alkaline Phosphatase 86 40-136 U/L Total Protein 7.1 6.4-8.2 GM/DL Albumin 3.8 3.2-4.5 GM/DL Amylase Level 63 25-125 U/L Lipase 18 8-78 U/L Urine Opiates Screen NEGATIVE NEGATIVE Urine Oxycodone Screen NEGATIVE NEGATIVE Urine Methadone Screen NEGATIVE NEGATIVE Urine Propoxyphene Screen NEGATIVE NEGATIVE Urine Barbiturates Screen NEGATIVE NEGATIVE Ur Tricyclic Antidepressants Screen NEGATIVE NEGATIVE Urine Phencyclidine Screen NEGATIVE NEGATIVE Urine Amphetamines Screen NEGATIVE NEGATIVE Urine Methamphetamines Screen NEGATIVE NEGATIVE Urine Benzodiazepines Screen NEGATIVE NEGATIVE Urine Cocaine Screen NEGATIVE NEGATIVE Urine Cannabinoids Screen NEGATIVE NEGATIVE Serum Alcohol < 10 <10 MG/DL SARS-CoV-2 RNA (RT-PCR) Not Detected Not Detecte Smear Scan YES Lactic Acid Level 1.21 0.50-2.00 MMOL/L Physical Exam-([facility]) Physical Exam Vital Signs VS - Last 72 Hours, by Label 03/25/21 03/25/21 03/25/21 03/25/21 18:26 21:10 21:30 21:31 Temp 37.7 37.8 Pulse 117 76 101 Resp 17 17 20 B/P (MAP) 126/83 (97) 160/91 132/87 (102) Pulse Ox 99 97 O2 Delivery Room Air Room Air Room Air 03/25/21 03/25/21 03/26/21 03/26/21 21:45 23:44 00:00 04:15 Temp 37.4 Pulse 102 91 Resp 20 B/P (MAP) 124/81 (95) Pulse Ox 94 97 O2 Delivery Room Air Room Air Room Air Room Air 03/26/21 03/26/21 03/26/21 03/26/21 04:46 07:51 08:00 12:00 Temp 36.2 37.3 Pulse 87 90 Resp 18 18 B/P (MAP) 146/88 (107) 153/90 (111) Pulse Ox 98 97 O2 Delivery Room Air Room Air Room Air Room Air 03/26/21 13:17 Temp 37.4 Pulse 95 Resp 20 B/P (MAP) 151/97 (115) Pulse Ox 97 O2 Delivery Room Air Capillary Refill : Less Than 3 Seconds General Appearance: WD/WN, no apparent distress, thin HEENT: PERRL/EOMI Neck: non-tender, full range of motion, supple Respiratory: chest non-tender, lungs clear, normal breath sounds, no respiratory distress, no accessory muscle use Cardiovascular: normal peripheral pulses, regular rate, rhythm, no edema, no murmur Gastrointestinal: normal bowel sounds, soft, tenderness (mild epigastric pain) Back: no CVA tenderness, no vertebral tenderness Extremities: normal range of motion, no pedal edema, no calf tenderness, normal capillary refill Neurologic/Psychiatric: facility security officer II-XII nml as tested, no motor/sensory deficits, alert, normal mood/affect, oriented x 3 Skin: normal color, warm/dry Lymphatic: no adenopathy Assessment/Plan Assessment/Plan Admission Status: Inpatient Order (span 2 midnights) Reason for Inpatient Admission: Required insulin drip and IV fluids (1) Sepsis Status: Resolved Assessment & Plan: - HDS, decreased IVFs, continue IV antibiotics Qualifiers: Qualified Codes: A41.9 - Sepsis, unspecified organism; R65.20 - Severe sepsis without septic shock; N17.9 - Acute kidney failure, unspecified (2) Urinary tract infection Status: Acute Assessment & Plan: - Continue IV antibiotics to cover for MRSA due to recent prostatitis Qualifiers: Qualified Codes: N30.01 - Acute cystitis with hematuria (3) Type I diabetes Status: Chronic (4) CKD (chronic kidney disease), stage III Status: Acute Assessment & Plan: - Monitor daily Cr Qualifiers: Qualified Codes: N18.31 - Chronic kidney disease, stage 3a (5) HTN (hypertension) Status: Chronic Assessment & Plan: - Restart home meds Qualifiers: Qualified Codes: I10 - Essential (primary) hypertension Copy Copies To 1: Oleg KING HOLLY R MD Mar 26, 2021 14:34
--- NOTE | 2021-03-26 15:04 | CONSULTATION REPORT ---
DATE OF SERVICE: 03/26/2021 ATTENDING PHYSICIANS: ____/Dr. Bolanos. SUMMARY: A 30-year-old white man with type 1 diabetes, who was here back in January with a prostatic abscess, was sent to , underwent unroofing of the abscess and IV antibiotic, followed by two weeks of p.o. antibiotic. He was also given Flomax, which he finished and some medication for bladder spasms. He started having some vague symptoms first and then some dysuria, so he came to the hospital, was admitted and started on meropenem and vancomycin by Dr. Bolanos. He is afebrile. His white count is normal. He does have chronic kidney disease secondary to his diabetes. IMPRESSION: Urinary tract infection with history of prostatic abscess, possible chronic prostatitis. RECOMMENDATIONS: Check with [facility], essentially whoever treated him there for possible usage of long-term suppressive antibiotic as well as continue the Flomax and/or add Proscar. Thank you for letting me participate in the care of this patient. We will see him on a p.r.n. basis. Job ID: [id number] DocumentID: [id number] Dictated Date: 03/26/2021 09:23:44 Slip Laster Date: 03/26/2021 14:43:21 Dictated By: JOE IZAGUIRRE MD
[2021-03-26 16:00] VITALS: BP 144/81
[2021-03-26 19:53] VITALS: BP 155/90
[2021-03-26 23:22] VITALS: BP 160/95
[2021-03-27 04:49] LABS: BASOPHILS % (AUTO) 0 % (0-10); EOSINOPHILS # (AUTO) 0.1 10^3/uL (0.0-0.3); EOSINOPHILS % (AUTO) 2 % (0-10); HEMATOCRIT 31 % (40-54); HEMOGLOBIN 10.2 g/dL (13.3-17.7); LYMPHOCYTES # (AUTO) 1.5 10^3/uL (1.0-4.0); LYMPHOCYTES % (AUTO) 18 % (12-44); MEAN CORPUSCULAR HEMOGLOBIN 28 pg (25-34); MEAN CORPUSCULAR HGB CONC 33 g/dL (32-36); MEAN CORPUSCULAR VOLUME 85 fL (80-99); MEAN PLATELET VOLUME 11.1 fL (9.0-12.2); MONOCYTES % (AUTO) 12 % (0-12); NEUTROPHILS # (AUTO) 5.7 10^3/uL (1.8-7.8); NEUTROPHILS % (AUTO) 68 % (42-75); PLATELET COUNT 209 10^3/uL (130-400); WHITE BLOOD COUNT 8.4 10^3/uL (4.3-11.0)
[2021-03-27 04:50] VITALS: BP 146/90
[2021-03-27] MEDS: MEROPENEM 500 MG/SWFI 10 ML IV PUSH IV SCH ×4 (04:50→09:46)
[2021-03-27 05:18] LABS: ALBUMIN 3.1 GM/DL (3.2-4.5); BILIRUBIN,TOTAL 0.2 MG/DL (0.1-1.0); CALCIUM 9.1 MG/DL (8.5-10.1); CREATININE SERUM 1.52 MG/DL (0.60-1.30); POTASSIUM 3.9 MMOL/L (3.6-5.0); TOTAL PROTEIN 5.7 GM/DL (6.4-8.2)
[2021-03-27] MEDS: inSUlin ASPART (NovoLOG) 1 UNIT/0.01 ML (CHARGE PER UNIT) SC SCH ×2 (06:47→10:54)
[2021-03-27] MEDS: guaiFENesin/CODEINE (ROBITUSSIN AC) 10ML UDC PO PRN ×2 (06:55→10:46)
[2021-03-27 07:45] VITALS: BP 154/95
[2021-03-27] MEDS ORDERED: TROUGH ORDER-PHARMACY XX NR (08:00)
[2021-03-27] MEDS: LACTATED RINGERS 1,000 ML IV SCH (08:05)
[2021-03-27] MEDS: VANCOMYCIN 1 GM/NS 250 ML IVPB IV SCH ×2 (08:44)
[2021-03-27] MEDS ORDERED: BENZONATATE 100 MG (TESSALON) CAPSULE PO SCH (11:00)
--- NOTE | 2021-03-27 11:26 | Discharge Summary ---
Diagnosis/Chief Complaint Date of Admission Mar 25, 2021 at 20:16 Date of Discharge Discharge Diagnosis Problems/Diagnosis: (1) Sepsis Assessment & Plan: - HDS, decreased IVFs, continue IV antibiotics Qualifiers: Qualified Codes: A41.9 - Sepsis, unspecified organism; R65.20 - Severe sepsis without septic shock; N17.9 - Acute kidney failure, unspecified Status: Resolved Resolution Date/Time: 01/18/21 @ 11:42 (2) Urinary tract infection Assessment & Plan: - Continue IV antibiotics to cover for MRSA due to recent prostatitis Qualifiers: Qualified Codes: N30.01 - Acute cystitis with hematuria Status: Acute (3) Type I diabetes Status: Chronic (4) CKD (chronic kidney disease), stage III Assessment & Plan: - Monitor daily Cr Qualifiers: Qualified Codes: N18.31 - Chronic kidney disease, stage 3a Status: Acute (5) HTN (hypertension) Assessment & Plan: - Restart home meds Qualifiers: Qualified Codes: I10 - Essential (primary) hypertension Status: Chronic Chief Complaint/HPI Chief Complaint/HPI 30 yo M with known Type I DM that presented with abdominal pain, N/V and found to have UTI. States that he started to feel bad and then continued to get worse and that is why he came to ER. States that he had prostatitis in January and was transferred to for prostate abscess and had a trans prostate I&D. States that his blood sugars have been controlled. Not sure what his last A1c was. States that his pain has improved. Discharge Summary-Simple/Stand Consultations Discharge Physical Examination Allergies: Coded Allergies: No Known Drug Allergies (Unverified , 02/05/21) Vitals & I&Os Vital Sign - Last 12Hours Date Time Temp Pulse Resp B/P (MAP) Pulse Ox O2 Delivery O2 Flow Rate FiO2 03/27/21 08:38 Room Air 03/27/21 07:45 37.0 92 14 154/95 (114) 93 Intake and Output 03/27/21 00:00 Intake Total 4230 ml Output Total 1450 ml Balance 2780 ml Hospital Course See final discharge diagnosis. Discharge Instructions to patient/family Please see electronic discharge instructions given to patient. Discharge Medications Reviewed and agree with Discharge Medication list on patient's Discharge Instruction sheet PAT HERNANDEZ MD Mar 27, 2021 11:26
[2021-03-27] MEDS ORDERED: LEVO500T80 PO (11:30)
[2021-03-27] MEDS ORDERED: AZIT250T12 PO (11:30)
[2021-03-27] MEDS ORDERED: BENZ100C18 PO (11:30)
--- NOTE | 2021-03-27 11:31 | Discharge Summary ---
Discharge [facility] Reconcile Patient Problems Problems Reviewed?: Yes Discharge Medications New, Converted or Re-Newed RX: Transmitted to Pharmacy New Medications: Azithromycin (Azithromycin) 250 Mg Tablet 250 MG PO DAILY, #6 TAB 2 Tabs day 1 then 1 tab x 4 days Levofloxacin (Levofloxacin) 500 Mg Tablet 500 MG PO DAILY, #7 TAB Benzonatate (Tessalon Perles) 100 Mg Capsule 100 MG PO TID, #30 CAP Continued Medications: Insulin Aspart (Novolog Flexpen) 300 Units/3 Ml Solution 15-20 UNITS SQ AC, EA LAST FILLED 01-09-2021 #5 PENS/25 DAY SUPPLY Insulin Glargine,Hum.rec.anlog (Lantus Solostar) 100 Unit/1 Ml Insuln.pen 36 UNIT SQ HS, EA Discontinued Medications: Ibuprofen (Ibuprofen) 200 Mg Tablet 400 MG PO Q8H PRN for PAIN-MILD (1-4), TAB Patient Instructions Goal/Follow Up Appt: F/u 1 week with Oleg Morales Activity & Diet Discharge Diet: ADA Diet Activity as Tolerated: Yes PAT HERNANDEZ MD Mar 27, 2021 11:31
[2021-03-27 12:13] VITALS: BP 154/95
== END 2021-03-27 12:05 | disposition home or self-care (01) | DRG 872 ==
LOC: EDUNIT# 18:11 → ER 18:15 → CSD 20:16
PROVIDERS: ADMIT Internal Medicine; ATTEND Family Medicine
DX: A41.02 Sepsis due to Methicillin resistant Staphylococcus aureus (principal); N39.0 Urinary tract infection, site not specified; E10.22 Type 1 diabetes mellitus with diabetic chronic kidney disease; I12.9 Hypertensive chronic kidney disease with stage 1 through stage 4 chronic kidney disease, or unspecified chronic kidney disease; F17.210 Nicotine dependence, cigarettes, uncomplicated; N18.31 Chronic kidney disease, stage 3a; E10.40 Type 1 diabetes mellitus with diabetic neuropathy, unspecified; E78.00 Pure hypercholesterolemia, unspecified; Z20.822 Contact with and (suspected) exposure to COVID-19; F15.10 Other stimulant abuse, uncomplicated; F12.10 Cannabis abuse, uncomplicated; Z83.3 Family history of diabetes mellitus; Z79.4 Long term (current) use of insulin; Z79.2 Long term (current) use of antibiotics
CPT/HCPCS: 36415; 71045; 80048; 80053; 80202; 80306; 80320; 81000; 82150; 83036; 83605; 83690; 83735; 85025; 87040; 87077; 87088; 87186; 87636